=== PATIENT | female | born 1950 | race Hispanic/Latino ===

== ENCOUNTER 2017-05-24 10:49 | Inpatient (IN) | payer MEDICAID ==
[~2017-05-24] VITALS: Ht 152.4 cm; Wt 49.9 kg
[~2017-05-24 10:49] MED LIST: ACETAMINOPHEN500 M5 PO; ACYCLOVIR400 MG GT; APRESOLINE10 MG ORAL; BENADRYL12.5 M1 PO; CARAFATE1 G1 ORAL; COLACE50 MG ORAL; CORTEF10 MG ORAL; CYMBALTA30 MG ORAL; DEPAKOTE250 MG PO; DEPAKOTE500 MG PO; DILAUDID4 MG/ML SQ; DSS250 MG ORAL; DULCOLAX10 MG RC; FERROUS SU300 MG/5 M GT; FLEET ENEMA133 ML RECTAL; FLORINEF0.1 MG ORAL; FOLIC ACID1 MG PO; HYDRALAZINE HCL10 MG ORAL; IMODIUM2 MG GT; KEPPRA LIQ100 MG/1 M GT; KEPPRA500 MG ORAL; KLONOPIN1 MG ORAL; LAMICTAL200 MG ORAL; LEVOTHYROXINE100 MCG ORAL; LIPOFLAVOVIT C1 EACH PO; LORAZEPAM0.5 MG ORAL; LYRICA75 M1 ORAL; METOPROLOL TART25 MG GT; METOPROLOL TART50 M1 ORAL; MIDODRINE HCL10 MG ORAL; MILK OF MA400 MG/51 ORAL; MIRALAX17 G2 ORAL; MIRTAZAPINE15 MG ORAL; MOM30 ML ORAL; MULTIVITAMINS1 EA13 ORAL; MULTIVITAMINS1 EA14 PO; NEXIUM40 MG ORAL; OSCAL D500 MG PO; PEPCID20 M1 *; PEPCID20 MG ORAL; PROTEIN; RANITIDINE HCL150 MG ORAL; REMERON15 MG ORAL; SULFASALAZINE500 MG ORAL; SYNTHROID150 MCG ORAL; TRAMADOL HCL50 MG PO; TYLENOL ARTHRI650 M1 PO; WELLBUTRIN100 MG ORAL; ZOFRAN4 MG ORAL; [UNRECOGNIZED DRUG - REMARK]; dulcolax supp RC
[2017-05-24 11:02] VITALS: BP 162/106
[2017-05-24 11:57] LABS: BASOPHILS % (AUTO) 0.9 % (0.0-2.0); EOSINOPHILS % (AUTO) 0.9 % (0.0-3.0); LYMPHOCYTES % (AUTO) 17.5 % (20.0-45.0); MEAN CORPUSCULAR HEMOGLOBIN 32.7 PG (27.0-31.0); MEAN CORPUSCULAR HGB CONC 33.4 G/DL (32.0-36.0); MEAN CORPUSCULAR VOLUME 98 FL (80-99); MEAN PLATELET VOLUME 5.6 FL (6.5-10.1); NEUTROPHILS % (AUTO) 70.7 % (45.0-75.0); PLATELET COUNT 150 K/UL (150-450); RED BLOOD COUNT 4.02 M/UL (4.20-5.40); RED CELL DISTRIBUTION WIDTH 12.1 % (11.6-14.8); WHITE BLOOD COUNT 7.2 K/UL (4.8-10.8)
[2017-05-24 12:06] LABS: APPEARANCE,URINE CLEAR; KETONES,URINE NEGATIVE (NEGATIVE); LEUKOCYTE ESTERASE ,URINE NEGATIVE (NEGATIVE); NITRITE,URINE NEGATIVE (NEGATIVE); PH,URINE 8 (4.5-8.0); PROTEIN,URINE NEGATIVE (NEGATIVE); UROBILINOGEN,URINE NORMAL MG/DL (0.0-1.0)
[2017-05-24 12:10] LABS: PROTHROMBIN TIME 10.1 SEC (9.30-11.50)
[2017-05-24 12:15] LABS: TROPONIN I < 0.30 ng/mL (<=0.30)
[2017-05-24 12:26] LABS: CKMB 3.2 ng/mL (< 3.8)
--- NOTE | 2017-05-24 12:27 | Emergency Room Report ---
History of Present Illness General Chief Complaint: Multiple Trauma/Fall Source: Medical Record, EMS Present Illness HPI Patient presents with complaints of facial trauma Patient herself has underlying dementia Not able to provide appropriate history The patient's history from the nursing facility is also limited there was a report of a possible fall However I am not able to confirm this and the patient is fairly major trauma to the for head area no obvious trauma to the forearm the hands raising the concern of a possible syncope There was no reports of vomiting Unknown regarding lapse of consciousness Allergies: Coded Allergies: CIPROFLOXACIN (Verified Allergy, Unknown, 10/02/13) HYDROCODONE (Verified Allergy, Unknown, 10/02/13) PENICILLINS (Verified Allergy, Unknown, 10/02/13) PROCHLORPERAZINE (Verified Allergy, Unknown, 10/02/13) Patient History Limited by: medical condition Past Medical History: see triage record Pertinent Family History: unable to obtain Reviewed Nursing Documentation: PMH: Agreed, PSxH: Agreed Nursing Documentation-PMH Hx Cardiac Problems: Yes Hx Hypertension: Yes Hx Pacemaker: No - gerd, seizure, dm, anemia, ftt, hyperlipidemia, mood dx Hx Asthma: No - pna, sepsis, resp insuff., neuropathy, hypothyroidsm, Hx Diabetes: Yes Hx Cancer: No Hx Gastrointestinal Problems: Yes Hx Neurological Problems: No Hx Cerebrovascular Accident: Yes Hx Seizures: Yes Review of Systems All Other Systems: limited - Other than the ones mentioned in the history of present illness all others are reviewed however they do stay limited due to the patient's mental status Physical Exam Vital Signs Date Time Temp Pulse Resp B/P Pulse Ox O2 Delivery O2 Flow Rate FiO2 05/24/17 10:50 97.5 102 18 160/88 98 Room Air Sp02 EP Interpretation: reviewed, normal General Appearance: no apparent distress Head: other - Patient has obvious mid fore head facial trauma, raccoon eye appearance, no obvious septal hematomas however there is crusting of blood showing signs of previous epistaxis no active bleeding at this time Eyes: bilateral eye EOMI, bilateral eye PERRL ENT: hearing grossly normal, normal pharynx, TMs + canals normal, uvula midline Neck: full range of motion, supple, no meningismus, no bony tend Respiratory: lungs clear, normal breath sounds, no rhonchi, no respiratory distress, no retraction, no accessory muscle use Cardiovascular #1: normal peripheral pulses, regular rate, rhythm, no edema, no gallop, no JVD, no murmur Gastrointestinal: normal bowel sounds, non tender, soft, no mass, no organomegaly, non-distended, no guarding, no hernia, no pulsatile mass, no rebound Genitourinary: no CVA tenderness Musculoskeletal: other - No obvious focal deficit in both upper or lower extremities patient has not follow commands however Neurologic: responsive, motor strength/tone normal, sensory intact Psychiatric: mood/affect normal Skin: warm/dry, palpation normal, other - Ecchymosis mid facial area bilateral raccoon eyes Lymphatic: normal inspection, no adenopathy Medical Decision Making Diagnostic Impression: Primary Impression: Syncope Additional Impressions: Pleural effusion Facial trauma Nasal bones, closed fracture ER Course Given the patient's unclear presentation Multiple differentials initiated with possible workup of syncope versus a chemical fall Consideration for facial trauma is made Patient's x-ray shows left-sided questionable effusion This can also be related to trauma No obvious pneumothorax or fractures however CT facial does reveal nasal bone fracture which correlates clinically, no obvious signs of open laceration of her Patient blood work is essentially at baseline levels At this time requiring admission for further care Labs Test 05/24/17 11:14 05/24/17 11:30 Urine Color Pale yellow Urine Appearance Clear Urine pH 8 (4.5-8.0) Urine Specific [place] 1.010 (1.005-1.035) Urine Protein Negative (NEGATIVE) Urine Glucose (UA) Negative (NEGATIVE) Urine Ketones Negative (NEGATIVE) Urine Occult Blood Negative (NEGATIVE) Urine Nitrite Negative (NEGATIVE) Urine Bilirubin Negative (NEGATIVE) Urine Urobilinogen Normal MG/DL (0.0-1.0) Urine Leukocyte Esterase Negative (NEGATIVE) White Blood Count 7.2 K/UL (4.8-10.8) Red Blood Count 4.02 M/UL (4.20-5.40) Hemoglobin 13.2 G/DL (12.0-16.0) Hematocrit 39.3 % (37.0-47.0) Mean Corpuscular Volume 98 FL (80-99) Mean Corpuscular Hemoglobin 32.7 PG (27.0-31.0) Mean Corpuscular Hemoglobin Concent 33.4 G/DL (32.0-36.0) Red Cell Distribution Width 12.1 % (11.6-14.8) Platelet Count 150 K/UL (150-450) Mean Platelet Volume 5.6 FL (6.5-10.1) Neutrophils (%) (Auto) 70.7 % (45.0-75.0) Lymphocytes (%) (Auto) 17.5 % (20.0-45.0) Monocytes (%) (Auto) 10.0 % (1.0-10.0) Eosinophils (%) (Auto) 0.9 % (0.0-3.0) Basophils (%) (Auto) 0.9 % (0.0-2.0) Prothrombin Time 10.1 SEC (9.30-11.50) Prothromb Time International Ratio 1.0 (0.9-1.1) Activated Partial Thromboplast Time 31 SEC (23-33) Sodium Level 133 mEQ/L (135-145) Potassium Level 4.3 mEQ/L (3.4-4.9) Chloride Level 92 mEQ/L (98-107) Carbon Dioxide Level 31 mEQ/L (20-30) Anion Gap 10 (5-15) Blood Urea Nitrogen 14 mg/dL (7-23) Creatinine 0.4 mg/dL (0.5-0.9) Estimat Glomerular Filtration Rate > 60 mL/min (>60) Glucose Level 93 mg/dL (74-106) Calcium Level 9.4 mg/dL (8.6-10.2) Total Bilirubin 0.3 mg/dL (0.0-1.2) Aspartate Amino Transf (AST/SGOT) 30 U/L (5-40) Alanine Aminotransferase (ALT/SGPT) 7 U/L (3-33) Alkaline Phosphatase 93 U/L (35-104) Total Creatine Kinase 74 U/L (26-140) Creatine Kinase MB 3.2 ng/mL (< 3.8) Creatine Kinase MB Relative Index 4.3 Troponin I < 0.30 ng/mL (<=0.30) Pro-B-Type Natriuretic Peptide 1366 pg/mL (0-125) Total Protein 7.7 g/dL (6.6-8.7) Albumin 4.3 g/dL (3.5-5.2) Globulin 3.4 g/dL Albumin/Globulin Ratio 1.2 (1.0-2.7) Lipase 27 U/L (< 60) Rhythm Strip Diag. Results EP Interpretation: yes Rate: 95 Rhythm: NSR, no PVC's, no ectopy, other - rbbb Chest X-Ray Diagnostic Results Chest X-Ray Diagnostic Results : Chest X-Ray Ordered: Yes # of Views/Limited/Complete: 1 View Indication: Chest Pain EP Interpretation: Yes Interpretation: no pneumothorax, other - Left-sided haziness questionable effusion versus other, no obvious bony fracture heart size normal Impression: Other - Left-sided effusion Interpreting ER Provider: mindy zhao, DO CT/MRI/US Diagnostic Results CT/MRI/US Diagnostic Results : Impression CT head:mastoid disease acute vs chronic , no obvious hemorrhage, possible nasal bone fracture CT facial:IMPRESSION: Comminuted fracture of the nasal bone. Overlying soft tissue swelling. Associated subcutaneous gas likely secondary to communication with nasal passages. Open fracture not excludable. Correlate clinically. Paranasal sinus disease--metastases versus inflammatory versus combination Development of left mastoid, middle ear cavities disease, most likely inflammatory, may be acute Last Vital Signs Date Time Temp Pulse Resp B/P Pulse Ox O2 Delivery O2 Flow Rate FiO2 05/24/17 11:02 97.5 90 26 162/106 100 Room Air Status: improved Disposition: ADMITTED INPATIENT Condition: Serious Referrals: Mindy Bryan MD (PCP) MINDY ZHAO D.O. May 24, 2017 12:27
[2017-05-24 12:30] LABS: ALANINE AMINOTRANSFERASE 7 U/L (3-33); ALBUMIN/GLOBULIN RATIO 1.2 (1.0-2.7); ANION GAP 10 (5-15); ASPARTATE AMINO TRANSFERASE 30 U/L (5-40); CALCIUM 9.4 mg/dL (8.6-10.2); CARBON DIOXIDE 31 mEQ/L (20-30); CHLORIDE 92 mEQ/L (98-107); CREATININE 0.4 mg/dL (0.5-0.9); GLOMERULAR FILTRATION RATE > 60 mL/min (>60); HEMOLYSIS 1; LIPASE 27 U/L (< 60); POTASSIUM 4.3 mEQ/L (3.4-4.9); SODIUM 133 mEQ/L (135-145); TOTAL PROTEIN 7.7 g/dL (6.6-8.7)
--- NOTE | 2017-05-24 13:02 | Diagnostic Imaging Report ---
Indications: Fall, left-sided head injury Technique: Continuous helical CT imaging of the brain was performed with automatic exposure control on a Siemens sensation [address] scanner. Axial and coronal images were reconstructed at 5 mm slice thickness and interval. CTDI volume(s): 70 mGy Total DLP: 1291 mGy-cm Findings: Comparison: 06/24/15 Old lacunar infarcts bilateral cerebellar hemispheres and right frontal deep white matter, chronic microvascular ischemic changes bilateral periventricular white matter, focal calcification right frontal cortex versus overlying meninges, diffuse atrophy, prominent bilateral convexity chronic subdural fluid collections right greater than left with mild mass effect unchanged.. No evidence of mass or acute hemorrhage, other new attenuation abnormality, mass effect, midline shift, hydrocephalus or increased intracranial pressure. Bone window images are unremarkable. Pre-nasal soft tissues are swollen with small gas bubble. Increased opacification of bilateral anterior ethmoid sinuses. Air-fluid level left sphenoid sinus. New opacification of left mastoid air cells and left middle ear cavity. Remainder visualized paranasal sinuses, right mastoid air cells clear. IMPRESSION: Nasal soft tissue swelling. Fracture not excludable. Increase in sinus disease, likely inflammatory, though may be traumatic. Development of left mastoid air cell and middle ear cavity opacification most likely inflammatory, possibly acute. No evidence of acute intracranial pathology Stable chronic intracranial changes as described The CT scanner at [facility] is accredited by the [employer] and the scans are performed using protocols designed to limit radiation exposure to as low as reasonably achievable to attain images of sufficient resolution adequate for diagnostic evaluation.
--- NOTE | 2017-05-24 13:05 | Diagnostic Imaging Report ---
Indications: Fall, facial injury, pain Technique: Continuous helical CT imaging of the face was performed with automatic exposure control on a Siemens sensation [address] scanner. Axial and coronal images were reconstructed at 3 mm slice thickness. CTDI volume(s): 28.2 mGy Total DLP: 521 mGy-cm Findings: Comparison: None There is a comminuted, displaced fracture of the nasal bone. Overlying soft tissues are swollen with small gas bubbles. No additional fracture identified. Bilateral anterior ethmoid sinus air cells partially opacified with air-fluid levels. Additional air-fluid level in left sphenoid sinus. Left mastoid air cells nearly completely opacified with air-fluid level. Partial opacification of left middle ear cavity. Remainder of paranasal sinuses, right mastoid air cells clear. Orbital anatomy intact bilaterally. Remaining superficial soft tissues unremarkable. IMPRESSION: Comminuted fracture of the nasal bone. Overlying soft tissue swelling. Associated subcutaneous gas likely secondary to communication with nasal passages. Open fracture not excludable. Correlate clinically. Paranasal sinus disease--metastases versus inflammatory versus combination Development of left mastoid, middle ear cavities disease, most likely inflammatory, may be acute This correlates with [facility] preliminary report.
[2017-05-24 13:35] VITALS: BP 133/84
[2017-05-24] MEDS ORDERED: PYRIDOXINE HCL50 MG ORAL (14:12)
[2017-05-24] MEDS ORDERED: Milk of Magnesia 30ml Ud ORAL PRN (14:15)
[2017-05-24] MEDS ORDERED: Fleet's Enema 133ml RECTAL PRN (14:15)
[2017-05-24 14:35] VITALS: BP 137/67
--- NOTE | 2017-05-24 14:37 | Diagnostic Imaging Report ---
Indications: Chest pain Technique: Portable AP chest Findings: Comparison: Chest radiograph 06/24/15; CT abdomen pelvis 04/02/15 Hazy opacity persists in the/over the left lung base. This appears associated with a persistently elevated left hemidiaphragm, subjacent to which resides gas lucency and peripherally calcified nodular foci.. Linear density persists in the left midlung. Blunting of the left costophrenic angle persists. Elevation of the apparent right hemidiaphragm likewise persists. Visualized portions of right lung and pleura remain clear. Cardiac silhouette upper limits of normal size. Pulmonary vasculature remains within normal limits. Filter present in the region of inferior vena cava. IMPRESSION: Persistent elevation of left hemidiaphragm with subjacent gas-filled stomach and, per prior CT scan, splenic artery calcifications with aneurysm. Latter previously demonstrated occluded. Superimposed hazy opacity in left costophrenic angle blunting correspond to prominent epicardial fat pad in this region on CT scan. New left lung base infiltrate and/or pleural effusion not excludable, however. Stable chronic changes as described
[2017-05-24 15:59] VITALS: BP 132/78
--- NOTE | 2017-05-24 17:28 | Neurology Progress Note ---
Objective Physical Exam Last Vital Signs Date Time Temp Pulse Resp B/P Pulse Ox O2 Delivery O2 Flow Rate FiO2 05/24/17 15:59 97.9 74 20 132/78 99 Room Air Laboratory Tests Test 05/24/17 11:14 05/24/17 11:30 Urine Color Pale yellow Urine Appearance Clear Urine pH 8 (4.5-8.0) Urine Specific [place] 1.010 (1.005-1.035) Urine Protein Negative (NEGATIVE) Urine Glucose (UA) Negative (NEGATIVE) Urine Ketones Negative (NEGATIVE) Urine Occult Blood Negative (NEGATIVE) Urine Nitrite Negative (NEGATIVE) Urine Bilirubin Negative (NEGATIVE) Urine Urobilinogen Normal MG/DL (0.0-1.0) Urine Leukocyte Esterase Negative (NEGATIVE) White Blood Count 7.2 K/UL (4.8-10.8) Red Blood Count 4.02 M/UL (4.20-5.40) L Hemoglobin 13.2 G/DL (12.0-16.0) Hematocrit 39.3 % (37.0-47.0) Mean Corpuscular Volume 98 FL (80-99) Mean Corpuscular Hemoglobin 32.7 PG (27.0-31.0) H Mean Corpuscular Hemoglobin Concent 33.4 G/DL (32.0-36.0) Red Cell Distribution Width 12.1 % (11.6-14.8) Platelet Count 150 K/UL (150-450) Mean Platelet Volume 5.6 FL (6.5-10.1) L Neutrophils (%) (Auto) 70.7 % (45.0-75.0) Lymphocytes (%) (Auto) 17.5 % (20.0-45.0) L Monocytes (%) (Auto) 10.0 % (1.0-10.0) Eosinophils (%) (Auto) 0.9 % (0.0-3.0) Basophils (%) (Auto) 0.9 % (0.0-2.0) Prothrombin Time 10.1 SEC (9.30-11.50) Prothromb Time International Ratio 1.0 (0.9-1.1) Activated Partial Thromboplast Time 31 SEC (23-33) Sodium Level 133 mEQ/L (135-145) L Potassium Level 4.3 mEQ/L (3.4-4.9) Chloride Level 92 mEQ/L (98-107) L Carbon Dioxide Level 31 mEQ/L (20-30) H Anion Gap 10 (5-15) Blood Urea Nitrogen 14 mg/dL (7-23) Creatinine 0.4 mg/dL (0.5-0.9) L Estimat Glomerular Filtration Rate > 60 mL/min (>60) Glucose Level 93 mg/dL (74-106) Calcium Level 9.4 mg/dL (8.6-10.2) Total Bilirubin 0.3 mg/dL (0.0-1.2) Aspartate Amino Transf (AST/SGOT) 30 U/L (5-40) Alanine Aminotransferase (ALT/SGPT) 7 U/L (3-33) Alkaline Phosphatase 93 U/L (35-104) Total Creatine Kinase 74 U/L (26-140) Creatine Kinase MB 3.2 ng/mL (< 3.8) Creatine Kinase MB Relative Index 4.3 Troponin I < 0.30 ng/mL (<=0.30) Pro-B-Type Natriuretic Peptide 1366 pg/mL (0-125) H Total Protein 7.7 g/dL (6.6-8.7) Albumin 4.3 g/dL (3.5-5.2) Globulin 3.4 g/dL Albumin/Globulin Ratio 1.2 (1.0-2.7) Lipase 27 U/L (< 60) Impression/Recommendations Problems: (1) Nasal bones, closed fracture (2) Seizure disorder (3) 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
[2017-05-24 20:00] VITALS: BP 156/89
[2017-05-24] MEDS: Docusate 100mg cap ORAL SCH (21:10)
[2017-05-24] MEDS: Depakote ER 500mg tab ORAL SCH (21:10)
[2017-05-25] VITALS (7 sets, daily range): BP systolic 99–110; BP diastolic 55–62
--- NOTE | 2017-05-25 00:17 | History and Physical Report ---
DATE OF ADMISSION: 05/24/2017 HISTORY OF PRESENT ILLNESS: The patient is admitted for syncope and facial trauma. The patient was found on the floor at the alf. The patient had nosebleed. The patient is also admitted for comminuted nasal fracture and syncope. The patient is a poor historian and also has elevated BNP. Cannot get a reliable history from the patient. The patient does complain of facial pain and back pain as well. Denies any nausea, vomiting, or diarrhea. Denies fever or chills. Denies shortness of breath. Denies cough. Denies cheat pain, however, the patient is a poor historian as mentioned. PAST MEDICAL HISTORY: History of hypothyroidism, history of mastoiditis, history of cholelithiasis, history of herpes zoster, dermatitis, history of diverticulosis, history of hyponatremia, history of mitral regurgitation, history of pancytopenia, history of abdominal pain, UTI, history of lumbar compression fracture, history of nosebleed, history of seizure, history of diabetes, history of hypertension, history of constipation, history of subdural hematoma, history of CHF, history of SIADH, history of encephalopathy, history of respiratory insufficiency, hyperkalemia, history of PEG in the past , and also mood disorder. PAST SURGICAL HISTORY: She has a history of PEG in the past. MEDICATIONS: Tylenol, bisacodyl, calcium, Depakote, Colace, Pepcid, ferrous sulfate, Foltx, , and hydralazine. ALLERGIES: Cipro, hydrocodone, penicillin, and . FAMILY HISTORY: Noncontributory. SOCIAL HISTORY: Denies smoking, alcohol, or illicit drug abuse. She lives in a alf. REVIEW OF SYSTEMS: Unable to obtain, however, does complain of generalized pain, especially on the face and the back. The patient is a poor historian. Back pain is mild and deep. 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 PHYSICAL EXAMINATION: VITAL SIGNS: Basically, temperature is 97.5 degrees, pulse 103, and blood pressure 160/88. HEENT: PERRLA. NECK: Supple. No lymphadenopathy. SKIN: Does have bruises throughout the body from the fall. CHEST: Clear to auscultation. CARDIOVASCULAR: Regular rate and rhythm. GASTROINTESTINAL: Soft, nontender, and nondistended. No organomegaly. EXTREMITIES: Without clubbing, cyanosis, or edema. Reflexes are equal on both sides. Oriented to name. She is able to move extremities. NEUROLOGIC: Pupils are equally reactive. LABORATORY DATA: WBC of 7.4, hemoglobin 13.2, and platelets of 150,000. Sodium 130, potassium 4.3, BUN of 14, creatinine 0.4, and glucose of 183. ASSESSMENT AND PLAN: 1. Elevated BNP of 1366. 2. hyponatremia. I have asked Nephrology to see the patient. 3. Comminuted nasal fracture. I have asked Dr. Kaur to see the patient for the ENT. 4. The patient has also possible syncopal episode for which we are going to monitor the patient for now for any arrhythmia. 5. Dr. Fam is also consulted to rule out any subdural hematoma because the patient had head injury and head trauma at the alf. Mindy Bryan M.D. DR: LI JOB#: [id number] CC:
--- NOTE | 2017-05-25 02:16 | Consultation ---
DATE OF CONSULTATION: 05/24/2017 NEUROLOGICAL CONSULTATION CONSULTING PHYSICIAN: Raymundo Fam M.D. REQUESTING PHYSICIAN: Mindy Bryan M.D. HISTORY OF PRESENT ILLNESS: This is a 67-year-old female, resident of nursing facility was brought to this hospital after having an episode when she fell down and injured her head. The patient informed me that she practically remain in a wheelchair at all times although she is capable of walking. 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 She had no recollection of being unconscious. She was helped back to her wheelchair and then paramedics were called to the scene. She was brought to this hospital. She denies associated symptomatology including convulsions, foaming from mouth, no urine or bowel incontinence. On arrival to the hospital, vital signs were stable. Blood pressure 160/88 and heart rate of 102, she was afebrile. Head, normocephalic. No evidence of periorbital ecchymosis. With this, she had imaging studies including CAT scan of the brain, which revealed nasal soft tissue swelling possible fracture, left mastoid air cells and middle ear cavity opacification most likely inflammatory probably acute. There was no acute intracranial abnormality. There was old lacunar infarct, bilateral cerebral hemispheres with right frontal deep white matter chronic microvascular ischemic changes, bilateral periventricular white matter and focal calcification. Facial bone CAT scan reveals comminuted fracture of nasal bone with overlying soft tissue swelling and subcutaneous gas probably secondary to communication to nasal passages. Paranasal sinus disease, and left mastoid, middle ear disease, most likely inflammatory may be acute. Laboratory work included normal CBC study, coagulation panel, and normal urinalysis and normal chemistry panel except carbon dioxide of 31, and BNP of 1366. Sodium 133. Since admission to present, her condition remained essentially unchanged with no further paroxysmal events. Her chest x-ray was also obtained this revealed persistent elevation of left hemidiaphragm, hazy opacity of left costophrenic angle corresponding to prominent epicardial fat, new left lung base infiltrate and old pleural effusion not excludable. PAST MEDICAL HISTORY: The patient has a history of hypertension, diabetes type 2, memory loss, and gait abnormality. CURRENT MEDICATIONS: Treatment included Wellbutrin 150 mg b.i.d., clonazepam 1 mg t.i.d. p.r.n., Benadryl, Depakote 500 mg q.12 h., Cymbalta 20 mg, Nexium, Pepcid, ferrous sulfate, Florinef 0.1 mg daily, hydralazine, Lamictal 150 mg b.i.d., levothyroxine, Imodium, Remeron, midodrine 10 mg t.i.d., pyridoxine, Lyrica 100 mg b.i.d., ranitidine, tramadol 50 mg and B12. The patient has a history of hypothyroidism, respiratory insufficiency, bronchial asthma, and old tracheostomy, this indication that patient did have carotid artery disease and seizure disorder. Per latest admission, the patient has a previous history of mastoiditis and not complete history of seizure, depression with mood disorder. ALLERGIES: Cipro, hydrocodone, penicillin, prochlorperazine. FAMILY HISTORY: Noncontributory. SOCIAL HISTORY: Resident of nursing facility. REVIEW OF SYMPTOMS: The patient indicates she is feeling fairly well. Denied headache, but has discomfort in her facial injury site. Denies pain and discomfort in both upper and lower extremities. Indicates, she is able to walk but using a walker. She has no chest pain. No palpitations. No respiratory problems. Denies abdominal pain or discomfort. No urine or bowel incontinence. PHYSICAL EXAMINATION: GENERAL: A well-developed, somewhat cachectic, slim, elderly lady, not in acute distress. VITAL SIGNS: Stable. Blood pressure 132/78 and temperature 97.9. HEENT: Head, normocephalic. There is periorbital ecchymosis, swelling, nose bridge tenderness on palpation. No otorrhea. No rhinorrhea noted. NECK: Supple. No meningeal signs. MUSCULOSKELETAL EXAMINATION: Able to move arms and flex against the gravity. Peripheral pulses 1+ symmetric. MENTAL STATUS: She is full alert and oriented x2. Speech is fluent with no evidence of aphasia or apraxia. She is forgetful on recent events. Poor historian, but able to communicate for current condition. CRANIAL NERVE II: Pupils both responding to light and accommodation. Extraocular movement intact. No nystagmus. CRANIAL NERVE V: Normal corneal responses. CRANIAL NERVE VII: Mild facial asymmetry. CRANIAL NERVE VIII: Slight decrease in hearing. CRANIAL NERVE IX THROUGH XII: With normal limits. MOTOR EXAMINATION: Normal muscle tone. Strength 5/5 in all extremities. No involuntary movement. Deep tendon reflexes 1+ symmetric with downgoing toes on both sides. SENSORY EXAMINATION: Normal in all modalities. Gait is somewhat unstable, wobbly, required assistance. IMPRESSION: 1. Status post mechanical fall with blunt head trauma and nasal bone fracture. 2. Extensive ischemic cerebrovascular disease and multiple lacunar strokes presenting with gait abnormality and mild cognitive impairment. 3. History of seizure disorder. 4. Hypertension. 5. History of depression and anxiety. 6. History of orthostatic hypotension. 7. History of hypothyroidism. 8. Polypharmacy. RECOMMENDATION: 1. Review treatment. The patient is on multiple overlapping medications. 2. Aspirin/statins. 3. Check liver function and ammonia level. 4. EEG to rule out ongoing seizure activities. 5. PT and OT mobility protocol. Thank you for allowing me to see this interesting patient in neurological consultation. Raymundo Fam M.D. DR: SERGEY JOB#: [id number] CC:
[2017-05-25 08:54] LABS: BASOPHILS % (AUTO) 0.9 % (0.0-2.0); EOSINOPHILS % (AUTO) 1.8 % (0.0-3.0); LYMPHOCYTES % (AUTO) 32.4 % (20.0-45.0); MEAN CORPUSCULAR HEMOGLOBIN 32.7 PG (27.0-31.0); MEAN CORPUSCULAR HGB CONC 33.6 G/DL (32.0-36.0); MEAN CORPUSCULAR VOLUME 97 FL (80-99); MEAN PLATELET VOLUME 5.8 FL (6.5-10.1); MONOCYTES % (AUTO) 9.6 % (1.0-10.0); NEUTROPHILS % (AUTO) 55.3 % (45.0-75.0); PLATELET COUNT 137 K/UL (150-450); RED CELL DISTRIBUTION WIDTH 11.9 % (11.6-14.8); WHITE BLOOD COUNT 4.8 K/UL (4.8-10.8)
[2017-05-25] MEDS: Depakote ER 500mg tab ORAL SCH ×2 (08:56→20:54)
[2017-05-25] MEDS: Docusate 100mg cap ORAL SCH ×2 (08:56→20:54)
[2017-05-25] MEDS: Metoprolol Succinate XL 25mg tab ORAL SCH (09:00)
[2017-05-25] MEDS: Pyridoxine 50mg tab ORAL SCH (09:01)
[2017-05-25 09:15] LABS: ALANINE AMINOTRANSFERASE 7 U/L (3-33); ALBUMIN/GLOBULIN RATIO 1.7 (1.0-2.7); ANION GAP 12 (5-15); ASPARTATE AMINO TRANSFERASE 22 U/L (5-40); CARBON DIOXIDE 23 mEQ/L (20-30); CHLORIDE 91 mEQ/L (98-107); CREATININE 0.5 mg/dL (0.5-0.9); GLOMERULAR FILTRATION RATE > 60 mL/min (>60); HEMOLYSIS 2; SODIUM 126 mEQ/L (135-145); TOTAL PROTEIN 6.8 g/dL (6.6-8.7)
--- NOTE | 2017-05-25 18:30 | Consultation ---
DATE OF CONSULTATION: 05/25/2017 HEAD AND NECK SURGERY FACIAL PLASTIC INITIAL CONSULTATION REQUESTING PHYSICIAN: Mindy Bryan M.D. CONSULTING PHYSICIAN: Yair Kaur M.D. INDICATION FOR CONSULTATION: The patient passed out, has a nasal fracture on CT scan with soft tissue swelling bilaterally of the sinusitis. Facial trauma and a nosebleed, which has stopped. PAST MEDICAL HISTORY: Significant for respiratory insufficiency, BiPAP dependence, hypokalemia, PEG in the past, malnutrition, hypothyroidism, pyuria, mastoiditis, cholelithiasis, diverticulosis, hypernatremia, mitral regurgitation, neutropenia, pancytopenia, aspiration, pneumonia, respiratory insufficiency, abdominal pain, herpes zoster, complicated urinary tract infection, MRSA colonization, lumbar compression fraction, and aspiration lower respiratory tract, this is all according to the record, she does not speak [place] well. Looking over the records, I would like to add that she has a history also of a subdural hematoma, congestive heart failure, encephalopathy. MEDICATIONS: Tylenol, Toprol-XL, folate, multivitamins, vitamin B6, Synthroid, Colace, Depakote, Tylenol, Dulcolax, milk of magnesia, dextrose, and sodium phosphates. ALLERGIES: She is allergic to Ciprofloxacin, hydrocodone, penicillin, and prochlorperazine according to the chart. PHYSICAL EXAMINATION: GENERAL: The patient is a 67-year-old female. VITAL SIGNS: Height 152.4 centimeters, weight 49.995 kilograms and BMI 21.5 kilograms/meter squared. HEENT: Head is normocephalic. Face is swollen. Both eyes black and blue. Her nose has dried blood in it, although she say she can breathe through her nose. She has some missing teeth in her mouth. Ears, positive light reflex. Normal canals. NECK: No palpable masses or tenderness today. LABORATORY AND DIAGNOSTIC DATA: White count of 4.8 this morning and was 7.2 yesterday. Her platelet count was 150,000 and now 137,000 this morning. Her coagulation, INR is 1.0, PTT 31 and PT 10.1. ASSESSMENT: She has a nasal fracture, but it does not appear to be dramatically displaced, only minimally so and she states she is breathing through her nose and therefore we can hold off on any emergency repair. PLAN: I would recommend ice to her face for 48 hours to help decrease swelling. She is a care first [facility] Medical patient. She can be once stabilize discharged to see a plastic surgeon within their plan who can followup. At this point, I am not sure she will need surgery to repair her nose, it may just be a nondisplaced fracture and therefore once allowed to heal should be okay. On CT scan, it does not look dramatically displaced and fortunately she does not have orbital rim fracture. She has this small displacement on the left side, which at this point would not entail surgical repair. Thank you very much for asking my opinion in the care and treatment of this patient. Yair Kaur M.D. DR: JAMES JOB#: [id number] CC:
--- NOTE | 2017-05-25 21:28 | General Progress Note ---
Assessment/Plan Problem List: (1) Nosebleed ICD Codes: R04.0 - Epistaxis SNOMED: 19255635, 884682437 (2) Syncope ICD Codes: R55 - Syncope and collapse SNOMED: 463575413 (3) Nasal bones, closed fracture ICD Codes: S02.2XXA - Fracture of nasal bones, initial encounter for closed fracture SNOMED: 69153631 (4) Facial trauma ICD Codes: S09.93XA - Unspecified injury of face, initial encounter SNOMED: 012732581 Status: progressing Assessment/Plan afebrile nose bleed stopped syncope check for arrythmia Subjective ROS Limited/Unobtainable: Yes Allergies: Coded Allergies: CIPROFLOXACIN (Verified Allergy, Unknown, 10/02/13) HYDROCODONE (Verified Allergy, Unknown, 10/02/13) PENICILLINS (Verified Allergy, Unknown, 10/02/13) PROCHLORPERAZINE (Verified Allergy, Unknown, 10/02/13) Objective Last 24 Hour Vital Signs Date Time Temp Pulse Resp B/P Pulse Ox O2 Delivery O2 Flow Rate FiO2 05/25/17 19:51 99.2 80 19 102/55 96 Room Air 05/25/17 16:00 76 05/25/17 16:00 97.5 74 19 99/62 98 Room Air 05/25/17 14:03 97.7 05/25/17 12:00 77 05/25/17 12:00 97.7 73 20 108/61 94 Room Air 05/25/17 09:00 91 05/25/17 09:00 80 108/63 05/25/17 08:00 97.2 83 19 105/58 95 Room Air 05/25/17 04:00 80 05/25/17 04:00 97.0 77 18 103/56 97 Room Air 05/25/17 00:00 79 05/25/17 00:00 97.9 72 16 110/60 96 Room Air Intake and Output 05/24/17 05/25/17 19:00 07:00 Intake Total 120 ml Output Total 300 ml Balance -180 ml Intake Oral 120 ml Output Urine Total 300 ml # Voids 3 # Bowel Movements 2 2 Laboratory Tests 05/25/17 08:35: White Blood Count 4.8, Red Blood Count 3.60L, Hemoglobin 11.8L, Hematocrit 35.1L , Mean Corpuscular Volume 97, Mean Corpuscular Hemoglobin 32.7H, Mean Corpuscular Hemoglobin Concent 33.6, Red Cell Distribution Width 11.9, Platelet Count 137L, Mean Platelet Volume 5.8L, Neutrophils (%) (Auto) 55.3, Lymphocytes (%) (Auto) 32.4, Monocytes (%) (Auto) 9.6, Eosinophils (%) (Auto) 1.8, Basophils (%) (Auto) 0.9, Sodium Level 126L, Potassium Level 4.0, Chloride Level 91L, Carbon Dioxide Level 23, Anion Gap 12, Blood Urea Nitrogen 16, Creatinine 0.5, Estimat Glomerular Filtration Rate > 60, Glucose Level 157H, Calcium Level 9.0, Total Bilirubin 0.3, Aspartate Amino Transf (AST/SGOT) 22, Alanine Aminotransferase (ALT/SGPT) 7, Alkaline Phosphatase 66, Total Protein 6.8, Albumin 4.3, Globulin 2.5, Albumin/Globulin Ratio 1.7 Height (Feet): 5 Height (Inches): 0.00 Weight (Pounds): 110 Mindy Bryan MD May 25, 2017 21:28
[2017-05-26 04:03] VITALS: BP 98/49
[2017-05-26 08:11] VITALS: BP 113/60
[2017-05-26] MEDS: Metoprolol Succinate XL 25mg tab ORAL SCH (08:22)
[2017-05-26] MEDS: Docusate 100mg cap ORAL SCH ×2 (08:23→20:23)
[2017-05-26] MEDS: Depakote ER 500mg tab ORAL SCH ×2 (08:23→20:23)
[2017-05-26] MEDS: Pyridoxine 50mg tab ORAL SCH (08:24)
[2017-05-26 11:12] LABS: BASOPHILS % (AUTO) 0.9 % (0.0-2.0); LYMPHOCYTES % (AUTO) 23.4 % (20.0-45.0); MEAN CORPUSCULAR HEMOGLOBIN 33.3 PG (27.0-31.0); MEAN CORPUSCULAR HGB CONC 34.1 G/DL (32.0-36.0); MEAN CORPUSCULAR VOLUME 98 FL (80-99); MEAN PLATELET VOLUME 5.5 FL (6.5-10.1); NEUTROPHILS % (AUTO) 63.6 % (45.0-75.0); PLATELET COUNT 144 K/UL (150-450); RED BLOOD COUNT 3.85 M/UL (4.20-5.40); RED CELL DISTRIBUTION WIDTH 11.8 % (11.6-14.8); WHITE BLOOD COUNT 5.6 K/UL (4.8-10.8)
--- NOTE | 2017-05-26 11:13 | Consultation ---
Consult Note Consult Note asked to eval for low Na Chief Complaint: Multiple Trauma/Fall Patient presents with complaints of facial trauma Patient herself has underlying dementia Not able to provide appropriate history The patient's history from the nursing facility is also limited there was a report of a possible fall However I am not able to confirm this and the patient is fairly major trauma to the for head area no obvious trauma to the forearm the hands raising the concern of a possible syncope There was no reports of vomiting Unknown regarding lapse of consciousness Allergies: CIPROFLOXACIN (Verified Allergy, Unknown, 10/02/13) HYDROCODONE (Verified Allergy, Unknown, 10/02/13) PENICILLINS (Verified Allergy, Unknown, 10/02/13) PROCHLORPERAZINE (Verified Allergy, Unknown, 10/02/13) gerd, seizure, dm, anemia, ftt, hyperlipidemia, mood dx sepsis, resp insuff., neuropathy, hypothyroidsm, Hx Cardiac Problems: Yes Hx Hypertension: Yes Hx Diabetes: Yes Hx Gastrointestinal Problems: Yes Hx Cerebrovascular Accident: Yes Hx Seizures: Yes Assessment/Plan -HypoNatremia , Etiology? ? 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
[2017-05-26 11:24] LABS: OSMOLALITY SERUM 274 mOsm/kg (297-317)
[2017-05-26 11:27] LABS: ALANINE AMINOTRANSFERASE 7 U/L (3-33); ALBUMIN/GLOBULIN RATIO 1.2 (1.0-2.7); ANION GAP 8 (5-15); ASPARTATE AMINO TRANSFERASE 22 U/L (5-40); CALCIUM 9.1 mg/dL (8.6-10.2); CARBON DIOXIDE 28 mEQ/L (20-30); CHLORIDE 93 mEQ/L (98-107); CHOLESTEROL 142 mg/dL (< 200); CHOLESTEROL/HDL RATIO 1.9 (3.3-4.4); CREATININE 0.4 mg/dL (0.5-0.9); CRP QUANT 0.8 mg/dL (< 0.5); GLOMERULAR FILTRATION RATE > 60 mL/min (>60); HEMOLYSIS 3; LDL CHOLESTEROL (CALC.) 54 mg/dL (60-99); MAGNESIUM 1.9 mg/dL (1.7-2.5); POTASSIUM 4.6 mEQ/L (3.4-4.9); SODIUM 129 mEQ/L (135-145); TOTAL PROTEIN 7.3 g/dL (6.6-8.7); URIC ACID 3.7 mg/dL (3.0-7.5)
[2017-05-26 11:29] LABS: HEMOGLOBIN A1C 4.2 % (< 6.0)
[2017-05-26 11:54] VITALS: BP 130/71
--- NOTE | 2017-05-26 15:37 | General Progress Note ---
Assessment/Plan Problem List: (1) Nosebleed ICD Codes: R04.0 - Epistaxis SNOMED: 51658469, 868971915 (2) Syncope ICD Codes: R55 - Syncope and collapse SNOMED: 513009047 (3) Nasal bones, closed fracture ICD Codes: S02.2XXA - Fracture of nasal bones, initial encounter for closed fracture SNOMED: 31294569 (4) Facial trauma ICD Codes: S09.93XA - Unspecified injury of face, initial encounter SNOMED: 903721312 Status: progressing Assessment/Plan vitals stable no nose bleed clinically improving no arrythmia syncope Subjective ROS Limited/Unobtainable: Yes Allergies: Coded Allergies: CIPROFLOXACIN (Verified Allergy, Unknown, 10/02/13) HYDROCODONE (Verified Allergy, Unknown, 10/02/13) PENICILLINS (Verified Allergy, Unknown, 10/02/13) PROCHLORPERAZINE (Verified Allergy, Unknown, 10/02/13) Objective Last 24 Hour Vital Signs Date Time Temp Pulse Resp B/P Pulse Ox O2 Delivery O2 Flow Rate FiO2 05/26/17 12:00 63 05/26/17 11:54 97.2 75 19 130/71 95 Room Air 05/26/17 08:22 69 113/60 05/26/17 08:11 97.0 69 21 113/60 94 Room Air 05/26/17 08:00 65 05/26/17 04:03 98.8 58 19 98/49 98 Room Air 05/26/17 04:00 56 05/26/17 03:32 97.8 05/26/17 00:00 58 05/25/17 23:51 97.8 64 18 106/62 95 Room Air 05/25/17 20:00 67 05/25/17 19:51 99.2 80 19 102/55 96 Room Air 05/25/17 16:00 76 05/25/17 16:00 97.5 74 19 99/62 98 Room Air Intake and Output 05/25/17 05/26/17 18:59 06:59 Intake Total 600 ml Balance 600 ml Intake Oral 600 ml # Voids 5 2 # Bowel Movements 1 1 Laboratory Tests 05/26/17 10:40: Urine Osmolality 555H, Urine Random Sodium 32 05/26/17 10:55: White Blood Count 5.6, Red Blood Count 3.85L, Hemoglobin 12.8, Hematocrit 37.6, Mean Corpuscular Volume 98, Mean Corpuscular Hemoglobin 33.3H, Mean Corpuscular Hemoglobin Concent 34.1, Red Cell Distribution Width 11.8, Platelet Count 144L, Mean Platelet Volume 5.5L, Neutrophils (%) (Auto) 63.6, Lymphocytes (%) (Auto) 23.4, Monocytes (%) (Auto) 10.0, Eosinophils (%) (Auto) 2.0, Basophils (%) (Auto ) 0.9, Sodium Level 129L, Potassium Level 4.6, Chloride Level 93L, Carbon Dioxide Level 28, Anion Gap 8, Blood Urea Nitrogen 12, Creatinine 0.4L, Estimat Glomerular Filtration Rate > 60, Glucose Level 84, Hemoglobin A1c 4.2, Osmolality 274L, Uric Acid 3.7, Calcium Level 9.1, Phosphorus Level 4.0, Magnesium Level 1.9, Total Bilirubin 0.3, Aspartate Amino Transf (AST/SGOT) 22, Alanine Aminotransferase (ALT/SGPT) 7, Alkaline Phosphatase 72, C-Reactive Protein, Quantitative 0.8H, Pro-B-Type Natriuretic Peptide 436H, Total Protein 7.3, Albumin 4.0, Globulin 3.3, Albumin/Globulin Ratio 1.2, Triglycerides Level 75, Cholesterol Level 142, LDL Cholesterol 54L, HDL Cholesterol 73H, Cholesterol /HDL Ratio 1.9L, Thyroid Stimulating Hormone (TSH) 2.950 Height (Feet): 5 Height (Inches): 0.00 Weight (Pounds): 110 EENT: PERRL/EOMI Neck: supple Cardiovascular: normal rate Respiratory/Chest: lungs clear Mindy Bryan MD May 26, 2017 15:37
[2017-05-26 15:44] VITALS: BP 107/47
--- NOTE | 2017-05-26 17:25 | General Progress Note ---
Progress Note Progress Note ENT/Facial Plastics I did not mention in yesterdays note that normally an antibiotic, such as Amoxicillin, would be given to this pt as a protective measure for sinusitis since she has dried blood and swelling in her know. In this case, she is PCN allegic as well as many other antibiotics. Azithromycin is an option. Another option is to wait and see if any signs of facial or sinus infection occur-which in this case is reasonable. At the moment her WBC and temp are WNL and therefore would hold off on antibiotics unless those indicators show a change. ANATOLY VAZQUEZ May 26, 2017 17:25
[2017-05-26 19:57] VITALS: BP 126/70
[2017-05-27] VITALS (7 sets, daily range): BP systolic 95–114; BP diastolic 52–63
--- NOTE | 2017-05-27 08:50 | General Progress Note ---
Assessment/Plan Problem List: (1) Nosebleed ICD Codes: R04.0 - Epistaxis SNOMED: 63101367, 965226828 (2) Syncope ICD Codes: R55 - Syncope and collapse SNOMED: 066281915 (3) Nasal bones, closed fracture ICD Codes: S02.2XXA - Fracture of nasal bones, initial encounter for closed fracture SNOMED: 41683721 (4) Facial trauma ICD Codes: S09.93XA - Unspecified injury of face, initial encounter SNOMED: 496249262 Status: progressing Assessment/Plan dc to snf in am afebrile no acute events no arrythmia syncope Subjective ROS Limited/Unobtainable: Yes Allergies: Coded Allergies: CIPROFLOXACIN (Verified Allergy, Unknown, 10/02/13) HYDROCODONE (Verified Allergy, Unknown, 10/02/13) PENICILLINS (Verified Allergy, Unknown, 10/02/13) PROCHLORPERAZINE (Verified Allergy, Unknown, 10/02/13) Objective Last 24 Hour Vital Signs Date Time Temp Pulse Resp B/P Pulse Ox O2 Delivery O2 Flow Rate FiO2 05/27/17 08:07 97.1 72 18 113/59 96 Room Air 05/27/17 08:00 97.1 72 18 113/59 96 Room Air 05/27/17 04:10 97.0 65 20 107/63 96 Room Air 05/27/17 04:00 60 05/27/17 00:04 97.0 73 20 114/60 97 Room Air 05/27/17 00:00 65 05/26/17 20:00 75 05/26/17 19:57 98.0 68 20 126/70 97 Room Air 05/26/17 16:00 66 05/26/17 15:44 96.6 66 19 107/47 97 Room Air 05/26/17 12:00 63 05/26/17 11:54 97.2 75 19 130/71 95 Room Air Intake and Output 05/26/17 05/27/17 19:00 07:00 # Voids 1 2 Laboratory Tests 05/26/17 10:40: Urine Osmolality 555H, Urine Random Sodium 32 05/26/17 10:55: White Blood Count 5.6, Red Blood Count 3.85L, Hemoglobin 12.8, Hematocrit 37.6, Mean Corpuscular Volume 98, Mean Corpuscular Hemoglobin 33.3H, Mean Corpuscular Hemoglobin Concent 34.1, Red Cell Distribution Width 11.8, Platelet Count 144L, Mean Platelet Volume 5.5L, Neutrophils (%) (Auto) 63.6, Lymphocytes (%) (Auto) 23.4, Monocytes (%) (Auto) 10.0, Eosinophils (%) (Auto) 2.0, Basophils (%) (Auto ) 0.9, Sodium Level 129L, Potassium Level 4.6, Chloride Level 93L, Carbon Dioxide Level 28, Anion Gap 8, Blood Urea Nitrogen 12, Creatinine 0.4L, Estimat Glomerular Filtration Rate > 60, Glucose Level 84, Hemoglobin A1c 4.2, Osmolality 274L, Uric Acid 3.7, Calcium Level 9.1, Phosphorus Level 4.0, Magnesium Level 1.9, Total Bilirubin 0.3, Aspartate Amino Transf (AST/SGOT) 22, Alanine Aminotransferase (ALT/SGPT) 7, Alkaline Phosphatase 72, C-Reactive Protein, Quantitative 0.8H, Pro-B-Type Natriuretic Peptide 436H, Total Protein 7.3, Albumin 4.0, Globulin 3.3, Albumin/Globulin Ratio 1.2, Triglycerides Level 75, Cholesterol Level 142, LDL Cholesterol 54L, HDL Cholesterol 73H, Cholesterol /HDL Ratio 1.9L, Thyroid Stimulating Hormone (TSH) 2.950 Height (Feet): 5 Height (Inches): 0.00 Weight (Pounds): 110 Cardiovascular: normal rate Respiratory/Chest: lungs clear Abdomen: soft Mindy Bryan MD May 27, 2017 08:50
--- NOTE | 2017-05-27 09:11 | General Progress Note ---
Assessment/Plan Assessment/Plan -HypoNatremia , Etiology? ? 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, stable gerd, seizure, dm, anemia, ftt, hyperlipidemia, mood dx sepsis, resp insuff., neuropathy, hypothyroidsm, Plan: IV saline 3% Lasix monitor Na Po fluid restriction Subjective ROS Limited/Unobtainable: No Constitutional: Reports: malaise Allergies: Coded Allergies: CIPROFLOXACIN (Verified Allergy, Unknown, 10/02/13) HYDROCODONE (Verified Allergy, Unknown, 10/02/13) PENICILLINS (Verified Allergy, Unknown, 10/02/13) PROCHLORPERAZINE (Verified Allergy, Unknown, 10/02/13) Objective Last 24 Hour Vital Signs Date Time Temp Pulse Resp B/P Pulse Ox O2 Delivery O2 Flow Rate FiO2 05/27/17 08:07 97.1 72 18 113/59 96 Room Air 05/27/17 08:00 97.1 72 18 113/59 96 Room Air 05/27/17 04:10 97.0 65 20 107/63 96 Room Air 05/27/17 04:00 60 05/27/17 00:04 97.0 73 20 114/60 97 Room Air 05/27/17 00:00 65 05/26/17 20:00 75 05/26/17 19:57 98.0 68 20 126/70 97 Room Air 05/26/17 16:00 66 05/26/17 15:44 96.6 66 19 107/47 97 Room Air 05/26/17 12:00 63 05/26/17 11:54 97.2 75 19 130/71 95 Room Air Intake and Output 05/26/17 05/27/17 19:00 07:00 # Voids 1 2 Laboratory Tests 05/26/17 10:40: Urine Osmolality 555H, Urine Random Sodium 32 05/26/17 10:55: White Blood Count 5.6, Red Blood Count 3.85L, Hemoglobin 12.8, Hematocrit 37.6, Mean Corpuscular Volume 98, Mean Corpuscular Hemoglobin 33.3H, Mean Corpuscular Hemoglobin Concent 34.1, Red Cell Distribution Width 11.8, Platelet Count 144L, Mean Platelet Volume 5.5L, Neutrophils (%) (Auto) 63.6, Lymphocytes (%) (Auto) 23.4, Monocytes (%) (Auto) 10.0, Eosinophils (%) (Auto) 2.0, Basophils (%) (Auto ) 0.9, Sodium Level 129L, Potassium Level 4.6, Chloride Level 93L, Carbon Dioxide Level 28, Anion Gap 8, Blood Urea Nitrogen 12, Creatinine 0.4L, Estimat Glomerular Filtration Rate > 60, Glucose Level 84, Hemoglobin A1c 4.2, Osmolality 274L, Uric Acid 3.7, Calcium Level 9.1, Phosphorus Level 4.0, Magnesium Level 1.9, Total Bilirubin 0.3, Aspartate Amino Transf (AST/SGOT) 22, Alanine Aminotransferase (ALT/SGPT) 7, Alkaline Phosphatase 72, C-Reactive Protein, Quantitative 0.8H, Pro-B-Type Natriuretic Peptide 436H, Total Protein 7.3, Albumin 4.0, Globulin 3.3, Albumin/Globulin Ratio 1.2, Triglycerides Level 75, Cholesterol Level 142, LDL Cholesterol 54L, HDL Cholesterol 73H, Cholesterol /HDL Ratio 1.9L, Thyroid Stimulating Hormone (TSH) 2.950 Height (Feet): 5 Height (Inches): 0.00 Weight (Pounds): 110 General Appearance: no apparent distress Objective no change in PE HUSSEIN ZHAO May 27, 2017 09:11
[2017-05-27] MEDS: Depakote ER 500mg tab ORAL SCH ×2 (10:12→21:32)
[2017-05-27] MEDS: Metoprolol Succinate XL 25mg tab ORAL SCH (10:14)
[2017-05-27] MEDS: Pyridoxine 50mg tab ORAL SCH (10:14)
[2017-05-27] MEDS: Docusate 100mg cap ORAL SCH ×2 (10:15→21:32)
--- NOTE | 2017-05-27 17:21 | Cardiology Report ---
APPROVED REPORT EKG Measurement Heart [id number] NM [id number] Normal sinus rhythm Possible Left atrial enlargement Right bundle branch block Borderline ECG
[2017-05-28 00:17] VITALS: BP 96/58
[2017-05-28 04:13] VITALS: BP 101/51
[2017-05-28 07:05] LABS: BASOPHILS % (AUTO) 1.6 % (0.0-2.0); EOSINOPHILS % (AUTO) 3.2 % (0.0-3.0); LYMPHOCYTES % (AUTO) 32.5 % (20.0-45.0); MEAN CORPUSCULAR HEMOGLOBIN 33.4 PG (27.0-31.0); MEAN CORPUSCULAR HGB CONC 34.1 G/DL (32.0-36.0); MEAN CORPUSCULAR VOLUME 98 FL (80-99); NEUTROPHILS % (AUTO) 53.7 % (45.0-75.0); PLATELET COUNT 132 K/UL (150-450); RED BLOOD COUNT 3.91 M/UL (4.20-5.40); RED CELL DISTRIBUTION WIDTH 11.9 % (11.6-14.8); WHITE BLOOD COUNT 5.1 K/UL (4.8-10.8)
[2017-05-28 07:17] LABS: ALANINE AMINOTRANSFERASE 7 U/L (3-33); ALBUMIN/GLOBULIN RATIO 1.2 (1.0-2.7); ANION GAP 11 (5-15); ASPARTATE AMINO TRANSFERASE 21 U/L (5-40); CALCIUM 9.3 mg/dL (8.6-10.2); CARBON DIOXIDE 29 mEQ/L (20-30); CHLORIDE 97 mEQ/L (98-107); CREATININE 0.5 mg/dL (0.5-0.9); GLOMERULAR FILTRATION RATE > 60 mL/min (>60); HEMOLYSIS 5; MAGNESIUM 1.9 mg/dL (1.7-2.5); PHOSPHORUS 4.3 mg/dL (2.5-4.8); POTASSIUM 4.5 mEQ/L (3.4-4.9); SODIUM 137 mEQ/L (135-145); TOTAL PROTEIN 7.5 g/dL (6.6-8.7)
[2017-05-28 08:00] VITALS: BP 101/57
[2017-05-28] MEDS: Pyridoxine 50mg tab ORAL SCH (08:27)
[2017-05-28] MEDS: Docusate 100mg cap ORAL SCH (08:28)
[2017-05-28] MEDS: Depakote ER 500mg tab ORAL SCH (08:28)
[2017-05-28] MEDS: Metoprolol Succinate XL 25mg tab ORAL SCH (08:29)
[2017-05-28 12:00] VITALS: BP 109/56
--- NOTE | 2017-05-28 14:46 | General Progress Note ---
Assessment/Plan Status: stable - from renal stand point Assessment/Plan -HypoNatremia , Etiology? ? 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 ? DC Subjective ROS Limited/Unobtainable: No Constitutional: Reports: malaise Allergies: Coded Allergies: CIPROFLOXACIN (Verified Allergy, Unknown, 10/02/13) HYDROCODONE (Verified Allergy, Unknown, 10/02/13) PENICILLINS (Verified Allergy, Unknown, 10/02/13) PROCHLORPERAZINE (Verified Allergy, Unknown, 10/02/13) Objective Last 24 Hour Vital Signs Date Time Temp Pulse Resp B/P Pulse Ox O2 Delivery O2 Flow Rate FiO2 05/28/17 12:00 98.1 60 19 109/56 98 05/28/17 08:29 65 101/57 05/28/17 08:00 65 05/28/17 08:00 97.2 74 101/57 05/28/17 04:13 97.2 62 20 101/51 97 Room Air 05/28/17 04:00 59 05/28/17 00:17 97.7 68 20 96/58 96 Room Air 05/28/17 00:00 64 05/27/17 20:08 97.9 71 20 95/54 96 Room Air 05/27/17 20:00 72 05/27/17 16:00 64 05/27/17 15:39 97.6 72 18 98/57 95 Room Air Intake and Output 05/27/17 05/28/17 19:00 07:00 Intake Total 895 ml Output Total 800 ml Balance 895 ml -800 ml Intake Oral 730 ml IV Total 165 ml Output Urine Total 800 ml # Voids 5 4 # Bowel Movements 1 1 Laboratory Tests 05/28/17 05:50: White Blood Count 5.1, Red Blood Count 3.91L, Hemoglobin 13.0, Hematocrit 38.3, Mean Corpuscular Volume 98, Mean Corpuscular Hemoglobin 33.4H, Mean Corpuscular Hemoglobin Concent 34.1, Red Cell Distribution Width 11.9, Platelet Count 132L, Mean Platelet Volume 6.0L, Neutrophils (%) (Auto) 53.7, Lymphocytes (%) (Auto) 32.5, Monocytes (%) (Auto) 9.0, Eosinophils (%) (Auto) 3.2H, Basophils (%) (Auto ) 1.6, Sodium Level 137, Potassium Level 4.5, Chloride Level 97L, Carbon Dioxide Level 29, Anion Gap 11, Blood Urea Nitrogen 19, Creatinine 0.5, Estimat Glomerular Filtration Rate > 60, Glucose Level 79, Calcium Level 9.3, Phosphorus Level 4.3, Magnesium Level 1.9, Total Bilirubin 0.3, Aspartate Amino Transf (AST/SGOT) 21, Alanine Aminotransferase (ALT/SGPT) 7, Alkaline Phosphatase 74, Total Protein 7.5, Albumin 4.1, Globulin 3.4, Albumin/Globulin Ratio 1.2 Height (Feet): 5 Height (Inches): 0.00 Weight (Pounds): 110 General Appearance: no apparent distress Objective no change in PE HUSSEIN ZHAO May 28, 2017 14:46
[2017-05-28 16:00] VITALS: BP 100/52
--- NOTE | 2017-05-28 16:25 | General Progress Note ---
Assessment/Plan Problem List: (1) Nosebleed ICD Codes: R04.0 - Epistaxis SNOMED: 61706657, 958008431 (2) Syncope ICD Codes: R55 - Syncope and collapse SNOMED: 498682858 (3) Nasal bones, closed fracture ICD Codes: S02.2XXA - Fracture of nasal bones, initial encounter for closed fracture SNOMED: 82697628 (4) Facial trauma ICD Codes: S09.93XA - Unspecified injury of face, initial encounter SNOMED: 741742595 Status: progressing Assessment/Plan no nose bleed dc to snf syncope Subjective ROS Limited/Unobtainable: Yes Allergies: Coded Allergies: CIPROFLOXACIN (Verified Allergy, Unknown, 10/02/13) HYDROCODONE (Verified Allergy, Unknown, 10/02/13) PENICILLINS (Verified Allergy, Unknown, 10/02/13) PROCHLORPERAZINE (Verified Allergy, Unknown, 10/02/13) Objective Last 24 Hour Vital Signs Date Time Temp Pulse Resp B/P Pulse Ox O2 Delivery O2 Flow Rate FiO2 05/28/17 16:00 97.9 67 19 100/52 98 Room Air 05/28/17 12:00 60 05/28/17 12:00 98.1 60 19 109/56 98 05/28/17 08:29 65 101/57 05/28/17 08:00 65 05/28/17 08:00 97.2 74 101/57 05/28/17 04:13 97.2 62 20 101/51 97 Room Air 05/28/17 04:00 59 05/28/17 00:17 97.7 68 20 96/58 96 Room Air 05/28/17 00:00 64 05/27/17 20:08 97.9 71 20 95/54 96 Room Air 05/27/17 20:00 72 Intake and Output 05/27/17 05/28/17 19:00 07:00 Intake Total 895 ml Output Total 800 ml Balance 895 ml -800 ml Intake Oral 730 ml IV Total 165 ml Output Urine Total 800 ml # Voids 5 4 # Bowel Movements 1 1 Laboratory Tests 05/28/17 05:50: White Blood Count 5.1, Red Blood Count 3.91L, Hemoglobin 13.0, Hematocrit 38.3, Mean Corpuscular Volume 98, Mean Corpuscular Hemoglobin 33.4H, Mean Corpuscular Hemoglobin Concent 34.1, Red Cell Distribution Width 11.9, Platelet Count 132L, Mean Platelet Volume 6.0L, Neutrophils (%) (Auto) 53.7, Lymphocytes (%) (Auto) 32.5, Monocytes (%) (Auto) 9.0, Eosinophils (%) (Auto) 3.2H, Basophils (%) (Auto ) 1.6, Sodium Level 137, Potassium Level 4.5, Chloride Level 97L, Carbon Dioxide Level 29, Anion Gap 11, Blood Urea Nitrogen 19, Creatinine 0.5, Estimat Glomerular Filtration Rate > 60, Glucose Level 79, Calcium Level 9.3, Phosphorus Level 4.3, Magnesium Level 1.9, Total Bilirubin 0.3, Aspartate Amino Transf (AST/SGOT) 21, Alanine Aminotransferase (ALT/SGPT) 7, Alkaline Phosphatase 74, Total Protein 7.5, Albumin 4.1, Globulin 3.4, Albumin/Globulin Ratio 1.2 Height (Feet): 5 Height (Inches): 0.00 Weight (Pounds): 110 General Appearance: confused Cardiovascular: normal rate Abdomen: soft Mindy Bryan MD May 28, 2017 16:25
[2017-05-28 20:00] VITALS: BP 110/62
--- NOTE | 2017-05-29 14:57 | Discharge Summary ---
Discharge Summary Hospital Course Date of Admission May 24, 2017 at 13:17 Date of Discharge May 28, 2017 at 21:10 Admitting Diagnosis syncope, facial trauma HPI Amanda Rivera is a 67 year old female who was admitted on May 24, 2017 at 13: 17 for Syncope, Facial Trauma Hospital Course dc summary #[id number] Discharge Medications Continued Medications: Acetaminophen (Tylenol Arthritis) 650 Mg Tablet.er 650 MG PO Q6HR for Pain Scale (3-5) Acetaminophen (Acetaminophen) 500 Mg Tablet 650 MG PO Q6HR PRN for Mild Pain/Temp > 100.5, TAB Acyclovir* (Acyclovir*) 400 Mg Tablet 800 MG GT FIVE TIMES A DAY for 4 Days, TAB Bioflav,Lemon/Vit Bcomp&C (Lipoflavovit Caplet) 1 Each Tablet 1 EACH PO TID, TAB Bisacodyl (Dulcolax) 10 Mg Supp.rect 10 MG RC DAILY for Constipation Bupropion HCl (Wellbutrin) 100 Mg Tab 150 MG ORAL Q12HR for 30 Days, TAB 0 Refills Calcium Carbonate (Oyster Shell Calcium-Vit D Tab) 500 Mg Tab 500 MG PO BID, TAB Clonazepam* (Klonopin*) 1 Mg Tablet 1 MG ORAL TID PRN for seizure, #15 TAB 0 Refills Diphenhydramine Hcl (Benadryl) 12.5 Mg Tab.chew 25 MG PO Q4HR for Itching Divalproex Sodium (Depakote) 500 Mg Tabec 500 MG PO QHS Divalproex Sodium* (Depakote*) 250 Mg Tablet.dr 250 MG PO DAILY Divalproex Sodium (Depakote) 500 Mg Tabec 500 MG PO Q12HR, TAB Docusate Sodium (Dss) 250 Mg Capsule 100 MG ORAL DAILY, CAP 0 Refills Docusate Sodium (Colace) 50 Mg Capsule 100 MG ORAL DAILY, CAP Duloxetine Hcl* (Cymbalta*) 30 Mg Capsule.dr 30 MG ORAL BID Esomeprazole Magnesium (Nexium) 40 Mg Capsule.dr 40 MG ORAL DAILY, CAP Famotidine (Pepcid) 20 Mg Tablet 20 MG ORAL BID, #7 TAB 0 Refills Ferrous Sulfate (Ferrous Sulfate) 300 Mg/5 Ml Liqd 7.5 ML GT DAILY, #473 ML 0 Refills Fludrocortisone Acetate (Fludrocortisone Acetate) 0.1 Mg Tab 0.1 MG ORAL DAILY, #30 TAB 0 Refills Folic Acid* (Folic Acid*) 1 Mg Tablet 1 MG PO DAILY, TAB Hydralazine HCl (Hydralazine HCl) 10 Mg Tab 10 MG ORAL DAILY, TAB Hydrocortisone (Cortef) 10 Mg Tab 25 MG ORAL DAILY, #15 TAB 0 Refills Hydromorphone HCl (Hydromorphone HCl) 4 Mg/Ml Inj 3 MG SQ Q4HR for severe pain Lamotrigine (Lamictal) 200 Mg Tablet 150 MG ORAL BID, #30 TAB 0 Refills Levetiracetam (Keppra) 100 Mg/1 Ml Liqd 7.5 ML GT BID, #150 ML 0 Refills Levothyroxine Sodium* (Levothyroxine Sodium*) 100 Mcg Tablet 88 MCG ORAL DAILY, TAB Take in the morning on an empty stomach, at least 30 minutes before food. Levothyroxine Sodium* (Synthroid*) 150 Mcg Tablet 75 MCG ORAL DAILY, TAB Take in the morning on an empty stomach, at least 30 minutes before food. Loperamide HCl (Loperamide) 2 Mg Cap 2 MG GT Q4H for Diarrhea, #20 CAP 0 Refills Lorazepam* (Lorazepam*) 0.5 Mg Tablet 0.5 MG ORAL THREE TIMES A DAY PRN for For Anxiety, TAB Magnesium Hydroxide (Milk of Magnesia) 30 Ml Susp 30 ML ORAL BID Magnesium Hydroxide* (Milk Of Magnesia*) 400 Mg/5 Ml Oral.susp 30 ML ORAL HS PRN for Constipation, ML Metoprolol Tartrate* (Metoprolol Tartrate*) 25 Mg Tablet 12.5 MG GT DAILY Metoprolol Tartrate* (Metoprolol Tartrate*) 50 Mg Tablet 12.5 MG ORAL DAILY, TAB Midodrine* (Proamatine*) 10 Mg Tablet 10 MG ORAL THREE TIMES A DAY, TAB Mirtazapine* (Remeron*) 15 Mg Tablet 15 MG ORAL BEDTIME, TAB Mirtazapine* (Remeron*) 15 Mg Tablet 15 MG ORAL BEDTIME, TAB Multivitamin (Multivitamins) 1 Each Tablet 5 ML PO DAILY Multivitamin with Minerals (Multivitamins with Minerals) 1 Each Tablet 15 ML ORAL DAILY, TAB Na Phos,M-B/Na Phos,Di-Ba* (Fleet Enema*) 133 Ml Enema 133 ML RECTAL QOD for Constipation, ML 0 Refills Na Phos,M-B/Na Phos,Di-Ba* (Fleet Enema*) 133 Ml Enema 133 ML RECTAL EVERY OTHER DAY PRN for Constipation, ML 0 Refills Ondansetron (Zofran) 4 Mg Tab 4 MG ORAL Q6HR for N/V, #10 TAB 0 Refills Polyethylene Glycol 3350* (Miralax*) 17 Gm Powd.pack 17 GM ORAL HS, PACKET Pregabalin* (Lyrica*) 75 Mg Capsule 100 MG ORAL BID, #90 CAP 0 Refills Pyridoxine Hcl* (Vitamin B-6*) 50 Mg Tablet 100 MG ORAL DAILY, TAB 0 Refills Ranitidine Hcl* (Zantac*) 150 Mg Tablet 150 MG ORAL TWICE A DAY, TAB Sucralfate* (Carafate*) 1 Gm Tablet 1 GM ORAL FOUR TIMES A DAY Sulfasalazine* (Azulfidine*) 500 Mg Tablet 1000 MG ORAL BID, TAB Tramadol Hcl* (Ultram*) 50 Mg Tablet 50 MG PO Q12HR PRN for For Pain, #30 TAB 0 Refills [dulcolax supp] () 10 MG RC DAILY PRN for Constipation [Novolin Scale] () [Protein Liquid] () 30 ML BID Discharge Condition Upon Discharge: stable Discharge Disposition Patient was discharged to SNF/Subacute Facility(03) Discharge Diagnoses: Discharge Instructions Discharge Instructions Special Instructions I have been assigned to complete a D/C Summary on this account. I was not involved in the patient management Anitha Sommer NP (Vanchtein) May 29, 2017 14:57
--- NOTE | 2017-05-30 02:00 | Consultation ---
DATE OF CONSULTATION: 05/28/2017 NOTE: POOR AUDIO CONSULTING PHYSICIAN: Crow Coley M.D. REFERRING PHYSICIAN: Mindy Bryan M.D. REASON FOR CONSULTATION: Evaluation for thrombocytopenia. IDENTIFICATION DATA: Dear Dr. Bryan, The patient is a pleasant 67-year-old female with past medical history, which is significant for nasal fracture recently diagnosed nosebleed, thrombocytopenia, respiratory insufficiency, BiPAP dependence, history of PEG tube, malnutrition, hypothyroidism, cholelithiasis, diverticulosis, mitral regurgitation, pneumonia, at this time presents to [facility] with aspiration lower respiratory tract, PAST MEDICAL HISTORY: As noted. PAST SURGICAL HISTORY: None reported. ALLERGIES: Cipro, hydrocodone, penicillin, and prochlorperazine. MEDICATIONS: . REVIEW OF SYSTEMS: Constitutional: No fevers, chills, or night sweats. Skin: No rashes, lumps, or itching. HEENT: No headache, hearing, or vision changes. Breasts: No lumps, pain, or discharge. Pulmonary: No cough, sputum, or shortness of breath. Gastrointestinal: No nausea, vomiting, or diarrhea. Genitourinary: No dysuria, frequency, or urgency. Musculoskeletal: No joint swelling, muscle pain, or trauma. PHYSICAL EXAMINATION: VITAL SIGNS: Reviewed. GENERAL: The patient is in no distress. PULMONARY: Decreased breath sounds. CARDIOVASCULAR: Regular rate. No S3 or S4. ABDOMEN: Soft and nontender. EXTREMITIES: A 1+ edema. LABORATORY DATA: . ASSESSMENT AND PLAN: 1. Thrombocytopenia potentially secondary to involvement of the liver versus . 2. Anemia, very mild potentially secondary to chronic disease. 3. Neutropenia history, currently resolved. 4. Hyponatremia, improved, has been seen by nephrology service, given normal saline. 5. Nasal fracture has been seen by ENT, outpatient followup needed. 6. Seizure disorder, . 7. . Crow Coley M.D. DR: Dean JOB#: [id number] CC:
--- NOTE | 2017-05-30 16:16 | Discharge Summary 2 SIG ---
DATE OF ADMISSION: 05/24/2017 DATE OF DISCHARGE: 05/28/2017 REASON FOR ADMISSION: This is a 67-year-old female resident of snf facility, presented after alleged fall at the facility with complaint of facial trauma. The patient with underlying dementia and unable to provide any information. The patient has a past medical history of CVA, hypothyroidism, anemia, hyperlipidemia, and GERD. Vital signs were stable. Blood pressure slightly elevated 160/88, pulse oximetry stable on room air. Afebrile. EKG shows normal sinus rhythm. No ectopy. No PVC. Evidence of right bundle-branch block. Chest x-ray revealed left-sided haziness, questionable effusion. CT of the head revealed no acute intracranial pathology, but nasal soft tissue swelling with possible fracture. CT of the facial bone revealed comminuted fracture of the nasal bone with overlying soft tissue swelling. The patient admitted for further management. ADMITTING DIAGNOSES: Include: 1. Status post fall, possible syncope. 2. Facial trauma. 3. Closed nasal fracture. 4. Possible pleural effusion. HOSPITAL COURSE: The patient admitted. Initially, the patient had head and neck surgery, facioplastic initial consultation, who recommended ice to face for 48 hours to help alleviate swelling. Once stabilized and discharged, the patient needs to see plastic surgeon with insurance plan for follow up. It is not clear if the patient will need a surgery. She may have nondisplaced fracture and therefore once allowed to heal would be okay. On the CT scan, the fracture did not look displaced and she did not have any evidence of orbital rim fracture. The patient also will benefit from antibiotics for sinusitis, however, the patient is afebrile and no leukocytosis. Another option would be to wait and see if any signs of facial sinus infection are cured and in this case it would be reasonable the patient is allergic to many antibiotics including ciprofloxacin and penicillin, but azithromycin could be an option if symptoms develop. At this time, the patient did not started on any antibiotics. The patient is afebrile, no leukocytosis. No clinical signs of sinusitis. Neurologist seen and evaluated the patient. Per neurologist, the patient is status post mechanical fall with blunt head trauma and nasal bone fracture. CT of the head demonstrated extensive ischemic cerebrovascular disease and multiple lacunar stroke and currently the patient presented with gait abnormality and mild cognitive impairment. The patient had a history of seizure disorder, Keppra to be continued. He recommended aspirin and statin. Lipid panel was checked and was within normal limits. LFT was stable. TSH was stable. Current dose of levothyroxine was continued. Fall precaution maintained. The patient was working with physical and occupational therapy. The patient noted to have hyponatremia. Nephrology consult was requested. Sodium was 126, hyponatremia workup initiated. The patient undergone 3% sodium chloride infusion. According to donkey engine firer/fireman, hyponatremia likely depletional. Sodium up to normal . The patient was stable for transfer back to snf facility. Followup with medical doctor at the facility. DISCHARGE DIAGNOSES: Include: 1. Status post mechanical fall. 2. Blunt head trauma. 3. Closed nasal bone fracture. 4. Extensive ischemic cerebrovascular disease with multiple lacunar stroke. 5. Seizure disorder. 6. Depression and anxiety. 7. Hypothyroidism. 8. Hyponatremia, likely depletional. 9. Possible pleural effusion. Supplemental oxygen and pulmonary toilet provided as needed. No respiratory symptoms. Pulse oximetry stable on room air. We can follow up with chest x-ray at the SNF. Bowel regimen instituted. Of note, upon presentation, troponin was negative and proBNP was 1366. The patient received one dose of Lasix in the ED and proBNP down to 436. EKG revealed normal sinus rhythm with right bundle-branch block and possible left atrial enlargement, no acute ischemic changes, no evidence of arrhythmia. DISCHARGE MEDICATIONS: See medication reconciliation list. DISCHARGE INSTRUCTIONS: The patient discharged to snf facility. FOLLOWUP: Followup with medical doctor at the facility. Mindy Bryan M.D. I have been assigned to dictate discharge summary on this account and I was not involved in the patient's management. Anitha Sommer (vanchtein) N.P. DR: FLORENCIO JOB#: [id number] CC:
== END 2017-05-28 21:10 | DRG 115 ==
LOC: EDBD 10:49 → EMR 11:30 → EDBEDREQ 12:53 → INTOOBSV 13:17 → 2E 13:17 → OBSVTOIN 13:17 → EDBEDREQ 13:28
DX: S02.2XXA Fracture of nasal bones, initial encounter for closed fracture (principal); F03.90 Unspecified dementia, unspecified severity, without behavioral disturbance, psychotic disturbance, mood disturbance, and anxiety; E87.1 Hypo-osmolality and hyponatremia; D69.6 Thrombocytopenia, unspecified; I10 Essential (primary) hypertension; E11.9 Type 2 diabetes mellitus without complications; D64.9 Anemia, unspecified; W05.0XXA Fall from non-moving wheelchair, initial encounter; Y92.128 Other place in nursing home as the place of occurrence of the external cause; S09.90XA Unspecified injury of head, initial encounter; G40.909 Epilepsy, unspecified, not intractable, without status epilepticus; K21.9 Gastro-esophageal reflux disease without esophagitis; E03.9 Hypothyroidism, unspecified; Z88.6 Allergy status to analgesic agent; Z88.1 Allergy status to other antibiotic agents; Z88.0 Allergy status to penicillin; Z86.73 Personal history of transient ischemic attack (TIA), and cerebral infarction without residual deficits; E78.5 Hyperlipidemia, unspecified; I45.10 Unspecified right bundle-branch block; R26.9 Unspecified abnormalities of gait and mobility; G31.84 Mild cognitive impairment of uncertain or unknown etiology; I50.9 Heart failure, unspecified; R04.0 Epistaxis; R55 Syncope and collapse
CPT/HCPCS: 36415; 70450; 70486; 71010; 80053; 80061; 81003; 82550; 82553; 83036; 83690; 83735; 83880; 83930; 83935; 84100; 84300; 84443; 84484; 84550; 85025; 85610; 85730; 86140; 87081; 93005

== ENCOUNTER 2017-07-16 18:01 | Inpatient (IN) | payer MEDICAID ==
[~2017-07-16] VITALS: Ht 160 cm; Wt 59.0 kg
[~2017-07-16 18:01] MED LIST changes: +PYRIDOXINE HCL50 MG ORAL
[2017-07-16 18:08] VITALS: BP 159/93
[2017-07-16] MEDS ORDERED: DOCUSATE SODIU100 MG ORAL (19:11)
[2017-07-16] MEDS ORDERED: LEVOTHYROXINE75 MCG ORAL (19:13)
[2017-07-16] MEDS ORDERED: METOPROLOL TART25 MG ORAL (19:17)
[2017-07-16] MEDS ORDERED: MULTIVITAMINS1 EAC8 ORAL (19:19)
[2017-07-16] MEDS ORDERED: ACETAMINOPHEN325 M1 ORAL ×2 (19:24→19:26)
[2017-07-16 19:31] LABS: BASOPHILS % (AUTO) 1.5 % (0.0-2.0); LYMPHOCYTES % (AUTO) 37.4 % (20.0-45.0); MEAN CORPUSCULAR HEMOGLOBIN 31.2 PG (27.0-31.0); MEAN CORPUSCULAR HGB CONC 32.3 G/DL (32.0-36.0); MEAN CORPUSCULAR VOLUME 97 FL (80-99); MEAN PLATELET VOLUME 6.1 FL (6.5-10.1); MONOCYTES % (AUTO) 9.3 % (1.0-10.0); NEUTROPHILS % (AUTO) 50.8 % (45.0-75.0); PLATELET COUNT 137 K/UL (150-450); RED BLOOD COUNT 4.09 M/UL (4.20-5.40); WHITE BLOOD COUNT 5.4 K/UL (4.8-10.8)
[2017-07-16 19:59] LABS: APPEARANCE,URINE CLEAR; KETONES,URINE NEGATIVE (NEGATIVE); LEUKOCYTE ESTERASE ,URINE 1+ (NEGATIVE); NITRITE,URINE NEGATIVE (NEGATIVE); PH,URINE 8 (4.5-8.0); PROTEIN,URINE NEGATIVE (NEGATIVE); UROBILINOGEN,URINE NORMAL MG/DL (0.0-1.0)
[2017-07-16 20:06] LABS: ALANINE AMINOTRANSFERASE 8 U/L (12-78); ALBUMIN/GLOBULIN RATIO 0.8 (1.0-2.7); ANION GAP 9 (5-15); ASPARTATE AMINO TRANSFERASE 20 U/L (15-37); CALCIUM 9.4 MG/DL (8.5-10.1); CARBON DIOXIDE 26 MMOL/L (21-32); CHLORIDE 90 MMOL/L (98-107); CKMB 1.5 NG/ML (0.0-3.6); CREATININE 0.5 MG/DL (0.55-1.30); GLOMERULAR FILTRATION RATE > 60 mL/min (>60); POTASSIUM 3.9 MMOL/L (3.5-5.1); SODIUM 125 MMOL/L (136-145); TOTAL PROTEIN 8.2 G/DL (6.4-8.2)
[2017-07-16 20:07] LABS: BACTERIA,URINE OCCASIONAL /HPF; RBC,URINE 0-2 /HPF (0 - 2); SQUAMOUS EPITHELIAL CELL,UR OCCASIONAL /LPF (NONE/OCC)
[2017-07-16 21:45] VITALS: BP 124/65
--- NOTE | 2017-07-16 22:17 | Emergency Room Report ---
History of Present Illness General Chief Complaint: Abnormal Labs Source: Patient, Medical Record Present Illness HPI 67-year-old female presents ED for evaluation. Per EMS patient noted to have low sodium and elevated BUN based on recent labwork. Per EMS patient also noted to be confused. Upon arrival patient states she feels okay. Awake alert oriented x3. Denies fevers or chills. Denies chest pain shortness of breath. No other aggravating relieving factors. Denies any other associated symptoms Allergies: Coded Allergies: CIPROFLOXACIN (Verified Allergy, Unknown, 10/02/13) HYDROCODONE (Verified Allergy, Unknown, 10/02/13) PENICILLINS (Verified Allergy, Unknown, 10/02/13) PROCHLORPERAZINE (Verified Allergy, Unknown, 10/02/13) Patient History Past Medical History: DM, HTN, CVA/TIA Past Surgical History: none Pertinent Family History: none Social History: Denies: smoking, alcohol use, drug use Now: No Immunizations: UTD Reviewed Nursing Documentation: PMH: Agreed, PSxH: Agreed Nursing Documentation-PMH Past Medical History: No History, Except For Hx Cardiac Problems: Yes Hx Hypertension: Yes Hx Pacemaker: No Hx Asthma: No - pna, sepsis, resp insuff., neuropathy, hypothyroidsm, Hx Diabetes: Yes Hx Cancer: No Hx Gastrointestinal Problems: Yes Hx Neurological Problems: Yes Hx Cerebrovascular Accident: Yes Hx Seizures: Yes Review of Systems All Other Systems: negative except mentioned in HPI Physical Exam Vital Signs Date Time Temp Pulse Resp B/P (MAP) Pulse Ox O2 Delivery O2 Flow Rate FiO2 07/16/17 17:58 98.6 88 20 147/87 97 Room Air Sp02 EP Interpretation: reviewed, normal General Appearance: no apparent distress, alert, GCS 15, non-toxic Head: normocephalic, atraumatic Eyes: bilateral eye normal inspection, bilateral eye PERRL ENT: hearing grossly normal, normal pharynx, no angioedema, normal voice Neck: full range of motion, supple/symm/no masses Respiratory: chest non-tender, lungs clear, normal breath sounds, speaking full sentences Cardiovascular #1: regular rate, rhythm, no edema Cardiovascular #2: 2+ carotid (R), 2+ carotid (L), 2+ radial (R), 2+ radial (L) , 2+ dorsalis pedis (R), 2+ dorsalis pedis (L) Gastrointestinal: normal bowel sounds, non tender, soft, non-distended, no guarding, no rebound Rectal: deferred Genitourinary: normal inspection, no CVA tenderness Musculoskeletal: back normal, gait/station normal, normal range of motion, non- tender Neurologic: alert, oriented x3, responsive, motor strength/tone normal, sensory intact, speech normal Psychiatric: judgement/insight normal, memory normal, mood/affect normal, no suicidal/homicidal ideation Reflexes: 3+ bicep (R), 3+ bicep (L), 3+ tricep (R), 3+ tricep (L), 3+ knee (R) , 3+ knee (L) Skin: normal color, no rash, warm/dry, well hydrated Lymphatic: no adenopathy Medical Decision Making Diagnostic Impression: Primary Impression: Hyponatremia ER Course Hospital Course 67 yo F presents to ED for abnormal labs. low sodium Differential diagnoses include: Pneumonia, UTI, sepsis, dehydration, [place]/ unstable angina Clinical course Patient placed on stretcher. On scutcher tender with stable vitals are ED course. After initial history and physical, I ordered labs, IV fluids, EKG, chest x-ray, blood cultures, UA. Labs - Na 125, no leukocytosis, troponins negative, lactate ok EKG - NSR, no acute ischemic changes interpreted by me CXR - no acute process , unchanged from prior CXR IVFs given. Case discussed with Dr Bryan and they agreed to admit patient to their service for further care and support I feel this is a highly complex case requiring extensive working including EKG/ Rhythm strip, Xray/CT/US, Blood/urine lab work, repeat exams while in ED, and administration of strong opiates/narcotics for pain control, admission to hospital or close patient follow up. Diagnosis - hyponatremia Patient admitted to floor in serious condition Labs Test 07/16/17 19:15 07/16/17 19:39 White Blood Count 5.4 K/UL (4.8-10.8) Red Blood Count 4.09 M/UL (4.20-5.40) Hemoglobin 12.8 G/DL (12.0-16.0) Hematocrit 39.6 % (37.0-47.0) Mean Corpuscular Volume 97 FL (80-99) Mean Corpuscular Hemoglobin 31.2 PG (27.0-31.0) Mean Corpuscular Hemoglobin Concent 32.3 G/DL (32.0-36.0) Red Cell Distribution Width 11.0 % (11.6-14.8) Platelet Count 137 K/UL (150-450) Mean Platelet Volume 6.1 FL (6.5-10.1) Neutrophils (%) (Auto) 50.8 % (45.0-75.0) Lymphocytes (%) (Auto) 37.4 % (20.0-45.0) Monocytes (%) (Auto) 9.3 % (1.0-10.0) Eosinophils (%) (Auto) 1.0 % (0.0-3.0) Basophils (%) (Auto) 1.5 % (0.0-2.0) Sodium Level 125 MMOL/L (136-145) Potassium Level 3.9 MMOL/L (3.5-5.1) Chloride Level 90 MMOL/L (98-107) Carbon Dioxide Level 26 MMOL/L (21-32) Anion Gap 9 (5-15) Blood Urea Nitrogen 14 mg/dL (7-18) Creatinine 0.5 MG/DL (0.55-1.30) Estimat Glomerular Filtration Rate > 60 mL/min (>60) Glucose Level 94 MG/DL (74-106) Lactic Acid Level 1.40 mmol/L (0.66-2.22) Calcium Level 9.4 MG/DL (8.5-10.1) Total Bilirubin 0.4 MG/DL (0.2-1.0) Aspartate Amino Transf (AST/SGOT) 20 U/L (15-37) Alanine Aminotransferase (ALT/SGPT) 8 U/L (12-78) Alkaline Phosphatase 77 U/L (46-116) Total Creatine Kinase 46 U/L (26-308) Creatine Kinase MB 1.5 NG/ML (0.0-3.6) Creatine Kinase MB Relative Index 3.2 Troponin I 0.000 ng/mL (0.000-0.056) Pro-B-Type Natriuretic Peptide 785 (0-125) Total Protein 8.2 G/DL (6.4-8.2) Albumin 3.7 G/DL (3.4-5.0) Globulin 4.5 g/dL Albumin/Globulin Ratio 0.8 (1.0-2.7) Urine Color Pale yellow Urine Appearance Clear Urine pH 8 (4.5-8.0) Urine Specific [place] 1.015 (1.005-1.035) Urine Protein Negative (NEGATIVE) Urine Glucose (UA) Negative (NEGATIVE) Urine Ketones Negative (NEGATIVE) Urine Occult Blood Negative (NEGATIVE) Urine Nitrite Negative (NEGATIVE) Urine Bilirubin Negative (NEGATIVE) Urine Urobilinogen Normal MG/DL (0.0-1.0) Urine Leukocyte Esterase 1+ (NEGATIVE) Urine RBC 0-2 /HPF (0 - 2) Urine WBC 2-4 /HPF (0 - 2) Urine Squamous Epithelial Cells Occasional /LPF Urine Bacteria Occasional /HPF (NONE) EKG Diagnostic Results Rate: normal Rhythm: NSR ST Segments: no acute changes ASA given to the pt in ED: No Rhythm Strip Diag. Results EP Interpretation: yes Rhythm: NSR, no PVC's, no ectopy Chest X-Ray Diagnostic Results Chest X-Ray Diagnostic Results : Chest X-Ray Ordered: Yes # of Views/Limited/Complete: 1 View Indication: Other EP Interpretation: Yes Interpretation: no consolidation, no effusion, no pneumothorax, no acute cardiopulmonary disease Impression: No acute disease - unchanged from prior CXR Last Vital Signs Date Time Temp Pulse Resp B/P (MAP) Pulse Ox O2 Delivery O2 Flow Rate FiO2 07/16/17 21:45 98.6 66 18 124/65 98 Room Air Status: improved Disposition: ADMITTED INPATIENT Condition: Serious Referrals: Mindy Bryan MD (PCP) CLAY DAVID M.D. Jul 16, 2017 22:17
[2017-07-17] VITALS: BP 145/77
[2017-07-17] MEDS ORDERED: NaCl 3% 500ml 250 ML IVPB ONE
[2017-07-17 04:00] VITALS: BP 140/80
[2017-07-17 07:20] LABS: EOSINOPHILS % (AUTO) 1.5 % (0.0-3.0); LYMPHOCYTES % (AUTO) 35.5 % (20.0-45.0); MEAN CORPUSCULAR HEMOGLOBIN 34.2 PG (27.0-31.0); MEAN CORPUSCULAR VOLUME 95 FL (80-99); MEAN PLATELET VOLUME 5.8 FL (6.5-10.1); MONOCYTES % (AUTO) 10.4 % (1.0-10.0); NEUTROPHILS % (AUTO) 51.6 % (45.0-75.0); PLATELET COUNT 129 K/UL (150-450); RED BLOOD COUNT 3.91 M/UL (4.20-5.40); RED CELL DISTRIBUTION WIDTH 10.9 % (11.6-14.8)
[2017-07-17 07:47] LABS: ALANINE AMINOTRANSFERASE 8 U/L (12-78); ALBUMIN/GLOBULIN RATIO 0.8 (1.0-2.7); ANION GAP 10 (5-15); ASPARTATE AMINO TRANSFERASE 19 U/L (15-37); CALCIUM 8.6 MG/DL (8.5-10.1); CARBON DIOXIDE 25 MMOL/L (21-32); CHLORIDE 101 MMOL/L (98-107); CHOLESTEROL 129 MG/DL (< 200); CHOLESTEROL/HDL RATIO 2.3 (3.3-4.4); CREATININE 0.4 MG/DL (0.55-1.30); GLOMERULAR FILTRATION RATE > 60 mL/min (>60); MAGNESIUM 1.6 MG/DL (1.8-2.4); PHOSPHORUS 3.8 MG/DL (2.5-4.9); POTASSIUM 3.7 MMOL/L (3.5-5.1); SODIUM 136 MMOL/L (136-145); THYROID STIMULATING HORMONE 2.503 uiU/mL (0.360-3.740); TOTAL PROTEIN 7.6 G/DL (6.4-8.2); URIC ACID 3.2 MG/DL (2.6-7.2)
[2017-07-17 07:55] LABS: OSMOLALITY SERUM 280 mOsm/kg (297-317)
[2017-07-17] MEDS: Metoprolol Tartrate 12.5mg TAB ORAL SCH (08:49)
[2017-07-17] MEDS: Pyridoxine 50mg tab ORAL SCH (08:50)
[2017-07-17] MEDS: Docusate 100mg cap ORAL SCH ×3 (08:50→18:07)
[2017-07-17] MEDS: Depakote 500mg tab ORAL SCH ×2 (08:50→20:32)
[2017-07-17] MEDS ORDERED: Docusate 100mg cap ORAL SCH (09:00)
[2017-07-17] MEDS ORDERED: Metoprolol 25mg tab ORAL SCH (09:00)
[2017-07-17 09:15] VITALS: BP 135/69
[2017-07-17 09:42] LABS: CRP QUANT < 0.4 mg/dL (0.00-0.90)
--- NOTE | 2017-07-17 11:02 | Diagnostic Imaging Report ---
Indication: Shortness of breath Technique: One view of the chest Comparison: 05/24/2017 Findings: There is atelectasis at the left lung base. Interstitial prominence and bronchial wall thickening are seen centrally, appears similar to the previous study, suspect chronic in nature. Inferior vena cava filter, calcified splenic artery aneurysm again demonstrated. Previously demonstrated retrocardiac opacity is no longer evident Impression: Left basilar atelectasis Probably chronic central interstitial prominence and bronchial wall thickening No definite acute process Other stable findings as described
[2017-07-17 11:54] VITALS: BP 126/70
[2017-07-17] MEDS: Acetaminophen 500mg (ES) tab ORAL PRN (11:54)
[2017-07-17 14:22] LABS: INR 1.1 (0.9-1.1)
--- NOTE | 2017-07-17 15:09 | Consultation ---
Consult Note Consult Note Asked to eval for hypoNatremia Patient herself has underlying dementia Not able to provide appropriate history 67-year-old female presents ED for evaluation. Per EMS patient noted to have low sodium and elevated BUN based on recent labwork. Per EMS patient also noted to be confused. Upon arrival patient states she feels okay. Awake alert oriented x3. Denies fevers or chills. Denies chest pain shortness of breath. No other aggravating relieving factors. Denies any other associated symptoms Allergies: CIPROFLOXACIN (Verified Allergy, Unknown, 10/02/13) HYDROCODONE (Verified Allergy, Unknown, 10/02/13) PENICILLINS (Verified Allergy, Unknown, 10/02/13) PROCHLORPERAZINE (Verified Allergy, Unknown, 10/02/13) gerd, seizure, dm, anemia, ftt, hyperlipidemia, mood dx sepsis, resp insuff., neuropathy, hypothyroidsm, Hx Cardiac Problems: Yes Hx Hypertension: Yes Hx Diabetes: Yes Hx Gastrointestinal Problems: Yes Hx Cerebrovascular Accident: Yes Hx Seizures: Yes Assessment/Plan Assessment/Plan -HypoNatremia , Etiology? ? SIADH vs Depletional others: h/o Nasal bones, closed fracture , Seizure disorder 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, stable gerd, seizure, dm, anemia, ftt, hyperlipidemia, mood dx sepsis, resp insuff., neuropathy, hypothyroidsm, Plan: check labs and Urine studies monitor lytes- PO fluid restriction HUSSEIN ZHAO Jul 17, 2017 15:09
[2017-07-17 15:32] VITALS: BP 133/73
[2017-07-17] MEDS: Enoxaparin Sodium 300mg/3ml vial SUBQ SCH (16:53)
[2017-07-17] MEDS ORDERED: Warfarin Sodium 5mg ORAL SCH (17:00)
[2017-07-17 20:00] VITALS: BP 116/62
[2017-07-18] VITALS: BP 102/58
[2017-07-18 04:00] VITALS: BP 108/63
--- NOTE | 2017-07-18 06:46 | Consultation ---
DATE OF CONSULTATION: 07/17/2017 HEMATOLOGY/ONCOLOGY CONSULTATION CONSULTING PHYSICIAN: Crow Coley M.D. REQUESTING PHYSICIAN: Mindy Bryan M.D. REASON FOR CONSULTATION: Evaluation and treatment of DVT. DEAR DR. MINDY BRYAN: The patient is a pleasant 67-year-old female with a past medical history which is significant for nasal bone fracture, seizure disorder, basal ganglia strokes, GERD, hyperlipidemia, mood disorder, respiratory insufficiency, neuropathy, hypothyroidism, at this time presents to the hospital with hyponatremia and dehydration, noted to have a nonocclusive DVT. Therefore, Hematology Service was consulted for further evaluation and treatment. The patient has an acute nonocclusive thrombus in the common femoral vein on the right side. Again, Hematology Service was consulted for further evaluation and treatment. PAST MEDICAL HISTORY: As noted above, hypothyroidism, pyuria, mastoiditis, cholelithiasis, herpes zoster, dermatitis, mitral regurgitation, neutropenia, and thrombocytopenia. PAST SURGICAL HISTORY: Reviewed. MEDICATIONS: Wellbutrin, clonazepam, Benadryl, Depakote, Cymbalta, Nexium, ferrous sulfate, Florinef, Lamictal, levothyroxine, Imodium, and Remeron. ALLERGIES: Cipro, [place], penicillin, and prochlorperazine. SOCIAL HISTORY: Lives in a [facility] facility. FAMILY HISTORY: Noncontributory. REVIEW OF SYSTEMS: Difficult to obtain due to mental status. PHYSICAL EXAMINATION: VITAL SIGNS: Reviewed. GENERAL: In no distress. PULMONARY: Decreased breath sounds. CARDIOVASCULAR: Regular rate. No S3 or S4. ABDOMEN: Soft, nontender, and nondistended. EXTREMITIES: 1+ edema. NEUROLOGIC: Nonfocal. LABORATORY DATA: Currently, WBC of 4, hemoglobin 13.4, and platelet count 129,000. INR 1.1. BUN of 6 and creatinine 0.4. Serology reviewed. RPR is nonreactive. ASSESSMENT AND RECOMMENDATIONS: 1. Deep venous thrombosis of the right lower extremity. The patient currently is on Lovenox and Coumadin with INR goal between 2 and 3. 2. Thrombocytopenia, likely secondary to underlying liver disease, continue to closely monitor. 3. Anemia secondary to chronic disease. Anemia workup has been ordered. 4. Hyponatremia. Hematology Service is following. The patient was given intravenous fluids. 5. Seizure disorder . I appreciate the consultation. Crow Coley M.D. DR: DARLING JOB#: [id number] CC:
[2017-07-18 07:02] LABS: INR 1.1 (0.9-1.1)
[2017-07-18 07:10] LABS: EOSINOPHILS % (AUTO) 1.8 % (0.0-3.0); LYMPHOCYTES % (AUTO) 40.5 % (20.0-45.0); MEAN CORPUSCULAR HEMOGLOBIN 33.2 PG (27.0-31.0); MEAN CORPUSCULAR HGB CONC 34.6 G/DL (32.0-36.0); MEAN CORPUSCULAR VOLUME 96 FL (80-99); MEAN PLATELET VOLUME 5.5 FL (6.5-10.1); MONOCYTES % (AUTO) 8.9 % (1.0-10.0); NEUTROPHILS % (AUTO) 47.8 % (45.0-75.0); PLATELET COUNT 128 K/UL (150-450); RED BLOOD COUNT 3.81 M/UL (4.20-5.40); RED CELL DISTRIBUTION WIDTH 11.2 % (11.6-14.8)
--- NOTE | 2017-07-18 07:15 | History and Physical Report ---
DATE OF ADMISSION: 07/16/2017 HISTORY OF PRESENT ILLNESS: The patient is admitted for hyponatremia. The patient is a poor historian, cannot rely upon her history. The patient is more confused than her baseline. PAST MEDICAL HISTORY: History of hypothyroidism, history of mastoiditis, history of gallstones, history of herpes zoster, history of diverticulosis, history of hyponatremia, history of mitral regurgitation, history of UTI, history of DVT, history of non-STEMI, CAD, cardiomegaly, dissecting aneurysm of the descending aorta, seizure disorder, anemia, constipation, history of subdural hematoma, history of CHF, history of SIADH, history of encephalopathy, and history of SVT. PAST SURGICAL HISTORY: Denied. MEDICATIONS: Difficult to track. We have Colace, folic acid, hydralazine, Levoxyl, magnesium, and metoprolol. ALLERGIES: Cipro, hydrocodone, and penicillin. SOCIAL HISTORY: No history of smoking, alcohol, or illicit drugs. She comes from a longterm. FAMILY HISTORY: Unable to obtain. REVIEW OF SYSTEMS: Poor historian, cannot rely upon her history. PHYSICAL EXAMINATION: VITAL SIGNS: Temperature is 96.6 degrees, pulse 70, and blood pressure 145/77. HEENT: PERRLA. NECK: Supple. No lymphadenopathy. CHEST: Clear to auscultation. GASTROINTESTINAL: Soft, nontender, and nondistended. No organomegaly. EXTREMITIES: No edema. Moves all four extremities. ASSESSMENT AND PLAN: The patient was also found to have an acute deep venous thrombosis. I have asked Dr. Coley to see the patient for the anticoagulation and for hyponatremia, Dr. Valdivia has been consulted. Mindy Bryan M.D. DR: LI JOB#: [id number] CC:
[2017-07-18 07:31] LABS: ALANINE AMINOTRANSFERASE 6 U/L (12-78); ALBUMIN/GLOBULIN RATIO 0.8 (1.0-2.7); ANION GAP 6 (5-15); ASPARTATE AMINO TRANSFERASE 19 U/L (15-37); CARBON DIOXIDE 27 MMOL/L (21-32); CHLORIDE 98 MMOL/L (98-107); CREATININE 0.5 MG/DL (0.55-1.30); CRP QUANT 0.6 mg/dL (0.00-0.90); GLOMERULAR FILTRATION RATE > 60 mL/min (>60); MAGNESIUM 1.8 MG/DL (1.8-2.4); PHOSPHORUS 4.4 MG/DL (2.5-4.9); POTASSIUM 3.8 MMOL/L (3.5-5.1); SODIUM 131 MMOL/L (136-145); TOTAL PROTEIN 7.2 G/DL (6.4-8.2); URIC ACID 3.8 MG/DL (2.6-7.2)
[2017-07-18 08:12] VITALS: BP 120/65
[2017-07-18] MEDS: Docusate 100mg cap ORAL SCH ×3 (08:57→18:06)
[2017-07-18] MEDS: Depakote 500mg tab ORAL SCH ×2 (08:58→20:20)
[2017-07-18] MEDS: Acetaminophen 500mg (ES) tab ORAL PRN ×2 (08:58→20:30)
[2017-07-18] MEDS: Pyridoxine 50mg tab ORAL SCH (08:58)
[2017-07-18] MEDS: Metoprolol Tartrate 12.5mg TAB ORAL SCH (08:58)
[2017-07-18 12:00] VITALS: BP 110/59
--- NOTE | 2017-07-18 14:37 | General Progress Note ---
Assessment/Plan Assessment/Plan -HypoNatremia , Etiology? ? 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, stable gerd, seizure, dm, anemia, ftt, hyperlipidemia, mood dx sepsis, resp insuff., neuropathy, hypothyroidsm, Plan: check labs and Urine studies monitor lytes- PO fluid restriction antiCoag per hematology Subjective ROS Limited/Unobtainable: No Constitutional: Reports: malaise Allergies: Coded Allergies: CIPROFLOXACIN (Verified Allergy, Unknown, 10/02/13) HYDROCODONE (Verified Allergy, Unknown, 10/02/13) PENICILLINS (Verified Allergy, Unknown, 10/02/13) PROCHLORPERAZINE (Verified Allergy, Unknown, 10/02/13) Objective Last 24 Hour Vital Signs Date Time Temp Pulse Resp B/P (MAP) Pulse Ox O2 Delivery O2 Flow Rate FiO2 07/18/17 12:00 97.9 69 15 110/59 93 07/18/17 08:58 79 120/65 07/18/17 08:12 98.2 79 19 120/65 95 Room Air 07/18/17 04:00 97.7 69 20 108/63 98 Room Air 07/18/17 00:00 69 20 102/58 97 Room Air 07/17/17 20:00 97.8 75 18 116/62 98 Room Air 07/17/17 15:32 97.6 74 19 133/73 98 Room Air Intake and Output 07/18/17 07/19/17 19:00 07:00 Intake Total 200 ml Output Total 120 ml Balance 80 ml Intake Oral 200 ml Output Urine Total 120 ml # Bowel Movements 1 Laboratory Tests 07/18/17 06:05: White Blood Count 4.0L, Red Blood Count 3.81L, Hemoglobin 12.7, Hematocrit 36.6L , Mean Corpuscular Volume 96, Mean Corpuscular Hemoglobin 33.2H, Mean Corpuscular Hemoglobin Concent 34.6, Red Cell Distribution Width 11.2L, Platelet Count 128L, Mean Platelet Volume 5.5L, Neutrophils (%) (Auto) 47.8, Lymphocytes (%) (Auto) 40.5, Monocytes (%) (Auto) 8.9, Eosinophils (%) (Auto) 1.8, Basophils (%) (Auto) 1.0, Prothrombin Time 12.0H, Prothromb Time International Ratio 1.1, Sodium Level 131L, Potassium Level 3.8, Chloride Level 98, Carbon Dioxide Level 27, Anion Gap 6, Blood Urea Nitrogen 15, Creatinine 0.5L, Estimat Glomerular Filtration Rate > 60, Glucose Level 72L, Uric Acid 3.8 , Calcium Level 9.0, Phosphorus Level 4.4, Magnesium Level 1.8, Total Bilirubin 0.3, Aspartate Amino Transf (AST/SGOT) 19, Alanine Aminotransferase (ALT/SGPT) 6L, Alkaline Phosphatase 58, C-Reactive Protein, Quantitative 0.6, Pro-B-Type Natriuretic Peptide 661H, Total Protein 7.2, Albumin 3.1L, Globulin 4.1, Albumin /Globulin Ratio 0.8L Height (Feet): 5 Height (Inches): 3.00 Weight (Pounds): 130 General Appearance: no apparent distress Objective PE not changed HUSSEIN ZHAO Jul 18, 2017 14:37
[2017-07-18] MEDS ORDERED: NaCl 3% 500ml 250 ML IV ONE (15:45)
[2017-07-18 16:00] VITALS: BP 123/60
[2017-07-18] MEDS ORDERED: Warfarin Sodium 5mg ORAL ONE (17:00)
--- NOTE | 2017-07-18 17:07 | Infectious Diseases Prog Note ---
Assessment/Plan Problems: (1) Bronchitis Assessment & Plan: will start Zithromax empiric therapy for 5 days (2) DVT (deep venous thrombosis) Assessment & Plan: started on anticoagulation by HEM/ONC , monitor INR (3) Hyponatremia Assessment & Plan: nephrology is following , monitor sodium level closely (4) Diabetes Assessment & Plan: recommend tightglycemic control to keep blood glucose less than 130 Subjective Allergies: Coded Allergies: CIPROFLOXACIN (Verified Allergy, Unknown, 10/02/13) HYDROCODONE (Verified Allergy, Unknown, 10/02/13) PENICILLINS (Verified Allergy, Unknown, 10/02/13) PROCHLORPERAZINE (Verified Allergy, Unknown, 10/02/13) Objective Vital Signs Last 24 Hour Vital Signs Date Time Temp Pulse Resp B/P (MAP) Pulse Ox O2 Delivery O2 Flow Rate FiO2 07/18/17 16:00 96.6 79 15 123/60 98 07/18/17 12:00 97.9 69 15 110/59 93 07/18/17 08:58 79 120/65 07/18/17 08:12 98.2 79 19 120/65 95 Room Air 07/18/17 04:00 97.7 69 20 108/63 98 Room Air 07/18/17 00:00 69 20 102/58 97 Room Air 07/17/17 20:00 97.8 75 18 116/62 98 Room Air Height (Feet): 5 Height (Inches): 3.00 Weight (Pounds): 130 Microbiology Date/Time Source Procedure Growth Status 07/16/17 19:20 Blood Blood Culture - Preliminary NO GROWTH AFTER 24 HOURS Resulted 07/16/17 19:15 Blood Blood Culture - Preliminary NO GROWTH AFTER 24 HOURS Resulted Laboratory Tests Test 07/18/17 06:05 White Blood Count 4.0 K/UL (4.8-10.8) L Red Blood Count 3.81 M/UL (4.20-5.40) L Hemoglobin 12.7 G/DL (12.0-16.0) Hematocrit 36.6 % (37.0-47.0) L Mean Corpuscular Volume 96 FL (80-99) Mean Corpuscular Hemoglobin 33.2 PG (27.0-31.0) H Mean Corpuscular Hemoglobin Concent 34.6 G/DL (32.0-36.0) Red Cell Distribution Width 11.2 % (11.6-14.8) L Platelet Count 128 K/UL (150-450) L Mean Platelet Volume 5.5 FL (6.5-10.1) L Neutrophils (%) (Auto) 47.8 % (45.0-75.0) Lymphocytes (%) (Auto) 40.5 % (20.0-45.0) Monocytes (%) (Auto) 8.9 % (1.0-10.0) Eosinophils (%) (Auto) 1.8 % (0.0-3.0) Basophils (%) (Auto) 1.0 % (0.0-2.0) Prothrombin Time 12.0 SEC (9.30-11.50) H Prothromb Time International Ratio 1.1 (0.9-1.1) Sodium Level 131 MMOL/L (136-145) L Potassium Level 3.8 MMOL/L (3.5-5.1) Chloride Level 98 MMOL/L (98-107) Carbon Dioxide Level 27 MMOL/L (21-32) Anion Gap 6 (5-15) Blood Urea Nitrogen 15 mg/dL (7-18) Creatinine 0.5 MG/DL (0.55-1.30) L Estimat Glomerular Filtration Rate > 60 mL/min (>60) Glucose Level 72 MG/DL (74-106) L Uric Acid 3.8 MG/DL (2.6-7.2) Calcium Level 9.0 MG/DL (8.5-10.1) Phosphorus Level 4.4 MG/DL (2.5-4.9) Magnesium Level 1.8 MG/DL (1.8-2.4) Total Bilirubin 0.3 MG/DL (0.2-1.0) Aspartate Amino Transf (AST/SGOT) 19 U/L (15-37) Alanine Aminotransferase (ALT/SGPT) 6 U/L (12-78) L Alkaline Phosphatase 58 U/L (46-116) C-Reactive Protein, Quantitative 0.6 mg/dL (0.00-0.90) Pro-B-Type Natriuretic Peptide 661 (0-125) H Total Protein 7.2 G/DL (6.4-8.2) Albumin 3.1 G/DL (3.4-5.0) L Globulin 4.1 g/dL Albumin/Globulin Ratio 0.8 (1.0-2.7) L Current Medications Medications (Trade) Dose Ordered Sig/Karlee Route PRN Reason Start Time Stop Time Status Last Admin Dose Admin Acetaminophen (Tylenol) 500 mg EVERY 6 HOURS PRN ORAL Mild Pain/Temp > 100.5 07/17/17 00:00 08/16/17 00:00 07/18/17 08:58 Acetaminophen (Tylenol) 650 mg Q4H PRN ORAL Temp >101 07/17/17 00:00 08/16/17 00:00 Bisacodyl (Dulcolax) 10 mg DAILY RECTAL 07/17/17 09:00 08/16/17 08:59 Divalproex Sodium (Depakote) 500 mg Q12HR ORAL 07/17/17 09:00 08/16/17 08:59 07/18/17 08:58 Docusate Sodium (Colace) 100 mg TID ORAL 07/17/17 09:00 08/16/17 08:59 07/18/17 13:09 Enoxaparin Sodium (Lovenox) 90 mg DAILY SUBQ 07/17/17 15:00 08/16/17 14:59 07/17/17 16:53 Folic Acid (Folate) 1 mg DAILY ORAL 07/17/17 09:00 08/16/17 08:59 07/18/17 08:57 Furosemide (Lasix) 20 mg ONCE ONCE IV 07/18/17 20:00 07/18/17 20:01 Lansoprazole (Prevacid) 30 mg DAILY ORAL 07/17/17 16:00 08/16/17 15:59 07/18/17 08:58 Levothyroxine Sodium (Synthroid) 75 mcg BEFORE BREAKFAST ORAL 07/17/17 06:30 08/16/17 06:29 07/18/17 06:11 Metoprolol Tartrate (Lopressor) 12.5 mg DAILY ORAL 07/17/17 09:00 08/16/17 08:59 07/18/17 08:58 Pyridoxine HCl (Vitamin B6) 100 mg DAILY ORAL 07/17/17 09:00 08/16/17 08:59 07/18/17 08:58 Sodium Chloride 250 ml @ 30 mls/hr ONCE ONCE IV 07/18/17 15:45 07/19/17 00:04 Warfarin Sodium (Coumadin per pharmacy) 1 ea DAILY PRN MISC Per rx protocol 07/17/17 13:30 08/16/17 13:29 Warfarin Sodium (Coumadin) 5 mg COUMADIN ONCE ORAL 07/18/17 17:00 07/18/17 17:01 Cristy Alonso M.D. Jul 18, 2017 17:07
--- NOTE | 2017-07-18 17:21 | General Progress Note ---
Assessment/Plan Assessment/Plan ASSESSMENT AND RECOMMENDATIONS: 1. Deep venous thrombosis of the right lower extremity. The patient currently is on Lovenox and Coumadin with INR goal between 2 and 3. --> currently inr subtherapeutic --> dc lovenox when inr reaches 2 2. Thrombocytopenia, likely secondary to underlying liver disease, continue to closely monitor. 3. Anemia secondary to chronic disease. Anemia workup has been ordered. 4. Hyponatremia. 5. Seizure disorder Subjective Constitutional: Reports: no symptoms HEENT: Reports: no symptoms Cardiovascular: Reports: no symptoms Respiratory: Reports: no symptoms Gastrointestinal/Abdominal: Reports: no symptoms Genitourinary: Reports: no symptoms Neurologic/Psychiatric: Reports: no symptoms Endocrine: Reports: no symptoms Hematologic/Lymphatic: Reports: no symptoms Allergies: Coded Allergies: CIPROFLOXACIN (Verified Allergy, Unknown, 10/02/13) HYDROCODONE (Verified Allergy, Unknown, 10/02/13) PENICILLINS (Verified Allergy, Unknown, 10/02/13) PROCHLORPERAZINE (Verified Allergy, Unknown, 10/02/13) Subjective NAD Objective Last 24 Hour Vital Signs Date Time Temp Pulse Resp B/P (MAP) Pulse Ox O2 Delivery O2 Flow Rate FiO2 07/18/17 16:00 96.6 79 15 123/60 98 07/18/17 12:00 97.9 69 15 110/59 93 07/18/17 08:58 79 120/65 07/18/17 08:12 98.2 79 19 120/65 95 Room Air 07/18/17 04:00 97.7 69 20 108/63 98 Room Air 07/18/17 00:00 69 20 102/58 97 Room Air 07/17/17 20:00 97.8 75 18 116/62 98 Room Air Intake and Output 07/18/17 07/19/17 19:00 07:00 Intake Total 200 ml Output Total 120 ml Balance 80 ml Intake Oral 200 ml Output Urine Total 120 ml # Bowel Movements 1 Laboratory Tests 07/18/17 06:05: White Blood Count 4.0L, Red Blood Count 3.81L, Hemoglobin 12.7, Hematocrit 36.6L , Mean Corpuscular Volume 96, Mean Corpuscular Hemoglobin 33.2H, Mean Corpuscular Hemoglobin Concent 34.6, Red Cell Distribution Width 11.2L, Platelet Count 128L, Mean Platelet Volume 5.5L, Neutrophils (%) (Auto) 47.8, Lymphocytes (%) (Auto) 40.5, Monocytes (%) (Auto) 8.9, Eosinophils (%) (Auto) 1.8, Basophils (%) (Auto) 1.0, Prothrombin Time 12.0H, Prothromb Time International Ratio 1.1, Sodium Level 131L, Potassium Level 3.8, Chloride Level 98, Carbon Dioxide Level 27, Anion Gap 6, Blood Urea Nitrogen 15, Creatinine 0.5L, Estimat Glomerular Filtration Rate > 60, Glucose Level 72L, Uric Acid 3.8 , Calcium Level 9.0, Phosphorus Level 4.4, Magnesium Level 1.8, Total Bilirubin 0.3, Aspartate Amino Transf (AST/SGOT) 19, Alanine Aminotransferase (ALT/SGPT) 6L, Alkaline Phosphatase 58, C-Reactive Protein, Quantitative 0.6, Pro-B-Type Natriuretic Peptide 661H, Total Protein 7.2, Albumin 3.1L, Globulin 4.1, Albumin /Globulin Ratio 0.8L Height (Feet): 5 Height (Inches): 3.00 Weight (Pounds): 130 General Appearance: no apparent distress EENT: normal ENT inspection Cardiovascular: no gallop/murmur Respiratory/Chest: no accessory muscle use Abdomen: no mass Pelvis: no cerv. motion tender Extremities: non-tender Neurologic: no motor/sensory deficits Crow Coley Jul 18, 2017 17:21
[2017-07-18 20:14] VITALS: BP 116/48
[2017-07-19 00:04] VITALS: BP 100/54
--- NOTE | 2017-07-19 00:46 | Consultation ---
DATE OF CONSULTATION: 07/18/2017 INFECTIOUS DISEASE CONSULTATION REQUESTING PHYSICIAN: Mindy Bryan M.D. REASON FOR CONSULTATION: Productive cough with whitish phlegm, rule out bronchitis. Recommendation for antibiotics treatment. HISTORY OF PRESENT ILLNESS: The patient is a 67-year-old female with past medical history of diabetes, hypertension, and CVA presented to the emergency room for abnormal labs which was noticed by the facility she lives at. The patient was found to have low sodium level and elevated BUN on recent laboratory work. She was found to be confused so she was brought into the emergency room for evaluation and management. The patient was found to have hyponatremia with elevated urea level. She was afebrile and saturating well on room air. Doppler of the lower extremity showed evidence of a DVT so she was started on anticoagulation. The patient was having productive cough of whitish phlegm so, I was consulted by the primary provider to rule out bronchitis and start antibiotics since she has multiple antibiotics allergy. PAST MEDICAL HISTORY: Significant for diabetes, hypertension, and CVA. MEDICATIONS: She is on Lasix, Coumadin, Prevacid, Lovenox, Dulcolax, Depakote, folate, vitamin B6, Colace, Lopressor, Synthroid, and Tylenol. ALLERGIES: She is allergic to ciprofloxacin and penicillin, unknown what kind of reaction. She is also allergic to hydrocodone and prochlorperazine. SOCIAL HISTORY: The patient denies any drugs, tobacco, or alcohol. FAMILY HISTORY: Not contributory. PHYSICAL EXAMINATION: VITAL SIGNS: Temperature 97.9, pulse 69, respirations 16, blood pressure 110/59, and saturation 93% on room air. GENERAL: Middle-aged female, up in bed, awake, alert, not in distress. HEENT: Normocephalic and atraumatic. Pupils are reactive to light. Moist oral mucosa. NECK: Supple. No lymphadenopathy. CARDIOVASCULAR: Regular rate and rhythm. LUNGS: Clear bilaterally. ABDOMEN: Soft, nontender, and nondistended. Positive bowel sounds. EXTREMITIES: No edema or cyanosis. LABORATORY DATA: Labs showed white count of 4000, hemoglobin of 12.7, and platelet count of 128. BUN of 15, creatinine of 0.5. AST of 19. Urinalysis was negative for nitrite, +1 leukocyte esterase, WBC 2 to 4, and red blood cells 0 to 2. Microbiology blood culture x2, so far negative with no growth. Imaging, chest x-ray showed left basilar atelectases with bronchial thickening. Venous Doppler showed right leg occlusive thrombus in the common femoral vein. ASSESSMENT AND RECOMMENDATION: 1. Bronchitis with productive phlegm whitish in color. We will start Zithromax empiric treatment for five days. 2. Deep venous thrombosis acute, started on anticoagulation by Hematology/Oncology. Monitor INR. 3. Hyponatremia. Nephrology is following. Monitor sodium levels closely. 4. Diabetes. Recommend tight glycemic control to keep blood glucose less than 130 before meals. Thank you for the consult. ID will continue to follow. Cristy Alonso M.D. DR: JOE JOB#: [id number] CC: BETH
[2017-07-19] MEDS: Acetaminophen 500mg (ES) tab ORAL PRN (03:37)
[2017-07-19 04:00] VITALS: BP 121/70
[2017-07-19 07:58] LABS: ALANINE AMINOTRANSFERASE 8 U/L (12-78); ALBUMIN/GLOBULIN RATIO 0.8 (1.0-2.7); ANION GAP 6 (5-15); ASPARTATE AMINO TRANSFERASE 28 U/L (15-37); CALCIUM 8.6 MG/DL (8.5-10.1); CARBON DIOXIDE 26 MMOL/L (21-32); CHLORIDE 100 MMOL/L (98-107); CREATININE 0.5 MG/DL (0.55-1.30); GLOMERULAR FILTRATION RATE > 60 mL/min (>60); MAGNESIUM 1.6 MG/DL (1.8-2.4); PHOSPHORUS 4.8 MG/DL (2.5-4.9); POTASSIUM 3.8 MMOL/L (3.5-5.1); SODIUM 132 MMOL/L (136-145); TOTAL PROTEIN 6.7 G/DL (6.4-8.2); URIC ACID 4.3 MG/DL (2.6-7.2)
[2017-07-19 08:00] VITALS: BP 94/56
[2017-07-19 08:05] LABS: INR 2.4 (0.9-1.1); PROTHROMBIN TIME 25.9 SEC (9.30-11.50)
[2017-07-19] MEDS: Enoxaparin Sodium 300mg/3ml vial SUBQ SCH (09:00)
[2017-07-19] MEDS ORDERED: Azithromycin 250mg tab ORAL SCH (09:00)
[2017-07-19] MEDS: Pyridoxine 50mg tab ORAL SCH (09:32)
[2017-07-19] MEDS: Depakote 500mg tab ORAL SCH (09:32)
[2017-07-19] MEDS: Metoprolol Tartrate 12.5mg TAB ORAL SCH (09:34)
[2017-07-19] MEDS: Docusate 100mg cap ORAL SCH ×2 (09:35→13:00)
--- NOTE | 2017-07-19 09:41 | Diagnostic Imaging Report ---
APPROVED REPORT CPT Code: 39367 Present Symptoms Lower Extremity Pain: Bilateral RIGHT LEG: Venous imaging reveals acute non-occlusive thrombus in the common femoral vein. Imaging also reveals patency of the superficial femoral, popliteal and calf veins. Greater saphenous vein also within normal limits. LEFT LEG: Venous imaging reveals a patent deep venous system. There is no evidence of thrombus within the femoral, popliteal or tibial segments. The greater saphenous vein is also within normal limits. Doppler indicates normal spontaneous flow within these segments. COLLIN Reyna was notified of abnormal results at 10:15
--- NOTE | 2017-07-19 09:58 | Diagnostic Imaging Report ---
Indication: COUGH Technique: One view of the chest Comparison: 07/16/2017 Findings: There is an inferior vena cava filter in place. 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 There is some atelectasis at the left lung base, decreased from previous. There is central bronchial wall thickening again demonstrated. Lungs and pleural spaces are otherwise clear Impression: Decreased left basilar atelectasis, over 2 days Other stable findings as noted This agrees with the preliminary interpretation provided overnight by [facility] teleradiology service.
[2017-07-19 12:00] VITALS: BP 96/59
--- NOTE | 2017-07-19 13:41 | General Progress Note ---
Assessment/Plan Status: stable Assessment/Plan -HypoNatremia , Etiology? ? 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, stable gerd, seizure, dm, anemia, ftt, hyperlipidemia, mood dx sepsis, resp insuff., neuropathy, hypothyroidsm, Plan: Ok to DC from renal stand- PO fluid restriction to be continued antiCoag per hematology Subjective ROS Limited/Unobtainable: No Constitutional: Reports: malaise Allergies: Coded Allergies: CIPROFLOXACIN (Verified Allergy, Unknown, 10/02/13) HYDROCODONE (Verified Allergy, Unknown, 10/02/13) PENICILLINS (Verified Allergy, Unknown, 10/02/13) PROCHLORPERAZINE (Verified Allergy, Unknown, 10/02/13) Objective Last 24 Hour Vital Signs Date Time Temp Pulse Resp B/P (MAP) Pulse Ox O2 Delivery O2 Flow Rate FiO2 07/19/17 12:00 97.3 73 16 96/59 Room Air 07/19/17 09:34 85 121/70 07/19/17 08:00 97.3 71 14 94/56 97 07/19/17 04:00 97.3 85 20 121/70 95 Room Air 07/19/17 00:04 97.6 70 15 100/54 97 Room Air 07/18/17 20:14 96.6 70 15 116/48 96 Room Air 07/18/17 16:00 96.6 79 15 123/60 98 Laboratory Tests 07/19/17 06:15: Prothrombin Time 25.9H, Prothromb Time International Ratio 2.4H, Sodium Level 132L, Potassium Level 3.8, Chloride Level 100, Carbon Dioxide Level 26, Anion Gap 6, Blood Urea Nitrogen 14, Creatinine 0.5L, Estimat Glomerular Filtration Rate > 60, Glucose Level 72L, Uric Acid 4.3, Calcium Level 8.6, Phosphorus Level 4.8, Magnesium Level 1.6L, Total Bilirubin 0.2, Aspartate Amino Transf ( AST/SGOT) 28, Alanine Aminotransferase (ALT/SGPT) 8L, Alkaline Phosphatase 51, Total Protein 6.7, Albumin 2.9L, Globulin 3.8, Albumin/Globulin Ratio 0.8L Height (Feet): 5 Height (Inches): 3.00 Weight (Pounds): 130 General Appearance: no apparent distress Objective PE not changed FOULADIAN,HUSSEIN Jul 19, 2017 13:41
[2017-07-19] MEDS ORDERED: AZITHROMYCIN250 MG ORAL (14:07)
[2017-07-19] MEDS ORDERED: COUMADIN1 MG ORAL (14:15)
--- NOTE | 2017-07-19 15:53 | Infectious Diseases Prog Note ---
Assessment/Plan Problems: (1) Bronchitis Assessment & Plan: continue Zithromax empiric therapy for 5 days (2) DVT (deep venous thrombosis) Assessment & Plan: started on anticoagulation by HEM/ONC , monitor INR (3) Hyponatremia Assessment & Plan: nephrology is following , monitor sodium level closely (4) Diabetes Assessment & Plan: recommend tightglycemic control to keep blood glucose less than 130 Subjective Constitutional: Reports: no symptoms HEENT: Reports: no symptoms Respiratory: Reports: productive cough Breasts: Reports: no symptoms Cardiovascular: Reports: no symptoms Gastrointestinal/Abdominal: Reports: no symptoms Genitourinary: Reports: no symptoms Neurologic: Reports: no symptoms Psychiatric: Reports: no symptoms Skin: Reports: no symptoms Endocrine: Reports: no symptoms Hematologic: Reports: no symptoms Musculoskeletal: Reports: no symptoms Allergies: Coded Allergies: CIPROFLOXACIN (Verified Allergy, Unknown, 10/02/13) HYDROCODONE (Verified Allergy, Unknown, 10/02/13) PENICILLINS (Verified Allergy, Unknown, 10/02/13) PROCHLORPERAZINE (Verified Allergy, Unknown, 10/02/13) Objective Vital Signs Last 24 Hour Vital Signs Date Time Temp Pulse Resp B/P (MAP) Pulse Ox O2 Delivery O2 Flow Rate FiO2 07/19/17 12:00 97.3 73 16 96/59 Room Air 07/19/17 09:34 85 121/70 07/19/17 08:00 97.3 71 14 94/56 97 07/19/17 04:00 97.3 85 20 121/70 95 Room Air 07/19/17 00:04 97.6 70 15 100/54 97 Room Air 07/18/17 20:14 96.6 70 15 116/48 96 Room Air 07/18/17 16:00 96.6 79 15 123/60 98 Height (Feet): 5 Height (Inches): 3.00 Weight (Pounds): 130 General Appearance: WD/WN, no acute distress HEENT: normocephalic, atraumatic, anicteric, mucous membranes moist Respiratory/Chest: chest wall non-tender, lungs clear, normal breath sounds, no respiratory distress, no accessory muscle use Cardiovascular: normal peripheral pulses, normal rate, regular rhythm, no gallop/murmur, no JVD Abdomen: normal bowel sounds, soft, non tender, no organomegaly, non distended , no mass, no scars Extremities: no cyanosis, no clubbing Skin: no rash, no lesions, no ulcers Neurologic/Psychiatric: alert, oriented x 3 Lymphatic: no neck adenopathy, no groin adenopathy Microbiology Date/Time Source Procedure Growth Status 07/16/17 19:20 Blood Blood Culture - Preliminary NO GROWTH AFTER 48 HOURS Resulted 07/16/17 19:15 Blood Blood Culture - Preliminary NO GROWTH AFTER 48 HOURS Resulted Laboratory Tests Test 07/19/17 06:15 Prothrombin Time 25.9 SEC (9.30-11.50) H Prothromb Time International Ratio 2.4 (0.9-1.1) H Sodium Level 132 MMOL/L (136-145) L Potassium Level 3.8 MMOL/L (3.5-5.1) Chloride Level 100 MMOL/L (98-107) Carbon Dioxide Level 26 MMOL/L (21-32) Anion Gap 6 (5-15) Blood Urea Nitrogen 14 mg/dL (7-18) Creatinine 0.5 MG/DL (0.55-1.30) L Estimat Glomerular Filtration Rate > 60 mL/min (>60) Glucose Level 72 MG/DL (74-106) L Uric Acid 4.3 MG/DL (2.6-7.2) Calcium Level 8.6 MG/DL (8.5-10.1) Phosphorus Level 4.8 MG/DL (2.5-4.9) Magnesium Level 1.6 MG/DL (1.8-2.4) L Total Bilirubin 0.2 MG/DL (0.2-1.0) Aspartate Amino Transf (AST/SGOT) 28 U/L (15-37) Alanine Aminotransferase (ALT/SGPT) 8 U/L (12-78) L Alkaline Phosphatase 51 U/L (46-116) Total Protein 6.7 G/DL (6.4-8.2) Albumin 2.9 G/DL (3.4-5.0) L Globulin 3.8 g/dL Albumin/Globulin Ratio 0.8 (1.0-2.7) L Current Medications Medications (Trade) Dose Ordered Sig/Karlee Route PRN Reason Start Time Stop Time Status Last Admin Dose Admin Acetaminophen (Tylenol) 500 mg EVERY 6 HOURS PRN ORAL Mild Pain/Temp > 100.5 07/17/17 00:00 08/16/17 00:00 07/19/17 03:37 Acetaminophen (Tylenol) 650 mg Q4H PRN ORAL Temp >101 07/17/17 00:00 08/16/17 00:00 Azithromycin (Zithromax) 250 mg DAILY ORAL 07/19/17 09:00 07/26/17 08:59 07/19/17 09:36 Bisacodyl (Dulcolax) 10 mg DAILY RECTAL 07/17/17 09:00 08/16/17 08:59 Divalproex Sodium (Depakote) 500 mg Q12HR ORAL 07/17/17 09:00 08/16/17 08:59 07/19/17 09:32 Docusate Sodium (Colace) 100 mg TID ORAL 07/17/17 09:00 08/16/17 08:59 07/19/17 09:35 Enoxaparin Sodium (Lovenox) 90 mg DAILY SUBQ 07/17/17 15:00 08/16/17 14:59 07/17/17 16:53 Folic Acid (Folate) 1 mg DAILY ORAL 07/17/17 09:00 08/16/17 08:59 07/19/17 09:32 Lansoprazole (Prevacid) 30 mg DAILY ORAL 07/17/17 16:00 08/16/17 15:59 07/19/17 09:34 Levothyroxine Sodium (Synthroid) 75 mcg BEFORE BREAKFAST ORAL 07/17/17 06:30 08/16/17 06:29 07/19/17 05:20 Metoprolol Tartrate (Lopressor) 12.5 mg DAILY ORAL 07/17/17 09:00 08/16/17 08:59 07/19/17 09:34 Pyridoxine HCl (Vitamin B6) 100 mg DAILY ORAL 07/17/17 09:00 08/16/17 08:59 07/19/17 09:32 Warfarin Sodium (Coumadin per pharmacy) 1 ea DAILY PRN MISC Per rx protocol 07/17/17 13:30 08/16/17 13:29 Warfarin Sodium (Coumadin) 1 mg ONCE ONCE ORAL 07/19/17 17:00 07/19/17 17:01 Cristy Alonso M.D. Jul 19, 2017 15:53
[2017-07-19] MEDS ORDERED: Warfarin Sodium 1mg ORAL ONE (17:00)
--- NOTE | 2017-07-19 19:54 | General Progress Note ---
Assessment/Plan Assessment/Plan ASSESSMENT AND RECOMMENDATIONS: 1. Deep venous thrombosis of the right lower extremity. The patient currently is on Coumadin with INR goal between 2 and 3. --> currently inr therapeutic --> lovenox has been dc'd, continue coumadin 2. Thrombocytopenia, likely secondary to underlying liver disease, continue to closely monitor. 3. Anemia secondary to chronic disease. Anemia workup has been ordered. 4. Hyponatremia. 5. Seizure disorder Subjective ROS Limited/Unobtainable: Yes Allergies: Coded Allergies: CIPROFLOXACIN (Verified Allergy, Unknown, 10/02/13) HYDROCODONE (Verified Allergy, Unknown, 10/02/13) PENICILLINS (Verified Allergy, Unknown, 10/02/13) PROCHLORPERAZINE (Verified Allergy, Unknown, 10/02/13) Subjective NAD Objective Last 24 Hour Vital Signs Date Time Temp Pulse Resp B/P (MAP) Pulse Ox O2 Delivery O2 Flow Rate FiO2 07/19/17 12:00 97.3 73 16 96/59 Room Air 07/19/17 09:34 85 121/70 07/19/17 08:00 97.3 71 14 94/56 97 07/19/17 04:00 97.3 85 20 121/70 95 Room Air 07/19/17 00:04 97.6 70 15 100/54 97 Room Air 07/18/17 20:14 96.6 70 15 116/48 96 Room Air Laboratory Tests 07/19/17 06:15: Prothrombin Time 25.9H, Prothromb Time International Ratio 2.4H, Sodium Level 132L, Potassium Level 3.8, Chloride Level 100, Carbon Dioxide Level 26, Anion Gap 6, Blood Urea Nitrogen 14, Creatinine 0.5L, Estimat Glomerular Filtration Rate > 60, Glucose Level 72L, Uric Acid 4.3, Calcium Level 8.6, Phosphorus Level 4.8, Magnesium Level 1.6L, Total Bilirubin 0.2, Aspartate Amino Transf ( AST/SGOT) 28, Alanine Aminotransferase (ALT/SGPT) 8L, Alkaline Phosphatase 51, Total Protein 6.7, Albumin 2.9L, Globulin 3.8, Albumin/Globulin Ratio 0.8L Height (Feet): 5 Height (Inches): 3.00 Weight (Pounds): 130 General Appearance: no apparent distress EENT: pharynx normal Neck: normal inspection Cardiovascular: normal rate Respiratory/Chest: lungs clear Abdomen: non tender Extremities: non-tender Edema: mild edema Crow Coley Jul 19, 2017 19:54
--- NOTE | 2017-07-20 15:35 | Discharge Summary ---
Discharge Summary Hospital Course Date of Admission Jul 16, 2017 at 20:23 Date of Discharge Jul 19, 2017 at 16:32 Admitting Diagnosis HYPERNATREMIA HPI Amanda Rivera is a 67 year old female who was admitted on Jul 16, 2017 at 20: 23 for Abnormal Labs Hospital Course [id number] Discharge Discharge Disposition Patient was discharged to SNF/Subacute Facility(03) Discharge Diagnoses: Geno Conte NP Jul 20, 2017 15:35
--- NOTE | 2017-07-21 03:30 | Discharge Summary 2 SIG ---
DATE OF ADMISSION: 07/16/2017 DATE OF DISCHARGE: 07/19/2017 CONSULTANTS: 1. Cristy Alonso M.D. 2. Jesus Valdivia M.D. 3. Crow Coley M.D. BRIEF HOSPITAL COURSE: The patient is a 67-year-old female with history of hypothyroidism, mastoiditis, gallstones, history of herpes zoster, diverticulosis, hyponatremia, mitral regurgitation, CAD, cardiomegaly, dissecting aneurysm of the descending aorta, seizure disorder, anemia, constipation, CHF, subdural hematoma, history of SIADH, and encephalopathy, who presented to ED for evaluation of abnormal laboratories. Per EMS, the patient was noted to have low sodium with elevated BUN at senior living and the patient was confused. On evaluation at ED, labs showed hyponatremia. Sodium level was 125. EKG was in normal sinus rhythm. Chest x-ray showed left basal atelectasis. No acute findings. She was started on IV hydration and was admitted to the medical floor. She was followed by Dr. Valdivia. The patient was placed on p.o. fluid restriction. Venous duplex of lower extremity showed an acute nonocclusive thrombus in the common femoral vein. Dr. oCley was consulted. The patient was given Lovenox and Coumadin with INR goal between 2 and 3. She had thrombocytopenia likely secondary to underlying liver disease. Lovenox was discontinued as the INR was therapeutic. She was then continued on Coumadin. The patient was complaining of productive cough with whitish phlegm. Blood culture did not isolate any growth. She was started empirically on Zithromax. Repeat chest x-ray showed decreased left basilar atelectasis. Sodium level improved. The patient was continued on fluid restriction. She was eventually discharged back to SNF. FINAL DIAGNOSES: 1. Hyponatremia. 2. Acute deep vein thrombosis on the right lower extremity. 3. Thrombocytopenia. 4. Anemia, secondary to chronic disease. 5. Seizure disorder. 6. Acute bronchitis. 7. Diabetes mellitus. 8. Syndrome of inappropriate antidiuretic hormone secretion. DISPOSITION: The patient was discharged to [facility]. DISCHARGE MEDICATIONS: Refer to medication list. Ali Hadadz, M.D. I have been assigned to dictate discharge summary on this account and I was not involved in the patient's management. Geno Conte N.P. DR: DEVON JOB#: [id number] CC: BETH
--- NOTE | 2017-07-27 15:45 | Cardiology Report ---
APPROVED REPORT EKG Measurement Heart [id number] Normal sinus rhythm Incomplete right bundle branch block Nonspecific ST abnormality Abnormal ECG
== END 2017-07-19 16:32 | DRG 424 ==
LOC: EDBD 18:01 → EMR 19:07 → EDBEDREQ 19:19 → 4E 20:23 → EDBEDREQ 22:16 → 4E 07-17 14:03
DX: E22.2 Syndrome of inappropriate secretion of antidiuretic hormone (principal); I50.9 Heart failure, unspecified; D69.59 Other secondary thrombocytopenia; I82.411 Acute embolism and thrombosis of right femoral vein; I10 Essential (primary) hypertension; E11.9 Type 2 diabetes mellitus without complications; D63.8 Anemia in other chronic diseases classified elsewhere; E03.9 Hypothyroidism, unspecified; Z88.6 Allergy status to analgesic agent; Z88.1 Allergy status to other antibiotic agents; Z88.0 Allergy status to penicillin; K57.90 Diverticulosis of intestine, part unspecified, without perforation or abscess without bleeding; I34.0 Nonrheumatic mitral (valve) insufficiency; I69.398 Other sequelae of cerebral infarction; G40.909 Epilepsy, unspecified, not intractable, without status epilepticus; J20.9 Acute bronchitis, unspecified
CPT/HCPCS: 36415; 71010; 80053; 80061; 81003; 82550; 82553; 82977; 83605; 83735; 83880; 83930; 83935; 84100; 84300; 84443; 84484; 84550; 85025; 85610; 86140; 86703; 86705; 86709; 86803; 87040; 87340; 93005; 93970; 99285

== ENCOUNTER 2018-05-22 20:01 | Inpatient (IN) | payer MEDICAID ==
[~2018-05-22] VITALS: Ht 162.6 cm; Wt 43.7 kg
[~2018-05-22 20:01] MED LIST changes: +ACETAMINOPHEN325 M1 ORAL; +AZITHROMYCIN250 MG ORAL; +COUMADIN1 MG ORAL; +DOCUSATE SODIU100 MG ORAL; +LEVOTHYROXINE75 MCG ORAL; +METOPROLOL TART25 MG ORAL; +MULTIVITAMINS1 EAC8 ORAL
[2018-05-22 20:56] VITALS: BP 112/54
[2018-05-22 22:00] VITALS: BP 126/77
[2018-05-22 22:08] LABS: BASOPHILS % (AUTO) 1.5 % (0.0-2.0); EOSINOPHILS % (AUTO) 0.3 % (0.0-3.0); HEMATOCRIT 34.2 % (37.0-47.0); HEMOGLOBIN 12.2 G/DL (12.0-16.0); LYMPHOCYTES % (AUTO) 19.5 % (20.0-45.0); MEAN CORPUSCULAR VOLUME 91 FL (80-99); NEUTROPHILS % (AUTO) 67.7 % (45.0-75.0); PLATELET COUNT 163 K/UL (150-450); RED BLOOD COUNT 3.74 M/UL (4.20-5.40); RED CELL DISTRIBUTION WIDTH 10.9 % (11.6-14.8); WHITE BLOOD COUNT 6.6 K/UL (4.8-10.8)
[2018-05-22] MEDS ORDERED: Vancomycin 1 GM in D5W 275 ML IVPB SCH (22:15)
[2018-05-22 22:18] LABS: ANION GAP 7 mmol/L (5-15); BLOOD UREA NITROGEN 16 mg/dL (7-18); CARBON DIOXIDE 28 MMOL/L (21-32); CHLORIDE 100 MMOL/L (98-107); CREATININE 0.5 MG/DL (0.55-1.30); POTASSIUM 3.5 MMOL/L (3.5-5.1); SODIUM 135 MMOL/L (136-145)
[2018-05-22 22:32] LABS: ALANINE AMINOTRANSFERASE 16 U/L (12-78); ALBUMIN 3.5 G/DL (3.4-5.0); ALBUMIN/GLOBULIN RATIO 0.8 (1.0-2.7); ALKALINE PHOSPHATASE 74 U/L (46-116); ASPARTATE AMINO TRANSFERASE 23 U/L (15-37); BILIRUBIN,TOTAL 0.4 MG/DL (0.2-1.0); CKMB 0.6 NG/ML (0.0-3.6); CREATINE KINASE 44 U/L (26-308)
--- NOTE | 2018-05-22 23:33 | Emergency Room Report ---
History of Present Illness General Chief Complaint: Lower Extremity Injury Source: Medical Record Present Illness HPI Patient is a 68-year-old female presented after the recent fall. The patient been noted to have a fracture to her left lower extremity. Patient was noted to have the injury to her forehead. The patient prior history of dementia and had been noted to have markedly confusion at baseline. The patient was sent in by primary care physician for further evaluation. History is markedly limited by patient's mental status. Allergies: Coded Allergies: CIPROFLOXACIN (Verified Allergy, Unknown, 10/02/13) HYDROCODONE (Verified Allergy, Unknown, 10/02/13) PENICILLINS (Verified Allergy, Unknown, 10/02/13) PROCHLORPERAZINE (Verified Allergy, Unknown, 10/02/13) Patient History Past Medical History: see triage record Reviewed Nursing Documentation: PMH: Agreed; PSxH: Agreed Nursing Documentation-PMH Hx Cardiac Problems: Yes Hx Hypertension: Yes Hx Pacemaker: No Hx Asthma: No - pna, sepsis, resp insuff., neuropathy, hypothyroidsm, Hx Diabetes: Yes Hx Cancer: No Hx Gastrointestinal Problems: Yes Hx Neurological Problems: Yes Hx Cerebrovascular Accident: Yes Hx Seizures: Yes Review of Systems All Other Systems: limited - by mental status Physical Exam Vital Signs Date Time Temp Pulse Resp B/P (MAP) Pulse Ox O2 Delivery O2 Flow Rate FiO2 05/22/18 20:02 100.0 92 18 122/80 97 Room Air 100.0 Sp02 EP Interpretation: reviewed, normal General Appearance: normal inspection, alert, thin, Chronically Ill Head: other - forehead laceration 1cm superficial ENT: normal ENT inspection, hearing grossly normal, normal voice Neck: normal inspection, full range of motion, supple, no bony tend Respiratory: normal inspection, lungs clear, normal breath sounds, no respiratory distress, no retraction, no wheezing Cardiovascular #1: regular rate, rhythm, no edema Gastrointestinal: normal inspection, normal bowel sounds, non tender, soft, no guarding, no hernia Genitourinary: no CVA tenderness Musculoskeletal: normal inspection, back normal, normal range of motion Neurologic: normal inspection, alert, responsive, speech normal Psychiatric: normal inspection, judgement/insight normal, mood/affect normal Skin: normal color, no rash, laceration - forehead laceration Medical Decision Making Diagnostic Impression: Primary Impression: Sepsis Additional Impressions: Forehead laceration Fibula fracture Pneumonia Dehydration ER Course The patient presented for recent fall. The patient was noted to be febrile. Differential diagnosis included wasn't limited to pneumonia, urinary tract infection, drug fever, allergic reaction, sepsis, cholecystitis, among others.Because of complexity of patient's case laboratory testing and imaging studies were ordered. The laboratory study showed normal white blood count. EKG interpreted by me showed sinus rhythm with a rate of [address] or T wave changes. Patient was noted to have right bundle-branch block as well as slightly prolonged QT interval with QTc 475. The forehead laceration appears to be superficial and is amenable to Steri-Strips. The CT head read by radiology showed bilateral subdural hygroma without evident intracranial hemorrhage and right maxillary sinus fluid consistent with sinusitis. Dr. Mindy Urrutia was contacted for inpatient management Labs Test 05/22/18 21:20 05/22/18 21:40 Lactic Acid Level 1.20 mmol/L (0.4-2.0) White Blood Count 6.6 K/UL (4.8-10.8) Red Blood Count 3.74 M/UL (4.20-5.40) Hemoglobin 12.2 G/DL (12.0-16.0) Hematocrit 34.2 % (37.0-47.0) Mean Corpuscular Volume 91 FL (80-99) Mean Corpuscular Hemoglobin 32.6 PG (27.0-31.0) Mean Corpuscular Hemoglobin Concent 35.6 G/DL (32.0-36.0) Red Cell Distribution Width 10.9 % (11.6-14.8) Platelet Count 163 K/UL (150-450) Mean Platelet Volume 5.8 FL (6.5-10.1) Neutrophils (%) (Auto) 67.7 % (45.0-75.0) Lymphocytes (%) (Auto) 19.5 % (20.0-45.0) Monocytes (%) (Auto) 11.0 % (1.0-10.0) Eosinophils (%) (Auto) 0.3 % (0.0-3.0) Basophils (%) (Auto) 1.5 % (0.0-2.0) Prothrombin Time 10.6 SEC (9.30-11.50) Prothromb Time International Ratio 1.0 (0.9-1.1) Activated Partial Thromboplast Time 32 SEC (23-33) Sodium Level 135 MMOL/L (136-145) Potassium Level 3.5 MMOL/L (3.5-5.1) Chloride Level 100 MMOL/L (98-107) Carbon Dioxide Level 28 MMOL/L (21-32) Anion Gap 7 mmol/L (5-15) Blood Urea Nitrogen 16 mg/dL (7-18) Creatinine 0.5 MG/DL (0.55-1.30) Estimat Glomerular Filtration Rate > 60 mL/min (>60) Glucose Level 90 MG/DL (74-106) Calcium Level 9.0 MG/DL (8.5-10.1) Total Bilirubin 0.4 MG/DL (0.2-1.0) Aspartate Amino Transf (AST/SGOT) 23 U/L (15-37) Alanine Aminotransferase (ALT/SGPT) 16 U/L (12-78) Alkaline Phosphatase 74 U/L (46-116) Total Creatine Kinase 44 U/L (26-308) Creatine Kinase MB 0.6 NG/ML (0.0-3.6) Creatine Kinase MB Relative Index 1.3 Troponin I 0.010 ng/mL (0.000-0.056) Total Protein 7.7 G/DL (6.4-8.2) Albumin 3.5 G/DL (3.4-5.0) Globulin 4.2 g/dL Albumin/Globulin Ratio 0.8 (1.0-2.7) EKG Diagnostic Results Rate: normal Rhythm: NSR ST Segments: no acute changes Last Vital Signs Date Time Temp Pulse Resp B/P (MAP) Pulse Ox O2 Delivery O2 Flow Rate FiO2 05/22/18 20:56 101.2 97 20 112/54 100 Room Air 101.2 Status: unchanged Disposition: ADMITTED INPATIENT Condition: Serious Referrals: Mindy Bryan MD (PCP) Brendan Loving MD May 22, 2018 23:33
[2018-05-23] VITALS (7 sets, daily range): BP systolic 110–145; BP diastolic 62–79
[2018-05-23 01:08] LABS: BILIRUBIN, URINE NEGATIVE (NEGATIVE); GLUCOSE, URINE (UA) NEGATIVE (NEGATIVE); KETONES,URINE NEGATIVE (NEGATIVE); LEUKOCYTE ESTERASE ,URINE 1+ (NEGATIVE); NITRITE,URINE NEGATIVE (NEGATIVE); PH,URINE 8 (4.5-8.0); PROTEIN,URINE 2+ (NEGATIVE); UROBILINOGEN,URINE NORMAL MG/DL (0.0-1.0)
[2018-05-23 01:15] LABS: APPEARANCE,URINE CLOUDY; COLOR,URINE YELLOW
[2018-05-23] MEDS ORDERED: Milk of Magnesia 30ml Ud ORAL PRN (03:15)
[2018-05-23 08:01] LABS: BASOPHILS % (AUTO) 0.9 % (0.0-2.0); EOSINOPHILS % (AUTO) 0.5 % (0.0-3.0); HEMATOCRIT 32.9 % (37.0-47.0); HEMOGLOBIN 11.3 G/DL (12.0-16.0); LYMPHOCYTES % (AUTO) 27.7 % (20.0-45.0); MEAN CORPUSCULAR VOLUME 91 FL (80-99); MONOCYTES % (AUTO) 14.3 % (1.0-10.0); NEUTROPHILS % (AUTO) 56.6 % (45.0-75.0); PLATELET COUNT 150 K/UL (150-450); RED CELL DISTRIBUTION WIDTH 10.7 % (11.6-14.8)
[2018-05-23 08:22] LABS: ALANINE AMINOTRANSFERASE 10 U/L (12-78); ALBUMIN 3.1 G/DL (3.4-5.0); ALBUMIN/GLOBULIN RATIO 0.8 (1.0-2.7); ALKALINE PHOSPHATASE 66 U/L (46-116); ANION GAP 5 mmol/L (5-15); ASPARTATE AMINO TRANSFERASE 20 U/L (15-37); BILIRUBIN,TOTAL 0.5 MG/DL (0.2-1.0); BLOOD UREA NITROGEN 15 mg/dL (7-18); CALCIUM 8.5 MG/DL (8.5-10.1); CARBON DIOXIDE 28 MMOL/L (21-32); CHLORIDE 100 MMOL/L (98-107); CREATININE 0.5 MG/DL (0.55-1.30); POTASSIUM 3.3 MMOL/L (3.5-5.1); SODIUM 133 MMOL/L (136-145)
[2018-05-23] MEDS: Depakote 500mg tab ORAL SCH ×2 (08:53→20:26)
[2018-05-23] MEDS: Multivitamin w/Minerals tab ORAL SCH (08:53)
[2018-05-23] MEDS ORDERED: Metoprolol Tartrate 12.5mg TAB ORAL SCH (09:00)
[2018-05-23] MEDS ORDERED: HydrALAZINE 10mg Tab ORAL SCH (09:00)
[2018-05-23] MEDS ORDERED: Docusate 100mg cap ORAL SCH (09:00)
--- NOTE | 2018-05-23 09:03 | Diagnostic Imaging Report ---
Indications: Head pain, status post fall Technique: Spiral acquisitions obtained through the brain. Angled axial and coronal 5 x 5 mm slices were reconstructed. Total dose length product 1291.33 mGycm. CTDI vol(s) 70.38 mGy. Dose reduction achieved using automated exposure control Comparison: 06/24/2015 Findings: Again demonstrated is evidence of advanced cerebral volume loss, with enlargement of the ventricles and, especially, the extra-axial CSF spaces. Are also possibly bilateral frontal subdural hygromas, unchanged This is unchanged. There is periventricular deep white matter low-attenuation consistent with chronic ischemic change. Previously reported right inferior frontal lacunar infarct is less evident than previously. Old lacunar infarct in the right basal ganglia region again demonstrated. No acute intracranial hemorrhage or edema, mass effect, nor midline shift. Normal muñoz-white differentiation. A small cortical calcification is seen in the right frontal lobe. Visualized orbits are unremarkable. There is an air-fluid level in the right maxillary sinus The calvarium is intact. There is probably an empty sella. Impression: No acute intracranial bleed or mass effect Advanced volume loss and possible bilateral frontal subdural hygromas or effusions, unchanged Other chronic and age-related changes, as described Minimal right maxillary sinus disease This agrees with the preliminary interpretation provided overnight by [facility] teleradiology service. The CT scanner at [facility] is accredited by the [employer] and the scans are performed using protocols designed to limit radiation exposure to as low as reasonably achievable to attain images of sufficient resolution adequate for diagnostic evaluation.
--- NOTE | 2018-05-23 09:30 | Diagnostic Imaging Report ---
Indication: Leg pain, history of fracture Technique: 2 views of the left tibia and fibula Comparison: Findings: Overlying cast obscures bony detail. Fracture lines are not definitely visualized but could be obscured. Impression: Tibia and fibula in plaster. Correlate with previous exams
--- NOTE | 2018-05-23 09:32 | Diagnostic Imaging Report ---
Indication: Shortness of breath Technique: One view of the chest Comparison: 07/18/2017 Findings: There is a retrocardiac opacity, may just reflect scalloping of the hemidiaphragm but infiltrate or effusion also possible the lungs are otherwise clear. Heart is borderline enlarged. There is an inferior vena cava filter again demonstrated Impression: Retrocardiac opacity, could represent pleural fluid and/or parenchymal disease. Correlate with clinical findings Borderline cardiomegaly Other findings as noted
[2018-05-23] MEDS: Aztreonam Inj 1 GM in D5W 55 ML IVPB SCH ×3 (09:47→20:27)
--- NOTE | 2018-05-23 15:58 | Consultation ---
Consult Note Consult Note asked to eval for electrolyte imbalances Patient is a 68-year-old female presented after the recent fall. The patient been noted to have a fracture to her left lower extremity. Patient was noted to have the injury to her forehead. The patient prior history of dementia and had been noted to have markedly confusion at baseline. The patient was sent in by primary care physician for further evaluation. History is markedly limited by patient's mental status. Allergies: CIPROFLOXACIN (Verified Allergy, Unknown, 10/02/13) HYDROCODONE (Verified Allergy, Unknown, 10/02/13) PENICILLINS (Verified Allergy, Unknown, 10/02/13) PROCHLORPERAZINE (Verified Allergy, Unknown, 10/02/13) Hx Asthma: No - pna, sepsis, resp insuff., neuropathy, hypothyroidsm, Hx Neurological Problems: Yes Hx Cardiac Problems: Yes Hx Hypertension: Yes Hx Diabetes: Yes Hx Gastrointestinal Problems: Yes Hx Cerebrovascular Accident: Yes Hx Seizures: Yes Assessment/Plan Sepsis Forehead laceration Fibula fracture Pneumonia Dehydration HypoNatremia , Etiology? ? 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
--- NOTE | 2018-05-23 17:00 | Consultation ---
DATE OF CONSULTATION: 05/23/2018 INFECTIOUS DISEASE CONSULTATION CONSULTING PHYSICIAN: Gamal Serrano M.D. PRIMARY ATTENDING PHYSICIAN: Mindy Bryan M.D. REASON FOR CONSULTATION: Fever, urinary tract infection, and probable pneumonia. HISTORY OF PRESENT ILLNESS: This is a 68-year-old female, admitted from a nursing facility after a fall. She has laceration in forehead and fracture of the left ankle. In the ER, had fever up to 101.2. PAST MEDICAL HISTORY: Significant for dementia, hypertension, diabetes mellitus, chronic obstructive pulmonary disease, anemia, DVT, and diverticulosis. MEDICATIONS: Aztreonam, Depakote, Colace, folic acid, hydralazine, metoprolol, levothyroxine, Tylenol, milk of magnesia. Also, get the dose of vancomycin in the ER and dose of metronidazole in the ER. ALLERGIES: Allergic to Ciprofloxacin, hydrocodone, penicillin, and prochlorperazine. SOCIAL HISTORY: . retirement resident. REVIEW OF SYSTEMS: Unobtainable. PHYSICAL EXAMINATION: VITAL SIGNS: Temperature 97.9, pulse 78, and blood pressure is 115/64. GENERAL APPEARANCE: No acute distress. Opens eyes. HEAD AND NECK: Dressing of forehead in the right side. HEART: Normal rate. LUNGS: Clear. ABDOMEN: Soft and nontender. EXTREMITY: No edema. Has casts in the left lower extremity below the knee covering left ankle. LABORATORY DATA: WBC 5, hemoglobin , hematocrit 22.9, and platelets 150,000. Sodium 132, potassium 3.3, chloride 100, bicarbonate 28, BUN 15, creatinine 0.5, and glucose 86. Chest x-ray showed retrocardiac opacity. CT scan of the head showed atrophy. UA showed wbc of 5 to 10, rbc of 10 to 15, occult blood 3+, and protein 2+. IMPRESSION: Fever, may be secondary to infection or recent trauma. The patient has pyuria. We will try to rule out urinary tract infection. Retrocardiac opacity, try to rule out pneumonia. Has history of fall, had left ankle fracture and forehead laceration. Seems to have dementia with significant atrophy in the head CT. RECOMMENDATION: We will continue with aztreonam. We will follow up the blood culture and urine culture. We will follow up chest x-ray. At the end of my exam, I thank Dr. Bryan for involving me in the care of this patient. Gamal Serrano M.D. DR: DEREK JOB#: [id number] CC:
[2018-05-23] MEDS: Docusate 100mg cap ORAL SCH (17:52)
[2018-05-23] MEDS: Metoprolol Tartrate 12.5mg TAB ORAL SCH (20:26)
--- NOTE | 2018-05-23 20:28 | Consultation ---
History of Present Illness General Date patient seen: May 23, 2018 Chief Complaint: Lower Extremity Injury Present Illness HPI 68-year-old female, admitted from a nursing facility after a fall, due to laceration in forehead and fracture of the left ankle. Allergies: Coded Allergies: CIPROFLOXACIN (Verified Allergy, Unknown, 10/02/13) HYDROCODONE (Verified Allergy, Unknown, 10/02/13) PENICILLINS (Verified Allergy, Unknown, 10/02/13) PROCHLORPERAZINE (Verified Allergy, Unknown, 10/02/13) Medication History Scheduled Bisacodyl (Dulcolax), 10 MG RC DAILY, (Reported) Divalproex Sodium (Depakote), 500 MG PO Q12HR, (Reported) Docusate Sodium* (Docusate Sodium*), 100 MG ORAL DAILY, (Reported) Folic Acid* (Folic Acid*), 1 MG PO DAILY, (Reported) Hydralazine HCl (Hydralazine HCl), 10 MG ORAL DAILY, (Reported) Levothyroxine Sodium* (Levothyroxine Sodium*), 75 MCG ORAL BEFORE BREAKFAST, ( Reported) Metoprolol Tartrate* (Metoprolol Tartrate*), 12.5 MG ORAL DAILY, (Reported) Multivitamin With Minerals (Multivitamins With Minerals*), 1 TAB ORAL DAILY, ( Reported) Scheduled PRN Acetaminophen* (Acetaminophen 325MG Tablet*), 2 TAB ORAL Q4H PRN for Mild Pain ( Pain Scale 1-3), (Reported) Acetaminophen* (Acetaminophen 325MG Tablet*), 2 TAB ORAL Q4H PRN for Temp >101, (Reported) Discontinued Medications Azithromycin* (Zithromax*), 250 MG ORAL DAILY, (Reported) Discontinued Reason: Pt stopped taking med Fludrocortisone Acetate (Fludrocortisone Acetate), 0.1 MG ORAL DAILY, (Reported) Discontinued Reason: Pt stopped taking med Magnesium Hydroxide* (Milk Of Magnesia*), 30 ML ORAL HS PRN for Constipation, ( Reported) Discontinued Reason: Pt stopped taking med Na Phos,M-B/Na Phos,Di-Ba* (Fleet Enema*), 133 ML RECTAL EVERY OTHER DAY PRN for Constipation, (Reported) Discontinued Reason: Pt stopped taking med Pyridoxine Hcl* (Vitamin B-6*), 100 MG ORAL DAILY, (Reported) Discontinued Reason: Pt had allergic rxn Warfarin Sod* (Coumadin*), 1 MG ORAL DAILY, (Reported) Discontinued Reason: Pt stopped taking med [Novolin Scale], (Reported) Discontinued Reason: Pt stopped taking med [Protein Liquid], 30 ML BID, (Reported) Discontinued Reason: Pt stopped taking med [dulcolax supp], 10 MG RC DAILY PRN for Constipation, (Reported) Discontinued Reason: Pt stopped taking med Patient History History Provided By: Patient, Medical Record, PMD Healthcare decision maker Resuscitation status Full Code Advanced Directive on File Review of Systems Psychiatric: Reports: prior hx, anxiety, depressed feelings Physical Exam General Appearance: no apparent distress, alert Last 24 Hour Vital Signs Date Time Temp Pulse Resp B/P (MAP) Pulse Ox O2 Delivery O2 Flow Rate FiO2 05/23/18 20:26 81 110/62 05/23/18 16:00 81 05/23/18 16:00 97.5 96 18 131/68 (89) 97 97.5 05/23/18 12:00 73 05/23/18 12:00 97.5 76 18 145/66 (92) 96 97.5 05/23/18 09:59 97.9 05/23/18 09:14 97.9 05/23/18 09:00 Room Air 05/23/18 08:53 78 115/64 05/23/18 08:53 115/64 05/23/18 08:00 87 05/23/18 08:00 97.9 78 18 115/64 (81) 96 97.9 05/23/18 04:00 98.0 92 20 115/66 (82) 96 98.0 05/23/18 04:00 84 05/23/18 01:15 Room Air 05/23/18 01:13 98.6 86 129/73 (91) 98.6 05/23/18 01:05 98.9 82 17 114/55 100 Room Air 82 05/23/18 00:06 97.9 97 20 133/79 100 Room Air 97.9 05/22/18 22:00 98.9 97 20 126/77 100 Room Air 98.9 05/22/18 20:56 101.2 97 20 112/54 100 Room Air 101.2 Intake and Output 05/22/18 05/23/18 19:00 07:00 Intake Total 300 ml Balance 300 ml IV Total 300 ml # Bowel Movements 1 Laboratory Tests Test 05/22/18 21:20 05/22/18 21:40 05/22/18 23:55 05/23/18 06:30 Lactic Acid Level 1.20 mmol/L (0.4-2.0) White Blood Count 6.6 K/UL (4.8-10.8) 5.0 K/UL (4.8-10.8) Red Blood Count 3.74 M/UL (4.20-5.40) L 3.60 M/UL (4.20-5.40) L Hemoglobin 12.2 G/DL (12.0-16.0) 11.3 G/DL (12.0-16.0) L Hematocrit 34.2 % (37.0-47.0) L 32.9 % (37.0-47.0) L Mean Corpuscular Volume 91 FL (80-99) 91 FL (80-99) Mean Corpuscular Hemoglobin 32.6 PG (27.0-31.0) H 31.3 PG (27.0-31.0) H Mean Corpuscular Hemoglobin Concent 35.6 G/DL (32.0-36.0) 34.4 G/DL (32.0-36.0) Red Cell Distribution Width 10.9 % (11.6-14.8) L 10.7 % (11.6-14.8) L Platelet Count 163 K/UL (150-450) 150 K/UL (150-450) Mean Platelet Volume 5.8 FL (6.5-10.1) L 5.5 FL (6.5-10.1) L Neutrophils (%) (Auto) 67.7 % (45.0-75.0) 56.6 % (45.0-75.0) Lymphocytes (%) (Auto) 19.5 % (20.0-45.0) L 27.7 % (20.0-45.0) Monocytes (%) (Auto) 11.0 % (1.0-10.0) H 14.3 % (1.0-10.0) H Eosinophils (%) (Auto) 0.3 % (0.0-3.0) 0.5 % (0.0-3.0) Basophils (%) (Auto) 1.5 % (0.0-2.0) 0.9 % (0.0-2.0) Prothrombin Time 10.6 SEC (9.30-11.50) Prothromb Time International Ratio 1.0 (0.9-1.1) Activated Partial Thromboplast Time 32 SEC (23-33) Sodium Level 135 MMOL/L (136-145) L 133 MMOL/L (136-145) L Potassium Level 3.5 MMOL/L (3.5-5.1) 3.3 MMOL/L (3.5-5.1) L Chloride Level 100 MMOL/L (98-107) 100 MMOL/L (98-107) Carbon Dioxide Level 28 MMOL/L (21-32) 28 MMOL/L (21-32) Anion Gap 7 mmol/L (5-15) 5 mmol/L (5-15) Blood Urea Nitrogen 16 mg/dL (7-18) 15 mg/dL (7-18) Creatinine 0.5 MG/DL (0.55-1.30) L 0.5 MG/DL (0.55-1.30) L Estimat Glomerular Filtration Rate > 60 mL/min (>60) > 60 mL/min (>60) Glucose Level 90 MG/DL (74-106) 86 MG/DL (74-106) Calcium Level 9.0 MG/DL (8.5-10.1) 8.5 MG/DL (8.5-10.1) Total Bilirubin 0.4 MG/DL (0.2-1.0) 0.5 MG/DL (0.2-1.0) Aspartate Amino Transf (AST/SGOT) 23 U/L (15-37) 20 U/L (15-37) Alanine Aminotransferase (ALT/SGPT) 16 U/L (12-78) 10 U/L (12-78) L Alkaline Phosphatase 74 U/L (46-116) 66 U/L (46-116) Total Creatine Kinase 44 U/L (26-308) Creatine Kinase MB 0.6 NG/ML (0.0-3.6) Creatine Kinase MB Relative Index 1.3 Troponin I 0.010 ng/mL (0.000-0.056) Total Protein 7.7 G/DL (6.4-8.2) 7.1 G/DL (6.4-8.2) Albumin 3.5 G/DL (3.4-5.0) 3.1 G/DL (3.4-5.0) L Globulin 4.2 g/dL 4.0 g/dL Albumin/Globulin Ratio 0.8 (1.0-2.7) L 0.8 (1.0-2.7) L Urine Color Yellow Urine Appearance Cloudy Urine pH 8 (4.5-8.0) Urine Specific [place] 1.015 (1.005-1.035) Urine Protein 2+ (NEGATIVE) H Urine Glucose (UA) Negative (NEGATIVE) Urine Ketones Negative (NEGATIVE) Urine Occult Blood 3+ (NEGATIVE) H Urine Nitrite Negative (NEGATIVE) Urine Bilirubin Negative (NEGATIVE) Urine Urobilinogen Normal MG/DL (0.0-1.0) Urine Leukocyte Esterase 1+ (NEGATIVE) H Urine RBC 10-15 /HPF (0 - 2) H Urine WBC 5-10 /HPF (0 - 2) H Urine Squamous Epithelial Cells Many /LPF (NONE/OCC) H Urine Amorphous Sediment Many /LPF (NONE) H Urine Bacteria Moderate /HPF (NONE) H Urine Coarse Granular Casts 0-2 /LPF (NONE) H Height (Feet): 5 Height (Inches): 4.00 Weight (Pounds): 96 Medications Current Medications Medications (Trade) Dose Ordered Sig/Karlee Route PRN Reason Start Time Stop Time Status Last Admin Dose Admin Acetaminophen (Tylenol) 325 mg Q4H PRN ORAL Mild Pain (Pain Scale 1-3) 05/23/18 03:15 06/22/18 03:14 05/23/18 09:14 Aztreonam 1 gm/ Dextrose 55 ml @ 110 mls/hr Q8HR IVPB 05/23/18 09:30 05/30/18 09:29 05/23/18 20:27 Divalproex Sodium (Depakote) 500 mg Q12HR ORAL 05/23/18 09:00 06/22/18 08:59 05/23/18 20:26 Docusate Sodium (Colace) 100 mg TID ORAL 05/23/18 18:00 06/22/18 08:59 05/23/18 17:52 Famotidine (Pepcid) 20 mg BID ORAL 05/23/18 18:00 06/22/18 17:59 05/23/18 17:52 Levothyroxine Sodium (Synthroid) 75 mcg BEFORE BREAKFAST ORAL 05/23/18 06:30 06/22/18 06:29 05/23/18 06:30 Metoprolol Tartrate (Lopressor) 12.5 mg Q12HR ORAL 05/23/18 21:00 06/22/18 08:59 05/23/18 20:26 Multivitamins Therapeutic (Therapeutic Multivitamin) 1 ea DAILY ORAL 05/23/18 09:00 06/22/18 08:59 05/23/18 08:53 Assessment/Plan Assessment/Plan Mood d/o cont depakote provided ro/Isa Sexton MD May 23, 2018 20:28
--- NOTE | 2018-05-23 21:15 | Consultation ---
DATE OF CONSULTATION: 05/23/2018 ORTHOPEDIC CONSULTATION CONSULTING PHYSICIAN: Davie Dunlap M.D. CHIEF COMPLAINT: Right leg pain. HISTORY OF PRESENT ILLNESS: The patient is a 68-year-old female who was admitted for multiple medical issues including right leg tibial fracture. Orthopedic consultation was obtained for further care and recommendation. PAST MEDICAL HISTORY: Reviewed per intake chart. SURGICAL HISTORY: Reviewed per intake chart. MEDICATIONS: Reviewed per intake chart. PHYSICAL EXAMINATION: Shows a Khan brace on the right leg. There is tenderness to palpation over the distal third of the fibula, some +1 pitting edema. No ecchymosis. Skin is intact. DIAGNOSTIC DATA: Imaging studies of the right leg showed a possible fracture along the distal third of the fibula. ASSESSMENT: Right fibula fracture. DISCUSSION: At this point, what I would recommend that we will go ahead and transition her out of the posterior splint into a CAM walker boot. She will be weightbearing as tolerated. In terms of other medical issues, this could be addressed accordingly. We can begin physical therapy with weightbearing as tolerated once she is medically optimized. Davie Dunlap M.D. DR: Jose JOB#: [id number] CC:
[2018-05-24] VITALS: BP 118/64
[2018-05-24 04:00] VITALS: BP 100/68
[2018-05-24 05:25] LABS: BASOPHILS % (AUTO) 1.1 % (0.0-2.0); EOSINOPHILS % (AUTO) 1.8 % (0.0-3.0); HEMOGLOBIN 10.8 G/DL (12.0-16.0); LYMPHOCYTES % (AUTO) 28.1 % (20.0-45.0); MEAN CORPUSCULAR VOLUME 92 FL (80-99); MONOCYTES % (AUTO) 9.1 % (1.0-10.0); PLATELET COUNT 151 K/UL (150-450); RED BLOOD COUNT 3.39 M/UL (4.20-5.40); RED CELL DISTRIBUTION WIDTH 10.9 % (11.6-14.8); WHITE BLOOD COUNT 4.6 K/UL (4.8-10.8)
[2018-05-24] MEDS: Aztreonam Inj 1 GM in D5W 55 ML IVPB SCH ×3 (05:44→22:22)
[2018-05-24 06:09] LABS: ALANINE AMINOTRANSFERASE < 6 U/L (12-78); ALBUMIN 2.9 G/DL (3.4-5.0); ALBUMIN/GLOBULIN RATIO 0.7 (1.0-2.7); ALKALINE PHOSPHATASE 59 U/L (46-116); ANION GAP 7 mmol/L (5-15); ASPARTATE AMINO TRANSFERASE 17 U/L (15-37); BILIRUBIN,TOTAL 0.4 MG/DL (0.2-1.0); BLOOD UREA NITROGEN 8 mg/dL (7-18); CALCIUM 8.5 MG/DL (8.5-10.1); CARBON DIOXIDE 27 MMOL/L (21-32); CHLORIDE 101 MMOL/L (98-107); CHOLESTEROL 144 MG/DL (< 200); CREATINE KINASE 42 U/L (26-308); CREATININE 0.5 MG/DL (0.55-1.30); FERRITIN 119 NG/ML (8-388); GAMMA GLUTAMYL TRANSPEPTIDASE 7 U/L (5-85); HDL CHOLESTEROL 73 MG/DL (40-60); PHOSPHORUS 3.7 MG/DL (2.5-4.9); POTASSIUM 3.8 MMOL/L (3.5-5.1); SODIUM 134 MMOL/L (136-145); TRIGLYCERIDES 41 MG/DL (30-150)
[2018-05-24 06:33] LABS: % IRON SATURATION 9 % (15-50); IRON 37 ug/dL (50-175); TOTAL IRON BINDING CAPACITY 390 ug/dL (250-450)
--- NOTE | 2018-05-24 07:00 | History and Physical Report ---
DATE OF ADMISSION: 05/22/2018 HISTORY OF PRESENT ILLNESS: The patient is a poor historian. The patient is status post fall at the snf and sustained a left-sided nondisplaced distal fibula fracture. The patient also had a fever of 101 degrees, history of dementia, cannot get reliable history from the patient, and is admitted for those reasons. The patient complained of left lower extremity pain. Denies nausea, vomiting, or diarrhea. No fever or chills. No abdominal pain. No shortness of breath. Denies cough. Denies chills. 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 PAST SURGICAL HISTORY: She does have a repair of the fractures. ALLERGIES: To Cipro, hydrocodone, penicillin and prochlorperazine. MEDICATIONS: Tylenol, bisacodyl, Depakote, Colace, folic acid, hydralazine, Levoxyl, metoprolol, multivitamin. FAMILY HISTORY: Noncontributory. SOCIAL HISTORY: Denies smoking, alcohol, or illicit drugs. Comes from a snf. REVIEW OF SYSTEMS: HEENT: Denies headaches. PULMONARY: Denies shortness of breath. Denies cough. CARDIOVASCULAR: Denies chest pain or orthopnea. GASTROINTESTINAL: Denies nausea, vomiting, or diarrhea. EXTREMITIES: Extremity pain. CENTRAL NERVOUS SYSTEM: Poor historian. PHYSICAL EXAMINATION: VITAL SIGNS: Temperature 97.5 degrees, pulse 76, and blood pressure 145/66. HEENT: PERRLA. NECK: Supple. No lymphadenopathy. CHEST: Clear to auscultation. GASTROINTESTINAL: Soft, nontender, nondistended. No organomegaly. EXTREMITIES: Decreased range of motion in the left lower extremity due to pain. Oriented to name only. Cranial nerves are intact. LABORATORY AND DIAGNOSTIC DATA: WBC of 6.6, hemoglobin 12.2, and platelet 163. Sodium 135, potassium 3.5, chloride 100, BUN of 16, and creatinine 0.5. ASSESSMENT AND PLAN: The patient had fever. Also, left-sided nondisplaced distal fibula fracture, possible urinary tract infection and the patient also has low potassium. 1. Fever. 2. Fracture. 3. Low potassium. 4. Possible UTI. For those, I have asked basically Dr. Dulnap, Dr. Valdivia, Dr. Serrano to see the patient for the management and treatment of above-mentioned diagnoses and treatment. Mindy Bryan M.D. DR: NITIN JOB#: [id number] CC:
[2018-05-24 08:00] VITALS: BP 104/59
[2018-05-24] MEDS: Metoprolol Tartrate 12.5mg TAB ORAL SCH ×2 (09:00→20:55)
[2018-05-24] MEDS: Depakote 500mg tab ORAL SCH ×2 (09:12→20:55)
[2018-05-24] MEDS: Docusate 100mg cap ORAL SCH ×3 (09:12→16:56)
[2018-05-24] MEDS: Multivitamin w/Minerals tab ORAL SCH (09:13)
[2018-05-24 12:00] VITALS: BP 105/56
--- NOTE | 2018-05-24 12:08 | General Progress Note ---
Assessment/Plan Problem List: (1) Dehydration ICD Codes: E86.0 - Dehydration SNOMED: 39837158 (2) Seizure ICD Codes: R56.9 - Seizure SNOMED: 44531684 (3) Diabetes ICD Codes: E11.9 - Diabetes SNOMED: 90306982 (4) Fever ICD Codes: R50.9 - Fever SNOMED: 455227467 Status: progressing Assessment/Plan fever r/o sepsis fracture extremity consulted dr keating and he recommends no surgery and ordered brace Subjective Allergies: Coded Allergies: CIPROFLOXACIN (Verified Allergy, Unknown, 10/02/13) HYDROCODONE (Verified Allergy, Unknown, 10/02/13) PENICILLINS (Verified Allergy, Unknown, 10/02/13) PROCHLORPERAZINE (Verified Allergy, Unknown, 10/02/13) Subjective pain where the fracture is Objective Last 24 Hour Vital Signs Date Time Temp Pulse Resp B/P (MAP) Pulse Ox O2 Delivery O2 Flow Rate FiO2 05/24/18 09:00 Room Air 05/24/18 08:00 76 05/24/18 08:00 98.1 75 18 104/59 (74) 93 98.1 05/24/18 04:00 97.9 73 20 100/68 (79) 96 97.9 05/24/18 04:00 64 05/24/18 00:00 63 05/24/18 00:00 97.0 78 20 118/64 (82) 97 97.0 05/23/18 21:00 Room Air 05/23/18 20:26 81 110/62 05/23/18 20:00 82 05/23/18 20:00 98.7 78 20 110/62 (78) 97 98.7 05/23/18 16:00 81 05/23/18 16:00 97.5 96 18 131/68 (89) 97 97.5 Intake and Output 05/23/18 05/24/18 19:00 07:00 Intake Total 470 ml Output Total 350 ml Balance 120 ml Intake Oral 360 ml IV Total 110 ml Output Urine Total 350 ml # Voids 3 Laboratory Tests 05/24/18 04:50: White Blood Count 4.6L, Red Blood Count 3.39L, Hemoglobin 10.8L, Hematocrit 31.0L, Mean Corpuscular Volume 92, Mean Corpuscular Hemoglobin 32.0H, Mean Corpuscular Hemoglobin Concent 34.9, Red Cell Distribution Width 10.9L, Platelet Count 151, Mean Platelet Volume 6.7, Neutrophils (%) (Auto) 60.0, Lymphocytes (%) (Auto) 28.1, Monocytes (%) (Auto) 9.1, Eosinophils (%) (Auto) 1.8, Basophils (%) (Auto) 1.1, Sodium Level 134L, Potassium Level 3.8, Chloride Level 101, Carbon Dioxide Level 27, Anion Gap 7, Blood Urea Nitrogen 8, Creatinine 0.5L, Estimat Glomerular Filtration Rate > 60, Glucose Level 84, Hemoglobin A1c 4.9, Osmolality 279L, Uric Acid 2.9, Calcium Level 8.5, Phosphorus Level 3.7, Magnesium Level 1.8, Iron Level 37L, Total Iron Binding Capacity 390, Percent Iron Saturation 9L, Unsaturated Iron Binding 353H, Ferritin 119, Total Bilirubin 0.4, Gamma Glutamyl Transpeptidase 7, Aspartate Amino Transf (AST/SGOT) 17, Alanine Aminotransferase (ALT/SGPT) < 6L, Alkaline Phosphatase 59, Total Creatine Kinase 42, C-Reactive Protein, Quantitative 6.0H , Pro-B-Type Natriuretic Peptide 438H, Total Protein 7.0, Albumin 2.9L, Globulin 4.1, Albumin/Globulin Ratio 0.7L, Triglycerides Level 41, Cholesterol Level 144, LDL Cholesterol 62, HDL Cholesterol 73H, Cholesterol/HDL Ratio 2.0L, Vitamin B12 Level 823, Folate 45.8, Thyroid Stimulating Hormone (TSH) 24.625H, Valproic Acid (Depakene) Level 66 Height (Feet): 5 Height (Inches): 4.00 Weight (Pounds): 96 Cardiovascular: normal rate Respiratory/Chest: lungs clear Abdomen: soft Mindy Bryan MD May 24, 2018 12:08
--- NOTE | 2018-05-24 12:25 | Infectious Diseases Prog Note ---
Assessment/Plan Assessment/Plan A; Fever resolved Pyuria/UTI s/p fall Left ankle fracture Forehead laceration Dementia P; Continue Azactam Subjective ROS Limited/Unobtainable: Yes Musculoskeletal: Reports: pain, other - left leg Allergies: Coded Allergies: CIPROFLOXACIN (Verified Allergy, Unknown, 10/02/13) HYDROCODONE (Verified Allergy, Unknown, 10/02/13) PENICILLINS (Verified Allergy, Unknown, 10/02/13) PROCHLORPERAZINE (Verified Allergy, Unknown, 10/02/13) Objective Vital Signs Last 24 Hour Vital Signs Date Time Temp Pulse Resp B/P (MAP) Pulse Ox O2 Delivery O2 Flow Rate FiO2 05/24/18 09:00 Room Air 05/24/18 08:00 76 05/24/18 08:00 98.1 75 18 104/59 (74) 93 98.1 05/24/18 04:00 97.9 73 20 100/68 (79) 96 97.9 05/24/18 04:00 64 05/24/18 00:00 63 05/24/18 00:00 97.0 78 20 118/64 (82) 97 97.0 05/23/18 21:00 Room Air 05/23/18 20:26 81 110/62 05/23/18 20:00 82 05/23/18 20:00 98.7 78 20 110/62 (78) 97 98.7 05/23/18 16:00 81 05/23/18 16:00 97.5 96 18 131/68 (89) 97 97.5 Height (Feet): 5 Height (Inches): 4.00 Weight (Pounds): 96 General Appearance: no acute distress HEENT: other - right forehead laceration Respiratory/Chest: lungs clear Cardiovascular: normal rate Abdomen: soft, non tender Extremities: no edema, other - left leg cast Neurologic/Psychiatric: alert, responsive Microbiology Date/Time Source Procedure Growth Status 05/22/18 21:40 Blood Blood Culture - Preliminary NO GROWTH AFTER 24 HOURS Resulted 05/22/18 21:30 Blood Blood Culture - Preliminary NO GROWTH AFTER 24 HOURS Resulted 05/22/18 23:55 Urine,Clean Catch Urine Culture - Preliminary Mixed Gram Positive Organism Resulted Laboratory Tests Test 05/24/18 04:50 White Blood Count 4.6 K/UL (4.8-10.8) L Red Blood Count 3.39 M/UL (4.20-5.40) L Hemoglobin 10.8 G/DL (12.0-16.0) L Hematocrit 31.0 % (37.0-47.0) L Mean Corpuscular Volume 92 FL (80-99) Mean Corpuscular Hemoglobin 32.0 PG (27.0-31.0) H Mean Corpuscular Hemoglobin Concent 34.9 G/DL (32.0-36.0) Red Cell Distribution Width 10.9 % (11.6-14.8) L Platelet Count 151 K/UL (150-450) Mean Platelet Volume 6.7 FL (6.5-10.1) Neutrophils (%) (Auto) 60.0 % (45.0-75.0) Lymphocytes (%) (Auto) 28.1 % (20.0-45.0) Monocytes (%) (Auto) 9.1 % (1.0-10.0) Eosinophils (%) (Auto) 1.8 % (0.0-3.0) Basophils (%) (Auto) 1.1 % (0.0-2.0) Sodium Level 134 MMOL/L (136-145) L Potassium Level 3.8 MMOL/L (3.5-5.1) Chloride Level 101 MMOL/L (98-107) Carbon Dioxide Level 27 MMOL/L (21-32) Anion Gap 7 mmol/L (5-15) Blood Urea Nitrogen 8 mg/dL (7-18) Creatinine 0.5 MG/DL (0.55-1.30) L Estimat Glomerular Filtration Rate > 60 mL/min (>60) Glucose Level 84 MG/DL (74-106) Hemoglobin A1c 4.9 % (4.3-6.0) Osmolality 279 mOsm/kg (297-317) L Uric Acid 2.9 MG/DL (2.6-7.2) Calcium Level 8.5 MG/DL (8.5-10.1) Phosphorus Level 3.7 MG/DL (2.5-4.9) Magnesium Level 1.8 MG/DL (1.8-2.4) Iron Level 37 ug/dL (50-175) L Total Iron Binding Capacity 390 ug/dL (250-450) Percent Iron Saturation 9 % (15-50) L Unsaturated Iron Binding 353 ug/dL (112-346) H Ferritin 119 NG/ML (8-388) Total Bilirubin 0.4 MG/DL (0.2-1.0) Gamma Glutamyl Transpeptidase 7 U/L (5-85) Aspartate Amino Transf (AST/SGOT) 17 U/L (15-37) Alanine Aminotransferase (ALT/SGPT) < 6 U/L (12-78) L Alkaline Phosphatase 59 U/L (46-116) Total Creatine Kinase 42 U/L (26-308) C-Reactive Protein, Quantitative 6.0 mg/dL (0.00-0.90) H Pro-B-Type Natriuretic Peptide 438 pg/mL (0-125) H Total Protein 7.0 G/DL (6.4-8.2) Albumin 2.9 G/DL (3.4-5.0) L Globulin 4.1 g/dL Albumin/Globulin Ratio 0.7 (1.0-2.7) L Triglycerides Level 41 MG/DL (30-150) Cholesterol Level 144 MG/DL (< 200) LDL Cholesterol 62 mg/dL (<100) HDL Cholesterol 73 MG/DL (40-60) H Cholesterol/HDL Ratio 2.0 (3.3-4.4) L Vitamin B12 Level 823 PG/ML (193-986) Folate 45.8 NG/ML (8.6-58.9) Thyroid Stimulating Hormone (TSH) 24.625 uiU/mL (0.358-3.740) Valproic Acid (Depakene) Level 66 MCG/ML (50-100) Current Medications Medications (Trade) Dose Ordered Sig/Karlee Route PRN Reason Start Time Stop Time Status Last Admin Dose Admin Acetaminophen (Tylenol) 325 mg Q4H PRN ORAL Mild Pain (Pain Scale 1-3) 05/23/18 03:15 06/22/18 03:14 05/23/18 22:26 Aztreonam 1 gm/ Dextrose 55 ml @ 110 mls/hr Q8HR IVPB 05/23/18 09:30 05/30/18 09:29 05/24/18 05:44 Divalproex Sodium (Depakote) 500 mg Q12HR ORAL 05/23/18 09:00 06/22/18 08:59 05/24/18 09:12 Docusate Sodium (Colace) 100 mg TID ORAL 05/23/18 18:00 06/22/18 08:59 05/24/18 09:12 Famotidine (Pepcid) 20 mg BID ORAL 05/23/18 18:00 06/22/18 17:59 05/24/18 09:13 Levothyroxine Sodium (Synthroid) 75 mcg BEFORE BREAKFAST ORAL 05/23/18 06:30 06/22/18 06:29 05/24/18 05:43 Metoprolol Tartrate (Lopressor) 12.5 mg Q12HR ORAL 05/23/18 21:00 06/22/18 08:59 05/23/18 20:26 Multivitamins Therapeutic (Therapeutic Multivitamin) 1 ea DAILY ORAL 05/23/18 09:00 06/22/18 08:59 05/24/18 09:13 Gamal Serrano MD May 24, 2018 12:25
--- NOTE | 2018-05-24 12:41 | Cardiology Report ---
APPROVED REPORT EKG Measurement Heart [id number] MA 126P-1 [id number] Sinus rhythm with premature ventricular complexes or fusion complexes Right bundle branch block Abnormal ECG
--- NOTE | 2018-05-24 13:13 | Nephrology Progress Note ---
Assessment/Plan Problem List: (1) Hyponatremia (2) Hypothyroidism (3) UTI (lower urinary tract infection) (4) Seizure disorder Assessment Sepsis Forehead laceration Fibula fracture Pneumonia Dehydration HypoNatremia , Etiology? ? 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, stable gerd, seizure, dm, anemia, ftt, hyperlipidemia, mood dx sepsis, resp insuff., neuropathy, hypothyroidsm, Plan Plan: Fluid restriction Adjust BP meds IV Iron IV synthroid per orders Subjective ROS Limited/Unobtainable: No Constitutional: Reports: malaise Objective Objective Last 24 Hour Vital Signs Date Time Temp Pulse Resp B/P (MAP) Pulse Ox O2 Delivery O2 Flow Rate FiO2 05/24/18 09:00 Room Air 05/24/18 08:00 76 05/24/18 08:00 98.1 75 18 104/59 (74) 93 98.1 05/24/18 04:00 97.9 73 20 100/68 (79) 96 97.9 05/24/18 04:00 64 05/24/18 00:00 63 05/24/18 00:00 97.0 78 20 118/64 (82) 97 97.0 05/23/18 21:00 Room Air 05/23/18 20:26 81 110/62 05/23/18 20:00 82 05/23/18 20:00 98.7 78 20 110/62 (78) 97 98.7 05/23/18 16:00 81 05/23/18 16:00 97.5 96 18 131/68 (89) 97 97.5 Intake and Output 05/23/18 05/24/18 19:00 07:00 Intake Total 470 ml Output Total 350 ml Balance 120 ml Intake Oral 360 ml IV Total 110 ml Output Urine Total 350 ml # Voids 3 Laboratory Tests 05/24/18 04:50: White Blood Count 4.6L, Red Blood Count 3.39L, Hemoglobin 10.8L, Hematocrit 31.0L, Mean Corpuscular Volume 92, Mean Corpuscular Hemoglobin 32.0H, Mean Corpuscular Hemoglobin Concent 34.9, Red Cell Distribution Width 10.9L, Platelet Count 151, Mean Platelet Volume 6.7, Neutrophils (%) (Auto) 60.0, Lymphocytes (%) (Auto) 28.1, Monocytes (%) (Auto) 9.1, Eosinophils (%) (Auto) 1.8, Basophils (%) (Auto) 1.1, Sodium Level 134L, Potassium Level 3.8, Chloride Level 101, Carbon Dioxide Level 27, Anion Gap 7, Blood Urea Nitrogen 8, Creatinine 0.5L, Estimat Glomerular Filtration Rate > 60, Glucose Level 84, Hemoglobin A1c 4.9, Osmolality 279L, Uric Acid 2.9, Calcium Level 8.5, Phosphorus Level 3.7, Magnesium Level 1.8, Iron Level 37L, Total Iron Binding Capacity 390, Percent Iron Saturation 9L, Unsaturated Iron Binding 353H, Ferritin 119, Total Bilirubin 0.4, Gamma Glutamyl Transpeptidase 7, Aspartate Amino Transf (AST/SGOT) 17, Alanine Aminotransferase (ALT/SGPT) < 6L, Alkaline Phosphatase 59, Total Creatine Kinase 42, C-Reactive Protein, Quantitative 6.0H , Pro-B-Type Natriuretic Peptide 438H, Total Protein 7.0, Albumin 2.9L, Globulin 4.1, Albumin/Globulin Ratio 0.7L, Triglycerides Level 41, Cholesterol Level 144, LDL Cholesterol 62, HDL Cholesterol 73H, Cholesterol/HDL Ratio 2.0L, Vitamin B12 Level 823, Folate 45.8, Thyroid Stimulating Hormone (TSH) 24.625H, Valproic Acid (Depakene) Level 66 Height (Feet): 5 Height (Inches): 4.00 Weight (Pounds): 96 General Appearance: no apparent distress Cardiovascular: normal rate Respiratory/Chest: lungs clear Abdomen: soft Objective no change Jesus Valdivia MD May 24, 2018 13:13
[2018-05-24] MEDS ORDERED: Tubing IV Secondary IV ONE (15:24)
[2018-05-24] MEDS ORDERED: NS 275ml ONE (15:24)
[2018-05-24 16:00] VITALS: BP 128/66
[2018-05-24 20:00] VITALS: BP 101/58
[2018-05-24] MEDS ORDERED: Iron Sucrose 200 MG in NS 110 ML IV ONE (21:00)
--- NOTE | 2018-05-24 22:24 | General Progress Note ---
Assessment/Plan Status: stable Assessment/Plan Mood d/o cont depakote provided ro/st Subjective Date patient seen: May 24, 2018 Neurologic/Psychiatric: Reports: anxiety, depressed, emotional problems Allergies: Coded Allergies: CIPROFLOXACIN (Verified Allergy, Unknown, 10/02/13) HYDROCODONE (Verified Allergy, Unknown, 10/02/13) PENICILLINS (Verified Allergy, Unknown, 10/02/13) PROCHLORPERAZINE (Verified Allergy, Unknown, 10/02/13) Objective Last 24 Hour Vital Signs Date Time Temp Pulse Resp B/P (MAP) Pulse Ox O2 Delivery O2 Flow Rate FiO2 05/24/18 20:55 75 106/58 05/24/18 16:00 71 05/24/18 16:00 99.4 75 18 128/66 (86) 98 99.4 05/24/18 12:00 98.2 71 18 105/56 (72) 96 98.2 05/24/18 12:00 68 05/24/18 09:00 Room Air 05/24/18 08:00 76 05/24/18 08:00 98.1 75 18 104/59 (74) 93 98.1 05/24/18 04:00 97.9 73 20 100/68 (79) 96 97.9 05/24/18 04:00 64 05/24/18 00:00 63 05/24/18 00:00 97.0 78 20 118/64 (82) 97 97.0 Intake and Output 05/23/18 05/24/18 19:00 07:00 Intake Total 470 ml Output Total 350 ml Balance 120 ml Intake Oral 360 ml IV Total 110 ml Output Urine Total 350 ml # Voids 3 Laboratory Tests 05/24/18 04:50: White Blood Count 4.6L, Red Blood Count 3.39L, Hemoglobin 10.8L, Hematocrit 31.0L, Mean Corpuscular Volume 92, Mean Corpuscular Hemoglobin 32.0H, Mean Corpuscular Hemoglobin Concent 34.9, Red Cell Distribution Width 10.9L, Platelet Count 151, Mean Platelet Volume 6.7, Neutrophils (%) (Auto) 60.0, Lymphocytes (%) (Auto) 28.1, Monocytes (%) (Auto) 9.1, Eosinophils (%) (Auto) 1.8, Basophils (%) (Auto) 1.1, Sodium Level 134L, Potassium Level 3.8, Chloride Level 101, Carbon Dioxide Level 27, Anion Gap 7, Blood Urea Nitrogen 8, Creatinine 0.5L, Estimat Glomerular Filtration Rate > 60, Glucose Level 84, Hemoglobin A1c 4.9, Osmolality 279L, Uric Acid 2.9, Calcium Level 8.5, Phosphorus Level 3.7, Magnesium Level 1.8, Iron Level 37L, Total Iron Binding Capacity 390, Percent Iron Saturation 9L, Unsaturated Iron Binding 353H, Ferritin 119, Total Bilirubin 0.4, Gamma Glutamyl Transpeptidase 7, Aspartate Amino Transf (AST/SGOT) 17, Alanine Aminotransferase (ALT/SGPT) < 6L, Alkaline Phosphatase 59, Total Creatine Kinase 42, C-Reactive Protein, Quantitative 6.0H , Pro-B-Type Natriuretic Peptide 438H, Total Protein 7.0, Albumin 2.9L, Globulin 4.1, Albumin/Globulin Ratio 0.7L, Triglycerides Level 41, Cholesterol Level 144, LDL Cholesterol 62, HDL Cholesterol 73H, Cholesterol/HDL Ratio 2.0L, Vitamin B12 Level 823, Folate 45.8, Thyroid Stimulating Hormone (TSH) 24.625H, Valproic Acid (Depakene) Level 66 Height (Feet): 5 Height (Inches): 4.00 Weight (Pounds): 96 General Appearance: no apparent distress, alert Neurologic: depressed affect Isa Siegel MD May 24, 2018 22:24
--- NOTE | 2018-05-24 23:00 | Progress Note ---
DATE: 05/24/2018 SUBJECTIVE: The patient is calm, cooperative, has waxing and waning consciousness. She is [place]ian speaking. She was able to say her name place and situation she is in. She has some anxiety. No agitation and no behavioral issues. Compliant with her medications and care. MENTAL STATUS EXAMINATION: The patient is alert, oriented times self, place, and situation. Mood is neutral. Affect is constricted, congruent with mood. Thought process is concrete. Thought content, no suicidal or homicidal ideation. Cognition is impaired, specifically memory. ASSESSMENT: Encephalopathy due to general medical condition, failure to thrive and history of cognitive impairment. PLAN: 1. We will continue the Depakote, which is used for her seizure and is also is going to stimulates her appetite. 2. We will continue follow and readjust the medications. Isa Siegel M.D. DR: RUBEN JOB#: [id number] CC:
[2018-05-25] VITALS: BP 102/52
[2018-05-25 04:00] VITALS: BP 110/62
[2018-05-25] MEDS: Aztreonam Inj 1 GM in D5W 55 ML IVPB SCH (05:42)
[2018-05-25 08:00] VITALS: BP 100/69
[2018-05-25] MEDS: Depakote 500mg tab ORAL SCH ×2 (08:56→20:17)
[2018-05-25] MEDS: Multivitamin w/Minerals tab ORAL SCH (08:56)
[2018-05-25] MEDS: Metoprolol Tartrate 12.5mg TAB ORAL SCH ×2 (08:56→20:17)
[2018-05-25] MEDS: Docusate 100mg cap ORAL SCH ×3 (08:56→17:39)
--- NOTE | 2018-05-25 11:03 | Nephrology Progress Note ---
Assessment/Plan Problem List: (1) Hyponatremia (2) Hypothyroidism (3) UTI (lower urinary tract infection) (4) Seizure disorder Assessment Sepsis Forehead laceration Fibula fracture Pneumonia Dehydration HypoNatremia , Etiology? ? 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, stable gerd, seizure, dm, anemia, ftt, hyperlipidemia, mood dx sepsis, resp insuff., neuropathy, hypothyroidsm, Plan Plan: Fluid restriction Adjust BP meds IV Iron IV synthroid to med surg per orders Subjective ROS Limited/Unobtainable: No Constitutional: Reports: malaise Objective Objective Last 24 Hour Vital Signs Date Time Temp Pulse Resp B/P (MAP) Pulse Ox O2 Delivery O2 Flow Rate FiO2 05/25/18 09:00 Room Air 05/25/18 08:56 66 100/69 05/25/18 08:00 64 05/25/18 08:00 97.9 66 18 100/69 (79) 96 97.9 05/25/18 04:00 61 05/25/18 04:00 97.3 65 20 110/62 (78) 96 97.3 05/25/18 00:08 60 05/25/18 00:00 97.7 63 17 102/52 (69) 96 97.7 05/24/18 21:00 Room Air 05/24/18 20:55 75 106/58 05/24/18 20:00 98.3 73 18 101/58 (72) 100 98.3 05/24/18 19:52 71 05/24/18 16:00 71 05/24/18 16:00 99.4 75 18 128/66 (86) 98 99.4 05/24/18 12:00 98.2 71 18 105/56 (72) 96 98.2 05/24/18 12:00 68 Intake and Output 05/24/18 05/25/18 19:00 07:00 Intake Total 600 ml Output Total 350 ml 100 ml Balance 250 ml -100 ml Intake Oral 600 ml Output Urine Total 350 ml 100 ml # Voids 50 # Bowel Movements 1 Height (Feet): 5 Height (Inches): 4.00 Weight (Pounds): 96 General Appearance: no apparent distress Objective no change Jesus Valdivia MD May 25, 2018 11:03
--- NOTE | 2018-05-25 11:21 | Infectious Diseases Prog Note ---
Assessment/Plan Assessment/Plan antibiotics : aztreonam A 1. gram positive UTI 2. left leg fracture 3. s/p fall 4. dementia P 1. d/c aztreonam 2. start iv vancomycin 3. will follow up cultures Subjective Constitutional: Denies: fever, chills Respiratory: Denies: shortness of breath, dry cough Gastrointestinal/Abdominal: Denies: nausea, vomiting, diarrhea Musculoskeletal: Reports: pain Allergies: Coded Allergies: CIPROFLOXACIN (Verified Allergy, Unknown, 10/02/13) HYDROCODONE (Verified Allergy, Unknown, 10/02/13) PENICILLINS (Verified Allergy, Unknown, 10/02/13) PROCHLORPERAZINE (Verified Allergy, Unknown, 10/02/13) Objective Vital Signs Last 24 Hour Vital Signs Date Time Temp Pulse Resp B/P (MAP) Pulse Ox O2 Delivery O2 Flow Rate FiO2 05/25/18 09:00 Room Air 05/25/18 08:56 66 100/69 05/25/18 08:00 64 05/25/18 08:00 97.9 66 18 100/69 (79) 96 97.9 05/25/18 04:00 61 05/25/18 04:00 97.3 65 20 110/62 (78) 96 97.3 05/25/18 00:08 60 05/25/18 00:00 97.7 63 17 102/52 (69) 96 97.7 05/24/18 21:00 Room Air 05/24/18 20:55 75 106/58 05/24/18 20:00 98.3 73 18 101/58 (72) 100 98.3 05/24/18 19:52 71 05/24/18 16:00 71 05/24/18 16:00 99.4 75 18 128/66 (86) 98 99.4 05/24/18 12:00 98.2 71 18 105/56 (72) 96 98.2 05/24/18 12:00 68 Height (Feet): 5 Height (Inches): 4.00 Weight (Pounds): 96 Respiratory/Chest: lungs clear Cardiovascular: normal rate, regular rhythm, no gallop/murmur Abdomen: soft, non tender Extremities: no edema, other - left leg in bandages Microbiology Date/Time Source Procedure Growth Status 05/22/18 21:40 Blood Blood Culture - Preliminary NO GROWTH AFTER 48 HOURS Resulted 05/22/18 21:30 Blood Blood Culture - Preliminary NO GROWTH AFTER 48 HOURS Resulted 05/22/18 23:55 Urine,Clean Catch Urine Culture - Final Mixed Gram Positive Organism Complete Current Medications Medications (Trade) Dose Ordered Sig/Karlee Route PRN Reason Start Time Stop Time Status Last Admin Dose Admin Acetaminophen (Tylenol) 325 mg Q4H PRN ORAL Mild Pain (Pain Scale 1-3) 05/23/18 03:15 06/22/18 03:14 05/23/18 22:26 Aztreonam 1 gm/ Dextrose 55 ml @ 110 mls/hr Q8HR IVPB 05/23/18 09:30 05/30/18 09:29 05/25/18 05:42 Divalproex Sodium (Depakote) 500 mg Q12HR ORAL 05/23/18 09:00 06/22/18 08:59 05/25/18 08:56 Docusate Sodium (Colace) 100 mg TID ORAL 05/23/18 18:00 06/22/18 08:59 05/25/18 08:56 Famotidine (Pepcid) 20 mg DAILY ORAL 05/26/18 09:00 06/25/18 08:59 Iron Sucrose 100 mg/Sodium Chloride 60 ml @ 240 mls/hr BEDTIME IV 05/25/18 21:00 05/29/18 21:14 Levothyroxine Sodium (Synthroid) 50 mcg DAILY@0900 IV 05/25/18 09:00 06/24/18 08:59 05/25/18 08:56 Metoprolol Tartrate (Lopressor) 12.5 mg Q12HR ORAL 05/23/18 21:00 06/22/18 08:59 05/24/18 20:55 Multivitamins Therapeutic (Therapeutic Multivitamin) 1 ea DAILY ORAL 05/23/18 09:00 06/22/18 08:59 05/25/18 08:56 MILES HOLLOWAY May 25, 2018 11:21
[2018-05-25 11:32] VITALS: BP_SYST 118; BP_SYST 99; BP_DIAS 52; BP_DIAS 60
[2018-05-25] MEDS ORDERED: Vancomycin 750mg/NS 250ml IVPB SCH (13:00)
[2018-05-25] MEDS ORDERED: Vancomycin 750mg/NS 250ml 250 ML IVPB SCH (14:00)
[2018-05-25 16:00] VITALS: BP 118/60
--- NOTE | 2018-05-25 17:37 | General Progress Note ---
Assessment/Plan Problem List: (1) Dehydration ICD Codes: E86.0 - Dehydration SNOMED: 93105721 (2) Seizure ICD Codes: R56.9 - Seizure SNOMED: 00828859 (3) Diabetes ICD Codes: E11.9 - Diabetes SNOMED: 82377478 (4) Fever ICD Codes: R50.9 - Fever SNOMED: 712376765 Status: progressing Assessment/Plan fever r/o sepsis fracture extremity consulted dr keating and he recommends no surgery and ordered brace fracture is pathological has ostepoporosis no sz today Subjective Allergies: Coded Allergies: CIPROFLOXACIN (Verified Allergy, Unknown, 10/02/13) HYDROCODONE (Verified Allergy, Unknown, 10/02/13) PENICILLINS (Verified Allergy, Unknown, 10/02/13) PROCHLORPERAZINE (Verified Allergy, Unknown, 10/02/13) Subjective pain where the fracture is Objective Last 24 Hour Vital Signs Date Time Temp Pulse Resp B/P (MAP) Pulse Ox O2 Delivery O2 Flow Rate FiO2 05/25/18 16:00 97.9 64 18 118/60 (79) 100 97.9 05/25/18 14:40 Room Air 05/25/18 12:00 60 05/25/18 11:32 97.9 63 18 118/60 (79) 100 97.9 05/25/18 09:00 Room Air 05/25/18 08:56 66 100/69 05/25/18 08:00 64 05/25/18 08:00 97.9 66 18 100/69 (79) 96 97.9 05/25/18 04:00 61 05/25/18 04:00 97.3 65 20 110/62 (78) 96 97.3 05/25/18 00:08 60 05/25/18 00:00 97.7 63 17 102/52 (69) 96 97.7 05/24/18 21:00 Room Air 05/24/18 20:55 75 106/58 05/24/18 20:00 98.3 73 18 101/58 (72) 100 98.3 05/24/18 19:52 71 Intake and Output 05/24/18 05/25/18 19:00 07:00 Intake Total 600 ml Output Total 350 ml 100 ml Balance 250 ml -100 ml Intake Oral 600 ml Output Urine Total 350 ml 100 ml # Voids 50 # Bowel Movements 1 Height (Feet): 5 Height (Inches): 4.00 Weight (Pounds): 96 Neck: supple Cardiovascular: normal rate Respiratory/Chest: lungs clear Abdomen: soft Mindy Bryan MD May 25, 2018 17:37
[2018-05-25 20:00] VITALS: BP 115/61
[2018-05-25] MEDS: Iron Sucrose 100 MG in NS 55 ML IV SCH (20:16)
[2018-05-25] MEDS ORDERED: Iron Sucrose 100 MG in NS 55 ML IV SCH (21:00)
[2018-05-26] VITALS: BP 109/69
[2018-05-26 04:00] VITALS: BP 121/80
[2018-05-26 08:00] VITALS: BP 102/61
[2018-05-26] MEDS: Metoprolol Tartrate 12.5mg TAB ORAL SCH ×2 (09:00→21:55)
[2018-05-26] MEDS ORDERED: Tubing IV Secondary IV ONE (09:11)
[2018-05-26] MEDS ORDERED: NS 275ml ONE (09:11)
[2018-05-26] MEDS: Multivitamin w/Minerals tab ORAL SCH (09:14)
[2018-05-26] MEDS: Depakote 500mg tab ORAL SCH ×2 (09:14→21:54)
[2018-05-26] MEDS: Docusate 100mg cap ORAL SCH ×3 (09:14→16:55)
--- NOTE | 2018-05-26 10:30 | Nephrology Progress Note ---
Assessment/Plan Problem List: (1) Hyponatremia (2) Hypothyroidism (3) UTI (lower urinary tract infection) (4) Seizure disorder Assessment Sepsis Forehead laceration Fibula fracture Pneumonia Dehydration HypoNatremia , Etiology? ? 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 Dc planning Subjective ROS Limited/Unobtainable: No Objective Objective Last 24 Hour Vital Signs Date Time Temp Pulse Resp B/P (MAP) Pulse Ox O2 Delivery O2 Flow Rate FiO2 05/26/18 09:00 Room Air 05/26/18 04:00 96.8 74 17 121/80 (94) 96 96.8 05/26/18 00:00 98.2 69 20 109/69 (82) 96 98.2 05/25/18 21:00 Room Air 05/25/18 20:17 65 115/61 05/25/18 20:00 98.1 65 18 115/61 (79) 96 98.1 05/25/18 16:00 97.9 64 18 118/60 (79) 100 97.9 05/25/18 14:40 Room Air 05/25/18 12:00 60 05/25/18 11:32 97.9 63 18 118/60 (79) 100 97.9 Intake and Output 05/25/18 05/26/18 19:00 07:00 Intake Total 550 ml 160 ml Output Total 575 ml Balance -25 ml 160 ml Intake Oral 550 ml 100 ml IV Total 60 ml Output Urine Total 575 ml # Voids 3 Height (Feet): 5 Height (Inches): 4.00 Weight (Pounds): 96 General Appearance: no apparent distress Objective no change Jesus Valdivia MD May 26, 2018 10:30
--- NOTE | 2018-05-26 10:55 | Infectious Diseases Prog Note ---
Assessment/Plan Assessment/Plan A; Fever resolved Pyuria/UTI s/p fall Left ankle fracture Forehead laceration Dementia P; Continue Vancomycin Subjective ROS Limited/Unobtainable: Yes Constitutional: Reports: other - doing better Musculoskeletal: Reports: no symptoms Allergies: Coded Allergies: CIPROFLOXACIN (Verified Allergy, Unknown, 10/02/13) HYDROCODONE (Verified Allergy, Unknown, 10/02/13) PENICILLINS (Verified Allergy, Unknown, 10/02/13) PROCHLORPERAZINE (Verified Allergy, Unknown, 10/02/13) Objective Vital Signs Last 24 Hour Vital Signs Date Time Temp Pulse Resp B/P (MAP) Pulse Ox O2 Delivery O2 Flow Rate FiO2 05/26/18 09:00 Room Air 05/26/18 04:00 96.8 74 17 121/80 (94) 96 96.8 05/26/18 00:00 98.2 69 20 109/69 (82) 96 98.2 05/25/18 21:00 Room Air 05/25/18 20:17 65 115/61 05/25/18 20:00 98.1 65 18 115/61 (79) 96 98.1 05/25/18 16:00 97.9 64 18 118/60 (79) 100 97.9 05/25/18 14:40 Room Air 05/25/18 12:00 60 05/25/18 11:32 97.9 63 18 118/60 (79) 100 97.9 Height (Feet): 5 Height (Inches): 4.00 Weight (Pounds): 96 General Appearance: no acute distress HEENT: mucous membranes moist Respiratory/Chest: lungs clear Cardiovascular: normal rate Abdomen: soft, non tender Extremities: no edema, other - left leg cast Skin: other - forehead laceration healing Current Medications Medications (Trade) Dose Ordered Sig/Karlee Route PRN Reason Start Time Stop Time Status Last Admin Dose Admin Acetaminophen (Tylenol) 325 mg Q4H PRN ORAL Mild Pain (Pain Scale 1-3) 05/25/18 14:00 06/22/18 13:59 Divalproex Sodium (Depakote) 500 mg Q12HR ORAL 05/25/18 21:00 06/22/18 08:59 05/26/18 09:14 Docusate Sodium (Colace) 100 mg TID ORAL 05/25/18 18:00 06/22/18 08:59 05/26/18 09:14 Famotidine (Pepcid) 20 mg DAILY ORAL 05/26/18 09:00 06/25/18 08:59 05/26/18 09:14 Iron Sucrose 100 mg/Sodium Chloride 60 ml @ 240 mls/hr BEDTIME IV 05/25/18 21:00 05/29/18 21:14 05/25/18 20:16 Levothyroxine Sodium (Synthroid) 50 mcg DAILY@0900 IV 05/26/18 09:00 06/24/18 08:59 05/26/18 09:14 Metoprolol Tartrate (Lopressor) 12.5 mg Q12HR ORAL 05/25/18 21:00 06/22/18 08:59 05/25/18 20:17 Multivitamins Therapeutic (Therapeutic Multivitamin) 1 ea DAILY ORAL 05/26/18 09:00 06/22/18 08:59 05/26/18 09:14 Vancomycin HCl (Vanco rx to dose) 1 ea DAILY PRN MISC Per rx protocol 05/26/18 09:00 06/24/18 11:29 Vancomycin HCl 500 mg/Dextrose 110 ml @ 110 mls/hr Q24H IVPB 05/26/18 14:00 05/31/18 13:59 Gamal Serrano MD May 26, 2018 10:55
[2018-05-26 12:00] VITALS: BP 112/67
[2018-05-26] MEDS ORDERED: Vancomycin 500mg/D5W 110ml IVPB SCH ×2 (13:00)
[2018-05-26] MEDS ORDERED: Vancomycin 500 MG in D5W 110 ML IVPB SCH (14:00)
--- NOTE | 2018-05-26 14:56 | General Progress Note ---
Assessment/Plan Problem List: (1) Dehydration ICD Codes: E86.0 - Dehydration SNOMED: 82311478 (2) Seizure ICD Codes: R56.9 - Seizure SNOMED: 36762638 (3) Diabetes ICD Codes: E11.9 - Diabetes SNOMED: 76352582 (4) Fever ICD Codes: R50.9 - Fever SNOMED: 235100013 Status: stable, progressing Assessment/Plan afebrile today fracture extremity consulted dr keating and he recommends no surgery and ordered brace fracture is pathological due to osteoporosis HAS HISTORY OF FRACTURE IN THE PASE has ostepoporosis Subjective ROS Limited/Unobtainable: Yes Allergies: Coded Allergies: CIPROFLOXACIN (Verified Allergy, Unknown, 10/02/13) HYDROCODONE (Verified Allergy, Unknown, 10/02/13) PENICILLINS (Verified Allergy, Unknown, 10/02/13) PROCHLORPERAZINE (Verified Allergy, Unknown, 10/02/13) Subjective pain where the fracture is Objective Last 24 Hour Vital Signs Date Time Temp Pulse Resp B/P (MAP) Pulse Ox O2 Delivery O2 Flow Rate FiO2 05/26/18 12:00 97.5 71 19 112/67 (82) 97 97.5 05/26/18 09:00 Room Air 05/26/18 08:00 97.3 65 20 102/61 (75) 97 97.3 05/26/18 04:00 96.8 74 17 121/80 (94) 96 96.8 05/26/18 00:00 98.2 69 20 109/69 (82) 96 98.2 05/25/18 21:00 Room Air 05/25/18 20:17 65 115/61 05/25/18 20:00 98.1 65 18 115/61 (79) 96 98.1 05/25/18 16:00 97.9 64 18 118/60 (79) 100 97.9 Intake and Output 05/25/18 05/26/18 19:00 07:00 Intake Total 550 ml 160 ml Output Total 575 ml Balance -25 ml 160 ml Intake Oral 550 ml 100 ml IV Total 60 ml Output Urine Total 575 ml # Voids 3 Height (Feet): 5 Height (Inches): 4.00 Weight (Pounds): 96 Cardiovascular: normal rate Respiratory/Chest: lungs clear Abdomen: soft Mindy Bryan MD May 26, 2018 14:56
[2018-05-26 16:00] VITALS: BP 109/60
[2018-05-26 20:00] VITALS: BP 108/63
[2018-05-26] MEDS: Iron Sucrose 100 MG in NS 55 ML IV SCH (21:49)
[2018-05-27] VITALS: BP 109/66
[2018-05-27 04:00] VITALS: BP 109/60
[2018-05-27 07:29] LABS: ALANINE AMINOTRANSFERASE 7 U/L (12-78); ALBUMIN 2.9 G/DL (3.4-5.0); ALBUMIN/GLOBULIN RATIO 0.7 (1.0-2.7); ALKALINE PHOSPHATASE 60 U/L (46-116); ANION GAP 8 mmol/L (5-15); ASPARTATE AMINO TRANSFERASE 16 U/L (15-37); BILIRUBIN,TOTAL 0.4 MG/DL (0.2-1.0); BLOOD UREA NITROGEN 17 mg/dL (7-18); CALCIUM 9.2 MG/DL (8.5-10.1); CARBON DIOXIDE 27 MMOL/L (21-32); CHLORIDE 102 MMOL/L (98-107); CREATININE 0.5 MG/DL (0.55-1.30); PHOSPHORUS 4.3 MG/DL (2.5-4.9); SODIUM 137 MMOL/L (136-145)
[2018-05-27 07:38] LABS: HEMATOCRIT 31.3 % (37.0-47.0); HEMOGLOBIN 11.1 G/DL (12.0-16.0); MEAN CORPUSCULAR VOLUME 92 FL (80-99); PLATELET COUNT 168 K/UL (150-450); RED CELL DISTRIBUTION WIDTH 10.9 % (11.6-14.8); WHITE BLOOD COUNT 3.4 K/UL (4.8-10.8)
[2018-05-27 08:00] VITALS: BP 103/61
[2018-05-27] MEDS: Metoprolol Tartrate 12.5mg TAB ORAL SCH (09:00)
[2018-05-27] MEDS: Depakote 500mg tab ORAL SCH (09:27)
[2018-05-27] MEDS: Docusate 100mg cap ORAL SCH ×2 (09:27→13:00)
[2018-05-27] MEDS: Multivitamin w/Minerals tab ORAL SCH (09:27)
--- NOTE | 2018-05-27 10:27 | Infectious Diseases Prog Note ---
Assessment/Plan Assessment/Plan A; Fever resolved Pyuria/UTI s/p fall Left ankle fracture Forehead laceration Dementia Hypothyroidism P; discontinue Vancomycin Subjective ROS Limited/Unobtainable: Yes Allergies: Coded Allergies: CIPROFLOXACIN (Verified Allergy, Unknown, 10/02/13) HYDROCODONE (Verified Allergy, Unknown, 10/02/13) PENICILLINS (Verified Allergy, Unknown, 10/02/13) PROCHLORPERAZINE (Verified Allergy, Unknown, 10/02/13) Objective Vital Signs Last 24 Hour Vital Signs Date Time Temp Pulse Resp B/P (MAP) Pulse Ox O2 Delivery O2 Flow Rate FiO2 05/27/18 09:00 64 103/61 05/27/18 08:00 97.2 64 18 103/61 (75) 98 97.2 05/27/18 04:00 97.3 60 18 109/60 (76) 96 97.3 05/27/18 00:00 97.3 59 18 109/66 (80) 96 97.3 05/26/18 21:55 64 108/64 05/26/18 21:00 Room Air 05/26/18 20:00 98.3 64 18 108/63 (78) 99 98.3 05/26/18 16:00 97.4 69 18 109/60 (76) 95 97.4 05/26/18 12:00 97.5 71 19 112/67 (82) 97 97.5 Height (Feet): 5 Height (Inches): 4.00 Weight (Pounds): 96 General Appearance: no acute distress HEENT: mucous membranes moist Respiratory/Chest: lungs clear Cardiovascular: normal rate Abdomen: soft, non tender Extremities: no edema, other - left leg cast Skin: other - healing wound on forehead Neurologic/Psychiatric: alert, responsive Laboratory Tests Test 05/27/18 05:35 White Blood Count 3.4 K/UL (4.8-10.8) L Red Blood Count 3.40 M/UL (4.20-5.40) L Hemoglobin 11.1 G/DL (12.0-16.0) L Hematocrit 31.3 % (37.0-47.0) L Mean Corpuscular Volume 92 FL (80-99) Mean Corpuscular Hemoglobin 32.8 PG (27.0-31.0) H Mean Corpuscular Hemoglobin Concent 35.6 G/DL (32.0-36.0) Red Cell Distribution Width 10.9 % (11.6-14.8) L Platelet Count 168 K/UL (150-450) Mean Platelet Volume 5.2 FL (6.5-10.1) L Neutrophils (%) (Auto) % (45.0-75.0) Lymphocytes (%) (Auto) % (20.0-45.0) Monocytes (%) (Auto) % (1.0-10.0) Eosinophils (%) (Auto) % (0.0-3.0) Basophils (%) (Auto) % (0.0-2.0) Differential Total Cells Counted 100 Neutrophils % (Manual) 59 % (45-75) Lymphocytes % (Manual) 34 % (20-45) Monocytes % (Manual) 3 % (1-10) Eosinophils % (Manual) 4 % (0-3) H Basophils % (Manual) 0 % (0-2) Band Neutrophils 0 % (0-8) Platelet Estimate Adequate Platelet Morphology Normal Red Blood Cell Morphology Normal Sodium Level 137 MMOL/L (136-145) Potassium Level 4.0 MMOL/L (3.5-5.1) Chloride Level 102 MMOL/L (98-107) Carbon Dioxide Level 27 MMOL/L (21-32) Anion Gap 8 mmol/L (5-15) Blood Urea Nitrogen 17 mg/dL (7-18) Creatinine 0.5 MG/DL (0.55-1.30) L Estimat Glomerular Filtration Rate > 60 mL/min (>60) Glucose Level 74 MG/DL (74-106) Uric Acid 2.9 MG/DL (2.6-7.2) Calcium Level 9.2 MG/DL (8.5-10.1) Phosphorus Level 4.3 MG/DL (2.5-4.9) Magnesium Level 1.7 MG/DL (1.8-2.4) L Total Bilirubin 0.4 MG/DL (0.2-1.0) Aspartate Amino Transf (AST/SGOT) 16 U/L (15-37) Alanine Aminotransferase (ALT/SGPT) 7 U/L (12-78) L Alkaline Phosphatase 60 U/L (46-116) Total Protein 6.8 G/DL (6.4-8.2) Albumin 2.9 G/DL (3.4-5.0) L Globulin 3.9 g/dL Albumin/Globulin Ratio 0.7 (1.0-2.7) L Current Medications Medications (Trade) Dose Ordered Sig/Karlee Route PRN Reason Start Time Stop Time Status Last Admin Dose Admin Acetaminophen (Tylenol) 325 mg Q4H PRN ORAL Mild Pain (Pain Scale 1-3) 05/25/18 14:00 06/22/18 13:59 Divalproex Sodium (Depakote) 500 mg Q12HR ORAL 05/25/18 21:00 06/22/18 08:59 05/27/18 09:27 Docusate Sodium (Colace) 100 mg TID ORAL 05/25/18 18:00 06/22/18 08:59 05/27/18 09:27 Famotidine (Pepcid) 20 mg DAILY ORAL 05/26/18 09:00 06/25/18 08:59 05/27/18 09:27 Levothyroxine Sodium (Synthroid) 50 mcg DAILY@0900 IV 05/26/18 09:00 06/24/18 08:59 05/27/18 09:27 Metoprolol Tartrate (Lopressor) 12.5 mg Q12HR ORAL 05/25/18 21:00 06/22/18 08:59 05/26/18 21:55 Multivitamins Therapeutic (Therapeutic Multivitamin) 1 ea DAILY ORAL 05/26/18 09:00 06/22/18 08:59 05/27/18 09:27 Gamal Serrano MD May 27, 2018 10:27
--- NOTE | 2018-05-27 11:58 | Nephrology Progress Note ---
Assessment/Plan Problem List: (1) Hyponatremia (2) Hypothyroidism (3) UTI (lower urinary tract infection) (4) Seizure disorder Assessment Sepsis Forehead laceration Fibula fracture Pneumonia Dehydration HypoNatremia , Etiology? ? 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 Dc planning Subjective ROS Limited/Unobtainable: No Constitutional: Reports: malaise Objective Objective Last 24 Hour Vital Signs Date Time Temp Pulse Resp B/P (MAP) Pulse Ox O2 Delivery O2 Flow Rate FiO2 05/27/18 09:00 Room Air 05/27/18 09:00 64 103/61 05/27/18 08:00 97.2 64 18 103/61 (75) 98 97.2 05/27/18 04:00 97.3 60 18 109/60 (76) 96 97.3 05/27/18 00:00 97.3 59 18 109/66 (80) 96 97.3 05/26/18 21:55 64 108/64 05/26/18 21:00 Room Air 05/26/18 20:00 98.3 64 18 108/63 (78) 99 98.3 05/26/18 16:00 97.4 69 18 109/60 (76) 95 97.4 05/26/18 12:00 97.5 71 19 112/67 (82) 97 97.5 Intake and Output 05/26/18 05/27/18 18:59 06:59 Intake Total 590 ml 60 ml Output Total 300 ml Balance 290 ml 60 ml Intake Oral 480 ml IV Total 110 ml 60 ml Output Urine Total 300 ml # Voids 1 2 Laboratory Tests 05/27/18 05:35: White Blood Count 3.4L, Red Blood Count 3.40L, Hemoglobin 11.1L, Hematocrit 31.3L, Mean Corpuscular Volume 92, Mean Corpuscular Hemoglobin 32.8H, Mean Corpuscular Hemoglobin Concent 35.6, Red Cell Distribution Width 10.9L, Platelet Count 168, Mean Platelet Volume 5.2L, Neutrophils (%) (Auto) , Lymphocytes (%) (Auto) , Monocytes (%) (Auto) , Eosinophils (%) (Auto) , Basophils (%) (Auto) , Differential Total Cells Counted 100, Neutrophils % ( Manual) 59, Lymphocytes % (Manual) 34, Monocytes % (Manual) 3, Eosinophils % ( Manual) 4H, Basophils % (Manual) 0, Band Neutrophils 0, Platelet Estimate Adequate, Platelet Morphology Normal, Red Blood Cell Morphology Normal, Sodium Level 137, Potassium Level 4.0, Chloride Level 102, Carbon Dioxide Level 27, Anion Gap 8, Blood Urea Nitrogen 17, Creatinine 0.5L, Estimat Glomerular Filtration Rate > 60, Glucose Level 74, Uric Acid 2.9, Calcium Level 9.2, Phosphorus Level 4.3, Magnesium Level 1.7L, Total Bilirubin 0.4, Aspartate Amino Transf (AST/SGOT) 16, Alanine Aminotransferase (ALT/SGPT) 7L, Alkaline Phosphatase 60, Total Protein 6.8, Albumin 2.9L, Globulin 3.9, Albumin/Globulin Ratio 0.7L Height (Feet): 5 Height (Inches): 4.00 Weight (Pounds): 96 General Appearance: no apparent distress Objective no change Jesus Valdivia MD May 27, 2018 11:58
[2018-05-27 12:00] VITALS: BP 106/59
--- NOTE | 2018-05-27 12:42 | General Progress Note ---
Assessment/Plan Status: stable Assessment/Plan Encephalopathy due to general medical condition, failure to thrive and history of cognitive impairment. PLAN: 1. We will continue the Depakote, which is used for her seizure and is also is going to stimulates her appetite. 2. We will continue follow and readjust the medications. Subjective Neurologic/Psychiatric: Reports: anxiety, depressed, emotional problems Allergies: Coded Allergies: CIPROFLOXACIN (Verified Allergy, Unknown, 10/02/13) HYDROCODONE (Verified Allergy, Unknown, 10/02/13) PENICILLINS (Verified Allergy, Unknown, 10/02/13) PROCHLORPERAZINE (Verified Allergy, Unknown, 10/02/13) Objective Last 24 Hour Vital Signs Date Time Temp Pulse Resp B/P (MAP) Pulse Ox O2 Delivery O2 Flow Rate FiO2 05/27/18 12:00 97.3 55 18 106/59 (75) 99 97.3 05/27/18 09:00 Room Air 05/27/18 09:00 64 103/61 05/27/18 08:00 97.2 64 18 103/61 (75) 98 97.2 05/27/18 04:00 97.3 60 18 109/60 (76) 96 97.3 05/27/18 00:00 97.3 59 18 109/66 (80) 96 97.3 05/26/18 21:55 64 108/64 05/26/18 21:00 Room Air 05/26/18 20:00 98.3 64 18 108/63 (78) 99 98.3 05/26/18 16:00 97.4 69 18 109/60 (76) 95 97.4 Intake and Output 05/26/18 05/27/18 19:00 07:00 Intake Total 590 ml 60 ml Output Total 300 ml Balance 290 ml 60 ml Intake Oral 480 ml IV Total 110 ml 60 ml Output Urine Total 300 ml # Voids 1 2 Laboratory Tests 05/27/18 05:35: White Blood Count 3.4L, Red Blood Count 3.40L, Hemoglobin 11.1L, Hematocrit 31.3L, Mean Corpuscular Volume 92, Mean Corpuscular Hemoglobin 32.8H, Mean Corpuscular Hemoglobin Concent 35.6, Red Cell Distribution Width 10.9L, Platelet Count 168, Mean Platelet Volume 5.2L, Neutrophils (%) (Auto) , Lymphocytes (%) (Auto) , Monocytes (%) (Auto) , Eosinophils (%) (Auto) , Basophils (%) (Auto) , Differential Total Cells Counted 100, Neutrophils % ( Manual) 59, Lymphocytes % (Manual) 34, Monocytes % (Manual) 3, Eosinophils % ( Manual) 4H, Basophils % (Manual) 0, Band Neutrophils 0, Platelet Estimate Adequate, Platelet Morphology Normal, Red Blood Cell Morphology Normal, Sodium Level 137, Potassium Level 4.0, Chloride Level 102, Carbon Dioxide Level 27, Anion Gap 8, Blood Urea Nitrogen 17, Creatinine 0.5L, Estimat Glomerular Filtration Rate > 60, Glucose Level 74, Uric Acid 2.9, Calcium Level 9.2, Phosphorus Level 4.3, Magnesium Level 1.7L, Total Bilirubin 0.4, Aspartate Amino Transf (AST/SGOT) 16, Alanine Aminotransferase (ALT/SGPT) 7L, Alkaline Phosphatase 60, Total Protein 6.8, Albumin 2.9L, Globulin 3.9, Albumin/Globulin Ratio 0.7L Height (Feet): 5 Height (Inches): 4.00 Weight (Pounds): 96 General Appearance: no apparent distress, alert Isa Siegel MD May 27, 2018 12:42
[2018-05-27] MEDS ORDERED: NS 275ml ONE (13:44)
[2018-05-27] MEDS ORDERED: Tubing IV Secondary IV ONE (13:44)
--- NOTE | 2018-05-30 08:32 | Discharge Summary ---
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 Patient sustained mechanical fall at the facility and as a result had left sided nondisplaced distal fibular fracture. Patient also had a fever at the facility, appeared to be more altered than usual , and was unable to provide any reliable history. Patient was complaining of left lower extremity pain. Patient was sent to emergency room for evaluation. Upon evaluation patient was febrile ,otherwise vital signs were stable. Laboratory workup revealed no leukocytosis, stable hemoglobin and hematocrit, lactic acid 1.2. Troponin negative. Electrolytes and LFT stable. Valproic acid level was therapeutic. Urinalysis with pyuria, possible UTI CT of the head revealed no acute intracranial pathology. It demonstrated however advanced volume loss and possible bilateral frontal subdural hygroma or effusion , unchanged from the previous study. Chest x-ray revealed retrocardiac opacity, representing pleural fluid and /or parenchymal disease. Borderline cardiomegaly. X-ray of the left tibia-fibula revealed fracture along the distal third of the fibula. Tibia/fibula in plaster. Patient admitted with diagnosis of fever, pyuria, possible UTI, dehydration, s/ p fall, forehead laceration, left fibular fracture, hypothyroidism ,dementia. CONSULTANTS ID specialist Dr. Stacie Serrano agricultural extension specialist Dr. Valdivia orthopedic surgery Dr. Dunlap psychiatrist [facility]RSE: Patient admitted. Patient started on gentle hydration. ID specialist closely followed. Patient started on empiric antibiotic. Urine culture revealed mixed gram-positive organism , blood culture were negative. Supplemental oxygen provided as needed to keep pulse oximetry above 92%, pulmonary toilet provided as needed. Fevers resolved , no leukocytosis . Patient status post antibiotics. Antibiotic discontinued prior to discharge. ID specialist recommended monitor clinically. Orthopedic surgeon seen and evaluated patient. Surgeon recommended to transition from posterior splint to CAM walking boot with weightbearing as tolerated. Patient started physical therapy with weightbearing as tolerated. Fall precautions maintained. Pain management provided as needed. Quality Process Auditor closely followed . Blood pressure medication regimen was optimized as per agricultural extension specialist. Renal parameters and electrolytes were closely monitored . Electrolytes corrected as needed. Hyponatremia was treated with fluid restriction. Urine studies done. Probable SIADH. Sodium normalized. Nephrotoxins were avoided. Patient noted to follow mild anemia. Anemia workup revealed iron deficiency anemia. Patient was on IV iron. Hemoglobin and hematocrit remained stable, at baseline. Seizure precautions were maintained, no evidence of seizure activity while in the hospital . Depakote was continued. TSH elevated. Dose of levothyroxine was optimized . Repest TSH in 4 weeks at the facility. Blood sugar was closely monitored and remained stable. Hemoglobin Aq1c at goal. GI prophylaxis provided. Bowel regimen instituted. Psychiatrist seen and evaluated patient. Psychiatrist diagnosed patient with encephalopathy due to general medical condition, failure to thrive and history of cognitive impairment. Patient also had underlying dementia. Psychiatrist recommended continue Depakote. , Reality orientation provided. Patient clinically improved and was stable for discharge to [facility] facility for continuation of care. FINAL DIAGNOSES: Left fibular fracture Encephalopathy- secondary to general medical condition ,failure to thrive , and history of cognitive impairment Forehead laceration Fevers- resolved Probable pneumonia Pyuria/ UTI Hypothyroidism Diabetes mellitus Hypertension Iron deficiency anemia Dehydration Hyponatremia, possible SIADH Seizure disorder DISCHARGE MEDICATIONS: See Medication Reconciliation list. DISCHARGE INSTRUCTIONS: Patient was discharged to the [facility] facility. Follow up with medical doctor at the facility. I have been assigned to dictate discharge summary for this account. I was not involved in the patient's management. Anitha Sommer NP May 30, 2018 08:32
== END 2018-05-27 13:45 | DRG 342 ==
LOC: EDBD 20:01 → EMR 20:47 → EDBEDREQ 21:31 → 2E 23:07 → EDBEDREQ 23:12 → 4W 05-25 13:40
DX: S82.832A Other fracture of upper and lower end of left fibula, initial encounter for closed fracture (principal); G93.40 Encephalopathy, unspecified; J18.9 Pneumonia, unspecified organism; E22.2 Syndrome of inappropriate secretion of antidiuretic hormone; F03.90 Unspecified dementia, unspecified severity, without behavioral disturbance, psychotic disturbance, mood disturbance, and anxiety; J44.9 Chronic obstructive pulmonary disease, unspecified; E11.9 Type 2 diabetes mellitus without complications; E03.9 Hypothyroidism, unspecified; D50.9 Iron deficiency anemia, unspecified; E86.0 Dehydration; S01.81XA Laceration without foreign body of other part of head, initial encounter; I10 Essential (primary) hypertension; Z88.0 Allergy status to penicillin; W19.XXXA Unspecified fall, initial encounter; Y92.129 Unspecified place in nursing home as the place of occurrence of the external cause; Z88.6 Allergy status to analgesic agent; Z88.1 Allergy status to other antibiotic agents; Z88.8 Allergy status to other drugs, medicaments and biological substances; K21.9 Gastro-esophageal reflux disease without esophagitis; I34.0 Nonrheumatic mitral (valve) insufficiency; Z86.718 Personal history of other venous thrombosis and embolism; Z86.73 Personal history of transient ischemic attack (TIA), and cerebral infarction without residual deficits; K57.90 Diverticulosis of intestine, part unspecified, without perforation or abscess without bleeding; R50.9 Fever, unspecified; N39.0 Urinary tract infection, site not specified; R62.7 Adult failure to thrive; G40.909 Epilepsy, unspecified, not intractable, without status epilepticus
CPT/HCPCS: 36415; 70450; 71045; 80053; 80061; 80164; 81003; 82550; 82553; 82607; 82728; 82746; 82962; 82977; 83036; 83540; 83550; 83605; 83735; 83880; 83930; 84100; 84443; 84484; 84550; 85007; 85025; 85610; 85730; 86140; 87040; 87086; 93005

== ENCOUNTER 2018-08-11 12:19 | Inpatient (IN) | payer MEDICAID ==
[~2018-08-11] VITALS: Ht 154.9 cm; Wt 47.9 kg
[2018-08-11 12:40] VITALS: BP 140/87
[2018-08-11] MEDS ORDERED: Ketorolac 60mg Inj IM ONE (13:00)
[2018-08-11 13:32] LABS: BASOPHILS % (AUTO) 1.2 % (0.0-2.0); HEMOGLOBIN 13.2 G/DL (12.0-16.0); LYMPHOCYTES % (AUTO) 28.4 % (20.0-45.0); MEAN CORPUSCULAR VOLUME 88 FL (80-99); MONOCYTES % (AUTO) 16.3 % (1.0-10.0); PLATELET COUNT 137 K/UL (150-450); RED CELL DISTRIBUTION WIDTH 11.1 % (11.6-14.8); WHITE BLOOD COUNT 4.1 K/UL (4.8-10.8)
[2018-08-11 13:44] LABS: ANION GAP 6 mmol/L (5-15); BLOOD UREA NITROGEN 16 mg/dL (7-18); CARBON DIOXIDE 27 MMOL/L (21-32); CHLORIDE 97 MMOL/L (98-107); CREATININE 0.5 MG/DL (0.55-1.30); POTASSIUM 3.8 MMOL/L (3.5-5.1); SODIUM 130 MMOL/L (136-145)
[2018-08-11 13:48] LABS: ALANINE AMINOTRANSFERASE < 6 U/L (12-78); ALBUMIN 3.3 G/DL (3.4-5.0); ALBUMIN/GLOBULIN RATIO 0.7 (1.0-2.7); ALKALINE PHOSPHATASE 62 U/L (46-116); ASPARTATE AMINO TRANSFERASE 22 U/L (15-37); BILIRUBIN,TOTAL 0.5 MG/DL (0.2-1.0)
[2018-08-11] MEDS ORDERED: COLACE100 MG ORAL (15:00)
--- NOTE | 2018-08-11 15:06 | Emergency Room Report ---
History of Present Illness General Chief Complaint: Pain Source: EMS Present Illness HPI 68-year-old female with history of hyponatremia and neuropathy here complaining of left hip pain since this [facility]. 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 denies head trauma. Patient is unable to ambulate and elicit a lot of pain upon palpation of the left hip. Denies any other injury, chest pain, shortness of breath, dizziness, palpitation , abdominal pain, nausea vomiting and all other associated symptoms. She further denies tingling numbness Allergies: Coded Allergies: CIPROFLOXACIN (Verified Allergy, Unknown, 10/02/13) HYDROCODONE (Verified Allergy, Unknown, 10/02/13) PENICILLINS (Verified Allergy, Unknown, 10/02/13) PROCHLORPERAZINE (Verified Allergy, Unknown, 10/02/13) Patient History Past Medical History: see triage record Past Surgical History: unable to obtain Immunizations: UTD Reviewed Nursing Documentation: PMH: Agreed; PSxH: Agreed Nursing Documentation-PMH Past Medical History: No History, Except For Hx Cardiac Problems: Yes Hx Hypertension: Yes Hx Pacemaker: No Hx Asthma: No - pna, sepsis, resp insuff., neuropathy, hypothyroidsm, Hx Diabetes: Yes Hx Cancer: No Hx Gastrointestinal Problems: Yes Hx Neurological Problems: Yes Hx Cerebrovascular Accident: Yes Hx Seizures: Yes Review of Systems All Other Systems: negative except mentioned in HPI Physical Exam Vital Signs Date Time Temp Pulse Resp B/P (MAP) Pulse Ox O2 Delivery O2 Flow Rate FiO2 08/11/18 12:20 97.3 83 19 140/87 95 Room Air Sp02 EP Interpretation: reviewed, normal General Appearance: normal inspection, alert, GCS 15, non-toxic Head: normocephalic, atraumatic Eyes: bilateral eye normal inspection, bilateral eye PERRL ENT: normal ENT inspection, normal pharynx Neck: normal inspection, full range of motion, supple Respiratory: normal inspection, chest non-tender, normal breath sounds, no rhonchi, no retraction, no wheezing Cardiovascular #1: normal inspection, regular rate, rhythm, no gallop, no murmur Cardiovascular #2: 2+ dorsalis pedis (R), 2+ dorsalis pedis (L) Gastrointestinal: normal inspection, soft Rectal: deferred Genitourinary: deferred Musculoskeletal: digits/nails normal, no calf tenderness, decreased range of motion - left hip, tender - Lumbar tenderness Neurologic: normal inspection, oriented x3, responsive Psychiatric: normal inspection, judgement/insight normal, memory normal Skin: normal inspection, normal color, no rash, warm/dry, palpation normal Lymphatic: normal inspection, no adenopathy Medical Decision Making PA Attestation all diagnosis and treatment plans are reviewed and discussed with supervising physician Dr. Ayala Diagnostic Impression: Primary Impression: Lumbar compression fracture ER Course 68-year-old female with history of hyponatremia and neuropathy here complaining of left hip pain since this morning when she was sitting at the [facility]. 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 denies head trauma. Patient is unable to ambulate and elicit a lot of pain upon palpation of the left hip. Denies any other injury, chest pain, shortness of breath, dizziness, palpitation , abdominal pain, nausea vomiting and all other associated symptoms. She further denies tingling numbness Ddx considered but are not limited to left hip fx, left hip dislocation, left hip contusion, neuropathy, lumbar compresion fx Vital signs: are WNL, pt. is afebrile H&PE are most consistent with lumbar compression fx, neutropenia ORDERS: left hip x-ray, left hip CT with no contrast, Toradol 60, normal saline , morphine 2g, zofran 4mg, admitted ED INTERVENTIONS: Toradol 60, normal saline, morphine 2g, zofran 4mg, admitted sodium: 130, plt, 137 d-dimer 1.97 secondary to IV filter Other X-Ray Diagnostic Results Other X-Ray Diagnostic Results : X-Ray ordered: left hip # of Views/Limited Vs Complete: 2 View Indication: Swelling EP Interpretation: Yes PA Xray: Interpretation reviewed, by supervising MD, and agrees with findings. Impression: Other Electronically Signed by: Ramiro LIMA Scribe Text FILM LEFT HIP: Cortical irregularity in the left superior and inferior pubic rami may be related to remote trauma. No definite displaced fracture identified. Mild degenerative changes in the left hip joint. CT/MRI/US Diagnostic Results CT/MRI/US Diagnostic Results : Imaging Test Ordered: pelvic CT Impression FILM PELVIS: Cortical irregularity along the superior and inferior left pubic rami are nonspecific and may be related to remote trauma. Mild degenerative joint space narrowing in bilateral hips. Age-indeterminate compression deformity of L4. Atherosclerotic calcifications in the abdominal aorta and its proximal branches. Partial visualization of an IVC filter. Last Vital Signs Date Time Temp Pulse Resp B/P (MAP) Pulse Ox O2 Delivery O2 Flow Rate FiO2 08/11/18 12:40 97.3 19 140/87 95 Room Air 08/11/18 12:20 83 Disposition: ADMITTED INPATIENT Condition: Stable Ramiro Sanabria Aug 11, 2018 15:06
[2018-08-11] MEDS ORDERED: Morphine Sulfate 2mg/ml Inj IVP ONE (15:30)
[2018-08-11 15:42] VITALS: BP 144/86
[2018-08-11 17:42] VITALS: BP 147/82
[2018-08-11 18:13] VITALS: BP 145/87
[2018-08-11] MEDS ORDERED: Fleet's Enema 133ml RECTAL PRN (18:45)
[2018-08-11] MEDS ORDERED: Milk of Magnesia 30ml Ud ORAL PRN (18:46)
[2018-08-11] MEDS ORDERED: Acetaminophen 500mg (ES) tab ORAL PRN (18:47)
[2018-08-11 20:00] VITALS: BP 135/73
[2018-08-11] MEDS ORDERED: Tylenol #3 tab (300mg/30mg) ORAL PRN (20:07)
--- NOTE | 2018-08-11 20:07 | Consultation ---
History of Present Illness General Date patient seen: Aug 11, 2018 Chief Complaint: Present Illness Allergies: Coded Allergies: CIPROFLOXACIN (Verified Allergy, Unknown, 10/02/13) HYDROCODONE (Verified Allergy, Unknown, 10/02/13) PENICILLINS (Verified Allergy, Unknown, 10/02/13) PROCHLORPERAZINE (Verified Allergy, Unknown, 10/02/13) Medication History Scheduled Bisacodyl (Dulcolax), 10 MG RC DAILY, (Reported) Divalproex Sodium (Depakote), 500 MG PO Q12HR, (Reported) Docusate Sodium* (Docusate Sodium*), 100 MG ORAL DAILY, (Reported) Docusate Sodium* (Colace*), 100 MG ORAL DAILY, (Reported) Folic Acid* (Folic Acid*), 1 MG PO DAILY, (Reported) Hydralazine HCl (Hydralazine HCl), 10 MG ORAL DAILY, (Reported) Levothyroxine Sodium* (Levothyroxine Sodium*), 75 MCG ORAL BEFORE BREAKFAST, ( Reported) Metoprolol Tartrate* (Metoprolol Tartrate*), 12.5 MG ORAL DAILY, (Reported) Multivitamin With Minerals (Multivitamins With Minerals*), 1 TAB ORAL DAILY, ( Reported) Scheduled PRN Acetaminophen* (Acetaminophen 325MG Tablet*), 2 TAB ORAL Q4H PRN for Mild Pain ( Pain Scale 1-3), (Reported) Acetaminophen* (Acetaminophen 325MG Tablet*), 2 TAB ORAL Q4H PRN for Temp >101, (Reported) Patient History Healthcare decision maker Resuscitation status Advanced Directive on File Physical Exam Last 24 Hour Vital Signs Date Time Temp Pulse Resp B/P (MAP) Pulse Ox O2 Delivery O2 Flow Rate FiO2 08/11/18 18:13 97.2 74 16 145/87 (106) 97 08/11/18 17:57 98.0 79 16 147/82 99 Room Air 08/11/18 17:42 98.0 79 16 147/82 99 Room Air 08/11/18 16:15 97.7 08/11/18 15:42 97.7 89 18 144/86 98 Room Air 08/11/18 13:49 97.3 08/11/18 12:40 97.3 19 140/87 95 Room Air 08/11/18 12:20 97.3 83 19 140/87 95 Room Air Laboratory Tests Test 08/11/18 13:15 White Blood Count 4.1 K/UL (4.8-10.8) L Red Blood Count 4.30 M/UL (4.20-5.40) Hemoglobin 13.2 G/DL (12.0-16.0) Hematocrit 38.0 % (37.0-47.0) Mean Corpuscular Volume 88 FL (80-99) Mean Corpuscular Hemoglobin 30.6 PG (27.0-31.0) Mean Corpuscular Hemoglobin Concent 34.7 G/DL (32.0-36.0) Red Cell Distribution Width 11.1 % (11.6-14.8) L Platelet Count 137 K/UL (150-450) L Mean Platelet Volume 6.4 FL (6.5-10.1) L Neutrophils (%) (Auto) 53.0 % (45.0-75.0) Lymphocytes (%) (Auto) 28.4 % (20.0-45.0) Monocytes (%) (Auto) 16.3 % (1.0-10.0) H Eosinophils (%) (Auto) 1.0 % (0.0-3.0) Basophils (%) (Auto) 1.2 % (0.0-2.0) D-Dimer 1.97 mg/L FEU (0.00-0.49) H Sodium Level 130 MMOL/L (136-145) L Potassium Level 3.8 MMOL/L (3.5-5.1) Chloride Level 97 MMOL/L (98-107) L Carbon Dioxide Level 27 MMOL/L (21-32) Anion Gap 6 mmol/L (5-15) Blood Urea Nitrogen 16 mg/dL (7-18) Creatinine 0.5 MG/DL (0.55-1.30) L Estimat Glomerular Filtration Rate > 60 mL/min (>60) Glucose Level 83 MG/DL (74-106) Uric Acid 3.3 MG/DL (2.6-7.2) Calcium Level 9.0 MG/DL (8.5-10.1) Total Bilirubin 0.5 MG/DL (0.2-1.0) Aspartate Amino Transf (AST/SGOT) 22 U/L (15-37) Alanine Aminotransferase (ALT/SGPT) < 6 U/L (12-78) L Alkaline Phosphatase 62 U/L (46-116) Total Protein 8.3 G/DL (6.4-8.2) H Albumin 3.3 G/DL (3.4-5.0) L Globulin 5.0 g/dL Albumin/Globulin Ratio 0.7 (1.0-2.7) L Height (Feet): 5 Height (Inches): 1.00 Weight (Pounds): 110 Medications Current Medications Medications (Trade) Dose Ordered Sig/Karlee Route PRN Reason Start Time Stop Time Status Last Admin Dose Admin Acetaminophen (Tylenol) 650 mg Q4H PRN ORAL Mild Pain/Temp > 100.5 08/11/18 18:47 09/10/18 18:46 Acetaminophen (Tylenol) 1,000 mg Q4H PRN ORAL Moderate Pain (Pain Scale 4-6) 08/11/18 18:47 09/10/18 18:46 Bisacodyl (Dulcolax) 10 mg DAILYPRN PRN RECTAL Constipation 08/11/18 18:48 09/10/18 18:44 Calcium Carbonate (OsCal D) 1 tab DAILY ORAL 08/12/18 09:00 09/11/18 08:59 Divalproex Sodium (Depakote) 500 mg TID ORAL 08/12/18 09:00 09/11/18 08:59 Docusate Sodium (Colace) 100 mg DAILY ORAL 08/12/18 09:00 09/11/18 08:59 Hydralazine HCl (Apresoline) 10 mg TID ORAL 08/12/18 09:00 09/11/18 08:59 Levothyroxine Sodium (Synthroid) 75 mcg DAILY@0630 ORAL 08/12/18 06:30 09/11/18 06:29 Magnesium Hydroxide (Mom) 30 ml HSPRN PRN ORAL Constipation 08/11/18 18:46 09/10/18 18:45 Metoprolol Tartrate (Lopressor) 12.5 mg Q12HR ORAL 08/11/18 21:00 09/11/18 08:59 Multivitamins (Multivitamins W/ Minerals 15ml Liquid) 15 ml DAILY ORAL 08/12/18 09:00 09/11/18 08:59 Sodium Chloride 1,000 ml @ 50 mls/hr Q20H IV 08/11/18 19:28 09/10/18 19:27 Sodium Phosphate (Fleet's Sodium Phosl Enema) 133 ml EVERY OTHER DAY PRN RECTAL Constipation 08/11/18 18:45 09/10/18 18:44 Assessment/Plan Assessment/Plan (1) Left hip pain (2) Left hip OA Seem dictated. Teo Salcedo Aug 11, 2018 20:07
[2018-08-11] MEDS: Metoprolol Tartrate 12.5mg TAB ORAL SCH (20:37)
[2018-08-11 21:20] LABS: APPEARANCE,URINE CLOUDY; BILIRUBIN, URINE NEGATIVE (NEGATIVE); GLUCOSE, URINE (UA) NEGATIVE (NEGATIVE); KETONES,URINE 1+ (NEGATIVE); LEUKOCYTE ESTERASE ,URINE 3+ (NEGATIVE); NITRITE,URINE NEGATIVE (NEGATIVE); PH,URINE 6.5 (4.5-8.0); PROTEIN,URINE 2+ (NEGATIVE); UROBILINOGEN,URINE 1 MG/DL (0.0-1.0)
[2018-08-11 21:21] LABS: COLOR,URINE YELLOW
[2018-08-12] VITALS: BP 97/59
[2018-08-12 04:00] VITALS: BP 126/70
[2018-08-12 06:09] LABS: HEMATOCRIT 36.5 % (37.0-47.0); HEMOGLOBIN 13.1 G/DL (12.0-16.0); MEAN CORPUSCULAR VOLUME 90 FL (80-99); PLATELET COUNT 95 K/UL (150-450); RED BLOOD COUNT 4.03 M/UL (4.20-5.40); RED CELL DISTRIBUTION WIDTH 11.4 % (11.6-14.8); WHITE BLOOD COUNT 4.1 K/UL (4.8-10.8)
--- NOTE | 2018-08-12 06:30 | History and Physical Report ---
DATE OF ADMISSION: 08/11/2018 HISTORY OF PRESENT ILLNESS: The patient is admitted for intractable hip pain and also hyponatremia. The patient is complaining [facility], here for pain control and hyponatremia. The patient is a poor historian and not a reliable historian. Denies nausea, vomiting, or diarrhea. Denies fever or chills. Denies shortness of breath. Denies cough. PAST MEDICAL HISTORY: History of organic brain disease, history of diverticulosis, history of cholelithiasis, history of herpes zoster dermatitis, history of DVT, history of OH, CAD, NIDDM, history of dissecting aneurysm of descending thoracic aorta, history of cardiomegaly, history of CHF, history of SVT, history of dysphagia, hypertension, hypothyroidism, and constipation. PAST SURGICAL HISTORY: History of PEG. ALLERGIES: To Cipro, hydrocodone, penicillin, and prochlorperazine. MEDICATIONS: Docusate, Depakote, bisacodyl, Tylenol, hydralazine, Levoxyl, and metoprolol. SOCIAL HISTORY: Denies any significant illicit drugs. REVIEW OF SYSTEMS: HEENT: Denies headaches. RESPIRATORY: Denies shortness of breath. Denies cough. CARDIOVASCULAR: Denies chest pain. No orthopnea. GASTROINTESTINAL: Denies nausea, vomiting, or diarrhea. EXTREMITIES: Does have hip pain. CENTRAL NERVOUS SYSTEM: Denies change in vision or speech pattern. PHYSICAL EXAMINATION: VITAL SIGNS: Temperature 97.7 degrees, pulse is 89, and blood pressure 145/86. HEENT: PERRLA. NECK: Supple. No lymphadenopathy. CHEST: Clear to auscultation. CARDIOVASCULAR: Irregularly irregular. GASTROINTESTINAL: Soft. Positive bowel sounds. Nontender. EXTREMITIES: No edema. Reflexes on both sides. Decreased range of motion in left hip is due to pain. NEUROLOGICAL: Oriented x1. LABORATORY DATA: Laboratory [place], WBC of 4.1, hemoglobin of 13, and platelet 137,000. Sodium 130, potassium 3.3, BUN of 16, creatinine 0.5, and glucose of 83. ASSESSMENT: 1. Hyponatremia. 2. Left hip pain. PLAN: I have asked Dr. Kennedy to see the patient for pain control as well as Dr. Valdivia for hyponatremia treatment. Mindy Bryan M.D. DR: JAMES JOB#: [id number] CC:
[2018-08-12 06:47] LABS: ALANINE AMINOTRANSFERASE 6 U/L (12-78); ALBUMIN 3.1 G/DL (3.4-5.0); ALBUMIN/GLOBULIN RATIO 0.7 (1.0-2.7); ALKALINE PHOSPHATASE 65 U/L (46-116); ANION GAP 4 mmol/L (5-15); ASPARTATE AMINO TRANSFERASE 19 U/L (15-37); BILIRUBIN,TOTAL 0.4 MG/DL (0.2-1.0); BLOOD UREA NITROGEN 22 mg/dL (7-18); CALCIUM 8.6 MG/DL (8.5-10.1); CARBON DIOXIDE 28 MMOL/L (21-32); CHLORIDE 98 MMOL/L (98-107); CHOLESTEROL 138 MG/DL (< 200); CREATININE 0.9 MG/DL (0.55-1.30); HDL CHOLESTEROL 51 MG/DL (40-60); PHOSPHORUS 4.9 MG/DL (2.5-4.9); SODIUM 130 MMOL/L (136-145); TRIGLYCERIDES 60 MG/DL (30-150)
[2018-08-12 08:00] VITALS: BP 107/59
[2018-08-12] MEDS: Calcium Carbonate 500mg w/Vit D 200iu tab ORAL SCH (08:26)
[2018-08-12] MEDS: Multivitamins W/Minerals 15 ML UDC ORAL SCH (08:26)
[2018-08-12] MEDS: Docusate 100mg cap ORAL SCH (08:26)
[2018-08-12] MEDS: Metoprolol Tartrate 12.5mg TAB ORAL SCH ×2 (08:29→21:00)
--- NOTE | 2018-08-12 08:48 | General Progress Note ---
Assessment/Plan Assessment/Plan (1) Left hip pain (2) Left hip OA Pt will be continued on Tylenol #3. D/w Dr. Kennedy and he concurred. Subjective Date patient seen: Aug 12, 2018 Time patient seen: 07:00 - am Constitutional: Reports: weakness HEENT: Reports: no symptoms Cardiovascular: Reports: no symptoms Respiratory: Reports: no symptoms Gastrointestinal/Abdominal: Reports: no symptoms Genitourinary: Reports: no symptoms Neurologic/Psychiatric: Reports: weakness Endocrine: Reports: no symptoms Hematologic/Lymphatic: Reports: no symptoms Allergies: Coded Allergies: CIPROFLOXACIN (Verified Allergy, Unknown, 10/02/13) HYDROCODONE (Verified Allergy, Unknown, 10/02/13) PENICILLINS (Verified Allergy, Unknown, 10/02/13) PROCHLORPERAZINE (Verified Allergy, Unknown, 10/02/13) Subjective Patient is in bed showing no signs of pain or distress at this time. Pain was reduced with the Tylenol has not request the Tylenol #3. Objective Last 24 Hour Vital Signs Date Time Temp Pulse Resp B/P (MAP) Pulse Ox O2 Delivery O2 Flow Rate FiO2 08/12/18 08:29 72 107/59 08/12/18 08:00 97.1 72 18 107/59 (75) 98 08/12/18 04:00 97.2 64 18 126/70 (88) 98 08/12/18 00:00 97.0 60 18 97/59 (72) 100 08/11/18 22:21 Room Air 08/11/18 21:00 Room Air 08/11/18 20:37 73 135/73 08/11/18 20:00 97.0 73 18 135/73 (93) 96 08/11/18 18:13 97.2 74 16 145/87 (106) 97 08/11/18 17:57 98.0 79 16 147/82 99 Room Air 08/11/18 17:42 98.0 79 16 147/82 99 Room Air 08/11/18 16:15 97.7 08/11/18 15:42 97.7 89 18 144/86 98 Room Air 08/11/18 13:49 97.3 08/11/18 12:40 97.3 19 140/87 95 Room Air 08/11/18 12:20 97.3 83 19 140/87 95 Room Air Intake and Output 08/11/18 08/12/18 19:00 07:00 Intake Total 150 ml 500 ml Balance 150 ml 500 ml Intake Oral 0 ml IV Total 150 ml 500 ml # Voids 3 Laboratory Tests 08/11/18 13:15: White Blood Count 4.1L, Red Blood Count 4.30, Hemoglobin 13.2, Hematocrit 38.0, Mean Corpuscular Volume 88, Mean Corpuscular Hemoglobin 30.6, Mean Corpuscular Hemoglobin Concent 34.7, Red Cell Distribution Width 11.1L, Platelet Count 137L , Mean Platelet Volume 6.4L, Neutrophils (%) (Auto) 53.0, Lymphocytes (%) (Auto ) 28.4, Monocytes (%) (Auto) 16.3H, Eosinophils (%) (Auto) 1.0, Basophils (%) ( Auto) 1.2, D-Dimer 1.97H, Sodium Level 130L, Potassium Level 3.8, Chloride Level 97L, Carbon Dioxide Level 27, Anion Gap 6, Blood Urea Nitrogen 16, Creatinine 0.5L, Estimat Glomerular Filtration Rate > 60, Glucose Level 83, Uric Acid 3.3, Calcium Level 9.0, Total Bilirubin 0.5, Aspartate Amino Transf ( AST/SGOT) 22, Alanine Aminotransferase (ALT/SGPT) < 6L, Alkaline Phosphatase 62 , C-Reactive Protein, Quantitative 1.1H, Total Protein 8.3H, Albumin 3.3L, Globulin 5.0, Albumin/Globulin Ratio 0.7L 08/11/18 20:50: Urine Color Yellow, Urine Appearance Cloudy, Urine pH 6.5, Urine Specific [place] 1.015, Urine Protein 2+H, Urine Glucose (UA) Negative, Urine Ketones 1+H , Urine Blood 2+H, Urine Nitrite Negative, Urine Bilirubin Negative, Urine Urobilinogen 1H, Urine Leukocyte Esterase 3+H, Urine RBC 5-10H, Urine WBC TntcH , Urine Squamous Epithelial Cells Few, Urine Bacteria ModerateH, Urine Osmolality 628H, Urine Random Sodium 73 08/12/18 05:05: White Blood Count 4.1L, Red Blood Count 4.03L, Hemoglobin 13.1, Hematocrit 36.5L , Mean Corpuscular Volume 90, Mean Corpuscular Hemoglobin 32.6H, Mean Corpuscular Hemoglobin Concent 36.0, Red Cell Distribution Width 11.4L, Platelet Count 95L, Mean Platelet Volume 5.9L, Neutrophils (%) (Auto) , Lymphocytes (%) (Auto) , Monocytes (%) (Auto) , Eosinophils (%) (Auto) , Basophils (%) (Auto) , Sodium Level 130L, Potassium Level 4.0, Chloride Level 98 , Carbon Dioxide Level 28, Anion Gap 4L, Blood Urea Nitrogen 22H, Creatinine 0.9 #, Estimat Glomerular Filtration Rate > 60, Glucose Level 72L, Uric Acid 3.7, Calcium Level 8.6, Total Bilirubin 0.4, Aspartate Amino Transf (AST/SGOT) 19, Alanine Aminotransferase (ALT/SGPT) 6L, Alkaline Phosphatase 65, Total Protein 7.7, Albumin 3.1L, Globulin 4.6, Albumin/Globulin Ratio 0.7L, Differential Total Cells Counted 100, Neutrophils % (Manual) 54, Lymphocytes % (Manual) 29, Monocytes % (Manual) 16H, Eosinophils % (Manual) 1, Basophils % (Manual) 0, Band Neutrophils 0, Platelet Estimate DecreasedL, Platelet Morphology Normal, Anisocytosis 1+, Osmolality 275L, Phosphorus Level 4.9, Magnesium Level 1.8, Pro -B-Type Natriuretic Peptide 1043H, Triglycerides Level 60, Cholesterol Level 138 , LDL Cholesterol 66, HDL Cholesterol 51, Cholesterol/HDL Ratio 2.7L, Thyroid Stimulating Hormone (TSH) 7.917H Height (Feet): 5 Height (Inches): 1.00 Weight (Pounds): 100 General Appearance: no apparent distress, alert EENT: PERRL/EOMI, normal ENT inspection Neck: normal alignment, supple Cardiovascular: normal rate, regular rhythm Respiratory/Chest: lungs clear, normal breath sounds Abdomen: non tender, soft Extremities: non-tender Edema: no edema noted Arm (L), no edema noted Arm (R), no edema noted Leg (L), no edema noted Leg (R), no edema noted Pedal (L), no edema noted Pedal (R), no edema noted Generalized Neurologic: alert, responsive Skin: warm/dry Teo Salcedo Aug 12, 2018 08:48
[2018-08-12] MEDS ORDERED: NaCl 3% 500ml 500 ML IV SCH (09:00)
[2018-08-12] MEDS ORDERED: HydrALAZINE 10mg Tab ORAL SCH ×2 (09:00)
[2018-08-12] MEDS ORDERED: Depakote 500mg tab ORAL SCH (09:00)
[2018-08-12] MEDS ORDERED: Metoprolol 25mg tab ORAL SCH (09:00)
--- NOTE | 2018-08-12 09:09 | Consultation ---
Consult Note Consult Note asked to eval for low Na 68-year-old female with history of hyponatremia and neuropathy here complaining of left hip pain since this [facility] 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 denies head trauma. Patient is unable to ambulate and elicit a lot of pain upon palpation of the left hip. Denies any other injury, chest pain, shortness of breath, dizziness, palpitation , abdominal pain, nausea vomiting and all other associated symptoms. 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
[2018-08-12 09:58] LABS: FERRITIN 348 NG/ML (8-388)
[2018-08-12] MEDS ORDERED: Varibar Honey 250ml MC PRN (10:00)
[2018-08-12] MEDS ORDERED: Varibar Pudding 230ml MC PRN (10:00)
[2018-08-12] MEDS ORDERED: Varibar Nectar 240ml MC PRN (10:00)
[2018-08-12 10:04] LABS: % IRON SATURATION 39 % (15-50); IRON 101 ug/dL (50-175); TOTAL IRON BINDING CAPACITY 260 ug/dL (250-450)
--- NOTE | 2018-08-12 11:18 | Consultation ---
Consult Note Assessment/Plan Hematology Oncology Consult REQ : Irvin RFC: DVT s/p IVC filter DOS: 08/12/18 ID 68-year-old female with history of hyponatremia and neuropathy here complaining of left hip pain since this [facility] 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 denies head trauma. Patient is unable to ambulate and elicit a lot of pain upon palpation of the left hip. Denies any other injury, chest pain, shortness of breath, dizziness, palpitation, abdominal pain , nausea vomiting and all other associated symptoms. She further denies tingling numbness. Now has low Na and IVC filter for hx of DVT. Allergies: CIPROFLOXACIN (Verified Allergy, Unknown, 10/02/13) HYDROCODONE (Verified Allergy, Unknown, 10/02/13) PENICILLINS (Verified Allergy, Unknown, 10/02/13) PROCHLORPERAZINE (Verified Allergy, Unknown, 10/02/13) Patient History Past Medical History: see triage record Past Surgical History: unable to obtain Immunizations: UTD Reviewed Nursing Documentation: PMH: Agreed; PSxH: Agreed Past Medical History: No History, Except For Hx Cardiac Problems: Yes Hx Hypertension: Yes Hx Pacemaker: No Hx Asthma: No - pna, sepsis, resp insuff., neuropathy, hypothyroidsm, Hx Diabetes: Yes Hx Cancer: No Hx Gastrointestinal Problems: Yes Hx Neurological Problems: Yes Hx Cerebrovascular Accident: Yes Hx Seizures: Yes All Other Systems: negative except mentioned in HPI Very comfortable, no other events Vital Signs Date Time Temp Pulse Resp B/P (MAP) Pulse Ox O2 Delivery O2 Flow Rate FiO2 08/11/18 12:20 97.3 83 19 140/87 95 Room Air Gen: normal inspection, alert, GCS 15, non-toxic HEENT: normocephalic, atraumatic, bilateral eye PERRL Pulm: normal inspection, chest non-tender, normal breath sounds, no rhonchi, no retraction, no wheezing CV: normal inspection, regular rate, rhythm, no gallop, no murmur Gastrointestinal: normal inspection, soft Genitourinary: deferred Lymphatic: normal inspection, no adenopathy Ext: no cce Assessment and Recs: 68-year-old female with history of hyponatremia and neuropathy here complaining of left hip pain since this morning when she was sitting at the [facility]. 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 denies head trauma. Patient is unable to ambulate and elicit a lot of pain upon palpation of the left hip. Denies any other injury, chest pain, shortness of breath, dizziness, palpitation , abdominal pain, nausea vomiting and all other associated symptoms. She further denies tingling numbness Ddx considered but are not limited to left hip fx, left hip dislocation, left hip contusion, neuropathy, lumbar compresion fx Vital signs: are WNL, pt. is afebrile H&PE are most consistent with lumbar compression fx, neutropenia ORDERS: left hip x-ray, left hip CT with no contrast, Toradol 60, normal saline , morphine 2g, zofran 4mg, admitted ED INTERVENTIONS: Toradol 60, normal saline, morphine 2g, zofran 4mg, admitted sodium: 130, plt, 137 d-dimer 1.97 secondary to IV filter FILM LEFT HIP: Cortical irregularity in the left superior and inferior pubic rami may be related to remote trauma. Lumbar compression fracture Mild degenerative joint space narrowing in bilateral hips. Age-indeterminate compression deformity of L4. Atherosclerotic calcifications in the abdominal aorta and its proximal branches. Partial visualization of an IVC filter. ASSESSMENT AND RECOMMENDATIONS: 1. Deep venous thrombosis of the right lower extremity. Partial visualization of an IVC filter. --> imaging has been reviewed --> hold off on anticoagulation given IVC filter is in place 2. Thrombocytopenia, likely secondary to underlying liver disease, continue to closely monitor. This is the lowest counts she has had for past several years --> prior labs reviewed, hepatitis panel has been ordered --> us of the abdomen was reviewed --> meds reviewed as well --> transfuse if she is bleeding with platelets 3. Anemia secondary to chronic disease. Anemia workup has been ordered and reviewed from prior admission 4. Hyponatremia. Nephrology is following --> Fluid restrictio, Saline and Lasix --> appreciate nephro recs 5. Seizure disorder 6. Left hip pain due to Lumbar compression fracture -- pain meds prn --> pain management consulted, appreciated recs I appreciate the consultation. Crow Coley MD Aug 12, 2018 11:18
--- NOTE | 2018-08-12 11:33 | Diagnostic Imaging Report ---
Indications: Left hip pain Findings: Two views of the left hip were obtained. No acute fracture is demonstrated. Alignment of the hip is within normal limits. Soft tissues are unremarkable. There is an old fracture of the left pubis. Bones are osteopenic. Impression: Negative for acute injury.
--- NOTE | 2018-08-12 11:34 | Diagnostic Imaging Report ---
Indication: pain Pelvic trauma and pain Findings: Single AP view of the pelvis was performed. No obvious acute fracture identified. The bones are osteopenic. There is an old fracture of the left pubis demonstrated. Sacrum is obscured. Extensive aortoiliac calcifications are present. IMPRESSION: No obvious acute injury
--- NOTE | 2018-08-12 11:50 | Diagnostic Imaging Report ---
Indication: Hip pain Technique: continuous helical imaging in the transaxial plane was performed from the iliac crests to the pubic symphysis with attention to the left hip. Coronal 2-D reformatted images were also generated. Study obtained in a Siemens Sensation [address] total DLP: 341 mGycm CTD/vol: 0.25, 8.51 mGy Comparison: None Findings: There is no evidence of an acute fracture or significant malalignment identified on this examination. Evidence of an old fracture involving the left superior and inferior pubic rami. The fractures appear healed. The bones are osteopenic. There is no malalignment of the hip. Vascular calcifications are present. There is a suggestion of a left decubitus ulcer. Correlate clinically. Diverticula noted within the colon. Compression fracture deformities of the L4 and L5 vertebra are noted incidentally. These are probably old. IMPRESSION: No acute fracture appreciated. Old left pubis fracture. Generalized osteopenia. Old vertebral fractures of L4 and L5. Other incidental findings as above The CT scanner at [facility] is accredited by the [employer] and the scans are performed using dose optimization techniques as appropriate to a performed exam including Automatic Exposure control.
[2018-08-12 12:00] VITALS: BP 99/61
--- NOTE | 2018-08-12 12:08 | Consultation ---
History of Present Illness General Chief Complaint: Pain Present Illness HPI 68-year-old female with history of hyponatremia and neuropathy here complaining of left hip pain the pt is from [facility] and I treat her there for mood d/o and cognitive impairment. the pt is somewhat confused and didnt know the date the pt has episodes of anxiety Allergies: Coded Allergies: CIPROFLOXACIN (Verified Allergy, Unknown, 10/02/13) HYDROCODONE (Verified Allergy, Unknown, 10/02/13) PENICILLINS (Verified Allergy, Unknown, 10/02/13) PROCHLORPERAZINE (Verified Allergy, Unknown, 10/02/13) Medication History Scheduled Bisacodyl (Dulcolax), 10 MG RC DAILY, (Reported) Divalproex Sodium (Depakote), 500 MG PO Q12HR, (Reported) Docusate Sodium* (Docusate Sodium*), 100 MG ORAL DAILY, (Reported) Docusate Sodium* (Colace*), 100 MG ORAL DAILY, (Reported) Folic Acid* (Folic Acid*), 1 MG PO DAILY, (Reported) Hydralazine HCl (Hydralazine HCl), 10 MG ORAL DAILY, (Reported) Levothyroxine Sodium* (Levothyroxine Sodium*), 75 MCG ORAL BEFORE BREAKFAST, ( Reported) Metoprolol Tartrate* (Metoprolol Tartrate*), 12.5 MG ORAL DAILY, (Reported) Multivitamin With Minerals (Multivitamins With Minerals*), 1 TAB ORAL DAILY, ( Reported) Scheduled PRN Acetaminophen* (Acetaminophen 325MG Tablet*), 2 TAB ORAL Q4H PRN for Mild Pain ( Pain Scale 1-3), (Reported) Acetaminophen* (Acetaminophen 325MG Tablet*), 2 TAB ORAL Q4H PRN for Temp >101, (Reported) Patient History Limited by: medical condition History Provided By: Patient, Medical Record Healthcare decision maker Resuscitation status Full Code Advanced Directive on File Past Medical/Surgical History Past Medical/Surgical History: (1) Pyuria (2) Mastoiditis (3) Cholelithiasis (4) Herpes zoster (5) Dermatitis (6) Diverticulosis (7) Mitral regurgitation (8) Neutropenia (9) Pancytopenia (10) Aspiration pneumonia (11) Respiratory insufficiency (12) Abdominal pain (13) Abdominal pain (14) Herpes zoster complicated (15) MRSA colonization (16) Aspiration into lower respiratory tract (17) sepsis, leukopenia, pneumonia (18) Hypokalemia (19) 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, stable (20) Nosebleed (21) acute DVT (22) Abnormal laboratory results for respiratory system (23) Abnormal laboratory test (24) Hyponatremia (25) DVT (deep venous thrombosis) (26) Bronchitis (27) Cough (28) cough (29) Hypothyroidism (30) UTI (lower urinary tract infection) (31) Lumbar compression fracture (32) Hyponatremia (33) Pneumonia (34) Pleural effusion (35) Hypotension (36) Diarrhea (37) Non-ST elevated myocardial infarction (non-STEMI) (38) Cardiomegaly (39) Dissecting aneurysm of descending thoracic aorta (40) Seizure disorder (41) Seizure (42) Diabetes (43) Hypertension (44) Hyponatremia (45) Thrombocytopenia (46) Aortic dissection, thoracic (47) Anemia (48) Hypothyroid (49) Constipation (50) prior subdural hematoma (51) Septicemia, streptococcal (52) Fever (53) UTI (lower urinary tract infection) (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 (55) [id number] ([phone] (57) CHF (congestive heart failure) (58) Hypercapnia (59) Hypothyroid (60) SIADH (syndrome of inappropriate ADH production) (61) Encephalopathy (62) SVT (supraventricular tachycardia) (63) Sepsis (64) Acute encephalopathy (65) Respiratory insufficiency (66) BiPAP (biphasic positive airway pressure) dependence (67) Hypokalemia (68) Encounter for PEG (percutaneous endoscopic gastrostomy) (69) Encounter for PEG (percutaneous endoscopic gastrostomy) (70) Malnutrition (71) Positive blood culture Review of Systems Psychiatric: Reports: prior hx, anxiety, depressed feelings, emotional problems Physical Exam General Appearance: no apparent distress, alert Neurologic: oriented x 3, responsive, normal mood/affect Last 24 Hour Vital Signs Date Time Temp Pulse Resp B/P (MAP) Pulse Ox O2 Delivery O2 Flow Rate FiO2 08/12/18 09:00 Room Air Room Air 08/12/18 08:29 72 107/59 08/12/18 08:00 97.1 72 18 107/59 (75) 98 08/12/18 04:00 97.2 64 18 126/70 (88) 98 08/12/18 00:00 97.0 60 18 97/59 (72) 100 08/11/18 22:21 Room Air 08/11/18 21:00 Room Air 08/11/18 20:37 73 135/73 08/11/18 20:00 97.0 73 18 135/73 (93) 96 08/11/18 18:13 97.2 74 16 145/87 (106) 97 08/11/18 17:57 98.0 79 16 147/82 99 Room Air 08/11/18 17:42 98.0 79 16 147/82 99 Room Air 08/11/18 16:15 97.7 08/11/18 15:42 97.7 89 18 144/86 98 Room Air 08/11/18 13:49 97.3 08/11/18 12:40 97.3 19 140/87 95 Room Air 08/11/18 12:20 97.3 83 19 140/87 95 Room Air Intake and Output 08/11/18 08/12/18 19:00 07:00 Intake Total 150 ml 500 ml Balance 150 ml 500 ml Intake Oral 0 ml IV Total 150 ml 500 ml # Voids 3 Laboratory Tests Test 08/11/18 13:15 08/11/18 20:50 08/12/18 05:05 White Blood Count 4.1 K/UL (4.8-10.8) L 4.1 K/UL (4.8-10.8) L Red Blood Count 4.30 M/UL (4.20-5.40) 4.03 M/UL (4.20-5.40) L Hemoglobin 13.2 G/DL (12.0-16.0) 13.1 G/DL (12.0-16.0) Hematocrit 38.0 % (37.0-47.0) 36.5 % (37.0-47.0) L Mean Corpuscular Volume 88 FL (80-99) 90 FL (80-99) Mean Corpuscular Hemoglobin 30.6 PG (27.0-31.0) 32.6 PG (27.0-31.0) H Mean Corpuscular Hemoglobin Concent 34.7 G/DL (32.0-36.0) 36.0 G/DL (32.0-36.0) Red Cell Distribution Width 11.1 % (11.6-14.8) L 11.4 % (11.6-14.8) L Platelet Count 137 K/UL (150-450) L 95 K/UL (150-450) L Mean Platelet Volume 6.4 FL (6.5-10.1) L 5.9 FL (6.5-10.1) L Neutrophils (%) (Auto) 53.0 % (45.0-75.0) % (45.0-75.0) Lymphocytes (%) (Auto) 28.4 % (20.0-45.0) % (20.0-45.0) Monocytes (%) (Auto) 16.3 % (1.0-10.0) H % (1.0-10.0) Eosinophils (%) (Auto) 1.0 % (0.0-3.0) % (0.0-3.0) Basophils (%) (Auto) 1.2 % (0.0-2.0) % (0.0-2.0) D-Dimer 1.97 mg/L FEU (0.00-0.49) H Sodium Level 130 MMOL/L (136-145) L 130 MMOL/L (136-145) L Potassium Level 3.8 MMOL/L (3.5-5.1) 4.0 MMOL/L (3.5-5.1) Chloride Level 97 MMOL/L (98-107) L 98 MMOL/L (98-107) Carbon Dioxide Level 27 MMOL/L (21-32) 28 MMOL/L (21-32) Anion Gap 6 mmol/L (5-15) 4 mmol/L (5-15) L Blood Urea Nitrogen 16 mg/dL (7-18) 22 mg/dL (7-18) H Creatinine 0.5 MG/DL (0.55-1.30) L 0.9 MG/DL (0.55-1.30) # Estimat Glomerular Filtration Rate > 60 mL/min (>60) > 60 mL/min (>60) Glucose Level 83 MG/DL (74-106) 72 MG/DL (74-106) L Uric Acid 3.3 MG/DL (2.6-7.2) 3.7 MG/DL (2.6-7.2) Calcium Level 9.0 MG/DL (8.5-10.1) 8.6 MG/DL (8.5-10.1) Total Bilirubin 0.5 MG/DL (0.2-1.0) 0.4 MG/DL (0.2-1.0) Aspartate Amino Transf (AST/SGOT) 22 U/L (15-37) 19 U/L (15-37) Alanine Aminotransferase (ALT/SGPT) < 6 U/L (12-78) L 6 U/L (12-78) L Alkaline Phosphatase 62 U/L (46-116) 65 U/L (46-116) C-Reactive Protein, Quantitative 1.1 mg/dL (0.00-0.90) H Total Protein 8.3 G/DL (6.4-8.2) H 7.7 G/DL (6.4-8.2) Albumin 3.3 G/DL (3.4-5.0) L 3.1 G/DL (3.4-5.0) L Globulin 5.0 g/dL 4.6 g/dL Albumin/Globulin Ratio 0.7 (1.0-2.7) L 0.7 (1.0-2.7) L Urine Color Yellow Urine Appearance Cloudy Urine pH 6.5 (4.5-8.0) Urine Specific [place] 1.015 (1.005-1.035) Urine Protein 2+ (NEGATIVE) H Urine Glucose (UA) Negative (NEGATIVE) Urine Ketones 1+ (NEGATIVE) H Urine Blood 2+ (NEGATIVE) H Urine Nitrite Negative (NEGATIVE) Urine Bilirubin Negative (NEGATIVE) Urine Urobilinogen 1 MG/DL (0.0-1.0) H Urine Leukocyte Esterase 3+ (NEGATIVE) H Urine RBC 5-10 /HPF (0 - 2) H Urine WBC Tntc /HPF (0 - 2) H Urine Squamous Epithelial Cells Few /LPF (NONE/OCC) Urine Bacteria Moderate /HPF (NONE) H Urine Osmolality 628 mOsm/kg (429-449) H Urine Random Sodium 73 mmol/L (20-110) Differential Total Cells Counted 100 Neutrophils % (Manual) 54 % (45-75) Lymphocytes % (Manual) 29 % (20-45) Monocytes % (Manual) 16 % (1-10) H Eosinophils % (Manual) 1 % (0-3) Basophils % (Manual) 0 % (0-2) Band Neutrophils 0 % (0-8) Platelet Estimate Decreased L Platelet Morphology Normal Anisocytosis 1+ Osmolality 275 mOsm/kg (297-317) L Phosphorus Level 4.9 MG/DL (2.5-4.9) Magnesium Level 1.8 MG/DL (1.8-2.4) Iron Level 101 ug/dL (50-175) Total Iron Binding Capacity 260 ug/dL (250-450) Percent Iron Saturation 39 % (15-50) Unsaturated Iron Binding 159 ug/dL (112-346) Ferritin 348 NG/ML (8-388) Pro-B-Type Natriuretic Peptide 1043 pg/mL (0-125) H Triglycerides Level 60 MG/DL (30-150) Cholesterol Level 138 MG/DL (< 200) LDL Cholesterol 66 mg/dL (<100) HDL Cholesterol 51 MG/DL (40-60) Cholesterol/HDL Ratio 2.7 (3.3-4.4) L Vitamin B12 Level 1073 PG/ML (193-986) H Folate 19.6 NG/ML (8.6-58.9) Thyroid Stimulating Hormone (TSH) 7.917 uiU/mL (0.358-3.740) Hepatitis A IgM Antibody Pending Hepatitis B Surface Antigen Pending Hepatitis B Core IgM Antibody Pending Hepatitis C Antibody Pending Microbiology Date/Time Source Procedure Growth Status 08/11/18 20:50 Urine,Clean Catch Urine Culture - Preliminary NO GROWTH Resulted 08/11/18 15:29 Rectum - Preliminary Resulted Height (Feet): 5 Height (Inches): 1.00 Weight (Pounds): 100 Medications Current Medications Medications (Trade) Dose Ordered Sig/Karlee Route PRN Reason Start Time Stop Time Status Last Admin Dose Admin Acetaminophen (Tylenol) 650 mg Q4H PRN ORAL Mild Pain/Temp > 100.5 08/11/18 18:47 09/10/18 18:46 Acetaminophen (Tylenol) 1,000 mg Q4H PRN ORAL Moderate Pain (Pain Scale 4-6) 08/11/18 18:47 09/10/18 18:46 08/11/18 20:13 Acetaminophen/ Codeine Phosphate (Tylenol #3) 1 tab Q4H PRN ORAL severe pain 08/11/18 20:07 08/18/18 20:06 Barium Sulfate (Varibar Honey) 250 ml NOW PRN Radiology Procedure 08/12/18 10:00 08/15/18 09:53 Barium Sulfate (Varibar [place]) 230 ml NOW PRN Radiology Procedure 08/12/18 10:00 08/15/18 09:53 Barium Sulfate (Varibar Pudding) 230 ml NOW PRN Radiology Procedure 08/12/18 10:00 08/15/18 09:53 Bisacodyl (Dulcolax) 10 mg DAILYPRN PRN RECTAL Constipation 08/11/18 18:48 09/10/18 18:44 Calcium Carbonate (OsCal D) 1 tab DAILY ORAL 08/12/18 09:00 09/11/18 08:59 08/12/18 08:26 Divalproex Sodium (Depakote) 500 mg Q8HR ORAL 08/12/18 14:00 09/11/18 08:59 Docusate Sodium (Colace) 100 mg DAILY ORAL 08/12/18 09:00 09/11/18 08:59 08/12/18 08:26 Furosemide (Lasix) 10 mg EVERY 6 HOURS IV 08/12/18 12:00 09/11/18 11:59 Gabapentin (Neurontin) 100 mg THREE TIMES A DAY ORAL 08/11/18 20:07 09/10/18 20:06 08/12/18 08:26 Levothyroxine Sodium (Synthroid) 75 mcg DAILY@0630 ORAL 08/12/18 06:30 09/11/18 06:29 08/12/18 06:02 Magnesium Hydroxide (Mom) 30 ml HSPRN PRN ORAL Constipation 08/11/18 18:46 09/10/18 18:45 Metoprolol Tartrate (Lopressor) 12.5 mg Q12HR ORAL 08/11/18 21:00 09/11/18 08:59 08/11/18 20:37 Multivitamins (Multivitamins W/ Minerals 15ml Liquid) 15 ml DAILY ORAL 08/12/18 09:00 09/11/18 08:59 08/12/18 08:26 Pantoprazole (Protonix) 40 mg DAILY ORAL 08/12/18 09:30 09/11/18 09:29 08/12/18 09:57 Sodium Chloride 500 ml @ 30 mls/hr ONCE IV 08/12/18 09:00 08/13/18 03:00 08/12/18 09:51 Sodium Phosphate (Fleet's Sodium Phosl Enema) 133 ml EVERY OTHER DAY PRN RECTAL Constipation 08/11/18 18:45 09/10/18 18:44 Assessment/Plan Status: stable Assessment/Plan depression seizure anxiety depakote provided ro/Isa Sexton MD Aug 12, 2018 12:08
[2018-08-12] MEDS: Depakote 500mg tab ORAL SCH ×2 (13:55→22:02)
[2018-08-12 16:00] VITALS: BP 90/55
[2018-08-12 20:00] VITALS: BP 104/61
--- NOTE | 2018-08-12 22:15 | General Progress Note ---
Assessment/Plan Status: progressing Assessment/Plan hip pain afebrile azotemia old compression fracture pain control Subjective ROS Limited/Unobtainable: Yes Allergies: Coded Allergies: CIPROFLOXACIN (Verified Allergy, Unknown, 10/02/13) HYDROCODONE (Verified Allergy, Unknown, 10/02/13) PENICILLINS (Verified Allergy, Unknown, 10/02/13) PROCHLORPERAZINE (Verified Allergy, Unknown, 10/02/13) Objective Last 24 Hour Vital Signs Date Time Temp Pulse Resp B/P (MAP) Pulse Ox O2 Delivery O2 Flow Rate FiO2 08/12/18 21:00 86 104/61 08/12/18 16:00 97.2 73 19 90/55 (67) 94 08/12/18 12:00 96.8 68 18 99/61 (74) 94 08/12/18 09:00 Room Air Room Air 08/12/18 08:29 72 107/59 08/12/18 08:00 97.1 72 18 107/59 (75) 98 08/12/18 04:00 97.2 64 18 126/70 (88) 98 08/12/18 00:00 97.0 60 18 97/59 (72) 100 08/11/18 22:21 Room Air Intake and Output 08/11/18 08/12/18 19:00 07:00 Intake Total 150 ml 500 ml Balance 150 ml 500 ml Intake Oral 0 ml IV Total 150 ml 500 ml # Voids 3 Laboratory Tests 08/12/18 05:05: White Blood Count 4.1L, Red Blood Count 4.03L, Hemoglobin 13.1, Hematocrit 36.5L , Mean Corpuscular Volume 90, Mean Corpuscular Hemoglobin 32.6H, Mean Corpuscular Hemoglobin Concent 36.0, Red Cell Distribution Width 11.4L, Platelet Count 95L, Mean Platelet Volume 5.9L, Neutrophils (%) (Auto) , Lymphocytes (%) (Auto) , Monocytes (%) (Auto) , Eosinophils (%) (Auto) , Basophils (%) (Auto) , Differential Total Cells Counted 100, Neutrophils % ( Manual) 54, Lymphocytes % (Manual) 29, Monocytes % (Manual) 16H, Eosinophils % ( Manual) 1, Basophils % (Manual) 0, Band Neutrophils 0, Platelet Estimate DecreasedL, Platelet Morphology Normal, Anisocytosis 1+, Sodium Level 130L, Potassium Level 4.0, Chloride Level 98, Carbon Dioxide Level 28, Anion Gap 4L, Blood Urea Nitrogen 22H, Creatinine 0.9#, Estimat Glomerular Filtration Rate > 60, Glucose Level 72L, Osmolality 275L, Uric Acid 3.7, Calcium Level 8.6, Phosphorus Level 4.9, Magnesium Level 1.8, Iron Level 101, Total Iron Binding Capacity 260, Percent Iron Saturation 39, Unsaturated Iron Binding 159, Ferritin 348, Total Bilirubin 0.4, Aspartate Amino Transf (AST/SGOT) 19, Alanine Aminotransferase (ALT/SGPT) 6L, Alkaline Phosphatase 65, Pro-B-Type Natriuretic Peptide 1043H, Total Protein 7.7, Albumin 3.1L, Globulin 4.6, Albumin/Globulin Ratio 0.7L, Triglycerides Level 60, Cholesterol Level 138, LDL Cholesterol 66, HDL Cholesterol 51, Cholesterol/HDL Ratio 2.7L, Vitamin B12 Level 1073H, Folate 19.6, Thyroid Stimulating Hormone (TSH) 7.917H, Hepatitis A IgM Antibody [Pending], Hepatitis B Surface Antigen [Pending], Hepatitis B Core IgM Antibody [Pending], Hepatitis C Antibody [Pending] Height (Feet): 5 Height (Inches): 1.00 Weight (Pounds): 100 Neck: supple Respiratory/Chest: lungs clear Abdomen: soft Mindy Bryan MD Aug 12, 2018 22:15
[2018-08-12] MEDS ORDERED: LORazepam 0.5mg tab ORAL PRN (22:30)
[2018-08-13] VITALS: BP 100/54
[2018-08-13 04:00] VITALS: BP 115/63
[2018-08-13] MEDS: Depakote 500mg tab ORAL SCH ×3 (06:18→14:23)
[2018-08-13 07:13] LABS: ALANINE AMINOTRANSFERASE 11 U/L (12-78); ALBUMIN 2.6 G/DL (3.4-5.0); ALBUMIN/GLOBULIN RATIO 0.7 (1.0-2.7); ALKALINE PHOSPHATASE 49 U/L (46-116); ANION GAP 5 mmol/L (5-15); ASPARTATE AMINO TRANSFERASE 15 U/L (15-37); BILIRUBIN,TOTAL 0.2 MG/DL (0.2-1.0); BLOOD UREA NITROGEN 15 mg/dL (7-18); CARBON DIOXIDE 29 MMOL/L (21-32); CHLORIDE 107 MMOL/L (98-107); CREATININE 0.5 MG/DL (0.55-1.30); PHOSPHORUS 3.4 MG/DL (2.5-4.9); POTASSIUM 4.6 MMOL/L (3.5-5.1); SODIUM 141 MMOL/L (136-145)
[2018-08-13 07:21] LABS: BASOPHILS % (AUTO) 0.8 % (0.0-2.0); EOSINOPHILS % (AUTO) 1.4 % (0.0-3.0); HEMATOCRIT 33.1 % (37.0-47.0); HEMOGLOBIN 11.3 G/DL (12.0-16.0); LYMPHOCYTES % (AUTO) 26.6 % (20.0-45.0); MEAN CORPUSCULAR VOLUME 92 FL (80-99); MONOCYTES % (AUTO) 11.9 % (1.0-10.0); NEUTROPHILS % (AUTO) 59.3 % (45.0-75.0); PLATELET COUNT 104 K/UL (150-450); RED BLOOD COUNT 3.62 M/UL (4.20-5.40); RED CELL DISTRIBUTION WIDTH 11.7 % (11.6-14.8); WHITE BLOOD COUNT 3.6 K/UL (4.8-10.8)
[2018-08-13 08:00] VITALS: BP 103/59
--- NOTE | 2018-08-13 08:50 | General Progress Note ---
Assessment/Plan Assessment/Plan (1) Left hip pain (2) Left hip OA Pt will be continued on Tylenol #3. D/w Dr. Kennedy and he concurred. Subjective Date patient seen: Aug 13, 2018 Time patient seen: 07:00 - am Constitutional: Reports: weakness HEENT: Reports: no symptoms Cardiovascular: Reports: no symptoms Respiratory: Reports: no symptoms Gastrointestinal/Abdominal: Reports: no symptoms Genitourinary: Reports: no symptoms Neurologic/Psychiatric: Reports: weakness Endocrine: Reports: no symptoms Hematologic/Lymphatic: Reports: no symptoms Allergies: Coded Allergies: CIPROFLOXACIN (Verified Allergy, Unknown, 10/02/13) HYDROCODONE (Verified Allergy, Unknown, 10/02/13) PENICILLINS (Verified Allergy, Unknown, 10/02/13) PROCHLORPERAZINE (Verified Allergy, Unknown, 10/02/13) Subjective Patient shows no signs of pain or distress. The pain has been reducing and tolerated on the Tylenol. She has no new complaints. Objective Last 24 Hour Vital Signs Date Time Temp Pulse Resp B/P (MAP) Pulse Ox O2 Delivery O2 Flow Rate FiO2 08/13/18 04:00 97.8 82 18 115/63 (80) 93 08/13/18 00:00 97.6 71 18 100/54 (69) 94 08/12/18 21:00 Room Air Room Air 08/12/18 21:00 86 104/61 08/12/18 20:00 97.2 86 18 104/61 (75) 93 08/12/18 16:00 97.2 73 19 90/55 (67) 94 08/12/18 12:00 96.8 68 18 99/61 (74) 94 08/12/18 09:00 Room Air Room Air Intake and Output 08/12/18 08/13/18 19:00 07:00 Intake Total 1050 ml 270 ml Balance 1050 ml 270 ml Intake Oral 840 ml 30 ml IV Total 210 ml 240 ml # Voids 5 2 Laboratory Tests 08/13/18 05:44: White Blood Count 3.6L, Red Blood Count 3.62L, Hemoglobin 11.3L, Hematocrit 33.1L, Mean Corpuscular Volume 92, Mean Corpuscular Hemoglobin 31.3H, Mean Corpuscular Hemoglobin Concent 34.2, Red Cell Distribution Width 11.7, Platelet Count 104L, Mean Platelet Volume 5.2L, Neutrophils (%) (Auto) 59.3, Lymphocytes (%) (Auto) 26.6, Monocytes (%) (Auto) 11.9H, Eosinophils (%) (Auto) 1.4, Basophils (%) (Auto) 0.8, Sodium Level 141, Potassium Level 4.6, Chloride Level 107, Carbon Dioxide Level 29, Anion Gap 5, Blood Urea Nitrogen 15, Creatinine 0.5L, Estimat Glomerular Filtration Rate > 60, Glucose Level 75, Calcium Level 8.0L, Phosphorus Level 3.4, Magnesium Level 1.6L, Total Bilirubin 0.2, Aspartate Amino Transf (AST/SGOT) 15, Alanine Aminotransferase (ALT/SGPT) 11L, Alkaline Phosphatase 49, Total Protein 6.4, Albumin 2.6L, Globulin 3.8, Albumin/ Globulin Ratio 0.7L, Valproic Acid (Depakene) Level 69 Height (Feet): 5 Height (Inches): 1.00 Weight (Pounds): 100 General Appearance: no apparent distress, alert EENT: PERRL/EOMI, normal ENT inspection Neck: normal alignment, supple Cardiovascular: normal rate, regular rhythm Respiratory/Chest: lungs clear, normal breath sounds Abdomen: non tender, soft Extremities: non-tender Edema: trace edema Neurologic: alert, responsive Skin: normal pigmentation Toe Salcedo Aug 13, 2018 08:50
[2018-08-13] MEDS: Docusate 100mg cap ORAL SCH (08:55)
[2018-08-13] MEDS: Metoprolol Tartrate 12.5mg TAB ORAL SCH ×2 (08:56→21:00)
[2018-08-13] MEDS: Multivitamins W/Minerals 15 ML UDC ORAL SCH (08:56)
[2018-08-13] MEDS: Calcium Carbonate 500mg w/Vit D 200iu tab ORAL SCH (08:56)
[2018-08-13 12:10] VITALS: BP 110/64
--- NOTE | 2018-08-13 13:02 | Diagnostic Imaging Report ---
Indication: Dyspnea Comparison: 05/22/2018 A single view chest radiograph was obtained. Findings: Mild basal atelectasis demonstrated. Borderline cardiomegaly is present. Lung volumes remain low. IVC filter noted. Bones are osteopenic. Contrast material noted within the colon. IMPRESSION: No acute findings. Basilar atelectasis. No change
--- NOTE | 2018-08-13 14:50 | Consultation ---
Consult Note Assessment/Plan DICT # [id number] Shady Herron MD Aug 13, 2018 14:50
--- NOTE | 2018-08-13 14:56 | General Progress Note ---
Assessment/Plan Status: stable Assessment/Plan 1. Deep venous thrombosis of the right lower extremity. Partial visualization of an IVC filter. --> imaging has been reviewed --> hold off on anticoagulation given IVC filter is in place 2. Thrombocytopenia, likely secondary to underlying liver disease, continue to closely monitor. This is the lowest counts she has had for past several years --> prior labs reviewed --> hepatitis panel is negative --> us of the abdomen was reviewed --> meds reviewed as well --> transfuse if she is bleeding with platelets 3. Anemia secondary to chronic disease. Anemia workup has been ordered and reviewed from prior admission --> Hgb goal >7. Transfuse prn. 4. Hyponatremia. Nephrology is following --> Fluid restrictio, Saline and Lasix --> appreciate nephro recs 5. Seizure disorder 6. Left hip pain due to Lumbar compression fracture -- pain meds prn --> pain management consulted, appreciated recs I appreciate the consultation. Subjective Date patient seen: Aug 13, 2018 ROS Limited/Unobtainable: Yes Hematologic/Lymphatic: Reports: anemia Allergies: Coded Allergies: CIPROFLOXACIN (Verified Allergy, Unknown, 10/02/13) HYDROCODONE (Verified Allergy, Unknown, 10/02/13) PENICILLINS (Verified Allergy, Unknown, 10/02/13) PROCHLORPERAZINE (Verified Allergy, Unknown, 10/02/13) Subjective Pt awake and alert. No acute events. Objective Last 24 Hour Vital Signs Date Time Temp Pulse Resp B/P (MAP) Pulse Ox O2 Delivery O2 Flow Rate FiO2 08/13/18 12:10 96.0 70 16 110/64 (79) 99 08/13/18 09:00 Room Air Room Air 08/13/18 08:56 79 103/59 08/13/18 08:00 97.0 79 18 103/59 (74) 92 08/13/18 04:00 97.8 82 18 115/63 (80) 93 08/13/18 00:00 97.6 71 18 100/54 (69) 94 08/12/18 21:00 Room Air Room Air 08/12/18 21:00 86 104/61 08/12/18 20:00 97.2 86 18 104/61 (75) 93 08/12/18 16:00 97.2 73 19 90/55 (67) 94 Intake and Output 08/12/18 08/13/18 18:59 06:59 Intake Total 1020 ml 300 ml Balance 1020 ml 300 ml Intake Oral 840 ml 30 ml IV Total 180 ml 270 ml # Voids 5 2 Laboratory Tests 08/13/18 05:44: White Blood Count 3.6L, Red Blood Count 3.62L, Hemoglobin 11.3L, Hematocrit 33.1L, Mean Corpuscular Volume 92, Mean Corpuscular Hemoglobin 31.3H, Mean Corpuscular Hemoglobin Concent 34.2, Red Cell Distribution Width 11.7, Platelet Count 104L, Mean Platelet Volume 5.2L, Neutrophils (%) (Auto) 59.3, Lymphocytes (%) (Auto) 26.6, Monocytes (%) (Auto) 11.9H, Eosinophils (%) (Auto) 1.4, Basophils (%) (Auto) 0.8, Sodium Level 141, Potassium Level 4.6, Chloride Level 107, Carbon Dioxide Level 29, Anion Gap 5, Blood Urea Nitrogen 15, Creatinine 0.5L, Estimat Glomerular Filtration Rate > 60, Glucose Level 75, Calcium Level 8.0L, Phosphorus Level 3.4, Magnesium Level 1.6L, Total Bilirubin 0.2, Aspartate Amino Transf (AST/SGOT) 15, Alanine Aminotransferase (ALT/SGPT) 11L, Alkaline Phosphatase 49, Pro-B-Type Natriuretic Peptide [Pending], Total Protein 6.4, Albumin 2.6L, Globulin 3.8, Albumin/Globulin Ratio 0.7L, Valproic Acid (Depakene) Level 69 Height (Feet): 5 Height (Inches): 1.00 Weight (Pounds): 100 General Appearance: no apparent distress EENT: PERRL/EOMI Neck: normal alignment Cardiovascular: irregularly irregular Respiratory/Chest: no respiratory distress Abdomen: soft Crow Coley MD Aug 13, 2018 14:56
[2018-08-13] MEDS ORDERED: Albuterol/Ipratropium 3ml neb HHN PRN (15:00)
[2018-08-13] MEDS ORDERED: Isovue-370 150ml vial INJ PRN (15:00)
--- NOTE | 2018-08-13 15:12 | Nephrology Progress Note ---
Assessment/Plan Problem List: (1) Hyponatremia (2) Seizure (3) Hypothyroid (4) SIADH (syndrome of inappropriate ADH production) Assessment Low Na ? SIADH HypoThyroidism Lumbar compression fracture Anemia Sz disorder Plan Fluid restriction per consultants Subjective ROS Limited/Unobtainable: No Constitutional: Reports: malaise, weakness Objective Objective Last 24 Hour Vital Signs Date Time Temp Pulse Resp B/P (MAP) Pulse Ox O2 Delivery O2 Flow Rate FiO2 08/13/18 12:10 96.0 70 16 110/64 (79) 99 08/13/18 09:00 Room Air Room Air 08/13/18 08:56 79 103/59 08/13/18 08:00 97.0 79 18 103/59 (74) 92 08/13/18 04:00 97.8 82 18 115/63 (80) 93 08/13/18 00:00 97.6 71 18 100/54 (69) 94 08/12/18 21:00 Room Air Room Air 08/12/18 21:00 86 104/61 08/12/18 20:00 97.2 86 18 104/61 (75) 93 08/12/18 16:00 97.2 73 19 90/55 (67) 94 Intake and Output 08/12/18 08/13/18 18:59 06:59 Intake Total 1020 ml 300 ml Balance 1020 ml 300 ml Intake Oral 840 ml 30 ml IV Total 180 ml 270 ml # Voids 5 2 Laboratory Tests 08/13/18 05:44: White Blood Count 3.6L, Red Blood Count 3.62L, Hemoglobin 11.3L, Hematocrit 33.1L, Mean Corpuscular Volume 92, Mean Corpuscular Hemoglobin 31.3H, Mean Corpuscular Hemoglobin Concent 34.2, Red Cell Distribution Width 11.7, Platelet Count 104L, Mean Platelet Volume 5.2L, Neutrophils (%) (Auto) 59.3, Lymphocytes (%) (Auto) 26.6, Monocytes (%) (Auto) 11.9H, Eosinophils (%) (Auto) 1.4, Basophils (%) (Auto) 0.8, Sodium Level 141, Potassium Level 4.6, Chloride Level 107, Carbon Dioxide Level 29, Anion Gap 5, Blood Urea Nitrogen 15, Creatinine 0.5L, Estimat Glomerular Filtration Rate > 60, Glucose Level 75, Calcium Level 8.0L, Phosphorus Level 3.4, Magnesium Level 1.6L, Total Bilirubin 0.2, Aspartate Amino Transf (AST/SGOT) 15, Alanine Aminotransferase (ALT/SGPT) 11L, Alkaline Phosphatase 49, Pro-B-Type Natriuretic Peptide 1186H, Total Protein 6.4 , Albumin 2.6L, Globulin 3.8, Albumin/Globulin Ratio 0.7L, Valproic Acid ( Depakene) Level 69 Height (Feet): 5 Height (Inches): 1.00 Weight (Pounds): 100 Jesus Valdivia MD Aug 13, 2018 15:12
[2018-08-13 16:00] VITALS: BP 109/67
[2018-08-13] MEDS: Depakote 125mg Sprinkles ORAL SCH ×2 (16:07→23:24)
--- NOTE | 2018-08-13 16:29 | Cardiology Report ---
APPROVED REPORT EXAM: Two-dimensional and M-mode echocardiogram with Doppler and color Doppler. INDICATION Congestive Heart Failure M-Mode DIMENSIONS IVSd1.2 (0.7-1.1cm)Left Atrium (MM)3.7 (1.6-4.0cm) LVDd4.4 (3.5-5.6cm)Aortic Root3.1 (2.0-3.7cm) PWd0.8 (0.7-1.1cm)Aortic Cusp Exc.1.5 (1.5-2.0cm) IVSs1.9 cm LVDs2.4 (2.5-4.0cm) PWs0.9 cm Normal left ventricular chamber size, systolic function and wall motion . Left ventricular ejection fraction estimated to be 70-75%. Mild left ventricular hypertrophy by 2-D. No evidence of pericardial effusion. All other cardiac chamber sizes are within normal limits. Focal aortic valve sclerosis with adequate cusp excursion. Mildly Thickened mitral valve leaflets with normal excursion. Mildly Mitral annulus and aortic root calcification. Pulmonic valve not well visualized. Normal tricuspid valve structure. IVC at normal size with physiologic collapse . A color flow and spectral Doppler study was performed and revealed: Mild aortic insufficiency . Mild to moderate mitral regurgitation. Mitral diastolic velocities suggest reduced left ventricular relaxation c/w mild LV diastolic dysfunction (Grade I ). Mild tricuspid regurgitation. Tricuspid systolic velocities suggests peak right ventricular systolic pressure of 38mmHg, consistent with mild pulmonary hypertension .
[2018-08-13 20:00] VITALS: BP 95/50
--- NOTE | 2018-08-13 20:00 | Consultation ---
DATE OF CONSULTATION: 08/13/2018 INFECTIOUS DISEASE CONSULTATION CONSULTING PHYSICIAN: Gamal Serrano M.D. REFERRING PHYSICIAN: Mindy Bryan M.D. REASON FOR CONSULTATION: Hypoxemia. HISTORY OF PRESENT ILLNESS: This is a 68-year-old female admitted on August 11 because of left hip pain. The patient has history of multiple falls in the past. According to primary doctor, she has borderline hypoxemia. PAST MEDICAL HISTORY: Significant for diabetes mellitus, hypertension, diverticulosis, syndrome of inappropriate ADH, hypothyroidism, DVT, history of dissecting aneurysm of descending aorta, right tibia and fibula fracture, and dementia. ALLERGIES: Allergic to ciprofloxacin, penicillin, hydrocodone, prochlorperazine. MEDICATIONS: Lorazepam, Depakote, barium sulphate for swallowing study, Protonix, multivitamin, levothyroxine, metoprolol, Tylenol No. 3, gabapentin, bisacodyl, magnesium hydroxide, sodium phosphate. SOCIAL HISTORY: penitentiary resident. . She is [place]-speaking. No other history obtainable by the patient. REVIEW OF SYSTEMS: She had no pain at the time of presentation. PHYSICAL EXAMINATION: VITAL SIGNS: Temperature 97, pulse 79, blood pressure 103/59. GENERAL APPEARANCE: No acute distress. HEAD AND NECK: [place] conjunctivae. HEART: Regular. LUNGS: Clear. ABDOMEN: Soft, nontender. EXTREMITIES: She has no edema. LABORATORY AND DIAGNOSTIC DATA: WBC 3.6, hemoglobin 11.3, hematocrit 33.1. Sodium 141, potassium 4.6, chloride 107, bicarbonate 29, BUN 15, creatinine 0.5, glucose 75. Hepatitis serology was negative. The patient had a CT scan of the hip that showed old left pubis fracture. Venous duplex of lower extremity did not show DVT. IMPRESSION: Hypoxemia, the reason is not clear. She has diabetes, hypertension, syndrome of inappropriate ADH. History of multiple fractures including tibia, fibula, pelvic, and lumbar compression fractures. Diverticulosis, hypothyroidism, history of DVT, and has IVC filter. RECOMMENDATION: We will follow up chest x-ray and swallowing study. For now, observe off antibiotic. At the end of my exam, I thank Dr. Bryan, for involving me in the care of this patient. Gamal Serrano M.D. DR: Maryse JOB#: [id number] CC:
--- NOTE | 2018-08-13 20:00 | Consultation ---
DATE OF CONSULTATION: 08/13/2018 PULMONARY CONSULTATION CONSULTING PHYSICIAN: Shady Herron M.D. REFERRING PHYSICIAN: Mindy Bryan M.D. REASON FOR CONSULTATION: Hypoxemia. HISTORY OF PRESENT ILLNESS: The patient is a 68-year-old female, long term resident with a history of cognitive impairment; SIADH; hypertension; diabetes; GERD; prior compression fractures; DVT, status post IVC filter; aortic dissection; and seizure disorders, who presented to the emergency department on 08/11/2018 with intractable left hip pain from a rehabilitation facility as well as generalized malaise and failure to thrive. The patient had a CT of the hip done, which showed no acute fracture. The patient was admitted for pain control. Duplex of the lower extremities showed a patent venous system bilaterally. The patient has a prior IVC filter and has been seen by Onc during this hospitalization and the plan was made not to anticoagulate given non-thrombocytopenia and bleeding risk as well as visualization of filter. With respect to the patient's hyponatremia, sodium is actually normal now. The patient has known SIADH. The patient has not been on any chemical DVT prophylaxis. No history is obtainable from the patient. She has been afebrile. Vitals are stable. She is actually on room air right now and saturating 92% and on the morning, she was in the low 90s. She has been afebrile with stable vitals otherwise. PAST MEDICAL HISTORY: 1. DVT, status post IVC. 2. SIADH. 3. Hypertension. 4. Diabetes. 5. GERD. 6. Compression fractures. 7. Seizure disorder. 8. Aortic dissection. 9. Cognitive impairment. 10. shelter resident. 11. Dysphagia. ALLERGIES: Cipro, hydrocodone, penicillin, and prochlorperazine. MEDICATIONS: Prior to admission, medications reviewed. Current medications reviewed. SOCIAL HISTORY: Unknown. FAMILY HISTORY: Unobtainable and noncontributory. PHYSICAL EXAMINATION: VITAL SIGNS: Temperature 96 degrees, pulse 70, blood pressure 110/64, respiratory rate 16, and saturating 99% on room air. HEENT: She is an elderly, minimally verbal female, and in no distress. HEENT: Normocephalic and atraumatic. Oropharynx is clear. Moist mucous membranes. NECK: Supple without lymphadenopathy or JVD. CHEST: Clear with some faint bibasilar rhonchi. HEART: Regular rate and rhythm. ABDOMEN: Soft, nontender, and nondistended. EXTREMITIES: No cyanosis, clubbing, or edema. ANCILLARY DATA: White count is 3.6, hemoglobin 11.3, and platelet count 104,000. D-dimer 1.97. Sodium 141, potassium 4.6, chloride 107, bicarbonate 29, BUN 15, creatinine 0.5, calcium 8, phosphorus 3.4, and magnesium 1.6. Total bilirubin 0.2. AST 15, ALT 11, and alkaline phosphatase 49. CRP 1.1. Total protein 6.4. Albumin 2.6. Globulin 3.8. Urinalysis, 1+ ketones, 2+ blood, 3+ leukocyte esterase, and moderate red cells. Urinalysis with polymicrobial. IMAGING DATA: Chest x-ray shows some bibasilar atelectasis. No other findings. CT of the hip, no acute fracture. Duplex negative for acute findings. ASSESSMENT: The patient is a 68-year-old female, long term resident with underlying cognitive impairment; SIADH; DVT, status post IVC; hypertension; diabetes; GERD; seizure disorder; compression fracture; history of aortic dissection in the past; presenting with hip pain; admitted for pain control; and now with mild hypoxemia with differential for hypoxemia is multifactorial. Given her known history of DVT, there is a possibility of PE. She has an IVC filter. It is unclear how long it has been in for and these filters can be thrombogenic as well. She is hemodynamically stable and she has not been anticoagulated given her thrombocytopenia. I will go ahead and obtain a stat CT angio of the chest. We will start her on heparin subcu for DVT prophylaxis in the time being. PROBLEM LIST: 1. Mild hypoxemia. 2. History of DVT, status post IVC filter. 3. Intractable left hip pain. 4. shelter resident. 5. Underlying cognitive impairment. 6. SIADH, now with normal sodium. 7. Hypertension. 8. Diabetes. 9. GERD. 10. History of compression fractures. 11. History of seizure disorder. 12. History of aortic dissection in the past. TREATMENT PLAN: 1. Optimize pulmonary hygiene/mobilize as tolerated. 2. P.r.n. O2 to keep sats greater than 90%. 3. P.r.n. bronchodilators. 4. Incentive spirometry if the patient is able. 5. We will start heparin subcu. 6. Stat CT angio of the chest. 7. Aspiration precautions, diet per speech/language pathology. 8. The patient with polymicrobial UTI. Consider treatment, defer to primary. Dr. Bryan, thank you for allowing me to assist in the care of your patient. If I may be of any assistance, please do not hesitate to ask. Shady Herron M.D. DR: KRISTOPHER JOB#: [id number] CC:
[2018-08-13] MEDS: Heparin 5000 units/ml inj SUBQ SCH (21:00)
--- NOTE | 2018-08-13 21:17 | General Progress Note ---
Assessment/Plan Problem List: (1) Seizure ICD Codes: R56.9 - Seizure SNOMED: 41144912 (2) Diabetes ICD Codes: E11.9 - Diabetes SNOMED: 58075292 (3) Hypertension ICD Codes: I10 - Hypertension SNOMED: 87387470 (4) Hypothyroid ICD Codes: E03.9 - Hypothyroid SNOMED: 62020416 Status: progressing Assessment/Plan borderline oxygen sat.consulted dr gutierres has aureliano ue so ordered duplex hip pain afebrile azotemia old compression fracture pain control Subjective ROS Limited/Unobtainable: Yes Allergies: Coded Allergies: CIPROFLOXACIN (Verified Allergy, Unknown, 10/02/13) HYDROCODONE (Verified Allergy, Unknown, 10/02/13) PENICILLINS (Verified Allergy, Unknown, 10/02/13) PROCHLORPERAZINE (Verified Allergy, Unknown, 10/02/13) Objective Last 24 Hour Vital Signs Date Time Temp Pulse Resp B/P (MAP) Pulse Ox O2 Delivery O2 Flow Rate FiO2 08/13/18 16:00 98.4 80 16 109/67 (81) 99 08/13/18 12:10 96.0 70 16 110/64 (79) 99 08/13/18 09:00 Room Air Room Air 08/13/18 08:56 79 103/59 08/13/18 08:00 97.0 79 18 103/59 (74) 92 08/13/18 04:00 97.8 82 18 115/63 (80) 93 08/13/18 00:00 97.6 71 18 100/54 (69) 94 Intake and Output 08/12/18 08/13/18 18:59 06:59 Intake Total 1020 ml 300 ml Balance 1020 ml 300 ml Intake Oral 840 ml 30 ml IV Total 180 ml 270 ml # Voids 5 2 Laboratory Tests 08/13/18 05:44: White Blood Count 3.6L, Red Blood Count 3.62L, Hemoglobin 11.3L, Hematocrit 33.1L, Mean Corpuscular Volume 92, Mean Corpuscular Hemoglobin 31.3H, Mean Corpuscular Hemoglobin Concent 34.2, Red Cell Distribution Width 11.7, Platelet Count 104L, Mean Platelet Volume 5.2L, Neutrophils (%) (Auto) 59.3, Lymphocytes (%) (Auto) 26.6, Monocytes (%) (Auto) 11.9H, Eosinophils (%) (Auto) 1.4, Basophils (%) (Auto) 0.8, Sodium Level 141, Potassium Level 4.6, Chloride Level 107, Carbon Dioxide Level 29, Anion Gap 5, Blood Urea Nitrogen 15, Creatinine 0.5L, Estimat Glomerular Filtration Rate > 60, Glucose Level 75, Calcium Level 8.0L, Phosphorus Level 3.4, Magnesium Level 1.6L, Total Bilirubin 0.2, Aspartate Amino Transf (AST/SGOT) 15, Alanine Aminotransferase (ALT/SGPT) 11L, Alkaline Phosphatase 49, Pro-B-Type Natriuretic Peptide 1186H, Total Protein 6.4 , Albumin 2.6L, Globulin 3.8, Albumin/Globulin Ratio 0.7L, Valproic Acid ( Depakene) Level 69 08/13/18 15:05: Arterial Blood pH 7.401, Arterial Blood Partial Pressure CO2 50.7H, Arterial Blood Partial Pressure O2 100.2H, Arterial Blood HCO3 30.8H, Arterial Blood Oxygen Saturation 97.2, Arterial Blood Base Excess 5.0H, Raghav Test Positive Height (Feet): 5 Height (Inches): 1.00 Weight (Pounds): 100 General Appearance: confused Cardiovascular: normal rate Respiratory/Chest: lungs clear Mindy Bryan MD Aug 13, 2018 21:17
[2018-08-14] VITALS: BP 105/72
[2018-08-14 04:00] VITALS: BP 108/61
[2018-08-14] MEDS: Depakote 125mg Sprinkles ORAL SCH ×3 (06:10→22:48)
[2018-08-14 08:00] VITALS: BP 105/55
[2018-08-14] MEDS: Metoprolol Tartrate 12.5mg TAB ORAL SCH ×2 (08:06→22:48)
[2018-08-14] MEDS: Calcium Carbonate 500mg w/Vit D 200iu tab ORAL SCH (08:07)
[2018-08-14] MEDS: Docusate 100mg cap ORAL SCH (08:07)
[2018-08-14] MEDS: Heparin 5000 units/ml inj SUBQ SCH ×2 (08:07→21:00)
[2018-08-14] MEDS: Multivitamins W/Minerals 15 ML UDC ORAL SCH (08:07)
--- NOTE | 2018-08-14 08:17 | General Progress Note ---
Assessment/Plan Assessment/Plan 1. Deep venous thrombosis of the right lower extremity. Partial visualization of an IVC filter. --> imaging has been reviewed --> hold off on anticoagulation given IVC filter is in place --> reimage as needed if any case of dvt progression/swelling 2. Thrombocytopenia, likely secondary to underlying liver disease, continue to closely monitor. This is the lowest counts she has had for past several years --> prior labs reviewed --> hepatitis panel is negative --> us of the abdomen was reviewed --> meds reviewed as well --> transfuse if she is bleeding with platelets 3. Anemia secondary to chronic disease. Anemia workup has been ordered and reviewed from prior admission --> Hgb goal >7. Transfuse prn. 4. Hyponatremia. Nephrology is following --> Fluid restriction, Saline and Lasix --> appreciate nephro recs 5. Seizure disorder 6. Left hip pain due to Lumbar compression fracture -- pain meds prn --> pain management consulted, appreciated recs --> continue to follow I appreciate the consultation. Subjective Respiratory: Denies: no symptoms, cough, orthopnea, shortness of breath, SOB with excertion, SOB at rest, sputum, stridor, wheezing, other Gastrointestinal/Abdominal: Denies: no symptoms, abdomen distended, abdominal pain, black stools, tarry stools, blood in stool, constipated, diarrhea, difficulty swallowing, nausea, poor appetite, poor fluid intake, rectal bleeding , vomiting, other Genitourinary: Denies: no symptoms, burning, discharge, frequency, flank pain, hematuria, incontinence, pain, urgency, other Neurologic/Psychiatric: Denies: no symptoms, anxiety, depressed, emotional problems, headache, numbness, paresthesia, pre-existing deficit, seizure, tingling, tremors, weakness, other Endocrine: Denies: no symptoms, excessive sweating, flushing, intolerance to cold, intolerance to heat, increased hunger, increased thirst, increased urine, unexplained weight gain, unexplained weight loss, other Hematologic/Lymphatic: Denies: no symptoms, anemia, easy bleeding, easy bruising, other Allergies: Coded Allergies: CIPROFLOXACIN (Verified Allergy, Unknown, 10/02/13) HYDROCODONE (Verified Allergy, Unknown, 10/02/13) PENICILLINS (Verified Allergy, Unknown, 10/02/13) PROCHLORPERAZINE (Verified Allergy, Unknown, 10/02/13) Subjective Pt awake and alert. No acute events. Objective Last 24 Hour Vital Signs Date Time Temp Pulse Resp B/P (MAP) Pulse Ox O2 Delivery O2 Flow Rate FiO2 08/14/18 08:06 83 105/55 08/14/18 08:00 96.5 83 19 105/55 (72) 96 08/14/18 04:00 98.2 77 19 108/61 (77) 96 08/14/18 00:00 98.0 88 20 105/72 (83) 95 08/13/18 21:00 83 95/50 08/13/18 21:00 Room Air Room Air 08/13/18 20:00 97.5 85 20 95/50 (65) 100 08/13/18 16:00 98.4 80 16 109/67 (81) 99 08/13/18 12:10 96.0 70 16 110/64 (79) 99 08/13/18 09:00 Room Air Room Air 08/13/18 08:56 79 103/59 Intake and Output 08/13/18 08/14/18 19:00 07:00 Intake Total 580 ml Output Total 300 ml Balance 280 ml Intake Oral 480 ml IV Total 100 ml Output Urine Total 300 ml # Voids 2 Laboratory Tests 08/13/18 15:05: Arterial Blood pH 7.401, Arterial Blood Partial Pressure CO2 50.7H, Arterial Blood Partial Pressure O2 100.2H, Arterial Blood HCO3 30.8H, Arterial Blood Oxygen Saturation 97.2, Arterial Blood Base Excess 5.0H, Raghav Test Positive Height (Feet): 5 Height (Inches): 1.00 Weight (Pounds): 105 Objective VITAL SIGNS: have been reviewed and are stable HEENT: She is an elderly, minimally verbal female, and in no distress. Normocephalic and atraumatic. Oropharynx is clear. ++ Moist mucous membranes. NECK: Supple without lymphadenopathy or JVD. CHEST: Clear with some faint bibasilar rhonchi. HEART: Regular rate and rhythm. ABDOMEN: Soft, nontender, and nondistended. EXTREMITIES: No cyanosis, clubbing, or edema. Crow Coley MD Aug 14, 2018 08:17
--- NOTE | 2018-08-14 08:45 | General Progress Note ---
Assessment/Plan Assessment/Plan (1) Left hip pain (2) Left hip OA Pt will be continued on Tylenol #3. D/w Dr. Kennedy and he concurred. Subjective Date patient seen: Aug 14, 2018 Time patient seen: 07:00 - am Constitutional: Reports: weakness HEENT: Reports: no symptoms Cardiovascular: Reports: no symptoms Respiratory: Reports: no symptoms Gastrointestinal/Abdominal: Reports: no symptoms Genitourinary: Reports: no symptoms Neurologic/Psychiatric: Reports: weakness Endocrine: Reports: no symptoms Hematologic/Lymphatic: Reports: no symptoms Allergies: Coded Allergies: CIPROFLOXACIN (Verified Allergy, Unknown, 10/02/13) HYDROCODONE (Verified Allergy, Unknown, 10/02/13) PENICILLINS (Verified Allergy, Unknown, 10/02/13) PROCHLORPERAZINE (Verified Allergy, Unknown, 10/02/13) Subjective She is doing well and tolerated on the Tylenol and has not requested the Tylenol #3. No signs of pain or distress at this time. Objective Last 24 Hour Vital Signs Date Time Temp Pulse Resp B/P (MAP) Pulse Ox O2 Delivery O2 Flow Rate FiO2 08/14/18 08:06 83 105/55 08/14/18 08:00 96.5 83 19 105/55 (72) 96 08/14/18 04:00 98.2 77 19 108/61 (77) 96 08/14/18 00:00 98.0 88 20 105/72 (83) 95 08/13/18 21:00 83 95/50 08/13/18 21:00 Room Air Room Air 08/13/18 20:00 97.5 85 20 95/50 (65) 100 08/13/18 16:00 98.4 80 16 109/67 (81) 99 08/13/18 12:10 96.0 70 16 110/64 (79) 99 08/13/18 09:00 Room Air Room Air 08/13/18 08:56 79 103/59 Intake and Output 08/13/18 08/14/18 19:00 07:00 Intake Total 580 ml Output Total 300 ml Balance 280 ml Intake Oral 480 ml IV Total 100 ml Output Urine Total 300 ml # Voids 2 Laboratory Tests 08/13/18 15:05: Arterial Blood pH 7.401, Arterial Blood Partial Pressure CO2 50.7H, Arterial Blood Partial Pressure O2 100.2H, Arterial Blood HCO3 30.8H, Arterial Blood Oxygen Saturation 97.2, Arterial Blood Base Excess 5.0H, Raghav Test Positive Height (Feet): 5 Height (Inches): 1.00 Weight (Pounds): 105 General Appearance: no apparent distress, alert EENT: PERRL/EOMI, normal ENT inspection Neck: non-tender, normal alignment, supple Cardiovascular: normal rate, regular rhythm Respiratory/Chest: lungs clear, normal breath sounds Abdomen: non tender, soft Extremities: non-tender Edema: trace edema Neurologic: alert, responsive Skin: normal pigmentation Teo Salcedo Aug 14, 2018 08:45
[2018-08-14] MEDS ORDERED: Docusate 100mg/10ml Liq ORAL SCH (09:00)
--- NOTE | 2018-08-14 10:33 | Diagnostic Imaging Report ---
Indication: History of aortic dissection. Chest pain. Clinical concern currently is for pulmonary embolus Technique: Continuous helical transaxial imaging of the chest was obtained from the thoracic inlet to the upper abdomen during rapid intravenous contrast administration. Arterial phase of enhancement obtained. Coronal 2-D reformats were also obtained and maximum intensity projection images in multiple planes. Study obtained in a Siemens sensation [address] Automatic Exposure Control was utilized. Total Dose length Product (DLP): 585.[address] Dose Index Volume (CTDIvol): 17.03 mGy Comparison: None Findings: Pulmonary artery is well opacified. There is no evidence of pulmonary embolus. There is moderate calcification of the aorta. Within the midportion of the descending thoracic aorta and there is a dissection present. There is a faint opacification of both true lumen and false lumen. The dissection extends into the upper abdominal aorta which is not opacified well with contrast material. However the appearance is grossly unchanged from 09/08/2013. The portion of aorta that is dissected as well as the other portions of the thoracic and visualized abdominal aorta appear mildly ectatic. The patency or nonpatency status of the proximal abdominal aortic branches including the SMA and celiac artery are unknown as the structures are not adequately opacified on this examination. The aortic arch vessels including the right innominate artery, left common carotid and left subclavian arteries appear widely patent with some mural calcification noted. There is posterior basal atelectasis demonstrated. There is no consolidation involving the lungs. No adenopathy, pleural or pericardial effusions are identified. IVC filter is noted. There is a old fracture of the sternum. Bones are osteopenic. There is loss of height of multiple thoracic and lumbar vertebra consistent with compression fracture deformities. IMPRESSION: No evidence of pulmonary embolus. [place] type B aortic dissection appearing stable compared to 09/08/2013. The thoracic aorta and upper abdominal aorta are not well opacified on this examination. Osteoporosis. Old sternal fracture. Multiple old vertebral fractures. Posterior basal atelectasis IVC filter [facility] has communicated the preliminary results to the Emergency Department. Their findings are largely concordant with this report. The CT scanner at [facility] is accredited by the [employer] and the scans are performed using dose optimization techniques as appropriate to a performed exam including Automatic Exposure control.
--- NOTE | 2018-08-14 11:33 | Pulmonology Progress Note ---
Assessment/Plan Assessment/Plan ASSESSMENT: The patient is a 68-year-old female, jail resident with underlying cognitive impairment; SIADH; DVT, status post IVC; hypertension; diabetes; GERD; seizure disorder; compression fracture; history of aortic dissection in the past; presenting with hip pain; admitted for pain control; and now with mild hypoxemia with differential for hypoxemia is multifactorial. Her CT-A was negative for PE and her ABG is consistent with a CHRONIC RESPIRATORY ACIDOSIS with CHRONIC CO2 retention. being. PROBLEM LIST: 1. Acute hypoxemia in the setting of chronic hypercapnia, likely multifactorial : hypoventilation, splinting from pain, atelectasis, underlying lung disease, NM 2. History of DVT, status post IVC filter. Now without evidence of PE. 3. Intractable left hip pain. 4. assisted resident. 5. Underlying cognitive impairment. 6. SIADH, now with normal sodium. 7. Hypertension. 8. Diabetes. 9. GERD. 10. History of compression fractures. 11. History of seizure disorder. 12. History of aortic dissection in the past. 13. Pancytopenia TREATMENT PLAN: 1. Optimize pulmonary hygiene/mobilize as tolerated. 2. P.r.n. O2 to keep sats greater than 90%. 3. P.r.n. bronchodilators. 4. Incentive spirometry if the patient is able. 5. We will start heparin subcu. 6. BiPAP 10/5 qHS and PRN - this should be continued at the facility 7. Aspiration precautions, diet per speech/language pathology. 8. FC, continue to discuss GOC Subjective Allergies: Coded Allergies: CIPROFLOXACIN (Verified Allergy, Unknown, 10/02/13) HYDROCODONE (Verified Allergy, Unknown, 10/02/13) PENICILLINS (Verified Allergy, Unknown, 10/02/13) PROCHLORPERAZINE (Verified Allergy, Unknown, 10/02/13) Subjective AFVSS, stable O2 needs No cough, no SOB, pain better CT-A neg for PE 74/50/100/30/97 Objective Last 24 Hour Vital Signs Date Time Temp Pulse Resp B/P (MAP) Pulse Ox O2 Delivery O2 Flow Rate FiO2 08/14/18 09:09 Nasal Cannula 2.0 Nasal Cannula 2.0 08/14/18 08:06 83 105/55 08/14/18 08:00 96.5 83 19 105/55 (72) 96 08/14/18 04:00 98.2 77 19 108/61 (77) 96 08/14/18 00:00 98.0 88 20 105/72 (83) 95 08/13/18 21:00 83 95/50 08/13/18 21:00 Room Air Room Air 08/13/18 20:00 97.5 85 20 95/50 (65) 100 08/13/18 16:00 98.4 80 16 109/67 (81) 99 08/13/18 12:10 96.0 70 16 110/64 (79) 99 Intake and Output 08/13/18 08/14/18 19:00 07:00 Intake Total 580 ml Output Total 300 ml Balance 280 ml Intake Oral 480 ml IV Total 100 ml Output Urine Total 300 ml # Voids 2 General Appearance: cachetic HEENT: normocephalic, atraumatic, anicteric, mucous membranes moist Respiratory/Chest: chest wall non-tender, lungs clear, normal breath sounds, no respiratory distress Cardiovascular: normal peripheral pulses, normal rate, regular rhythm Abdomen: normal bowel sounds, soft, non tender, no organomegaly, non distended Extremities: no cyanosis, no clubbing, no edema, other - contracted Microbiology Date/Time Source Procedure Growth Status 08/11/18 18:50 Nasal Nares MRSA Culture - Final NO METHICILLIN RESISTANT STAPH AUREUS... Complete 08/11/18 20:50 Urine,Clean Catch Urine Culture - Final Mixed Urogenital Contaminants Complete 08/11/18 18:50 Rectal Mucosa VRE Culture - Final NO VANCOMYCIN RESISTANT ENTEROCOCCUS ... Complete 08/11/18 15:29 Rectum - Final NO CARBAPENEM-RESISTANT ENTEROBACTERI... Complete Laboratory Tests 08/13/18 15:05: Arterial Blood pH 7.401, Arterial Blood Partial Pressure CO2 50.7H, Arterial Blood Partial Pressure O2 100.2H, Arterial Blood HCO3 30.8H, Arterial Blood Oxygen Saturation 97.2, Arterial Blood Base Excess 5.0H, Raghav Test Positive Current Medications Medications (Trade) Dose Ordered Sig/Karlee Route PRN Reason Start Time Stop Time Status Last Admin Dose Admin Acetaminophen (Tylenol) 650 mg Q4H PRN ORAL Mild Pain/Temp > 100.5 08/11/18 18:47 09/10/18 18:46 Acetaminophen (Tylenol) 1,000 mg Q4H PRN ORAL Moderate Pain (Pain Scale 4-6) 08/11/18 18:47 09/10/18 18:46 08/11/18 20:13 Acetaminophen/ Codeine Phosphate (Tylenol #3) 1 tab Q4H PRN ORAL severe pain 08/11/18 20:07 08/18/18 20:06 Albuterol/ Ipratropium (Albuterol/ Ipratropium) 3 ml Q4H PRN HHN Shortness of Breath 08/13/18 15:00 08/18/18 14:59 Barium Sulfate (Varibar Honey) 250 ml NOW PRN Radiology Procedure 08/12/18 10:00 08/15/18 09:53 Barium Sulfate (Varibar Landess) 230 ml NOW PRN Radiology Procedure 08/12/18 10:00 08/15/18 09:53 Barium Sulfate (Varibar Pudding) 230 ml NOW PRN Radiology Procedure 08/12/18 10:00 08/15/18 09:53 Bisacodyl (Dulcolax) 10 mg DAILYPRN PRN RECTAL Constipation 08/11/18 18:48 09/10/18 18:44 Calcium Carbonate (OsCal D) 1 tab DAILY ORAL 08/12/18 09:00 09/11/18 08:59 08/14/18 08:07 Divalproex Sodium (Depakote Sprinkles) 500 mg Q8HR ORAL 08/13/18 16:00 09/11/18 08:59 08/14/18 06:10 Docusate Sodium (Colace) 100 mg DAILY ORAL 08/14/18 09:00 09/13/18 08:59 Gabapentin (Neurontin) 100 mg THREE TIMES A DAY ORAL 08/11/18 20:07 09/10/18 20:06 08/14/18 08:07 Heparin Sodium (Porcine) (Heparin 5000 units/ml) 5,000 units EVERY 12 HOURS SUBQ 08/13/18 21:00 09/12/18 20:59 Iopamidol (Isovue-370 150ml) 150 ml NOW PRN [facility] Radiology Procedure 08/13/18 15:00 08/15/18 14:46 Levothyroxine Sodium (Synthroid) 75 mcg DAILY@0630 ORAL 08/12/18 06:30 09/11/18 06:29 08/14/18 06:10 Lorazepam (Ativan) 1 mg Q6H PRN ORAL For Anxiety 08/12/18 22:30 08/19/18 22:29 08/14/18 07:52 Magnesium Hydroxide (Mom) 30 ml HSPRN PRN ORAL Constipation 08/11/18 18:46 09/10/18 18:45 Metoprolol Tartrate (Lopressor) 12.5 mg Q12HR ORAL 08/11/18 21:00 09/11/18 08:59 08/11/18 20:37 Multivitamins (Multivitamins W/ Minerals 15ml Liquid) 15 ml DAILY ORAL 08/12/18 09:00 09/11/18 08:59 08/14/18 08:07 Pantoprazole (Protonix) 40 mg DAILY ORAL 08/12/18 09:30 09/11/18 09:29 08/14/18 08:07 Sodium Phosphate (Fleet's Sodium Phosl Enema) 133 ml EVERY OTHER DAY PRN RECTAL Constipation 08/11/18 18:45 09/10/18 18:44 Temazepam (Restoril) 15 mg HSPRN PRN ORAL Insomnia 08/12/18 22:30 08/19/18 22:29 Shady Herron MD Aug 14, 2018 11:33
[2018-08-14 12:30] VITALS: BP 98/50
--- NOTE | 2018-08-14 12:33 | Diagnostic Imaging Report ---
APPROVED REPORT CPT Code: 30168 Present Symptoms Comments: BILATERAL LEGS PAIN. BILATERAL: Imaging reveals a patent deep venous system bilaterally. There is no evidence of thrombus within the femoral, popliteal or tibial segments. The greater saphenous veins are also within normal limits. Doppler indicates normal spontaneous flow within these segments.
--- NOTE | 2018-08-14 12:56 | Nephrology Progress Note ---
Assessment/Plan Problem List: (1) Hyponatremia (2) Seizure (3) Hypothyroid (4) SIADH (syndrome of inappropriate ADH production) Assessment Low Na ? SIADH improved HypoThyroidism Lumbar compression fracture Anemia Sz disorder Plan No labs today Fluid restriction per consultants Subjective ROS Limited/Unobtainable: No Constitutional: Reports: malaise Objective Objective Last 24 Hour Vital Signs Date Time Temp Pulse Resp B/P (MAP) Pulse Ox O2 Delivery O2 Flow Rate FiO2 08/14/18 12:15 28 08/14/18 12:15 99 14 Nasal Cannula 2.0 28 08/14/18 12:15 99 14 90 Nasal Cannula 2.0 28 08/14/18 09:09 Nasal Cannula 2.0 Nasal Cannula 2.0 08/14/18 08:06 83 105/55 08/14/18 08:00 96.5 83 19 105/55 (72) 96 08/14/18 04:00 98.2 77 19 108/61 (77) 96 08/14/18 00:00 98.0 88 20 105/72 (83) 95 08/13/18 21:00 83 95/50 08/13/18 21:00 Room Air Room Air 08/13/18 20:00 97.5 85 20 95/50 (65) 100 08/13/18 16:00 98.4 80 16 109/67 (81) 99 Intake and Output 08/13/18 08/14/18 19:00 07:00 Intake Total 580 ml Output Total 300 ml Balance 280 ml Intake Oral 480 ml IV Total 100 ml Output Urine Total 300 ml # Voids 2 Laboratory Tests 08/13/18 15:05: Arterial Blood pH 7.401, Arterial Blood Partial Pressure CO2 50.7H, Arterial Blood Partial Pressure O2 100.2H, Arterial Blood HCO3 30.8H, Arterial Blood Oxygen Saturation 97.2, Arterial Blood Base Excess 5.0H, Raghav Test Positive Height (Feet): 5 Height (Inches): 1.00 Weight (Pounds): 105 General Appearance: no apparent distress Objective no change Jesus Valdivia MD Aug 14, 2018 12:56
[2018-08-14] MEDS: Docusate 100mg/10ml Liq ORAL SCH ×2 (13:41→17:15)
[2018-08-14] MEDS ORDERED: Acetaminophen 500mg (ES) tab ORAL PRN (14:47)
[2018-08-14 16:00] VITALS: BP 126/63
--- NOTE | 2018-08-14 16:12 | Diagnostic Imaging Report ---
Indication:Abdominal pain Technique: Grayscale and duplex Doppler imaging of the abdomen performed. Comparison: None Findings: The study is incomplete as the patient refused to continue. There may be a gallstone present. Portal vein is patent by Doppler. Liver appears slightly heterogeneous. There is no obvious ascites, hydronephrosis. Spleen is not seen. IMPRESSION: Incomplete exam due to patient refusal. Possible gallstone. This is questionable.
--- NOTE | 2018-08-14 16:57 | General Progress Note ---
Assessment/Plan Problem List: (1) Seizure ICD Codes: R56.9 - Seizure SNOMED: 95932468 (2) Diabetes ICD Codes: E11.9 - Diabetes SNOMED: 69338237 (3) Hypertension ICD Codes: I10 - Hypertension SNOMED: 01781876 (4) Hypothyroid ICD Codes: E03.9 - Hypothyroid SNOMED: 19902966 Status: progressing Assessment/Plan hypoxia improving has aureliano ue so ordered duplex hip pain improving dc in am azotemia old compression fracture pain control Subjective ROS Limited/Unobtainable: Yes Allergies: Coded Allergies: CIPROFLOXACIN (Verified Allergy, Unknown, 10/02/13) HYDROCODONE (Verified Allergy, Unknown, 10/02/13) PENICILLINS (Verified Allergy, Unknown, 10/02/13) PROCHLORPERAZINE (Verified Allergy, Unknown, 10/02/13) Objective Last 24 Hour Vital Signs Date Time Temp Pulse Resp B/P (MAP) Pulse Ox O2 Delivery O2 Flow Rate FiO2 08/14/18 16:00 98.1 115 22 126/63 (84) 98 08/14/18 12:30 96.6 83 22 98/50 (66) 98 08/14/18 12:15 28 08/14/18 12:15 99 14 Nasal Cannula 2.0 28 08/14/18 12:15 99 14 90 Nasal Cannula 2.0 28 08/14/18 09:09 Nasal Cannula 2.0 Nasal Cannula 2.0 08/14/18 08:06 83 105/55 08/14/18 08:00 96.5 83 19 105/55 (72) 96 08/14/18 04:00 98.2 77 19 108/61 (77) 96 08/14/18 00:00 98.0 88 20 105/72 (83) 95 08/13/18 21:00 83 95/50 08/13/18 21:00 Room Air Room Air 08/13/18 20:00 97.5 85 20 95/50 (65) 100 Intake and Output 08/13/18 08/14/18 18:59 06:59 Intake Total 580 ml Output Total 300 ml Balance 280 ml Intake Oral 480 ml IV Total 100 ml Output Urine Total 300 ml # Voids 2 Height (Feet): 5 Height (Inches): 1.00 Weight (Pounds): 105 Cardiovascular: normal peripheral pulses Respiratory/Chest: lungs clear Abdomen: soft Mindy Bryan MD Aug 14, 2018 16:57
[2018-08-14 20:00] VITALS: BP 120/68
[2018-08-15] VITALS: BP 112/67
[2018-08-15 04:00] VITALS: BP 100/59
[2018-08-15] MEDS: Depakote 125mg Sprinkles ORAL SCH ×2 (06:00→14:32)
[2018-08-15 06:19] LABS: BASOPHILS % (AUTO) 0.4 % (0.0-2.0); EOSINOPHILS % (AUTO) 0.3 % (0.0-3.0); HEMATOCRIT 32.1 % (37.0-47.0); LYMPHOCYTES % (AUTO) 15.7 % (20.0-45.0); MEAN CORPUSCULAR VOLUME 91 FL (80-99); NEUTROPHILS % (AUTO) 73.7 % (45.0-75.0); PLATELET COUNT 112 K/UL (150-450); RED BLOOD COUNT 3.52 M/UL (4.20-5.40); RED CELL DISTRIBUTION WIDTH 11.7 % (11.6-14.8); WHITE BLOOD COUNT 8.9 K/UL (4.8-10.8)
[2018-08-15 07:07] LABS: ALANINE AMINOTRANSFERASE 7 U/L (12-78); ALBUMIN 2.6 G/DL (3.4-5.0); ALBUMIN/GLOBULIN RATIO 0.6 (1.0-2.7); ALKALINE PHOSPHATASE 53 U/L (46-116); ANION GAP 5 mmol/L (5-15); ASPARTATE AMINO TRANSFERASE 17 U/L (15-37); BILIRUBIN,TOTAL 0.4 MG/DL (0.2-1.0); BLOOD UREA NITROGEN 15 mg/dL (7-18); CALCIUM 8.6 MG/DL (8.5-10.1); CARBON DIOXIDE 31 MMOL/L (21-32); CHLORIDE 102 MMOL/L (98-107); CREATININE 0.5 MG/DL (0.55-1.30); PHOSPHORUS 3.4 MG/DL (2.5-4.9); POTASSIUM 4.2 MMOL/L (3.5-5.1); SODIUM 138 MMOL/L (136-145)
[2018-08-15 08:00] VITALS: BP 121/74
[2018-08-15] MEDS: Calcium Carbonate 500mg w/Vit D 200iu tab ORAL SCH (08:55)
[2018-08-15] MEDS: Metoprolol Tartrate 12.5mg TAB ORAL SCH (08:57)
[2018-08-15] MEDS: Multivitamins W/Minerals 15 ML UDC ORAL SCH (08:58)
[2018-08-15] MEDS: Docusate 100mg/10ml Liq ORAL SCH ×3 (08:58→18:00)
[2018-08-15] MEDS: Heparin 5000 units/ml inj SUBQ SCH (09:04)
--- NOTE | 2018-08-15 09:10 | General Progress Note ---
Assessment/Plan Assessment/Plan (1) Left hip pain (2) Left hip OA Pt will be continued on Tylenol #3. D/w Dr. Kennedy and he concurred. Subjective Date patient seen: Aug 15, 2018 Time patient seen: 07:00 - am Constitutional: Reports: weakness HEENT: Reports: no symptoms Cardiovascular: Reports: no symptoms Respiratory: Reports: no symptoms Gastrointestinal/Abdominal: Reports: no symptoms Genitourinary: Reports: no symptoms Neurologic/Psychiatric: Reports: weakness Endocrine: Reports: no symptoms Hematologic/Lymphatic: Reports: no symptoms Allergies: Coded Allergies: CIPROFLOXACIN (Verified Allergy, Unknown, 10/02/13) HYDROCODONE (Verified Allergy, Unknown, 10/02/13) PENICILLINS (Verified Allergy, Unknown, 10/02/13) PROCHLORPERAZINE (Verified Allergy, Unknown, 10/02/13) Subjective Patient is in bed and has no c/o pain at this time. She has no new complaints at this time. Objective Last 24 Hour Vital Signs Date Time Temp Pulse Resp B/P (MAP) Pulse Ox O2 Delivery O2 Flow Rate FiO2 08/15/18 08:57 80 124/72 08/15/18 08:00 97.5 85 18 121/74 (90) 98 08/15/18 04:00 97.7 85 18 100/59 (73) 99 08/15/18 00:00 97.0 86 18 112/67 (82) 100 08/14/18 22:48 109 117/66 08/14/18 21:38 Nasal Cannula 2.0 Nasal Cannula 2.0 08/14/18 20:07 115 14 Nasal Cannula 2.0 28 08/14/18 20:00 98.8 111 18 120/68 (85) 100 08/14/18 16:00 98.1 115 22 126/63 (84) 98 08/14/18 12:30 96.6 83 22 98/50 (66) 98 08/14/18 12:15 28 08/14/18 12:15 99 14 Nasal Cannula 2.0 28 08/14/18 12:15 99 14 90 Nasal Cannula 2.0 28 08/14/18 09:09 Nasal Cannula 2.0 Nasal Cannula 2.0 Intake and Output 08/14/18 08/15/18 19:00 07:00 Intake Total 300 ml 40 ml Balance 300 ml 40 ml Intake Oral 300 ml 40 ml # Voids 2 Laboratory Tests 08/15/18 05:55: White Blood Count 8.9, Red Blood Count 3.52L, Hemoglobin 11.0L, Hematocrit 32.1L , Mean Corpuscular Volume 91, Mean Corpuscular Hemoglobin 31.3H, Mean Corpuscular Hemoglobin Concent 34.4, Red Cell Distribution Width 11.7, Platelet Count 112L, Mean Platelet Volume 7.3, Neutrophils (%) (Auto) 73.7, Lymphocytes ( %) (Auto) 15.7L, Monocytes (%) (Auto) 10.0, Eosinophils (%) (Auto) 0.3, Basophils (%) (Auto) 0.4, Sodium Level 138, Potassium Level 4.2, Chloride Level 102, Carbon Dioxide Level 31, Anion Gap 5, Blood Urea Nitrogen 15, Creatinine 0.5L, Estimat Glomerular Filtration Rate > 60, Glucose Level 83, Uric Acid 2.7, Calcium Level 8.6, Phosphorus Level 3.4, Magnesium Level 2.0, Total Bilirubin 0.4, Aspartate Amino Transf (AST/SGOT) 17, Alanine Aminotransferase (ALT/SGPT) 7L, Alkaline Phosphatase 53, C-Reactive Protein, Quantitative 6.3H, Pro-B-Type Natriuretic Peptide 1876H, Total Protein 7.0, Albumin 2.6L, Globulin 4.4, Albumin/Globulin Ratio 0.6L Height (Feet): 5 Height (Inches): 1.00 Weight (Pounds): 105 General Appearance: no apparent distress, alert EENT: PERRL/EOMI, normal ENT inspection Neck: non-tender, normal alignment Cardiovascular: normal rate, regular rhythm Respiratory/Chest: lungs clear, normal breath sounds Abdomen: soft, no organomegaly Extremities: non-tender Edema: trace edema Neurologic: alert, responsive Skin: warm/dry Teo Salcedo Aug 15, 2018 09:10
--- NOTE | 2018-08-15 10:36 | Nephrology Progress Note ---
Assessment/Plan Problem List: (1) Hyponatremia (2) Seizure (3) Hypothyroid (4) SIADH (syndrome of inappropriate ADH production) Assessment Low Na ? SIADH improved HypoThyroidism Lumbar compression fracture Anemia Sz disorder Plan No labs today Fluid restriction per consultants Subjective ROS Limited/Unobtainable: No Constitutional: Reports: malaise Objective Objective Last 24 Hour Vital Signs Date Time Temp Pulse Resp B/P (MAP) Pulse Ox O2 Delivery O2 Flow Rate FiO2 08/15/18 08:57 80 124/72 08/15/18 08:00 97.5 85 18 121/74 (90) 98 08/15/18 04:00 97.7 85 18 100/59 (73) 99 08/15/18 00:00 97.0 86 18 112/67 (82) 100 08/14/18 22:48 109 117/66 08/14/18 21:38 Nasal Cannula 2.0 Nasal Cannula 2.0 08/14/18 20:07 115 14 Nasal Cannula 2.0 28 08/14/18 20:00 98.8 111 18 120/68 (85) 100 08/14/18 16:00 98.1 115 22 126/63 (84) 98 08/14/18 12:30 96.6 83 22 98/50 (66) 98 08/14/18 12:15 28 08/14/18 12:15 99 14 Nasal Cannula 2.0 28 08/14/18 12:15 99 14 90 Nasal Cannula 2.0 28 Intake and Output 08/14/18 08/15/18 19:00 07:00 Intake Total 300 ml 40 ml Balance 300 ml 40 ml Intake Oral 300 ml 40 ml # Voids 2 Laboratory Tests 08/15/18 05:55: White Blood Count 8.9, Red Blood Count 3.52L, Hemoglobin 11.0L, Hematocrit 32.1L , Mean Corpuscular Volume 91, Mean Corpuscular Hemoglobin 31.3H, Mean Corpuscular Hemoglobin Concent 34.4, Red Cell Distribution Width 11.7, Platelet Count 112L, Mean Platelet Volume 7.3, Neutrophils (%) (Auto) 73.7, Lymphocytes ( %) (Auto) 15.7L, Monocytes (%) (Auto) 10.0, Eosinophils (%) (Auto) 0.3, Basophils (%) (Auto) 0.4, Sodium Level 138, Potassium Level 4.2, Chloride Level 102, Carbon Dioxide Level 31, Anion Gap 5, Blood Urea Nitrogen 15, Creatinine 0.5L, Estimat Glomerular Filtration Rate > 60, Glucose Level 83, Uric Acid 2.7, Calcium Level 8.6, Phosphorus Level 3.4, Magnesium Level 2.0, Total Bilirubin 0.4, Aspartate Amino Transf (AST/SGOT) 17, Alanine Aminotransferase (ALT/SGPT) 7L, Alkaline Phosphatase 53, C-Reactive Protein, Quantitative 6.3H, Pro-B-Type Natriuretic Peptide 1876H, Total Protein 7.0, Albumin 2.6L, Globulin 4.4, Albumin/Globulin Ratio 0.6L Height (Feet): 5 Height (Inches): 1.00 Weight (Pounds): 105 General Appearance: no apparent distress Objective no change Jesus Valdivia MD Aug 15, 2018 10:36
[2018-08-15 12:00] VITALS: BP 92/53
--- NOTE | 2018-08-15 12:31 | Diagnostic Imaging Report ---
Indication: Dysphasia Procedure and findings: Real-time fluoroscopic imaging performed in a lateral projection in conjunction with the speech pathologist evaluation. Variable consistencies of barium given per mouth. Findings: Significant abnormalities of both oral and pharyngeal phases of swallowing are demonstrated. Total fluoroscopic time 289 seconds. No definite aspiration identified on the examination. Abnormal video swallow. Please refer to speech pathology evaluation for more information.
--- NOTE | 2018-08-15 14:21 | General Progress Note ---
Assessment/Plan Status: stable Assessment/Plan 1. Deep venous thrombosis of the right lower extremity. Partial visualization of an IVC filter. --> imaging has been reviewed --> hold off on anticoagulation given IVC filter is in place --> reimage as needed if any case of dvt progression/swelling 2. Thrombocytopenia, likely secondary to underlying liver disease, continue to closely monitor. This is the lowest counts she has had for past several years --> prior labs reviewed --> hepatitis panel is negative --> us of the abdomen was reviewed --> meds reviewed as well --> transfuse if she is bleeding with platelets 3. Anemia secondary to chronic disease. Anemia workup has been ordered and reviewed from prior admission --> Hgb goal >7. Transfuse prn. 4. Hyponatremia. Nephrology is following --> Fluid restriction, Saline and Lasix --> appreciate nephro recs 5. Seizure disorder 6. Left hip pain due to Lumbar compression fracture -- pain meds prn --> pain management consulted, appreciated recs --> continue to follow I appreciate the consultation. Subjective Date patient seen: Aug 15, 2018 Hematologic/Lymphatic: Reports: anemia Allergies: Coded Allergies: CIPROFLOXACIN (Verified Allergy, Unknown, 10/02/13) HYDROCODONE (Verified Allergy, Unknown, 10/02/13) PENICILLINS (Verified Allergy, Unknown, 10/02/13) PROCHLORPERAZINE (Verified Allergy, Unknown, 10/02/13) All Systems: reviewed and negative except above Subjective Pt awake and alert. Pr refusing to wear bipap. Objective Last 24 Hour Vital Signs Date Time Temp Pulse Resp B/P (MAP) Pulse Ox O2 Delivery O2 Flow Rate FiO2 08/15/18 11:15 70 16 Nasal Cannula 2.0 28 08/15/18 11:15 Nasal Cannula 2.0 28 08/15/18 11:15 97 Nasal Cannula 2.0 28 08/15/18 09:00 Nasal Cannula 2.0 Nasal Cannula 2.0 08/15/18 08:57 80 124/72 08/15/18 08:00 97.5 85 18 121/74 (90) 98 08/15/18 04:00 97.7 85 18 100/59 (73) 99 08/15/18 00:00 97.0 86 18 112/67 (82) 100 11/7/18 22:48 109 117/66 08/14/18 21:38 Nasal Cannula 2.0 Nasal Cannula 2.0 08/14/18 20:07 115 14 Nasal Cannula 2.0 28 08/14/18 20:00 98.8 111 18 120/68 (85) 100 08/14/18 16:00 98.1 115 22 126/63 (84) 98 Intake and Output 08/14/18 08/15/18 19:00 07:00 Intake Total 300 ml 40 ml Balance 300 ml 40 ml Intake Oral 300 ml 40 ml # Voids 2 Laboratory Tests 08/15/18 05:55: White Blood Count 8.9, Red Blood Count 3.52L, Hemoglobin 11.0L, Hematocrit 32.1L , Mean Corpuscular Volume 91, Mean Corpuscular Hemoglobin 31.3H, Mean Corpuscular Hemoglobin Concent 34.4, Red Cell Distribution Width 11.7, Platelet Count 112L, Mean Platelet Volume 7.3, Neutrophils (%) (Auto) 73.7, Lymphocytes ( %) (Auto) 15.7L, Monocytes (%) (Auto) 10.0, Eosinophils (%) (Auto) 0.3, Basophils (%) (Auto) 0.4, Sodium Level 138, Potassium Level 4.2, Chloride Level 102, Carbon Dioxide Level 31, Anion Gap 5, Blood Urea Nitrogen 15, Creatinine 0.5L, Estimat Glomerular Filtration Rate > 60, Glucose Level 83, Uric Acid 2.7, Calcium Level 8.6, Phosphorus Level 3.4, Magnesium Level 2.0, Total Bilirubin 0.4, Aspartate Amino Transf (AST/SGOT) 17, Alanine Aminotransferase (ALT/SGPT) 7L, Alkaline Phosphatase 53, C-Reactive Protein, Quantitative 6.3H, Pro-B-Type Natriuretic Peptide 1876H, Total Protein 7.0, Albumin 2.6L, Globulin 4.4, Albumin/Globulin Ratio 0.6L Height (Feet): 5 Height (Inches): 1.00 Weight (Pounds): 105 Objective VITAL SIGNS: have been reviewed and are stable HEENT: She is an elderly, minimally verbal female, and in no distress. Normocephalic and atraumatic. Oropharynx is clear. ++ Moist mucous membranes. NECK: Supple without lymphadenopathy or JVD. CHEST: Clear with some faint bibasilar rhonchi. HEART: Regular rate and rhythm. ABDOMEN: Soft, nontender, and nondistended. EXTREMITIES: No cyanosis, clubbing, or edema. Crow Coley MD Aug 15, 2018 14:21
[2018-08-15 16:00] VITALS: BP 91/50
--- NOTE | 2018-08-15 16:56 | Pulmonology Progress Note ---
Assessment/Plan Assessment/Plan ASSESSMENT: The patient is a 68-year-old female, [facility] resident with underlying cognitive impairment; SIADH; DVT, status post IVC; hypertension; diabetes; GERD; seizure disorder; compression fracture; history of aortic dissection in the past; presenting with hip pain; admitted for pain control; and now with mild hypoxemia with differential for hypoxemia is multifactorial. Her CT-A was negative for PE and her ABG is consistent with a CHRONIC RESPIRATORY ACIDOSIS with CHRONIC CO2 retention. being. PROBLEM LIST: 1. Acute hypoxemia in the setting of chronic hypercapnia, likely multifactorial : hypoventilation, splinting from pain, atelectasis, underlying lung disease, NM 2. History of DVT, status post IVC filter. Now without evidence of PE. 3. Intractable left hip pain. 4. shelter resident. 5. Underlying cognitive impairment. 6. SIADH, now with normal sodium. 7. Hypertension. 8. Diabetes. 9. GERD. 10. History of compression fractures. 11. History of seizure disorder. 12. History of aortic dissection in the past. 13. Pancytopenia TREATMENT PLAN: 1. Optimize pulmonary hygiene/mobilize as tolerated. 2. P.r.n. O2 to keep sats greater than 90%. 3. P.r.n. bronchodilators. 4. Incentive spirometry if the patient is able. 5. DVT Px: heparin subcu. 6. BiPAP 10/5 qHS and PRN - this should be continued at the facility 7. Aspiration precautions, diet per speech/language pathology. 8. FC, continue to discuss GOC Subjective Allergies: Coded Allergies: CIPROFLOXACIN (Verified Allergy, Unknown, 10/02/13) HYDROCODONE (Verified Allergy, Unknown, 10/02/13) PENICILLINS (Verified Allergy, Unknown, 10/02/13) PROCHLORPERAZINE (Verified Allergy, Unknown, 10/02/13) Subjective AFVSS, stable O2 needs No cough, no SOB, pain better CT-A neg for PE Objective Last 24 Hour Vital Signs Date Time Temp Pulse Resp B/P (MAP) Pulse Ox O2 Delivery O2 Flow Rate FiO2 08/15/18 16:00 97.6 79 18 91/50 (64) 97 08/15/18 12:00 97.4 75 18 92/53 (66) 99 08/15/18 11:15 70 16 Nasal Cannula 2.0 28 08/15/18 11:15 Nasal Cannula 2.0 28 08/15/18 11:15 97 Nasal Cannula 2.0 28 08/15/18 09:00 Nasal Cannula 2.0 Nasal Cannula 2.0 08/15/18 08:57 80 124/72 08/15/18 08:00 97.5 85 18 121/74 (90) 98 08/15/18 04:00 97.7 85 18 100/59 (73) 99 08/15/18 00:00 97.0 86 18 112/67 (82) 100 08/14/18 22:48 109 117/66 08/14/18 21:38 Nasal Cannula 2.0 Nasal Cannula 2.0 08/14/18 20:07 115 14 Nasal Cannula 2.0 28 08/14/18 20:00 98.8 111 18 120/68 (85) 100 Intake and Output 08/14/18 08/15/18 19:00 07:00 Intake Total 300 ml 40 ml Balance 300 ml 40 ml Intake Oral 300 ml 40 ml # Voids 2 General Appearance: cachetic HEENT: normocephalic, atraumatic, anicteric, mucous membranes moist Respiratory/Chest: chest wall non-tender, lungs clear, normal breath sounds, no respiratory distress, no accessory muscle use Cardiovascular: normal peripheral pulses, normal rate, regular rhythm Abdomen: normal bowel sounds, soft, non tender, no organomegaly, non distended , no mass Extremities: no cyanosis, no clubbing, no edema Laboratory Tests 08/15/18 05:55: White Blood Count 8.9, Red Blood Count 3.52L, Hemoglobin 11.0L, Hematocrit 32.1L , Mean Corpuscular Volume 91, Mean Corpuscular Hemoglobin 31.3H, Mean Corpuscular Hemoglobin Concent 34.4, Red Cell Distribution Width 11.7, Platelet Count 112L, Mean Platelet Volume 7.3, Neutrophils (%) (Auto) 73.7, Lymphocytes ( %) (Auto) 15.7L, Monocytes (%) (Auto) 10.0, Eosinophils (%) (Auto) 0.3, Basophils (%) (Auto) 0.4, Sodium Level 138, Potassium Level 4.2, Chloride Level 102, Carbon Dioxide Level 31, Anion Gap 5, Blood Urea Nitrogen 15, Creatinine 0.5L, Estimat Glomerular Filtration Rate > 60, Glucose Level 83, Uric Acid 2.7, Calcium Level 8.6, Phosphorus Level 3.4, Magnesium Level 2.0, Total Bilirubin 0.4, Aspartate Amino Transf (AST/SGOT) 17, Alanine Aminotransferase (ALT/SGPT) 7L, Alkaline Phosphatase 53, C-Reactive Protein, Quantitative 6.3H, Pro-B-Type Natriuretic Peptide 1876H, Total Protein 7.0, Albumin 2.6L, Globulin 4.4, Albumin/Globulin Ratio 0.6L Current Medications Medications (Trade) Dose Ordered Sig/Karlee Route PRN Reason Start Time Stop Time Status Last Admin Dose Admin Acetaminophen (Tylenol) 650 mg Q4H PRN ORAL Mild Pain/Temp > 100.5 08/11/18 18:47 09/10/18 18:46 Acetaminophen (Tylenol) 650 mg Q4H PRN ORAL Moderate Pain (Pain Scale 4-6) 08/14/18 14:47 09/10/18 18:46 Acetaminophen/ Codeine Phosphate (Tylenol #3) 1 tab Q4H PRN ORAL severe pain 08/11/18 20:07 08/18/18 20:06 08/15/18 09:23 Albuterol/ Ipratropium (Albuterol/ Ipratropium) 3 ml Q4H PRN HHN Shortness of Breath 08/13/18 15:00 08/18/18 14:59 08/14/18 12:19 Bisacodyl (Dulcolax) 10 mg DAILYPRN PRN RECTAL Constipation 08/11/18 18:48 09/10/18 18:44 Calcium Carbonate (OsCal D) 1 tab DAILY ORAL 08/12/18 09:00 09/11/18 08:59 08/15/18 08:55 Divalproex Sodium (Depakote Sprinkles) 500 mg Q8HR ORAL 08/13/18 16:00 09/11/18 08:59 08/15/18 14:32 Docusate Sodium (Colace) 100 mg TID ORAL 08/14/18 13:00 09/13/18 08:59 08/15/18 12:45 Gabapentin (Neurontin) 100 mg THREE TIMES A DAY ORAL 08/11/18 20:07 09/10/18 20:06 08/15/18 12:45 Heparin Sodium (Porcine) (Heparin 5000 units/ml) 5,000 units EVERY 12 HOURS SUBQ 08/13/18 21:00 09/12/18 20:59 08/15/18 09:04 Levothyroxine Sodium (Synthroid) 75 mcg DAILY@0630 ORAL 08/12/18 06:30 09/11/18 06:29 08/14/18 06:10 Lorazepam (Ativan) 1 mg Q6H PRN ORAL For Anxiety 08/12/18 22:30 08/19/18 22:29 08/14/18 07:52 Magnesium Hydroxide (Mom) 30 ml HSPRN PRN ORAL Constipation 08/11/18 18:46 09/10/18 18:45 Metoprolol Tartrate (Lopressor) 12.5 mg Q12HR ORAL 08/11/18 21:00 09/11/18 08:59 08/15/18 08:57 Multivitamins (Multivitamins W/ Minerals 15ml Liquid) 15 ml DAILY ORAL 08/12/18 09:00 09/11/18 08:59 08/15/18 08:58 Pantoprazole (Protonix) 40 mg DAILY ORAL 08/12/18 09:30 09/11/18 09:29 08/15/18 08:56 Sodium Phosphate (Fleet's Sodium Phosl Enema) 133 ml EVERY OTHER DAY PRN RECTAL Constipation 08/11/18 18:45 09/10/18 18:44 Temazepam (Restoril) 15 mg HSPRN PRN ORAL Insomnia 08/12/18 22:30 08/19/18 22:29 Shady Herron MD Aug 15, 2018 16:56
--- NOTE | 2018-08-16 12:00 | Discharge Summary ---
Discharge Summary Discharge Summary _ DATE OF ADMISSION: 08/11/2018 DATE OF DISCHARGE: 08/15/2018 [facility] B[facility]EF [facility]PITAL COURSE: Patient is a 68-year-old female, with history of hyponatremia and neuropathy, presented to ED via EMS complaining of left hip pain. She mentioned that she had been falling frequently. Left hip pain was radiating to the left leg, 10 out of 10 in intensity. She denied saddle paresthesia, denied urinary/bowel incontinence. She denied head trauma. Patient was unable to ambulate due to severe pain on palpation of the left hip. She denied chest pain, shortness of breath, dizziness, palpitation, nausea, vomiting, abdominal pain. 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 On evaluation at ED, vital signs were stable. Blood work showed hyponatremia. D-dimer was elevated to 1.9. Urinalysis showed 3+ leukocyte esterase, 5-10 RBC , too many to count WBC. Left hip x-ray was negative for acute injury there was an old fracture on the left pubis. CT of the hip showed no evidence of acute fracture or significant malalignment. There was evidence of old fracture on the left superior and inferior pubic rami. Fractures appear healed. There were compression fracture deformities of the L4 and L5 vertebral noted incidentally. No acute fractures were seen. She was admitted for evaluation of hyponatremia and hip pain. She was followed by Dr. Jesus Valdivia. She was placed on fluid restrictions. Urine sodium was 73. Urine osmolality was 600. Patient had a elevated d-dimer. She had history of DVT. Venous duplex of the lower extremity showed no evidence of thrombus. CTA of the chest did not show any evidence of pulmonary embolus. There was presence of the ascending thoracic aorta dissection however appearance was grossly unchanged from prior imaging. There was partial visualization of IVC. No need for anticoagulation given IVC filter is in place. Patient had thrombocytopenia, likely secondary to underlying liver disease. Hepatitis was negative. She was given heparin subcutaneous for DVT prophylaxis. She was given Tylenol 3 for pain. He was given PT mobility. She underwent swallow evaluation. She had video swallow done. There was no aspiration noted with all consistencies but has high risk for aspiration. For quality of life, she was recommended liquefied pured diet like nectar thick soup consistency with thin/nectar thick liquids. Strict aspiration precaution with one to one direct supervision. ABG was consistent with chronic respiratory acidosis and chronic CO2 retention. She was recommended Bipap 10/5 at bed[facility] She was cleared for discharge. FINAL DIAGNOSES: Acute hypoxemia in the setting of chronic hypercapnia, likely multifactorial Prior DVT, status post IVC filter with no evidence of PE Intractable left hip pain Lumbar compression fractures SIADH Hyponatremia Hypertension Diabetes mellitus GERD Seizure disorder History of aortic dissection Pancytopenia Anemia of chronic disease Hypothyroidism DISPOSITION: Patient was discharged to [facility] DISCHARGE MEDICATIONS: Refer to Discharge Medication List. I have been assigned to dictate discharge summary on this account, and I was not involved in the patient's management. Geno Conte NP Aug 16, 2018 12:00
== END 2018-08-15 18:00 | DRG 426 ==
LOC: EDUNIT# 12:19 → EDBD 12:19 → EMR 12:52 → EDBEDREQ 15:23 → CANBEDREQ 15:25 → EDBEDREQ 15:34 → CMPBEDREQ 16:40 → EDBEDREQ 16:42 → 4E 17:17 → EDBEDREQ 17:28 → 4E 18:31
DX: E22.2 Syndrome of inappropriate secretion of antidiuretic hormone (principal); D61.818 Other pancytopenia; D69.59 Other secondary thrombocytopenia; G62.9 Polyneuropathy, unspecified; I82.501 Chronic embolism and thrombosis of unspecified deep veins of right lower extremity; B02.9 Zoster without complications; E11.9 Type 2 diabetes mellitus without complications; D63.8 Anemia in other chronic diseases classified elsewhere; E03.9 Hypothyroidism, unspecified; G40.909 Epilepsy, unspecified, not intractable, without status epilepticus; R09.02 Hypoxemia; R06.89 Other abnormalities of breathing; T14.8XXA Other injury of unspecified body region, initial encounter; I10 Essential (primary) hypertension; K21.9 Gastro-esophageal reflux disease without esophagitis; Z88.6 Allergy status to analgesic agent; Z88.1 Allergy status to other antibiotic agents; Z88.0 Allergy status to penicillin; Z88.8 Allergy status to other drugs, medicaments and biological substances; M16.12 Unilateral primary osteoarthritis, left hip; Z91.81 History of falling; R29.6 Repeated falls; S32.009D Unspecified fracture of unspecified lumbar vertebra, subsequent encounter for fracture with routine healing; X58.XXXD Exposure to other specified factors, subsequent encounter; F39 Unspecified mood [affective] disorder; F32.9 Major depressive disorder, single episode, unspecified; F41.9 Anxiety disorder, unspecified; F03.90 Unspecified dementia, unspecified severity, without behavioral disturbance, psychotic disturbance, mood disturbance, and anxiety; Z95.828 Presence of other vascular implants and grafts; F09 Unspecified mental disorder due to known physiological condition; K57.90 Diverticulosis of intestine, part unspecified, without perforation or abscess without bleeding; I25.2 Old myocardial infarction; I25.10 Atherosclerotic heart disease of native coronary artery without angina pectoris
CPT/HCPCS: 36415; 36600; 71045; 71275; 72170; 73502; 74230; 76705; 80053; 80061; 80164; 81001; 82607; 82728; 82746; 82803; 83540; 83550; 83735; 83880; 83930; 83935; 84100; 84300; 84443; 84550; 85007; 85025; 85379; 86140; 86705; 86709; 86803; 87081; 87086; 87340; 93306; 93970; 93971; 94640; 94664; 94760; 96361; 96372; 96374; 99285; J2405; J7620

== ENCOUNTER 2019-07-27 09:27 | Inpatient (IN) | payer MEDICAID ==
[~2019-07-27] VITALS: Ht 162.6 cm; Wt 54.0 kg
[2019-07-27] VITALS (7 sets, daily range): BP systolic 130–152; BP diastolic 70–104
[~2019-07-27 09:27] MED LIST changes: +COLACE100 MG ORAL
[2019-07-27] MEDS ORDERED: SYNTHROID125 MCG ORAL (09:50)
[2019-07-27] MEDS ORDERED: OYSTER SHELL C500 MG PO (09:50)
[2019-07-27] MEDS ORDERED: CRANBERRY450 M5 PO (09:50)
[2019-07-27] MEDS ORDERED: KEPPRA750 MG ORAL (09:50)
--- NOTE | 2019-07-27 09:50 | NUR ---
ED Nurse Note: Patient arrived in ED by EMS from [facility]. Pt had a siezure at 0730 AM, lasted 60 seconds and was witnessed by nursing staff. Pt has bruise to left eye, left pinky finger, and oral trauma present from prior to arrival. Per [facility] staff, bruises are from piror incident unrelated to current seizure. Pt Awake and alert. VSS, patient in no distress. Labs drawn and urine sent to lab. Pt on monitor, Seizure precautions in place.
[2019-07-27] MEDS ORDERED: levETIRAcetam 1,000mg/NS100ml 100 ML IVPB ONE (10:00)
[2019-07-27 10:22] LABS: APPEARANCE,URINE CLEAR; BASOPHILS % (AUTO) 1.2 % (0.0-2.0); BILIRUBIN, URINE NEGATIVE (NEGATIVE); COLOR,URINE PALE YELLOW; GLUCOSE, URINE (UA) NEGATIVE (NEGATIVE); HEMATOCRIT 41.7 % (37.0-47.0); HEMOGLOBIN 14.2 G/DL (12.0-16.0); KETONES,URINE NEGATIVE (NEGATIVE); LEUKOCYTE ESTERASE ,URINE 1+ (NEGATIVE); LYMPHOCYTES % (AUTO) 15.9 % (20.0-45.0); MEAN CORPUSCULAR VOLUME 90 FL (80-99); MONOCYTES % (AUTO) 5.2 % (1.0-10.0); NEUTROPHILS % (AUTO) 76.7 % (45.0-75.0); NITRITE,URINE NEGATIVE (NEGATIVE); PH,URINE 8 (4.5-8.0); PLATELET COUNT 180 K/UL (150-450); PROTEIN,URINE NEGATIVE (NEGATIVE); RED BLOOD COUNT 4.64 M/UL (4.20-5.40); RED CELL DISTRIBUTION WIDTH 10.7 % (11.6-14.8); UROBILINOGEN,URINE NORMAL MG/DL (0.0-1.0); WHITE BLOOD COUNT 7.7 K/UL (4.8-10.8)
[2019-07-27 10:26] LABS: ANION GAP 5 mmol/L (5-15); BLOOD UREA NITROGEN 11 mg/dL (7-18); CALCIUM 8.9 MG/DL (8.5-10.1); CARBON DIOXIDE 32 MMOL/L (21-32); CHLORIDE 97 MMOL/L (98-107); CREATININE 0.6 MG/DL (0.55-1.30); INR 0.9 (0.9-1.1); POTASSIUM 3.8 MMOL/L (3.5-5.1); SODIUM 134 MMOL/L (136-145)
--- NOTE | 2019-07-27 10:26 | NUR ---
ED Nurse Note: Patient back from CT scan. No seizure activity noted.
[2019-07-27 10:30] LABS: ALANINE AMINOTRANSFERASE 23 U/L (12-78); ALBUMIN 4.1 G/DL (3.4-5.0); ALBUMIN/GLOBULIN RATIO 0.9 (1.0-2.7); ALKALINE PHOSPHATASE 143 U/L (46-116); ASPARTATE AMINO TRANSFERASE 38 U/L (15-37); BILIRUBIN,TOTAL 0.3 MG/DL (0.2-1.0)
--- NOTE | 2019-07-27 11:06 | NUR ---
ED Nurse Note: Patient stable, no seizure activity noted.
--- NOTE | 2019-07-27 11:08 | Diagnostic Imaging Report ---
EXAM: CT Head Without Intravenous Contrast CLINICAL HISTORY: AMS TECHNIQUE: Axial computed tomography images of the head brain without intravenous contrast. CTDI is 60 mGy and DLP is 1244 mGy-cm. One or more of the following dose reduction techniques were used: automated exposure control, adjustment of the mA and or kV according to patient size, use of iterative reconstruction technique. COMPARISON: CT head 8 15 18 FINDINGS: Small hyperdensity bilateral inferior frontal lobes that may be streak artifact, cannot exclude subtle bleed. There are involutional changes with prominence of the sulci, basal cisterns and ventricles. The bilateral extra-axial CSF density collections are stable, may be subdural hygromas or old subdural hematomas. Scattered white matter hypoattenuations are present, likely from small vessel disease. The vazquez- white differentiation is preserved. No evidence of mass effect, midline shift, or edema. The osseous structures are unremarkable. The visualized portions of the paranasal sinuses are clear. Left mastoid air cell fluid. IMPRESSION: 1. Small hyperdensity bilateral inferior frontal lobes that may be streak artifact, cannot exclude subtle bleed. Consider short-term interval follow-up. No mass effect. 2. Involutional changes with small vessel disease. 3. Stable appearance of bilateral extra-axial CSF density collections. 4. Mild left mastoid air cell fluid may be mastoiditis. <MYCVCSECTION> [employer] 07 27 19 11:41 Verify Receipt Verified receipt with [facility], given to Inder MARROQUIN on 07 27 11:40 (-07:00)
--- NOTE | 2019-07-27 11:09 | Diagnostic Imaging Report ---
EXAM: XR Chest, 1 View CLINICAL HISTORY: PAIN TECHNIQUE: Frontal view of the chest. COMPARISON: Chest x-ray 11 18 FINDINGS: Lungs: Hypoventilatory lungs. Bibasilar lung atelectasis. Pleural space: Questionable tiny left pleural effusion. No pneumothorax. Heart: Unremarkable. No cardiomegaly. Mediastinum: Unremarkable. Bones joints: Unremarkable. IMPRESSION: 1. Hypoventilatory lungs. Bibasilar lung atelectasis. 2. Questionable tiny left pleural effusion.
--- NOTE | 2019-07-27 13:12 | NUR ---
ED Nurse Note: pt remains without seizure activity in ed. pt remains awake and alert.
--- NOTE | 2019-07-27 13:38 | NUR ---
Report given to sales floor associate Jason on .
--- NOTE | 2019-07-27 13:40 | NUR ---
NURSE NOTES: I received the patient from the ER. Patient alert and oriented x4. Telemetry box applied to the patient. Bed siderails padded. Bed in the lowest position and call light within reach. Patient oriented to the room.
--- NOTE | 2019-07-27 18:54 | NUR ---
NURSE NOTES: Skin assessment performed and skin is intact. Healed wounds on the sacral area noted.
--- NOTE | 2019-07-27 19:07 | NUR ---
HAND-OFF: Report given to Stacie Bess.
--- NOTE | 2019-07-27 19:08 | NUR ---
NURSE NOTES: Received report from Usha POLANCO. Pt is sleeping in the bed. No acute distress noted. Bed rails are up x3. Bed alarm is on. Bed is locked at the lowest position. Bed trinh given and pt urinated about 60 ml of urine.
--- NOTE | 2019-07-27 21:21 | Emergency Room Report ---
History of Present Illness General Chief Complaint: Seizure Source: Medical Record, EMS Present Illness HPI Patient presented after witnessed seizure at facility. Some recent facial trauma. Prior history of seizures on Keppra. Did not get Keppra this morning.Patient had a witnessed seizure which was lasting several minutes. Full body tonic-clonic. History is limited by patient status Allergies: Coded Allergies: CIPROFLOXACIN (Verified Allergy, Unknown, 10/02/13) HYDROCODONE (Verified Allergy, Unknown, 10/02/13) PENICILLINS (Verified Allergy, Unknown, 10/02/13) PROCHLORPERAZINE (Verified Allergy, Unknown, 10/02/13) Patient History Past Medical History: see triage record Now: No Reviewed Nursing Documentation: PMH: Agreed; PSxH: Agreed Nursing Documentation-PMH Past Medical History: No History, Except For Hx Cardiac Problems: Yes Hx Hypertension: Yes Hx Pacemaker: No Hx Asthma: No - pna, sepsis, resp insuff., neuropathy, hypothyroidsm, Hx COPD: Yes Hx Diabetes: Yes Hx Cancer: No Hx Gastrointestinal Problems: No Hx Neurological Problems: Yes Hx Cerebrovascular Accident: Yes - DVT Hx Dementia: Yes Hx Seizures: Yes Hx Weakness: Yes Review of Systems All Other Systems: negative except mentioned in HPI Physical Exam Vital Signs Date Time Temp Pulse Resp B/P (MAP) Pulse Ox O2 Delivery O2 Flow Rate FiO2 07/27/19 09:28 98.4 92 18 152/95 (114) 93 Room Air Sp02 EP Interpretation: reviewed, normal General Appearance: normal inspection, well appearing, no apparent distress, alert, GCS 15 Head: atraumatic ENT: normal ENT inspection, hearing grossly normal, normal voice Neck: normal inspection, full range of motion, supple, no bony tend, other - closed tracheostomy Respiratory: normal inspection, lungs clear, normal breath sounds, no respiratory distress, no retraction, no wheezing Cardiovascular #1: regular rate, rhythm, no edema Gastrointestinal: normal inspection, normal bowel sounds, non tender, soft, no guarding, no hernia Genitourinary: no CVA tenderness Musculoskeletal: normal inspection, back normal, normal range of motion Neurologic: normal inspection, alert, responsive, speech normal Psychiatric: normal inspection, judgement/insight normal, mood/affect normal Medical Decision Making Diagnostic Impression: Primary Impression: Seizure Additional Impressions: Seizure disorder Contusion of face ER Course Patient presented for seizure. Differential diagnosis include was not limited to electrolyte abnormality, medication noncompliance, alcohol withdrawal, intracranial hemorrhage among others. Because of complexity of patient's case laboratory tests and imaging studies were ordered. Patient had prior history of seizure disorder. There was some recent noted head trauma. Labs showed no evidence of significant acute infection. CT head showed some increased density which is likely artifact but may represent small hemorhage. See radiology report for full details. Patient was given IV flulds and IV Keppra. She did not have recurrence of seizures in ED. She was examined and continued to be alert. Dr. Urrutia was contacted for inpatient management due to primary care physician and was notified of head CT findings prior to agreeing to admission. Labs Test 07/27/19 09:55 White Blood Count 7.7 K/UL (4.8-10.8) Red Blood Count 4.64 M/UL (4.20-5.40) Hemoglobin 14.2 G/DL (12.0-16.0) Hematocrit 41.7 % (37.0-47.0) Mean Corpuscular Volume 90 FL (80-99) Mean Corpuscular Hemoglobin 30.7 PG (27.0-31.0) Mean Corpuscular Hemoglobin Concent 34.2 G/DL (32.0-36.0) Red Cell Distribution Width 10.7 % (11.6-14.8) Platelet Count 180 K/UL (150-450) Mean Platelet Volume 5.4 FL (6.5-10.1) Neutrophils (%) (Auto) 76.7 % (45.0-75.0) Lymphocytes (%) (Auto) 15.9 % (20.0-45.0) Monocytes (%) (Auto) 5.2 % (1.0-10.0) Eosinophils (%) (Auto) 1.0 % (0.0-3.0) Basophils (%) (Auto) 1.2 % (0.0-2.0) Prothrombin Time 10.0 SEC (9.30-11.50) Prothromb Time International Ratio 0.9 (0.9-1.1) Activated Partial Thromboplast Time 30 SEC (23-33) Urine Color Pale yellow Urine Appearance Clear Urine pH 8 (4.5-8.0) Urine Specific [place] 1.010 (1.005-1.035) Urine Protein Negative (NEGATIVE) Urine Glucose (UA) Negative (NEGATIVE) Urine Ketones Negative (NEGATIVE) Urine Blood 1+ (NEGATIVE) Urine Nitrite Negative (NEGATIVE) Urine Bilirubin Negative (NEGATIVE) Urine Urobilinogen Normal MG/DL (0.0-1.0) Urine Leukocyte Esterase 1+ (NEGATIVE) Urine RBC 0-2 /HPF (0 - 2) Urine WBC 2-4 /HPF (0 - 2) Urine Squamous Epithelial Cells Few /LPF (NONE/OCC) Urine Bacteria Few /HPF (NONE) Sodium Level 134 MMOL/L (136-145) Potassium Level 3.8 MMOL/L (3.5-5.1) Chloride Level 97 MMOL/L (98-107) Carbon Dioxide Level 32 MMOL/L (21-32) Anion Gap 5 mmol/L (5-15) Blood Urea Nitrogen 11 mg/dL (7-18) Creatinine 0.6 MG/DL (0.55-1.30) Estimat Glomerular Filtration Rate > 60 mL/min (>60) Glucose Level 98 MG/DL (74-106) Calcium Level 8.9 MG/DL (8.5-10.1) Total Bilirubin 0.3 MG/DL (0.2-1.0) Aspartate Amino Transf (AST/SGOT) 38 U/L (15-37) Alanine Aminotransferase (ALT/SGPT) 23 U/L (12-78) Alkaline Phosphatase 143 U/L (46-116) Total Protein 8.7 G/DL (6.4-8.2) Albumin 4.1 G/DL (3.4-5.0) Globulin 4.6 g/dL Albumin/Globulin Ratio 0.9 (1.0-2.7) Last Vital Signs Date Time Temp Pulse Resp B/P (MAP) Pulse Ox O2 Delivery O2 Flow Rate FiO2 07/27/19 16:00 98.6 101 20 146/104 (118) 07/27/19 14:20 Room Air 07/27/19 13:46 97 Status: improved Disposition: HOME, SELF-CARE Condition: Stable Referrals: Mindy Bryan MD (PCP) Brendan Loving MD Jul 27, 2019 21:21
[2019-07-28] VITALS: BP 148/82
[2019-07-28 04:00] VITALS: BP 147/80
[2019-07-28] MEDS ORDERED: Levothyroxine 125mcg tab ORAL SCH (06:30)
--- NOTE | 2019-07-28 07:25 | NUR ---
NURSE NOTES: I received the patient resting in bed. Bed in the lowest position and call light within reach. Patient does not display any signs of distress or SOB. I will continue to monitor the patient and implement care.
--- NOTE | 2019-07-28 07:30 | NUR ---
HAND-OFF: Report given to Usha POLANCO.
--- NOTE | 2019-07-28 07:40 | Consultation ---
History of Present Illness General Chief Complaint: Seizure Present Illness Allergies: Coded Allergies: CIPROFLOXACIN (Verified Allergy, Unknown, 10/02/13) HYDROCODONE (Verified Allergy, Unknown, 10/02/13) PENICILLINS (Verified Allergy, Unknown, 10/02/13) PROCHLORPERAZINE (Verified Allergy, Unknown, 10/02/13) Medication History Scheduled Bisacodyl (Dulcolax), 10 MG RC DAILY, (Reported) Cranberry Fruit (Cranberry), 450 MG PO TWICE A DAY, (Reported) Divalproex Sodium (Depakote), 500 MG PO Q12HR, (Reported) Docusate Sodium* (Docusate Sodium*), 100 MG ORAL DAILY, (Reported) Docusate Sodium* (Colace*), 100 MG ORAL DAILY, (Reported) Folic Acid* (Folic Acid*), 1 MG PO DAILY, (Reported) Hydralazine HCl (Hydralazine HCl), 10 MG ORAL DAILY, (Reported) Levetiracetam (Keppra), 750 MG ORAL TWICE A DAY, (Reported) Levothyroxine Sodium* (Levothyroxine Sodium*), 75 MCG ORAL BEFORE BREAKFAST, ( Reported) Levothyroxine Sodium* (Synthroid*), 125 MCG ORAL DAILY, (Reported) Metoprolol Tartrate* (Metoprolol Tartrate*), 12.5 MG ORAL DAILY, (Reported) Multivitamin With Minerals (Multivitamins With Minerals*), 1 TAB ORAL DAILY, ( Reported) Scheduled PRN Acetaminophen* (Acetaminophen 325MG Tablet*), 2 TAB ORAL Q4H PRN for Mild Pain ( Pain Scale 1-3), (Reported) Acetaminophen* (Acetaminophen 325MG Tablet*), 2 TAB ORAL Q4H PRN for Temp >101, (Reported) Miscellaneous Medications Calcium Carbonate (Oyster Shell Calcium), 500 MG PO, (Reported) Patient History Healthcare decision maker Resuscitation status Full Code Advanced Directive on File No Physical Exam Last 24 Hour Vital Signs Date Time Temp Pulse Resp B/P (MAP) Pulse Ox O2 Delivery O2 Flow Rate FiO2 07/28/19 04:00 67 07/28/19 04:00 98.2 75 20 147/80 (102) 98 07/28/19 00:00 97.9 67 20 148/82 (104) 97 07/28/19 00:00 72 07/27/19 21:00 Room Air 07/27/19 20:00 73 07/27/19 16:00 98.6 101 20 146/104 (118) 07/27/19 15:43 79 07/27/19 14:21 98.1 81 18 151/81 (104) 07/27/19 14:20 Room Air 07/27/19 13:46 74 13 152/98 97 Room Air 07/27/19 13:00 79 18 130/82 98 Room Air 07/27/19 12:00 73 18 150/78 98 Room Air 07/27/19 11:07 72 15 144/70 97 Room Air 07/27/19 10:43 81 16 136/84 96 Room Air 07/27/19 10:43 81 14 Room Air 07/27/19 09:28 98.4 92 18 152/95 (114) 93 Room Air Intake and Output 07/27/19 07/28/19 19:00 07:00 Intake Total 240 ml 120 ml Output Total 500 ml Balance -260 ml 120 ml Intake Oral 140 ml 120 ml IV Total 100 ml Output Urine Total 500 ml # Voids 2 Laboratory Tests Test 07/27/19 09:55 White Blood Count 7.7 K/UL (4.8-10.8) Red Blood Count 4.64 M/UL (4.20-5.40) Hemoglobin 14.2 G/DL (12.0-16.0) Hematocrit 41.7 % (37.0-47.0) Mean Corpuscular Volume 90 FL (80-99) Mean Corpuscular Hemoglobin 30.7 PG (27.0-31.0) Mean Corpuscular Hemoglobin Concent 34.2 G/DL (32.0-36.0) Red Cell Distribution Width 10.7 % (11.6-14.8) L Platelet Count 180 K/UL (150-450) Mean Platelet Volume 5.4 FL (6.5-10.1) L Neutrophils (%) (Auto) 76.7 % (45.0-75.0) H Lymphocytes (%) (Auto) 15.9 % (20.0-45.0) L Monocytes (%) (Auto) 5.2 % (1.0-10.0) Eosinophils (%) (Auto) 1.0 % (0.0-3.0) Basophils (%) (Auto) 1.2 % (0.0-2.0) Prothrombin Time 10.0 SEC (9.30-11.50) Prothromb Time International Ratio 0.9 (0.9-1.1) Activated Partial Thromboplast Time 30 SEC (23-33) Urine Color Pale yellow Urine Appearance Clear Urine pH 8 (4.5-8.0) Urine Specific [place] 1.010 (1.005-1.035) Urine Protein Negative (NEGATIVE) Urine Glucose (UA) Negative (NEGATIVE) Urine Ketones Negative (NEGATIVE) Urine Blood 1+ (NEGATIVE) H Urine Nitrite Negative (NEGATIVE) Urine Bilirubin Negative (NEGATIVE) Urine Urobilinogen Normal MG/DL (0.0-1.0) Urine Leukocyte Esterase 1+ (NEGATIVE) H Urine RBC 0-2 /HPF (0 - 2) Urine WBC 2-4 /HPF (0 - 2) Urine Squamous Epithelial Cells Few /LPF (NONE/OCC) Urine Bacteria Few /HPF (NONE) Sodium Level 134 MMOL/L (136-145) L Potassium Level 3.8 MMOL/L (3.5-5.1) Chloride Level 97 MMOL/L (98-107) L Carbon Dioxide Level 32 MMOL/L (21-32) Anion Gap 5 mmol/L (5-15) Blood Urea Nitrogen 11 mg/dL (7-18) Creatinine 0.6 MG/DL (0.55-1.30) Estimat Glomerular Filtration Rate > 60 mL/min (>60) Glucose Level 98 MG/DL (74-106) Calcium Level 8.9 MG/DL (8.5-10.1) Total Bilirubin 0.3 MG/DL (0.2-1.0) Aspartate Amino Transf (AST/SGOT) 38 U/L (15-37) H Alanine Aminotransferase (ALT/SGPT) 23 U/L (12-78) Alkaline Phosphatase 143 U/L (46-116) H Total Protein 8.7 G/DL (6.4-8.2) H Albumin 4.1 G/DL (3.4-5.0) Globulin 4.6 g/dL Albumin/Globulin Ratio 0.9 (1.0-2.7) L Microbiology Date/Time Source Procedure Growth Status 07/27/19 11:40 Rectal Mucosa Received Height (Feet): 5 Height (Inches): 4.00 Weight (Pounds): 150 Medications Current Medications Medications (Trade) Dose Ordered Sig/Karlee Route PRN Reason Start Time Stop Time Status Last Admin Dose Admin Calcium Carbonate (Tums) 500 mg DAILY ORAL 07/28/19 09:00 08/27/19 08:59 Enoxaparin Sodium (Lovenox) 40 mg DAILY SUBQ 07/28/19 09:00 08/27/19 08:59 Folic Acid (Folate) 1 mg DAILY ORAL 07/28/19 09:00 08/27/19 08:59 Hydralazine HCl (Apresoline) 10 mg DAILY ORAL 07/28/19 09:00 08/27/19 08:59 Levetiracetam (Keppra) 750 mg Q12HR ORAL 07/27/19 21:00 08/26/19 20:59 07/27/19 20:31 Levothyroxine Sodium (Synthroid) 125 mcg Q24H ORAL 07/28/19 06:30 08/27/19 06:29 07/28/19 06:38 Metoprolol Tartrate (Lopressor) 12.5 mg DAILY ORAL 07/28/19 09:00 08/27/19 08:59 Multivitamins Therapeutic (Therapeutic Multivitamin) 1 ea DAILY ORAL 07/28/19 09:00 08/27/19 08:59 Assessment/Plan Assessment/Plan: Hematology Oncology Consult REQ MD: Mindy Urrutia RFC: DVT s/p IVC filter DOS:07/28/19 ID 69-year-old female, well known to me, with history of hyponatremia and neuropathy here complaining of recent seizure at facility, did not get her keppra po. Patient is a mongolian speaker, denies saddle paresthesia, urinary/ bowel incontinence. denies head trauma. Patient is unable to ambulate and elicit a lot of pain upon palpation of the left hip. Denies any other injury, chest pain, shortness of breath, dizziness, palpitation, abdominal pain, nausea vomiting and all other associated symptoms. She further denies tingling numbness. Now has low Na and IVC filter for hx of DVT. Dr. Batista and renal consulted. Allergies: CIPROFLOXACIN (Verified Allergy, Unknown, 10/02/13) HYDROCODONE (Verified Allergy, Unknown, 10/02/13) PENICILLINS (Verified Allergy, Unknown, 10/02/13) PROCHLORPERAZINE (Verified Allergy, Unknown, 10/02/13) Patient History Past Medical History: see triage record Past Surgical History: unable to obtain Immunizations: UTD Reviewed Nursing Documentation: PMH: Agreed; PSxH: Agreed Past Medical History: No History, Except For Hx Cardiac Problems: Yes Hx Hypertension: Yes Hx Pacemaker: No Hx Asthma: No - pna, sepsis, resp insuff., neuropathy, hypothyroidsm, Hx Diabetes: Yes Hx Cancer: No Hx Gastrointestinal Problems: Yes Hx Neurological Problems: Yes Hx Cerebrovascular Accident: Yes Hx Seizures: Yes All Other Systems: negative except mentioned in HPI Very comfortable, no other events Vital Signs reviewed Gen: normal inspection, alert, GCS 15 HEENT: normocephalic, atraumatic, bilateral eye PERRL Pulm: normal inspection, chest non-tender, no cwr CV: normal inspection, regular rate, rhythm, no gallop, no murmur Gastrointestinal: normal inspection, soft Lymphatic: normal inspection, no adenopathy Ext: no cce Labs: noted Imaging: noted ASSESSMENT AND RECOMMENDATIONS: 1. Deep venous thrombosis of the right lower extremity. Partial visualization of an IVC filter. --> imaging has been reviewed --> hold off on anticoagulation given IVC filter is in place --> duplex lower ext ordered 2. history Thrombocytopenia, likely secondary to underlying liver disease, continue to closely monitor. This is the lowest counts she has had for past several years --> prior labs reviewed, hepatitis panel reviewed --> us of the abdomen was reviewed --> meds reviewed as well --> transfuse if she is bleeding with platelets --> plt trend 112-->180 3. Anemia secondary to chronic disease. --> w/u reviewed from prior adm 4. Hyponatremia. Nephrology is following --> Fluid restriction --> appreciate nephro recs 5. Seizure disorder --> Dr. Batista consulted 6. Left hip pain due to Lumbar compression fracture -- pain meds prn --> pain management DW RN and appreciate the consultation. Crow Coley MD Jul 28, 2019 07:40
[2019-07-28 07:55] LABS: BASOPHILS % (AUTO) 0.9 % (0.0-2.0); EOSINOPHILS % (AUTO) 2.1 % (0.0-3.0); HEMATOCRIT 36.9 % (37.0-47.0); HEMOGLOBIN 13.2 G/DL (12.0-16.0); LYMPHOCYTES % (AUTO) 28.8 % (20.0-45.0); MEAN CORPUSCULAR VOLUME 89 FL (80-99); MONOCYTES % (AUTO) 8.4 % (1.0-10.0); NEUTROPHILS % (AUTO) 59.9 % (45.0-75.0); PLATELET COUNT 159 K/UL (150-450); RED BLOOD COUNT 4.14 M/UL (4.20-5.40); RED CELL DISTRIBUTION WIDTH 10.6 % (11.6-14.8); WHITE BLOOD COUNT 5.1 K/UL (4.8-10.8)
[2019-07-28 07:58] VITALS: BP 132/74
[2019-07-28 08:04] LABS: ANION GAP 6 mmol/L (5-15); BLOOD UREA NITROGEN 9 mg/dL (7-18); CALCIUM 8.7 MG/DL (8.5-10.1); CARBON DIOXIDE 27 MMOL/L (21-32); CHLORIDE 98 MMOL/L (98-107); CREATININE 0.5 MG/DL (0.55-1.30); POTASSIUM 3.4 MMOL/L (3.5-5.1); SODIUM 131 MMOL/L (136-145)
[2019-07-28] MEDS ORDERED: HydrALAZINE 10mg Tab ORAL SCH (09:00)
[2019-07-28] MEDS ORDERED: Metoprolol 25mg tab ORAL SCH (09:00)
[2019-07-28] MEDS: Multivitamin w/Minerals tab ORAL SCH (09:09)
[2019-07-28] MEDS: Tums 500mg ORAL SCH (09:09)
[2019-07-28] MEDS: Enoxaparin 40mg Inj SUBQ SCH (09:11)
--- NOTE | 2019-07-28 10:42 | NUR ---
*-* INSURANCE *-* ALL AVAILABLE CLINICALS HAVE BEEN FAXED TO: LISANDRO MELVIN [facility]#[phone] FAX#[phone] REVIEWS/CLINICALS
[2019-07-28 12:00] VITALS: BP 140/80
[2019-07-28 12:01] LABS: ALANINE AMINOTRANSFERASE 22 U/L (12-78); ALBUMIN 3.8 G/DL (3.4-5.0); ALKALINE PHOSPHATASE 129 U/L (46-116); ASPARTATE AMINO TRANSFERASE 34 U/L (15-37); BILIRUBIN,DIRECT 0.1 MG/DL (0.0-0.3); BILIRUBIN,TOTAL 0.5 MG/DL (0.2-1.0); CHOLESTEROL 267 MG/DL (< 200); HDL CHOLESTEROL 63 MG/DL (40-60); PHOSPHORUS 3.2 MG/DL (2.5-4.9); TRIGLYCERIDES 99 MG/DL (30-150)
--- NOTE | 2019-07-28 15:11 | NUR ---
P.T Note: P.T evaluation completed and tx initiated. Please refer to P.T evaluation for current functional status. See P.T evaluation for current functional status recommendation and POC.
--- NOTE | 2019-07-28 15:54 | General Progress Note ---
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, stable Status: progressing Assessment/Plan: no siezure today consulted dr dietz r/o intracranial hemmorrhage Subjective ROS Limited/Unobtainable: Yes Allergies: Coded Allergies: CIPROFLOXACIN (Verified Allergy, Unknown, 10/02/13) HYDROCODONE (Verified Allergy, Unknown, 10/02/13) PENICILLINS (Verified Allergy, Unknown, 10/02/13) PROCHLORPERAZINE (Verified Allergy, Unknown, 10/02/13) Objective Last 24 Hour Vital Signs Date Time Temp Pulse Resp B/P (MAP) Pulse Ox O2 Delivery O2 Flow Rate FiO2 07/28/19 12:00 97.6 64 18 140/80 (100) 97 07/28/19 11:47 60 07/28/19 09:10 68 132/75 07/28/19 09:10 132/75 07/28/19 09:00 Room Air 07/28/19 07:59 75 07/28/19 07:58 97.7 75 20 132/74 (93) 95 07/28/19 04:00 67 07/28/19 04:00 98.2 75 20 147/80 (102) 98 07/28/19 00:00 97.9 67 20 148/82 (104) 97 07/28/19 00:00 72 07/27/19 21:00 Room Air 07/27/19 20:00 73 07/27/19 16:00 98.6 101 20 146/104 (118) Intake and Output 07/27/19 07/28/19 19:00 07:00 Intake Total 240 ml 120 ml Output Total 500 ml Balance -260 ml 120 ml Intake Oral 140 ml 120 ml IV Total 100 ml Output Urine Total 500 ml # Voids 2 Laboratory Tests 07/28/19 05:53: White Blood Count 5.1, Red Blood Count 4.14L, Hemoglobin 13.2, Hematocrit 36.9L , Mean Corpuscular Volume 89, Mean Corpuscular Hemoglobin 31.8H, Mean Corpuscular Hemoglobin Concent 35.7, Red Cell Distribution Width 10.6L, Platelet Count 159, Mean Platelet Volume 4.6L, Neutrophils (%) (Auto) 59.9, Lymphocytes (%) (Auto) 28.8, Monocytes (%) (Auto) 8.4, Eosinophils (%) (Auto) 2.1, Basophils (%) (Auto) 0.9, Sodium Level 131L, Potassium Level 3.4L, Chloride Level 98, Carbon Dioxide Level 27, Anion Gap 6, Blood Urea Nitrogen 9, Creatinine 0.5L, Estimat Glomerular Filtration Rate > 60, Glucose Level 95, Hemoglobin A1c 5.0, Uric Acid 3.8, Calcium Level 8.7, Phosphorus Level 3.2, Magnesium Level 2.1, Total Bilirubin 0.5, Direct Bilirubin 0.1, Aspartate Amino Transf (AST/SGOT) 34, Alanine Aminotransferase (ALT/SGPT) 22, Alkaline Phosphatase 129H, Total Protein 7.7, Albumin 3.8, Triglycerides Level 99, Cholesterol Level 267H, LDL Cholesterol 173H, HDL Cholesterol 63H, Cholesterol/ HDL Ratio 4.2, Thyroid Stimulating Hormone (TSH) 88.947H Height (Feet): 5 Height (Inches): 4.00 Weight (Pounds): 150 Cardiovascular: normal rate Respiratory/Chest: lungs clear Mindy Bryan MD Jul 28, 2019 15:54
[2019-07-28 16:00] VITALS: BP 111/66
--- NOTE | 2019-07-28 16:16 | Consultation ---
Consult Note Consult Note asked to evaluate at the request of dr fowler for low Na Know to me from her previous admission Patient presented after witnessed seizure at facility. Some recent facial trauma. Prior history of seizures on Keppra. Did not get Keppra this morning. 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
--- NOTE | 2019-07-28 18:42 | NUR ---
CASE MANAGEMENT: REVIEW 69Y/FEMALE BIBA FROM [facility] CC: SEIZURE . HEAD INJURY SI: SEIZURE . FACIAL TRAUMA T 98.4 HR 92 RR 18 BP 152/95 SAT 93% ROOM AIR NA 134 CHLORIDE 97 AST 38 ALK PHOS 143 IS: KEPPRA IV X1 PATIENT ADMITTED TO TELEMETRY UNIT 07/27/2019 DCP: PATIENT IS FROM [facility] CONV
--- NOTE | 2019-07-28 19:19 | NUR ---
HAND-OFF: Report given to COLLIN Nguyen.
--- NOTE | 2019-07-28 19:50 | NUR ---
NURSE NOTES: Received pt from COLLIN Kerr. Pt asleep. Bed in lowest position. Call light within reach. Will continue to monitor.
[2019-07-28 20:00] VITALS: BP 124/73
[2019-07-28] MEDS: Metoprolol Tartrate 12.5mg TAB ORAL SCH (20:39)
[2019-07-29] VITALS: BP 117/66
[2019-07-29 04:00] VITALS: BP 115/69
--- NOTE | 2019-07-29 05:34 | Hematology/Onc Progress Note ---
Assessment/Plan Assessment/Plan ASSESSMENT AND RECOMMENDATIONS: 1. Deep venous thrombosis of the right lower extremity. Partial visualization of an IVC filter. --> imaging has been reviewed --> hold off on anticoagulation given IVC filter is in place --> duplex lower ext ordered 2. history Thrombocytopenia, likely secondary to underlying liver disease, continue to closely monitor. This is the lowest counts she has had for past several years --> prior labs reviewed, hepatitis panel reviewed --> us of the abdomen was reviewed --> meds reviewed as well --> transfuse if she is bleeding with platelets --> plt trend 112-->180 3. Anemia secondary to chronic disease. --> w/u reviewed from prior adm 4. Hyponatremia. Nephrology is following --> Fluid restriction --> appreciate nephro recs 5. Seizure disorder --> Dr. Batista consulted 6. Left hip pain due to Lumbar compression fracture -- pain meds prn --> pain management DW RN and appreciate the consultation. Subjective HEENT: Denies: no symptoms, eye pain, blurred vision, tearing, double vision, ear pain, ear discharge, nose pain, nose congestion, throat pain, throat swelling, mouth pain, mouth swelling, other Cardiovascular: Denies: no symptoms, chest pain, edema, irregular heart rate, lightheadedness, palpitations, syncope, other Gastrointestinal/Abdominal: Denies: no symptoms, abdomen distended, abdominal pain, black stools, tarry stools, blood in stool, constipated, diarrhea, difficulty swallowing, nausea, poor appetite, poor fluid intake, rectal bleeding , vomiting, other Genitourinary: Denies: no symptoms, burning, discharge, frequency, flank pain, hematuria, incontinence, pain, urgency, other Neurologic/Psychiatric: Denies: no symptoms, anxiety, depressed, emotional problems, headache, numbness, paresthesia, pre-existing deficit, seizure, tingling, tremors, weakness, other Endocrine: Denies: no symptoms, excessive sweating, flushing, intolerance to cold, intolerance to heat, increased hunger, increased thirst, increased urine, unexplained weight gain, unexplained weight loss, other Allergies: Coded Allergies: CIPROFLOXACIN (Verified Allergy, Unknown, 10/02/13) HYDROCODONE (Verified Allergy, Unknown, 10/02/13) PENICILLINS (Verified Allergy, Unknown, 12/26/13) PROCHLORPERAZINE (Verified Allergy, Unknown, 10/02/13) Subjective 07/29: no events, no f/c, no bleeding reported, no changes Objective Objective Current Medications Medications (Trade) Dose Ordered Sig/Karlee Route PRN Reason Start Time Stop Time Status Last Admin Dose Admin Calcium Carbonate (Tums) 500 mg DAILY ORAL 07/28/19 09:00 08/27/19 08:59 07/28/19 09:09 Enoxaparin Sodium (Lovenox) 40 mg DAILY SUBQ 07/28/19 09:00 08/27/19 08:59 07/28/19 09:11 Folic Acid (Folate) 1 mg DAILY ORAL 07/28/19 09:00 08/27/19 08:59 07/28/19 09:09 Levetiracetam (Keppra) 750 mg Q12HR ORAL 07/27/19 21:00 08/26/19 20:59 07/28/19 20:39 Levothyroxine Sodium (Synthroid) 100 mcg DAILY IV 07/28/19 17:30 08/27/19 17:29 07/28/19 17:24 Metoprolol Tartrate (Lopressor) 12.5 mg Q12HR ORAL 07/28/19 21:00 08/27/19 08:59 07/28/19 20:39 Multivitamins Therapeutic (Therapeutic Multivitamin) 1 ea DAILY ORAL 07/28/19 09:00 08/27/19 08:59 07/28/19 09:09 Potassium Chloride (K-Dur) 40 meq DAILY ORAL 07/28/19 16:30 08/27/19 16:29 07/28/19 17:24 Last 24 Hour Vital Signs Date Time Temp Pulse Resp B/P (MAP) Pulse Ox O2 Delivery O2 Flow Rate FiO2 07/29/19 04:00 97.0 64 16 115/69 (84) 97 07/29/19 00:00 65 07/29/19 00:00 96.2 60 16 117/66 (83) 98 07/28/19 21:00 Room Air 07/28/19 20:39 71 124/73 07/28/19 20:00 68 07/28/19 20:00 96.4 71 16 124/73 (90) 98 07/28/19 16:00 97.4 61 20 111/66 (81) 96 07/28/19 15:53 66 07/28/19 12:00 97.6 64 18 140/80 (100) 97 07/28/19 11:47 60 07/28/19 09:10 68 132/75 07/28/19 09:10 132/75 07/28/19 09:00 Room Air 07/28/19 07:59 75 07/28/19 07:58 97.7 75 20 132/74 (93) 95 07/28/19 04:00 67 07/28/19 04:00 98.2 75 20 147/80 (102) 98 07/28/19 00:00 97.9 67 20 148/82 (104) 97 07/28/19 00:00 72 07/27/19 21:00 Room Air 07/27/19 20:00 73 07/27/19 16:00 98.6 101 20 146/104 (118) 07/27/19 15:43 79 07/27/19 14:21 98.1 81 18 151/81 (104) 07/27/19 14:20 Room Air 07/27/19 13:46 74 13 152/98 97 Room Air 07/27/19 13:00 79 18 130/82 98 Room Air 07/27/19 12:00 73 18 150/78 98 Room Air 07/27/19 11:07 72 15 144/70 97 Room Air 07/27/19 10:43 81 16 136/84 96 Room Air 07/27/19 10:43 81 14 Room Air 07/27/19 09:28 98.4 92 18 152/95 (114) 93 Room Air Intake and Output 07/28/19 07/29/19 19:00 07:00 Intake Total 480 ml Balance 480 ml Intake Oral 480 ml # Voids 3 Labs Test 07/27/19 09:55 07/28/19 05:53 White Blood Count 7.7 K/UL (4.8-10.8) 5.1 K/UL (4.8-10.8) Red Blood Count 4.64 M/UL (4.20-5.40) 4.14 M/UL (4.20-5.40) Hemoglobin 14.2 G/DL (12.0-16.0) 13.2 G/DL (12.0-16.0) Hematocrit 41.7 % (37.0-47.0) 36.9 % (37.0-47.0) Mean Corpuscular Volume 90 FL (80-99) 89 FL (80-99) Mean Corpuscular Hemoglobin 30.7 PG (27.0-31.0) 31.8 PG (27.0-31.0) Mean Corpuscular Hemoglobin Concent 34.2 G/DL (32.0-36.0) 35.7 G/DL (32.0-36.0) Red Cell Distribution Width 10.7 % (11.6-14.8) 10.6 % (11.6-14.8) Platelet Count 180 K/UL (150-450) 159 K/UL (150-450) Mean Platelet Volume 5.4 FL (6.5-10.1) 4.6 FL (6.5-10.1) Neutrophils (%) (Auto) 76.7 % (45.0-75.0) 59.9 % (45.0-75.0) Lymphocytes (%) (Auto) 15.9 % (20.0-45.0) 28.8 % (20.0-45.0) Monocytes (%) (Auto) 5.2 % (1.0-10.0) 8.4 % (1.0-10.0) Eosinophils (%) (Auto) 1.0 % (0.0-3.0) 2.1 % (0.0-3.0) Basophils (%) (Auto) 1.2 % (0.0-2.0) 0.9 % (0.0-2.0) Prothrombin Time 10.0 SEC (9.30-11.50) Prothromb Time International Ratio 0.9 (0.9-1.1) Activated Partial Thromboplast Time 30 SEC (23-33) Urine Color Pale yellow Urine Appearance Clear Urine pH 8 (4.5-8.0) Urine Specific [place] 1.010 (1.005-1.035) Urine Protein Negative (NEGATIVE) Urine Glucose (UA) Negative (NEGATIVE) Urine Ketones Negative (NEGATIVE) Urine Blood 1+ (NEGATIVE) Urine Nitrite Negative (NEGATIVE) Urine Bilirubin Negative (NEGATIVE) Urine Urobilinogen Normal MG/DL (0.0-1.0) Urine Leukocyte Esterase 1+ (NEGATIVE) Urine RBC 0-2 /HPF (0 - 2) Urine WBC 2-4 /HPF (0 - 2) Urine Squamous Epithelial Cells Few /LPF (NONE/OCC) Urine Bacteria Few /HPF (NONE) Sodium Level 134 MMOL/L (136-145) 131 MMOL/L (136-145) Potassium Level 3.8 MMOL/L (3.5-5.1) 3.4 MMOL/L (3.5-5.1) Chloride Level 97 MMOL/L (98-107) 98 MMOL/L (98-107) Carbon Dioxide Level 32 MMOL/L (21-32) 27 MMOL/L (21-32) Anion Gap 5 mmol/L (5-15) 6 mmol/L (5-15) Blood Urea Nitrogen 11 mg/dL (7-18) 9 mg/dL (7-18) Creatinine 0.6 MG/DL (0.55-1.30) 0.5 MG/DL (0.55-1.30) Estimat Glomerular Filtration Rate > 60 mL/min (>60) > 60 mL/min (>60) Glucose Level 98 MG/DL (74-106) 95 MG/DL (74-106) Calcium Level 8.9 MG/DL (8.5-10.1) 8.7 MG/DL (8.5-10.1) Total Bilirubin 0.3 MG/DL (0.2-1.0) 0.5 MG/DL (0.2-1.0) Aspartate Amino Transf (AST/SGOT) 38 U/L (15-37) 34 U/L (15-37) Alanine Aminotransferase (ALT/SGPT) 23 U/L (12-78) 22 U/L (12-78) Alkaline Phosphatase 143 U/L (46-116) 129 U/L (46-116) Total Protein 8.7 G/DL (6.4-8.2) 7.7 G/DL (6.4-8.2) Albumin 4.1 G/DL (3.4-5.0) 3.8 G/DL (3.4-5.0) Globulin 4.6 g/dL Albumin/Globulin Ratio 0.9 (1.0-2.7) Hemoglobin A1c 5.0 % (4.3-6.0) Uric Acid 3.8 MG/DL (2.6-7.2) Phosphorus Level 3.2 MG/DL (2.5-4.9) Magnesium Level 2.1 MG/DL (1.8-2.4) Direct Bilirubin 0.1 MG/DL (0.0-0.3) Triglycerides Level 99 MG/DL (30-150) Cholesterol Level 267 MG/DL (< 200) LDL Cholesterol 173 mg/dL (<100) HDL Cholesterol 63 MG/DL (40-60) Cholesterol/HDL Ratio 4.2 (3.3-4.4) Thyroid Stimulating Hormone (TSH) 88.947 uiU/mL (0.358-3.740) Height (Feet): 5 Height (Inches): 4.00 Weight (Pounds): 150 Objective Vital Signs reviewed Gen: normal inspection, alert, GCS 15 HEENT: normocephalic, atraumatic, bilateral eye PERRL Pulm: normal inspection, chest non-tender, no cwr CV: normal inspection, regular rate, rhythm, no gallop, no murmur Gastrointestinal: normal inspection, soft Lymphatic: normal inspection, no adenopathy Ext: no cce Crow Coley MD Jul 29, 2019 05:34
--- NOTE | 2019-07-29 07:20 | NUR ---
NURSE NOTES: Received report from COLLIN Nguyen. The patient is resting on the bed without acute distress or shortness of breath. The patient's bed in the lowest position, call light in reach, and fall, aspiration, and seizure precaution reinforced. No seizure noted at this time IV site intact and patent. Will continue plan of care.
[2019-07-29 07:22] LABS: BASOPHILS % (AUTO) 0.8 % (0.0-2.0); EOSINOPHILS % (AUTO) 2.8 % (0.0-3.0); HEMATOCRIT 37.4 % (37.0-47.0); LYMPHOCYTES % (AUTO) 35.5 % (20.0-45.0); MEAN CORPUSCULAR VOLUME 90 FL (80-99); MONOCYTES % (AUTO) 10.5 % (1.0-10.0); NEUTROPHILS % (AUTO) 50.3 % (45.0-75.0); PLATELET COUNT 181 K/UL (150-450); RED BLOOD COUNT 4.16 M/UL (4.20-5.40); RED CELL DISTRIBUTION WIDTH 11.8 % (11.6-14.8); WHITE BLOOD COUNT 4.7 K/UL (4.8-10.8)
[2019-07-29 07:48] LABS: ALANINE AMINOTRANSFERASE 24 U/L (12-78); ALBUMIN 3.6 G/DL (3.4-5.0); ALBUMIN/GLOBULIN RATIO 0.8 (1.0-2.7); ALKALINE PHOSPHATASE 121 U/L (46-116); ANION GAP 8 mmol/L (5-15); ASPARTATE AMINO TRANSFERASE 31 U/L (15-37); BILIRUBIN,TOTAL 0.5 MG/DL (0.2-1.0); BLOOD UREA NITROGEN 12 mg/dL (7-18); CALCIUM 9.3 MG/DL (8.5-10.1); CARBON DIOXIDE 28 MMOL/L (21-32); CHLORIDE 99 MMOL/L (98-107); CREATININE 0.6 MG/DL (0.55-1.30); FERRITIN 99 NG/ML (8-388); PHOSPHORUS 3.2 MG/DL (2.5-4.9); POTASSIUM 4.6 MMOL/L (3.5-5.1); SODIUM 135 MMOL/L (136-145)
--- NOTE | 2019-07-29 07:49 | NUR ---
HAND-OFF: Report given to COLLIN Payton. Pt stable.
[2019-07-29 08:00] VITALS: BP 128/70
[2019-07-29 08:00] LABS: IRON 74 ug/dL (50-175)
[2019-07-29 08:14] LABS: % IRON SATURATION 22 % (15-50); TOTAL IRON BINDING CAPACITY 341 ug/dL (250-450)
[2019-07-29] MEDS: Metoprolol Tartrate 12.5mg TAB ORAL SCH ×2 (08:53→21:28)
[2019-07-29] MEDS: Tums 500mg ORAL SCH (08:54)
[2019-07-29] MEDS: Multivitamin w/Minerals tab ORAL SCH (08:54)
[2019-07-29] MEDS: Enoxaparin 40mg Inj SUBQ SCH (08:55)
[2019-07-29] MEDS: Liothyronine 5mcg tab ORAL SCH (10:07)
--- NOTE | 2019-07-29 11:27 | Diagnostic Imaging Report ---
APPROVED REPORT CPT Code: 90534 Present Symptoms Lower Extremity Pain: BILATERAL: Imaging reveals a patent deep venous system bilaterally. There is no evidence of thrombus within the femoral, popliteal or tibial segments. The greater saphenous veins are also within normal limits. Doppler indicates normal spontaneous flow within these segments.
--- NOTE | 2019-07-29 11:30 | NUR ---
NURSE NOTES: The patient is stable without acute distress or shortness of breath. Will continue plan of care.
[2019-07-29 12:00] VITALS: BP 134/71
--- NOTE | 2019-07-29 12:07 | NUR ---
*-* INSURANCE *-* ALL AVAILABLE CLINICALS HAVE BEEN FAXED TO: LISANDRO MELVIN [facility]#[phone] FAX#[phone] REVIEWS/CLINICALS
--- NOTE | 2019-07-29 13:17 | Nephrology Progress Note ---
Assessment/Plan Problem List: (1) Hyponatremia (2) Hypothyroidism (3) Seizure disorder Assessment Low Na ? SIADH HypoThyroidism h/o Lumbar compression fracture Sz disorder Plan Fluid restriction Saline and Lasix as needed IV synthroid for now anti Sz meds per consultants Subjective ROS Limited/Unobtainable: No Constitutional: Reports: malaise Objective Objective Last 24 Hour Vital Signs Date Time Temp Pulse Resp B/P (MAP) Pulse Ox O2 Delivery O2 Flow Rate FiO2 07/29/19 12:00 98.7 61 18 134/71 (92) 96 07/29/19 09:00 Room Air 07/29/19 08:53 64 128/70 07/29/19 08:00 98.6 64 18 128/70 (89) 96 07/29/19 08:00 66 07/29/19 04:00 63 07/29/19 04:00 97.0 64 16 115/69 (84) 97 07/29/19 00:00 65 07/29/19 00:00 96.2 60 16 117/66 (83) 98 07/28/19 21:00 Room Air 07/28/19 20:39 71 124/73 07/28/19 20:00 68 07/28/19 20:00 96.4 71 16 124/73 (90) 98 07/28/19 16:00 97.4 61 20 111/66 (81) 96 07/28/19 15:53 66 Intake and Output 07/28/19 07/29/19 19:00 07:00 Intake Total 480 ml Balance 480 ml Intake Oral 480 ml # Voids 3 2 Laboratory Tests 07/29/19 05:35: White Blood Count 4.7L, Red Blood Count 4.16L, Hemoglobin 13.0, Hematocrit 37.4 , Mean Corpuscular Volume 90, Mean Corpuscular Hemoglobin 31.4H, Mean Corpuscular Hemoglobin Concent 34.9, Red Cell Distribution Width 11.8, Platelet Count 181, Mean Platelet Volume 4.7L, Neutrophils (%) (Auto) 50.3, Lymphocytes ( %) (Auto) 35.5, Monocytes (%) (Auto) 10.5H, Eosinophils (%) (Auto) 2.8, Basophils (%) (Auto) 0.8, Sodium Level 135L, Potassium Level 4.6, Chloride Level 99, Carbon Dioxide Level 28, Anion Gap 8, Blood Urea Nitrogen 12, Creatinine 0.6, Estimat Glomerular Filtration Rate > 60, Glucose Level 94, Uric Acid 4.2, Calcium Level 9.3, Phosphorus Level 3.2, Magnesium Level 2.3, Iron Level 74, Total Iron Binding Capacity 341, Percent Iron Saturation 22, Unsaturated Iron Binding 267, Ferritin 99, Total Bilirubin 0.5, Aspartate Amino Transf (AST/SGOT) 31, Alanine Aminotransferase (ALT/SGPT) 24, Alkaline Phosphatase 121H, C-Reactive Protein, Quantitative 1.8H, Pro-B-Type Natriuretic Peptide 193H, Total Protein 8.0, Albumin 3.6, Globulin 4.4, Albumin/Globulin Ratio 0.8L, Vitamin B12 Level 647, Folate 51.0, Free Thyroxine 0.44L, Free Triiodothyronine < 0.5L Height (Feet): 5 Height (Inches): 4.00 Weight (Pounds): 150 General Appearance: no apparent distress Cardiovascular: normal rate Respiratory/Chest: lungs clear Abdomen: soft Jesus Valdivia MD Jul 29, 2019 13:17
--- NOTE | 2019-07-29 15:00 | NUR ---
NURSE NOTES: As Dr. Batista has not seen the patient yet, called Dr. Batista's office. Per Dr. Batista, it might be better to get another [employer] consultant. Notified to Dr. Bryan. No answer yet. Will carry out the order as soon as receives it. Will continue plan of care.
--- NOTE | 2019-07-29 15:30 | NUR ---
NURSE NOTES: The patient is stable without acute distress or shortness of breath. Will continue plan of care.
[2019-07-29 16:00] VITALS: BP 137/71
--- NOTE | 2019-07-29 16:17 | NUR ---
NURSE NOTES: Per Dr. Bryan, he consulted again with Dr. Mancilla. Will continue plan of care.
--- NOTE | 2019-07-29 16:28 | General Progress Note ---
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, stable Status: progressing Assessment/Plan: no siezure today dr kim will see the patient breakthru seizure r/o intracranial hemmorrhage Subjective ROS Limited/Unobtainable: Yes Allergies: Coded Allergies: CIPROFLOXACIN (Verified Allergy, Unknown, 10/02/13) HYDROCODONE (Verified Allergy, Unknown, 10/02/13) PENICILLINS (Verified Allergy, Unknown, 10/02/13) PROCHLORPERAZINE (Verified Allergy, Unknown, 10/02/13) Objective Last 24 Hour Vital Signs Date Time Temp Pulse Resp B/P (MAP) Pulse Ox O2 Delivery O2 Flow Rate FiO2 07/29/19 16:00 97.9 63 18 137/71 (93) 95 07/29/19 12:00 98.7 61 18 134/71 (92) 96 07/29/19 12:00 57 07/29/19 09:00 Room Air 07/29/19 08:53 64 128/70 07/29/19 08:00 98.6 64 18 128/70 (89) 96 07/29/19 08:00 66 07/29/19 04:00 63 07/29/19 04:00 97.0 64 16 115/69 (84) 97 07/29/19 00:00 65 07/29/19 00:00 96.2 60 16 117/66 (83) 98 07/28/19 21:00 Room Air 07/28/19 20:39 71 124/73 07/28/19 20:00 68 07/28/19 20:00 96.4 71 16 124/73 (90) 98 Intake and Output 07/28/19 07/29/19 19:00 07:00 Intake Total 480 ml Balance 480 ml Intake Oral 480 ml # Voids 3 2 Laboratory Tests 07/29/19 05:35: White Blood Count 4.7L, Red Blood Count 4.16L, Hemoglobin 13.0, Hematocrit 37.4 , Mean Corpuscular Volume 90, Mean Corpuscular Hemoglobin 31.4H, Mean Corpuscular Hemoglobin Concent 34.9, Red Cell Distribution Width 11.8, Platelet Count 181, Mean Platelet Volume 4.7L, Neutrophils (%) (Auto) 50.3, Lymphocytes ( %) (Auto) 35.5, Monocytes (%) (Auto) 10.5H, Eosinophils (%) (Auto) 2.8, Basophils (%) (Auto) 0.8, Sodium Level 135L, Potassium Level 4.6, Chloride Level 99, Carbon Dioxide Level 28, Anion Gap 8, Blood Urea Nitrogen 12, Creatinine 0.6, Estimat Glomerular Filtration Rate > 60, Glucose Level 94, Uric Acid 4.2, Calcium Level 9.3, Phosphorus Level 3.2, Magnesium Level 2.3, Iron Level 74, Total Iron Binding Capacity 341, Percent Iron Saturation 22, Unsaturated Iron Binding 267, Ferritin 99, Total Bilirubin 0.5, Aspartate Amino Transf (AST/SGOT) 31, Alanine Aminotransferase (ALT/SGPT) 24, Alkaline Phosphatase 121H, C-Reactive Protein, Quantitative 1.8H, Pro-B-Type Natriuretic Peptide 193H, Total Protein 8.0, Albumin 3.6, Globulin 4.4, Albumin/Globulin Ratio 0.8L, Vitamin B12 Level 647, Folate 51.0, Free Thyroxine 0.44L, Free Triiodothyronine < 0.5L Height (Feet): 5 Height (Inches): 4.00 Weight (Pounds): 150 EENT: PERRL/EOMI Neck: supple Cardiovascular: normal rate Mindy Bryan MD Jul 29, 2019 16:28
--- NOTE | 2019-07-29 19:05 | NUR ---
HAND-OFF: Report given to COLLIN Vargas. The patient is resting on the bed without acute distress or shortness of breath. No seizure noticed during the day shift. The patient's bed in the lowest position, call light in reach, and fall, aspiration and seizure precaution reinforced. IV site intact and patent. Endorsed plan of care.
--- NOTE | 2019-07-29 19:06 | NUR ---
NURSE NOTES: Received report from COLLIN Payton. Patient is awake, lying in semi shafer's; resting comfortably. A/Ox4. Primarily faroese speaking. Able to make needs known with assistance. Denies pain at this time. No signs of acute cardiorespiratory distress noted. Checked IV site and flushed. No erythema, bleeding or infiltration noted. Bed siderails padded for seizure precaution. Bed at lowest position, brakes on, siderails x3. Call light within reach. Will continue to monitor.
[2019-07-29 20:00] VITALS: BP 119/66
[2019-07-30] VITALS: BP 121/64
--- NOTE | 2019-07-30 03:40 | NUR ---
NURSE NOTES: Resting throughout the night. No significant change of condition noted. No seizure activity during the shift. Will continue to monitor.
[2019-07-30 04:00] VITALS: BP 121/70
--- NOTE | 2019-07-30 06:16 | Hematology/Onc Progress Note ---
Assessment/Plan Assessment/Plan ASSESSMENT AND RECOMMENDATIONS: 1. Deep venous thrombosis of the right lower extremity. Partial visualization of an IVC filter. --> imaging has been reviewed --> hold off on anticoagulation given IVC filter is in place --> duplex lower ext 07/28 neg for dvt 2. history Thrombocytopenia, likely secondary to underlying liver disease, continue to closely monitor. This is the lowest counts she has had for past several years --> prior labs reviewed, hepatitis panel reviewed --> us of the abdomen was reviewed --> meds reviewed as well --> transfuse if she is bleeding with platelets --> plt trend 112-->180 3. Anemia secondary to chronic disease. --> w/u reviewed from prior adm 4. Hyponatremia. Nephrology is following --> Fluid restriction --> appreciate nephro recs 5. Seizure disorder --> Dr. Batista consulted 6. Left hip pain due to Lumbar compression fracture -- pain meds prn --> pain management DW RN and appreciate the consultation. Subjective Constitutional: Denies: no symptoms, chills, fever, malaise, weakness, other HEENT: Denies: no symptoms, eye pain, blurred vision, tearing, double vision, ear pain, ear discharge, nose pain, nose congestion, throat pain, throat swelling, mouth pain, mouth swelling, other Cardiovascular: Denies: no symptoms, chest pain, edema, irregular heart rate, lightheadedness, palpitations, syncope, other Respiratory: Denies: no symptoms, cough, shortness of breath, SOB with excertion, SOB at rest, sputum, wheezing, other Gastrointestinal/Abdominal: Denies: no symptoms, abdomen distended, abdominal pain, black stools, tarry stools, blood in stool, constipated, diarrhea, difficulty swallowing, nausea, poor appetite, poor fluid intake, rectal bleeding , vomiting, other Genitourinary: Denies: no symptoms, burning, discharge, frequency, flank pain, hematuria, incontinence, pain, urgency, other Neurologic/Psychiatric: Denies: no symptoms, anxiety, depressed, emotional problems, headache, numbness, paresthesia, pre-existing deficit, seizure, tingling, tremors, weakness, other Endocrine: Denies: no symptoms, excessive sweating, flushing, intolerance to cold, intolerance to heat, increased hunger, increased thirst, increased urine, unexplained weight gain, unexplained weight loss, other Allergies: Coded Allergies: CIPROFLOXACIN (Verified Allergy, Unknown, 10/02/13) HYDROCODONE (Verified Allergy, Unknown, 10/02/13) PENICILLINS (Verified Allergy, Unknown, 10/02/13) PROCHLORPERAZINE (Verified Allergy, Unknown, 10/02/13) Subjective 07/29: no events, no f/c, no bleeding reported, no changes 07/30: comfortable, no bleeding or chills, labs noted Objective Objective Current Medications Medications (Trade) Dose Ordered Sig/Karlee Route PRN Reason Start Time Stop Time Status Last Admin Dose Admin Calcium Carbonate (Tums) 500 mg DAILY ORAL 07/28/19 09:00 08/27/19 08:59 07/29/19 08:54 Enoxaparin Sodium (Lovenox) 40 mg DAILY SUBQ 07/28/19 09:00 08/27/19 08:59 07/29/19 08:55 Levetiracetam (Keppra) 750 mg Q12HR ORAL 07/27/19 21:00 08/26/19 20:59 07/29/19 21:27 Levothyroxine Sodium (Synthroid) 100 mcg DAILY IV 07/28/19 17:30 08/27/19 17:29 07/29/19 08:52 Liothyronine Sodium (Cytomel) 5 mcg DAILY ORAL 07/29/19 09:30 08/28/19 09:29 07/29/19 10:07 Metoprolol Tartrate (Lopressor) 12.5 mg Q12HR ORAL 07/28/19 21:00 08/27/19 08:59 07/29/19 21:28 Multivitamins Therapeutic (Therapeutic Multivitamin) 1 ea DAILY ORAL 07/28/19 09:00 08/27/19 08:59 07/29/19 08:54 Potassium Chloride (K-Dur) 40 meq DAILY ORAL 07/28/19 16:30 08/27/19 16:29 07/29/19 08:52 Last 24 Hour Vital Signs Date Time Temp Pulse Resp B/P (MAP) Pulse Ox O2 Delivery O2 Flow Rate FiO2 07/30/19 04:00 96.7 76 16 121/70 (87) 97 07/30/19 04:00 68 07/30/19 00:00 97.6 72 16 121/64 (83) 96 07/30/19 00:00 72 07/29/19 21:28 69 119/66 07/29/19 21:00 Room Air 07/29/19 20:00 97.2 69 16 119/66 (83) 95 07/29/19 20:00 88 07/29/19 16:00 97.9 63 18 137/71 (93) 95 07/29/19 16:00 66 07/29/19 12:00 98.7 61 18 134/71 (92) 96 07/29/19 12:00 57 07/29/19 09:00 Room Air 07/29/19 08:53 64 128/70 07/29/19 08:00 98.6 64 18 128/70 (89) 96 07/29/19 08:00 66 07/29/19 04:00 63 07/29/19 04:00 97.0 64 16 115/69 (84) 97 07/29/19 00:00 65 07/29/19 00:00 96.2 60 16 117/66 (83) 98 07/28/19 21:00 Room Air 07/28/19 20:39 71 124/73 07/28/19 20:00 68 07/28/19 20:00 96.4 71 16 124/73 (90) 98 07/28/19 16:00 97.4 61 20 111/66 (81) 96 07/28/19 15:53 66 07/28/19 12:00 97.6 64 18 140/80 (100) 97 07/28/19 11:47 60 07/28/19 09:10 68 132/75 07/28/19 09:10 132/75 07/28/19 09:00 Room Air 07/28/19 07:59 75 07/28/19 07:58 97.7 75 20 132/74 (93) 95 Intake and Output 07/29/19 07/30/19 18:59 06:59 Intake Total 720 ml 120 ml Balance 720 ml 120 ml Intake Oral 720 ml 120 ml # Voids 5 2 # Bowel Movements 1 Labs Test 07/27/19 09:55 07/28/19 05:53 07/29/19 05:35 White Blood Count 7.7 K/UL (4.8-10.8) 5.1 K/UL (4.8-10.8) 4.7 K/UL (4.8-10.8) Red Blood Count 4.64 M/UL (4.20-5.40) 4.14 M/UL (4.20-5.40) 4.16 M/UL (4.20-5.40) Hemoglobin 14.2 G/DL (12.0-16.0) 13.2 G/DL (12.0-16.0) 13.0 G/DL (12.0-16.0) Hematocrit 41.7 % (37.0-47.0) 36.9 % (37.0-47.0) 37.4 % (37.0-47.0) Mean Corpuscular Volume 90 FL (80-99) 89 FL (80-99) 90 FL (80-99) Mean Corpuscular Hemoglobin 30.7 PG (27.0-31.0) 31.8 PG (27.0-31.0) 31.4 PG (27.0-31.0) Mean Corpuscular Hemoglobin Concent 34.2 G/DL (32.0-36.0) 35.7 G/DL (32.0-36.0) 34.9 G/DL (32.0-36.0) Red Cell Distribution Width 10.7 % (11.6-14.8) 10.6 % (11.6-14.8) 11.8 % (11.6-14.8) Platelet Count 180 K/UL (150-450) 159 K/UL (150-450) 181 K/UL (150-450) Mean Platelet Volume 5.4 FL (6.5-10.1) 4.6 FL (6.5-10.1) 4.7 FL (6.5-10.1) Neutrophils (%) (Auto) 76.7 % (45.0-75.0) 59.9 % (45.0-75.0) 50.3 % (45.0-75.0) Lymphocytes (%) (Auto) 15.9 % (20.0-45.0) 28.8 % (20.0-45.0) 35.5 % (20.0-45.0) Monocytes (%) (Auto) 5.2 % (1.0-10.0) 8.4 % (1.0-10.0) 10.5 % (1.0-10.0) Eosinophils (%) (Auto) 1.0 % (0.0-3.0) 2.1 % (0.0-3.0) 2.8 % (0.0-3.0) Basophils (%) (Auto) 1.2 % (0.0-2.0) 0.9 % (0.0-2.0) 0.8 % (0.0-2.0) Prothrombin Time 10.0 SEC (9.30-11.50) Prothromb Time International Ratio 0.9 (0.9-1.1) Activated Partial Thromboplast Time 30 SEC (23-33) Urine Color Pale yellow Urine Appearance Clear Urine pH 8 (4.5-8.0) Urine Specific [place] 1.010 (1.005-1.035) Urine Protein Negative (NEGATIVE) Urine Glucose (UA) Negative (NEGATIVE) Urine Ketones Negative (NEGATIVE) Urine Blood 1+ (NEGATIVE) Urine Nitrite Negative (NEGATIVE) Urine Bilirubin Negative (NEGATIVE) Urine Urobilinogen Normal MG/DL (0.0-1.0) Urine Leukocyte Esterase 1+ (NEGATIVE) Urine RBC 0-2 /HPF (0 - 2) Urine WBC 2-4 /HPF (0 - 2) Urine Squamous Epithelial Cells Few /LPF (NONE/OCC) Urine Bacteria Few /HPF (NONE) Sodium Level 134 MMOL/L (136-145) 131 MMOL/L (136-145) 135 MMOL/L (136-145) Potassium Level 3.8 MMOL/L (3.5-5.1) 3.4 MMOL/L (3.5-5.1) 4.6 MMOL/L (3.5-5.1) Chloride Level 97 MMOL/L (98-107) 98 MMOL/L (98-107) 99 MMOL/L (98-107) Carbon Dioxide Level 32 MMOL/L (21-32) 27 MMOL/L (21-32) 28 MMOL/L (21-32) Anion Gap 5 mmol/L (5-15) 6 mmol/L (5-15) 8 mmol/L (5-15) Blood Urea Nitrogen 11 mg/dL (7-18) 9 mg/dL (7-18) 12 mg/dL (7-18) Creatinine 0.6 MG/DL (0.55-1.30) 0.5 MG/DL (0.55-1.30) 0.6 MG/DL (0.55-1.30) Estimat Glomerular Filtration Rate > 60 mL/min (>60) > 60 mL/min (>60) > 60 mL/min (>60) Glucose Level 98 MG/DL (74-106) 95 MG/DL (74-106) 94 MG/DL (74-106) Calcium Level 8.9 MG/DL (8.5-10.1) 8.7 MG/DL (8.5-10.1) 9.3 MG/DL (8.5-10.1) Total Bilirubin 0.3 MG/DL (0.2-1.0) 0.5 MG/DL (0.2-1.0) 0.5 MG/DL (0.2-1.0) Aspartate Amino Transf (AST/SGOT) 38 U/L (15-37) 34 U/L (15-37) 31 U/L (15-37) Alanine Aminotransferase (ALT/SGPT) 23 U/L (12-78) 22 U/L (12-78) 24 U/L (12-78) Alkaline Phosphatase 143 U/L (46-116) 129 U/L (46-116) 121 U/L (46-116) Total Protein 8.7 G/DL (6.4-8.2) 7.7 G/DL (6.4-8.2) 8.0 G/DL (6.4-8.2) Albumin 4.1 G/DL (3.4-5.0) 3.8 G/DL (3.4-5.0) 3.6 G/DL (3.4-5.0) Globulin 4.6 g/dL 4.4 g/dL Albumin/Globulin Ratio 0.9 (1.0-2.7) 0.8 (1.0-2.7) Hemoglobin A1c 5.0 % (4.3-6.0) Uric Acid 3.8 MG/DL (2.6-7.2) 4.2 MG/DL (2.6-7.2) Phosphorus Level 3.2 MG/DL (2.5-4.9) 3.2 MG/DL (2.5-4.9) Magnesium Level 2.1 MG/DL (1.8-2.4) 2.3 MG/DL (1.8-2.4) Direct Bilirubin 0.1 MG/DL (0.0-0.3) Triglycerides Level 99 MG/DL (30-150) Cholesterol Level 267 MG/DL (< 200) LDL Cholesterol 173 mg/dL (<100) HDL Cholesterol 63 MG/DL (40-60) Cholesterol/HDL Ratio 4.2 (3.3-4.4) Thyroid Stimulating Hormone (TSH) 88.947 uiU/mL (0.358-3.740) Iron Level 74 ug/dL (50-175) Total Iron Binding Capacity 341 ug/dL (250-450) Percent Iron Saturation 22 % (15-50) Unsaturated Iron Binding 267 ug/dL (112-346) Ferritin 99 NG/ML (8-388) C-Reactive Protein, Quantitative 1.8 mg/dL (0.00-0.90) Pro-B-Type Natriuretic Peptide 193 pg/mL (0-125) Vitamin B12 Level 647 PG/ML (193-986) Folate 51.0 NG/ML (8.6-58.9) Free Thyroxine 0.44 NG/DL (0.76-1.46) Free Triiodothyronine < 0.5 pg/mL (2.3-4.2) Height (Feet): 5 Height (Inches): 4.00 Weight (Pounds): 150 Objective Vital Signs reviewed Gen: normal inspection, alert, GCS 15 HEENT: normocephalic, atraumatic, bilateral eye PERRL Pulm: normal inspection, chest non-tender, no cwr CV: normal inspection, regular rate, rhythm, no gallop, no murmur Gastrointestinal: normal inspection, soft Lymphatic: normal inspection, no adenopathy Ext: no cce Crow Coley MD Jul 30, 2019 06:15
--- NOTE | 2019-07-30 07:40 | NUR ---
NURSE NOTES: Received report from Alicia POLANCO. Pt in bed and awake and orientedx4. No c/o pain. No SOB noted. IV site in LAC 20G SL and asymptomatic. Sinus rhythm on monitor. No s/sx of bleeding noted. Bed in lowest position and locked. Will continue to plan of care.
--- NOTE | 2019-07-30 07:40 | NUR ---
NURSE NOTES: Reinforced the patient to use the call light for help or for elimination.
--- NOTE | 2019-07-30 07:40 | NUR ---
HAND-OFF: Report given to COLLIN Malone. Plan of care endorsed.
[2019-07-30 08:00] VITALS: BP 128/67
[2019-07-30] MEDS: Enoxaparin 40mg Inj SUBQ SCH (09:00)
[2019-07-30] MEDS: Metoprolol Tartrate 12.5mg TAB ORAL SCH ×2 (09:10→20:24)
[2019-07-30] MEDS: Multivitamin w/Minerals tab ORAL SCH (09:11)
[2019-07-30] MEDS: Tums 500mg ORAL SCH (09:11)
[2019-07-30] MEDS: Liothyronine 5mcg tab ORAL SCH (09:11)
--- NOTE | 2019-07-30 09:30 | NUR ---
NURSE NOTES: Dr. Coley paged to clarify the order of Lovenox due to possible bleed on Brain ct. No responded.
--- NOTE | 2019-07-30 09:56 | Nephrology Progress Note ---
Assessment/Plan Problem List: (1) Hyponatremia (2) Hypothyroidism (3) Seizure disorder Assessment Low Na ? SIADH HypoThyroidism h/o Lumbar compression fracture Sz disorder Plan Fluid restriction Saline and Lasix as needed IV synthroid for now anti Sz meds per consultants med surg Subjective ROS Limited/Unobtainable: No Constitutional: Reports: malaise Objective Objective Last 24 Hour Vital Signs Date Time Temp Pulse Resp B/P (MAP) Pulse Ox O2 Delivery O2 Flow Rate FiO2 07/30/19 09:10 69 128/69 07/30/19 04:00 96.7 76 16 121/70 (87) 97 07/30/19 04:00 68 07/30/19 00:00 97.6 72 16 121/64 (83) 96 07/30/19 00:00 72 07/29/19 21:28 69 119/66 07/29/19 21:00 Room Air 07/29/19 20:00 97.2 69 16 119/66 (83) 95 07/29/19 20:00 88 07/29/19 16:00 97.9 63 18 137/71 (93) 95 07/29/19 16:00 66 07/29/19 12:00 98.7 61 18 134/71 (92) 96 07/29/19 12:00 57 Intake and Output 07/29/19 07/30/19 19:00 07:00 Intake Total 720 ml 120 ml Balance 720 ml 120 ml Intake Oral 720 ml 120 ml # Voids 5 2 # Bowel Movements 1 Height (Feet): 5 Height (Inches): 4.00 Weight (Pounds): 119 General Appearance: no apparent distress Objective no change Jesus Valdivia MD Jul 30, 2019 09:56
--- NOTE | 2019-07-30 10:39 | NUR ---
*-* INSURANCE *-* ALL AVAILABLE CLINICALS HAVE BEEN FAXED TO: [facility] #[phone] FAX#[phone] REVIEWS/CLINICALS Addendum: 07/30/19 at 1550 by DIMA STRAUSS CRISTIAN [facility] Tracking# [id number] CM: Kailee Rosado
--- NOTE | 2019-07-30 11:30 | NUR ---
HAND-OFF: Report given to Sherron POLANCO. Pt remains stable.
--- NOTE | 2019-07-30 11:45 | NUR ---
NURSE NOTES: I received report from COLLIN Stringer from Tele; patient awake, alert x4, Bengali speaking, patient's daughter at the bed side; on room air, no sing of distress and shortness of breath; no sing of chest pain; IV Left AC 20G flushes well; patient had right eye bruise; side rails up for seizure percussion and aspiration percussion; Tele nurse hold Lovenox this morning because fo patient's Head CT result shows exclude subtle bleed, COLLIN Stringer said she communicated MD Coley regarding this matter and no order received by COLLIN Stringer; Bed at lowest position, breaks engaged, bed alarm on, call light within reach; will keep monitoring.
[2019-07-30 12:00] VITALS: BP 120/59
[2019-07-30 16:00] VITALS: BP 121/63
--- NOTE | 2019-07-30 19:40 | NUR ---
NURSE NOTES: Dr. Hart came & seen the pt
--- NOTE | 2019-07-30 19:52 | NUR ---
HAND-OFF: Report given to COLLIN Ivy.
--- NOTE | 2019-07-30 19:53 | NUR ---
NURSE NOTES: Received report & pt from COLLIN Siu. Pt lying in bed, a&ox3, Luxembourgish speaking only, in room air. No s/s of acute distress & no c/o pain at this time. Right eye ecchymosis noted, otherwise skin intact. IV site intact & S/L'd. Bed in lowest position, call light within reach. Will continue to monitor.
[2019-07-30 20:00] VITALS: BP 128/72
--- NOTE | 2019-07-30 20:42 | Consultation ---
Consult Note Consult Note NEUROLOGY CONSULTATION: Full note dictated # 69-year-old, right-handed, lady, who has a past history of hypertension, diabetes mellitus, cerebrovascular disease with prior strokes, and seizure disorder. She was apparently noted to have a seizure in a long term the exact details of which are unknown to any of us. She was then sent to [facility] to be taken care of. Since she has been in the hospital she has been seizure-free. She herself is completely oblivious as to why she is here. ON EXAM: Awake and alert Oriented to self only Memory: 3/3-0, 2/3-1 and 3 even on second trial Unable to remember any [place] presidents Unable to do simple math Unable to do visual-spatial problems Unclear what her educational level is Speech with mild dysarthria Language anomia in Korean Cranial nerves II through XII intact Motor: G 5/5 except for G 4+/5 in finger extensors and iliopsoas muscles bilaterally Sensory: Intact to light touch Reflexes: 1+ and bilaterally symmetrical at biceps triceps brachioradialis and knees 0 at both ankles plantar responses flexor Coordination: [id number] within normal limits difficulty with performing [id number] bilaterally Stance and gait deferred as patient says that she cannot walk. IMPRESSION: Patient with multiple medical problems including seizure disorder who came in following a breakthrough seizure unfortunately it is unclear as to what kind of seizure the patient has had or had on that day. 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 The patient was on Depakote 500 mg every 12 hours and Keppra 750 mg every 12 hours at her long term however for some reason the Depakote has been held at [facility]. Recommendations: 1. Continue Keppra 750 mg every 12 hours. 2. Restart Depakote but increase dose to 750 mg every 12 hours. 3. EEG to better delineate type of seizure disorder. 4. MRI of brain to evaluate for acute cerebrovascular event. 5. Mobilize with help of physical and occupational therapy. Tyson Hart M.D., M.S.P.H. Tyson Hart MD Jul 30, 2019 20:42
[2019-07-30] MEDS: Depakote ER 250mg tab ORAL SCH (21:31)
[2019-07-31] VITALS (7 sets, daily range): BP systolic 102–141; BP diastolic 59–78
[2019-07-31 06:28] LABS: BASOPHILS % (AUTO) 1.1 % (0.0-2.0); EOSINOPHILS % (AUTO) 2.9 % (0.0-3.0); HEMATOCRIT 37.9 % (37.0-47.0); LYMPHOCYTES % (AUTO) 32.4 % (20.0-45.0); MEAN CORPUSCULAR VOLUME 90 FL (80-99); MONOCYTES % (AUTO) 11.7 % (1.0-10.0); PLATELET COUNT 197 K/UL (150-450); RED CELL DISTRIBUTION WIDTH 11.7 % (11.6-14.8)
[2019-07-31 07:08] LABS: ALANINE AMINOTRANSFERASE 23 U/L (12-78); ALBUMIN 3.6 G/DL (3.4-5.0); ALBUMIN/GLOBULIN RATIO 0.8 (1.0-2.7); ALKALINE PHOSPHATASE 121 U/L (46-116); ANION GAP 8 mmol/L (5-15); ASPARTATE AMINO TRANSFERASE 29 U/L (15-37); BILIRUBIN,TOTAL 0.4 MG/DL (0.2-1.0); BLOOD UREA NITROGEN 15 mg/dL (7-18); CARBON DIOXIDE 28 MMOL/L (21-32); CHLORIDE 103 MMOL/L (98-107); CREATININE 0.6 MG/DL (0.55-1.30); PHOSPHORUS 3.6 MG/DL (2.5-4.9); POTASSIUM 4.3 MMOL/L (3.5-5.1); SODIUM 139 MMOL/L (136-145)
--- NOTE | 2019-07-31 07:30 | NUR ---
HAND-OFF: Report given to COLLIN Cadena. Pt in stable condition. Rounds done. Called [place] (forestry technician) & informed him pt has an order for EEG. Endorsed to COLLIN Cadena.
--- NOTE | 2019-07-31 08:00 | NUR ---
NURSE NOTES: Patient awake and alert to name,respirations unlabored.patient sitting up in bed and eating breakfast.Bed alarm is on,call light within reach,side rails are padded
[2019-07-31] MEDS: Enoxaparin 40mg Inj SUBQ SCH (09:00)
[2019-07-31] MEDS: Liothyronine 5mcg tab ORAL SCH (09:05)
[2019-07-31] MEDS: Depakote ER 250mg tab ORAL SCH ×2 (09:06→21:12)
[2019-07-31] MEDS: Metoprolol Tartrate 12.5mg TAB ORAL SCH ×2 (09:07→21:11)
[2019-07-31] MEDS: Multivitamin w/Minerals tab ORAL SCH (09:07)
--- NOTE | 2019-07-31 11:47 | Nephrology Progress Note ---
Assessment/Plan Problem List: (1) Hyponatremia (2) Hypothyroidism (3) Seizure disorder Assessment Low Na ? SIADH HypoThyroidism h/o Lumbar compression fracture Sz disorder Plan Fluid restriction Saline and Lasix as needed IV synthroid for now anti Sz meds per consultants med surg Subjective ROS Limited/Unobtainable: No Constitutional: Reports: malaise Objective Objective Last 24 Hour Vital Signs Date Time Temp Pulse Resp B/P (MAP) Pulse Ox O2 Delivery O2 Flow Rate FiO2 07/31/19 09:07 68 121/68 07/31/19 08:53 68 121/68 (85) 07/31/19 08:00 97.7 65 18 123/62 (82) 95 07/31/19 04:00 97.7 63 17 141/78 (99) 96 07/31/19 00:00 98.3 63 17 137/68 (91) 96 07/30/19 21:00 Room Air 07/30/19 20:24 72 128/72 07/30/19 20:00 97.8 72 16 128/72 (90) 96 07/30/19 16:00 97.7 67 18 121/63 (82) 96 07/30/19 12:00 98.4 66 20 120/59 (79) 98 Intake and Output 07/30/19 07/31/19 19:00 07:00 Intake Total 480 ml 360 ml Balance 480 ml 360 ml Intake Oral 480 ml 360 ml # Voids 5 2 # Bowel Movements 5 Laboratory Tests 07/31/19 05:55: White Blood Count 4.0L, Red Blood Count 4.20, Hemoglobin 13.0, Hematocrit 37.9, Mean Corpuscular Volume 90, Mean Corpuscular Hemoglobin 31.0, Mean Corpuscular Hemoglobin Concent 34.3, Red Cell Distribution Width 11.7, Platelet Count 197, Mean Platelet Volume 5.6L, Neutrophils (%) (Auto) 52.0, Lymphocytes (%) (Auto) 32.4, Monocytes (%) (Auto) 11.7H, Eosinophils (%) (Auto) 2.9, Basophils (%) ( Auto) 1.1, Sodium Level 139, Potassium Level 4.3, Chloride Level 103, Carbon Dioxide Level 28, Anion Gap 8, Blood Urea Nitrogen 15, Creatinine 0.6, Estimat Glomerular Filtration Rate > 60, Glucose Level 93, Uric Acid 3.4, Calcium Level 9.0, Phosphorus Level 3.6, Magnesium Level 1.9, Total Bilirubin 0.4, Aspartate Amino Transf (AST/SGOT) 29, Alanine Aminotransferase (ALT/SGPT) 23, Alkaline Phosphatase 121H, Total Protein 8.0, Albumin 3.6, Globulin 4.4, Albumin/ Globulin Ratio 0.8L Height (Feet): 5 Height (Inches): 4.00 Weight (Pounds): 119 General Appearance: no apparent distress Objective no change Jesus Valdivia MD Jul 31, 2019 11:47
--- NOTE | 2019-07-31 11:49 | NUR ---
*-* INSURANCE *-* ALL AVAILABLE CLINICALS HAVE BEEN FAXED TO: [facility] Tracking# [id number] CM: Kailee Rosado #[phone]
--- NOTE | 2019-07-31 13:22 | NUR ---
RD ASSESSMENT & RECOMMENDATIONS SEE CARE ACTIVITY FOR COMPLETE ASSESSMENT DAILY ESTIMATED NEEDS: Needs based on cardiac / 54kg 25-30 kcals/kg 8291-7872 total kcals 1-1.3 g protein/kg 54-70 g total protein 1000ml fluid restriction per MD mL/kg . total fluid mLs NUTRITION DIAGNOSIS: * Altered nutrition related lab values R/T clinical condition as evidenced by low Na (131-> now normalized), on fluid restriction. CURRENT DIET:REGULAR + 1000ml fluid restriction PO DIET RECOMMENDATIONS: Liberalized regular diet/ texture per IRON PILER ADDITIONAL RECOMMENDATIONS: * Calibrated bedscale wt for accurate CBW * Fluid restriction per MD * IRON PILER evaluation for appropriate texture -> liquify pureed, NTL was recommended in Aug 2018 admission * Monitor lytes, replete as needed .
--- NOTE | 2019-07-31 15:18 | Diagnostic Imaging Report ---
Indication: Seizures Technique: sagittal T1 fast spin echo, axial T1 FLAIR, axial T2 FLAIR, axial T2 FS PROPELLER, axial T2* GRE, axial diffusion weighted images. ADC and exponential ADC maps generated Comparison: Brain MRI dated 10/06/2013, head CT dated 07/27/2019 Findings: No abnormal areas of restricted diffusion to suggest acute infarction. No acute hemorrhage or edema. No mass effect nor midline shift. There is marked age-related enlargement of the extra-axial CSF spaces and to a lesser extent the ventricles. This has progressed since prior study. The vascular flow voids are preserved. There is old lacunar infarct in the right cerebellar hemisphere.. Visualized orbits and sinuses are unremarkable. No signal abnormality that would correspond with the inferior frontal findings reported on recent CT scan; that finding was presumably artifactual Impression: Marked age-related volume loss, also previously demonstrated Negative for acute intracranial bleed, mass effect, or infarct Inferior frontal lobe findings reported on recent CT scan confirmed to be artifacts
--- NOTE | 2019-07-31 18:30 | NUR ---
NURSE NOTES: patient resting,no complaints ,call light within reach,bed ,side rails padded.Bed alarm on.
--- NOTE | 2019-07-31 19:57 | NUR ---
NURSE NOTES:HAND-OFF: Report given to Cyndi POLANCO.
--- NOTE | 2019-07-31 20:00 | NUR ---
Nurse Notes Received report from Tammi POLANCO. Pt awake alert able to make needs known with pattern drum maker. no acute distress noted. seizure precautions implemented. Pt IV to LAC intact. Pt fluid restriction 1 liter/ 24hours followed. Pt able to void freely with assistance to restroom. bed in lowest position call light in reach pt instructed to call for assistance will continue to monitor pt condition
--- NOTE | 2019-07-31 20:34 | Hematology/Onc Progress Note ---
Assessment/Plan Assessment/Plan ASSESSMENT AND RECOMMENDATIONS: 1. Deep venous thrombosis of the right lower extremity. Partial visualization of an IVC filter. --> imaging has been reviewed --> hold off on anticoagulation given IVC filter is in place --> duplex lower ext 07/28 neg for dvt 2. Leukopenia, likely secondary to underlying liver disease, continue to closely monitor. This is the lowest counts she has had for past several years --> prior labs reviewed, hepatitis panel reviewed --> us of the abdomen was reviewed --> meds reviewed as well --> transfuse if she is bleeding with platelets --> plt trend 112-->180 --> wbc trend 4.7-->4 3. Anemia secondary to chronic disease. --> w/u reviewed from prior adm 4. Hyponatremia. Nephrology is following --> Fluid restriction --> appreciate nephro recs 5. Seizure disorder --> Dr. Batista consulted 6. Left hip pain due to Lumbar compression fracture -- pain meds prn --> pain management DW RN and appreciate the consultation. Subjective Allergies: Coded Allergies: CIPROFLOXACIN (Verified Allergy, Unknown, 10/02/13) HYDROCODONE (Verified Allergy, Unknown, 10/02/13) PENICILLINS (Verified Allergy, Unknown, 10/02/13) PROCHLORPERAZINE (Verified Allergy, Unknown, 10/02/13) Subjective 07/29: no events, no f/c, no bleeding reported, no changes 07/30: comfortable, no bleeding or chills, labs noted 07/31: no events, labs noted, wbc lower Objective Objective Current Medications Medications (Trade) Dose Ordered Sig/Karlee Route PRN Reason Start Time Stop Time Status Last Admin Dose Admin Divalproex Sodium (Depakote ER) 750 mg EVERY 12 HOURS ORAL 07/30/19 21:00 08/29/19 20:59 07/31/19 09:06 Enoxaparin Sodium (Lovenox) 40 mg DAILY SUBQ 07/31/19 09:00 08/27/19 08:59 Levetiracetam (Keppra) 750 mg Q12HR ORAL 07/30/19 21:00 08/26/19 20:59 07/31/19 09:07 Levothyroxine Sodium (Synthroid) 100 mcg DAILY IV 07/31/19 09:00 08/27/19 17:29 07/31/19 09:05 Liothyronine Sodium (Cytomel) 5 mcg DAILY ORAL 07/31/19 09:00 08/28/19 09:29 07/31/19 09:05 Metoprolol Tartrate (Lopressor) 12.5 mg Q12HR ORAL 07/30/19 21:00 08/27/19 08:59 07/31/19 09:07 Multivitamins Therapeutic (Therapeutic Multivitamin) 1 ea DAILY ORAL 07/31/19 09:00 08/27/19 08:59 07/31/19 09:07 Potassium Chloride (K-Dur) 40 meq DAILY ORAL 07/31/19 09:00 08/27/19 16:29 07/31/19 09:06 Last 24 Hour Vital Signs Date Time Temp Pulse Resp B/P (MAP) Pulse Ox O2 Delivery O2 Flow Rate FiO2 07/31/19 12:00 97.3 88 19 131/73 (92) 98 07/31/19 09:07 68 121/68 07/31/19 09:00 Room Air 07/31/19 08:53 68 121/68 (85) 07/31/19 08:00 97.7 65 18 123/62 (82) 95 07/31/19 04:00 97.7 63 17 141/78 (99) 96 07/31/19 00:00 98.3 63 17 137/68 (91) 96 07/30/19 21:00 Room Air 07/30/19 20:24 72 128/72 07/30/19 20:00 97.8 72 16 128/72 (90) 96 07/30/19 16:00 97.7 67 18 121/63 (82) 96 07/30/19 12:00 98.4 66 20 120/59 (79) 98 07/30/19 09:10 69 128/69 07/30/19 09:00 Room Air 07/30/19 08:00 98.3 69 20 128/67 (87) 96 07/30/19 08:00 74 07/30/19 04:00 96.7 76 16 121/70 (87) 97 07/30/19 04:00 68 07/30/19 00:00 97.6 72 16 121/64 (83) 96 07/30/19 00:00 72 07/29/19 21:28 69 119/66 07/29/19 21:00 Room Air Intake and Output 07/30/19 07/31/19 19:00 07:00 Intake Total 480 ml 360 ml Balance 480 ml 360 ml Intake Oral 480 ml 360 ml # Voids 5 2 # Bowel Movements 5 Labs Test 07/29/19 05:35 07/30/19 11:00 07/31/19 05:55 White Blood Count 4.7 K/UL (4.8-10.8) 4.0 K/UL (4.8-10.8) Red Blood Count 4.16 M/UL (4.20-5.40) 4.20 M/UL (4.20-5.40) Hemoglobin 13.0 G/DL (12.0-16.0) 13.0 G/DL (12.0-16.0) Hematocrit 37.4 % (37.0-47.0) 37.9 % (37.0-47.0) Mean Corpuscular Volume 90 FL (80-99) 90 FL (80-99) Mean Corpuscular Hemoglobin 31.4 PG (27.0-31.0) 31.0 PG (27.0-31.0) Mean Corpuscular Hemoglobin Concent 34.9 G/DL (32.0-36.0) 34.3 G/DL (32.0-36.0) Red Cell Distribution Width 11.8 % (11.6-14.8) 11.7 % (11.6-14.8) Platelet Count 181 K/UL (150-450) 197 K/UL (150-450) Mean Platelet Volume 4.7 FL (6.5-10.1) 5.6 FL (6.5-10.1) Neutrophils (%) (Auto) 50.3 % (45.0-75.0) 52.0 % (45.0-75.0) Lymphocytes (%) (Auto) 35.5 % (20.0-45.0) 32.4 % (20.0-45.0) Monocytes (%) (Auto) 10.5 % (1.0-10.0) 11.7 % (1.0-10.0) Eosinophils (%) (Auto) 2.8 % (0.0-3.0) 2.9 % (0.0-3.0) Basophils (%) (Auto) 0.8 % (0.0-2.0) 1.1 % (0.0-2.0) Sodium Level 135 MMOL/L (136-145) 139 MMOL/L (136-145) Potassium Level 4.6 MMOL/L (3.5-5.1) 4.3 MMOL/L (3.5-5.1) Chloride Level 99 MMOL/L (98-107) 103 MMOL/L (98-107) Carbon Dioxide Level 28 MMOL/L (21-32) 28 MMOL/L (21-32) Anion Gap 8 mmol/L (5-15) 8 mmol/L (5-15) Blood Urea Nitrogen 12 mg/dL (7-18) 15 mg/dL (7-18) Creatinine 0.6 MG/DL (0.55-1.30) 0.6 MG/DL (0.55-1.30) Estimat Glomerular Filtration Rate > 60 mL/min (>60) > 60 mL/min (>60) Glucose Level 94 MG/DL (74-106) 93 MG/DL (74-106) Uric Acid 4.2 MG/DL (2.6-7.2) 3.4 MG/DL (2.6-7.2) Calcium Level 9.3 MG/DL (8.5-10.1) 9.0 MG/DL (8.5-10.1) Phosphorus Level 3.2 MG/DL (2.5-4.9) 3.6 MG/DL (2.5-4.9) Magnesium Level 2.3 MG/DL (1.8-2.4) 1.9 MG/DL (1.8-2.4) Iron Level 74 ug/dL (50-175) Total Iron Binding Capacity 341 ug/dL (250-450) Percent Iron Saturation 22 % (15-50) Unsaturated Iron Binding 267 ug/dL (112-346) Ferritin 99 NG/ML (8-388) Total Bilirubin 0.5 MG/DL (0.2-1.0) 0.4 MG/DL (0.2-1.0) Aspartate Amino Transf (AST/SGOT) 31 U/L (15-37) 29 U/L (15-37) Alanine Aminotransferase (ALT/SGPT) 24 U/L (12-78) 23 U/L (12-78) Alkaline Phosphatase 121 U/L (46-116) 121 U/L (46-116) C-Reactive Protein, Quantitative 1.8 mg/dL (0.00-0.90) Pro-B-Type Natriuretic Peptide 193 pg/mL (0-125) Total Protein 8.0 G/DL (6.4-8.2) 8.0 G/DL (6.4-8.2) Albumin 3.6 G/DL (3.4-5.0) 3.6 G/DL (3.4-5.0) Globulin 4.4 g/dL 4.4 g/dL Albumin/Globulin Ratio 0.8 (1.0-2.7) 0.8 (1.0-2.7) Vitamin B12 Level 647 PG/ML (193-986) Folate 51.0 NG/ML (8.6-58.9) Free Thyroxine 0.44 NG/DL (0.76-1.46) Free Triiodothyronine < 0.5 pg/mL (2.3-4.2) Urine Osmolality 707 mOsm/kg (429-449) Urine Random Sodium 23 mmol/L (20-110) Height (Feet): 5 Height (Inches): 4.00 Weight (Pounds): 119 Objective Vital Signs reviewed Gen: normal inspection, alert, GCS 15 HEENT: normocephalic, atraumatic, bilateral eye PERRL Pulm: normal inspection, chest non-tender, no cwr CV: normal inspection, regular rate, rhythm, no gallop, no murmur Gastrointestinal: normal inspection, soft Lymphatic: normal inspection, no adenopathy Ext: no cce Crow Coley MD Jul 31, 2019 20:34
--- NOTE | 2019-07-31 21:43 | General Progress Note ---
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, stable Status: progressing Assessment/Plan: no siezure today dr kim will see the patient dc in am to snf reviewed chart and labs Subjective ROS Limited/Unobtainable: Yes Allergies: Coded Allergies: CIPROFLOXACIN (Verified Allergy, Unknown, 10/02/13) HYDROCODONE (Verified Allergy, Unknown, 10/02/13) PENICILLINS (Verified Allergy, Unknown, 10/02/13) PROCHLORPERAZINE (Verified Allergy, Unknown, 10/02/13) Objective Last 24 Hour Vital Signs Date Time Temp Pulse Resp B/P (MAP) Pulse Ox O2 Delivery O2 Flow Rate FiO2 07/31/19 21:11 67 131/68 07/31/19 16:00 98.1 73 19 102/59 (73) 98 07/31/19 12:00 97.3 88 19 131/73 (92) 98 07/31/19 09:07 68 121/68 07/31/19 09:00 Room Air 07/31/19 08:53 68 121/68 (85) 07/31/19 08:00 97.7 65 18 123/62 (82) 95 07/31/19 04:00 97.7 63 17 141/78 (99) 96 07/31/19 00:00 98.3 63 17 137/68 (91) 96 Intake and Output 07/30/19 07/31/19 19:00 07:00 Intake Total 480 ml 360 ml Balance 480 ml 360 ml Intake Oral 480 ml 360 ml # Voids 5 2 # Bowel Movements 5 Laboratory Tests 07/31/19 05:55: White Blood Count 4.0L, Red Blood Count 4.20, Hemoglobin 13.0, Hematocrit 37.9, Mean Corpuscular Volume 90, Mean Corpuscular Hemoglobin 31.0, Mean Corpuscular Hemoglobin Concent 34.3, Red Cell Distribution Width 11.7, Platelet Count 197, Mean Platelet Volume 5.6L, Neutrophils (%) (Auto) 52.0, Lymphocytes (%) (Auto) 32.4, Monocytes (%) (Auto) 11.7H, Eosinophils (%) (Auto) 2.9, Basophils (%) ( Auto) 1.1, Sodium Level 139, Potassium Level 4.3, Chloride Level 103, Carbon Dioxide Level 28, Anion Gap 8, Blood Urea Nitrogen 15, Creatinine 0.6, Estimat Glomerular Filtration Rate > 60, Glucose Level 93, Uric Acid 3.4, Calcium Level 9.0, Phosphorus Level 3.6, Magnesium Level 1.9, Total Bilirubin 0.4, Aspartate Amino Transf (AST/SGOT) 29, Alanine Aminotransferase (ALT/SGPT) 23, Alkaline Phosphatase 121H, Total Protein 8.0, Albumin 3.6, Globulin 4.4, Albumin/ Globulin Ratio 0.8L Height (Feet): 5 Height (Inches): 4.00 Weight (Pounds): 119 Neck: supple Cardiovascular: normal rate Respiratory/Chest: lungs clear Abdomen: soft Mindy Bryan MD Jul 31, 2019 21:43
--- NOTE | 2019-07-31 21:59 | Neurology Progress Note ---
Interim History Interim History Interim History Ms. Paul Rivera feels well today. She continues to be seizure-free. She feels that her mind is clear. She denies any weakness on one side of the other. She continues to be cognitively impoverished. She did have the MRI scan of the brain performed today. She is tolerating her medicines well. Review of Systems Neuro Review of Systems Benign. Objective Physical Exam Last Vital Signs Date Time Temp Pulse Resp B/P (MAP) Pulse Ox O2 Delivery O2 Flow Rate FiO2 07/31/19 21:11 67 131/68 07/31/19 16:00 98.1 19 98 07/31/19 09:00 Room Air Laboratory Tests Test 07/31/19 05:55 White Blood Count 4.0 K/UL (4.8-10.8) L Red Blood Count 4.20 M/UL (4.20-5.40) Hemoglobin 13.0 G/DL (12.0-16.0) Hematocrit 37.9 % (37.0-47.0) Mean Corpuscular Volume 90 FL (80-99) Mean Corpuscular Hemoglobin 31.0 PG (27.0-31.0) Mean Corpuscular Hemoglobin Concent 34.3 G/DL (32.0-36.0) Red Cell Distribution Width 11.7 % (11.6-14.8) Platelet Count 197 K/UL (150-450) Mean Platelet Volume 5.6 FL (6.5-10.1) L Neutrophils (%) (Auto) 52.0 % (45.0-75.0) Lymphocytes (%) (Auto) 32.4 % (20.0-45.0) Monocytes (%) (Auto) 11.7 % (1.0-10.0) H Eosinophils (%) (Auto) 2.9 % (0.0-3.0) Basophils (%) (Auto) 1.1 % (0.0-2.0) Sodium Level 139 MMOL/L (136-145) Potassium Level 4.3 MMOL/L (3.5-5.1) Chloride Level 103 MMOL/L (98-107) Carbon Dioxide Level 28 MMOL/L (21-32) Anion Gap 8 mmol/L (5-15) Blood Urea Nitrogen 15 mg/dL (7-18) Creatinine 0.6 MG/DL (0.55-1.30) Estimat Glomerular Filtration Rate > 60 mL/min (>60) Glucose Level 93 MG/DL (74-106) Uric Acid 3.4 MG/DL (2.6-7.2) Calcium Level 9.0 MG/DL (8.5-10.1) Phosphorus Level 3.6 MG/DL (2.5-4.9) Magnesium Level 1.9 MG/DL (1.8-2.4) Total Bilirubin 0.4 MG/DL (0.2-1.0) Aspartate Amino Transf (AST/SGOT) 29 U/L (15-37) Alanine Aminotransferase (ALT/SGPT) 23 U/L (12-78) Alkaline Phosphatase 121 U/L (46-116) H Total Protein 8.0 G/DL (6.4-8.2) Albumin 3.6 G/DL (3.4-5.0) Globulin 4.4 g/dL Albumin/Globulin Ratio 0.8 (1.0-2.7) L Neurologic Exam Objective MENTAL STATUS EXAMINATION: Awake and alert Oriented to self only Memory: 3/3-0, 2/3-1 and 3 even on second trial Unable to remember any [place] presidents Unable to do simple math Unable to do visual-spatial problems Unclear what her educational level is SPEECH: Mild dysarthria LANGUAGE: Anomia in [place] CRANIAL NERVE EXAMINATION: II through XII intact MOTOR: G 5/5 except for G 4+/5 in finger extensors and iliopsoas muscles bilaterally SENSORY: Intact to light touch REFLEXES: 1+ and bilaterally symmetrical at biceps, triceps, brachioradialis, and knees. 0 at both ankles. Plantar responses flexor COORDINATION: [id number] within normal limits. Difficulty with performing [id number] bilaterally STANCE & GAIT: Deferred as patient says that she cannot walk. Impression/Recommendations Diagnostic Impression 1. Ms. Paul Rivera is a 69-year-old, right-handed, lady, who has a past history of hypertension, diabetes mellitus, cerebrovascular disease with prior strokes, and seizure disorder. She was apparently noted to have a seizure in a [place] [facility] facility the exact details of which are unknown to any of us. She was then sent to [facility] to be taken care of. Since she has been in the hospital she has been seizure-free. 2. She feels well today. She continues to be seizure-free. She feels that her mind is clear. She denies any weakness on one side of the other. She continues to be cognitively impoverished. She did have the MRI scan of the brain performed today. She is tolerating her medicines well. 3. On neurological examination, at this time, she is oriented to self only. She does have significant problems with recent and remote memory, visual- spatial function, higher cognitive function, and language. She exhibits weakness in her finger extensors and iliopsoas muscles bilaterally. Her deep tendon reflexes are globally diminished. She is unable to perform [id number] testing. She is unable to stand or walk with the help of one person only. 4. The MRI scan of the brain performed on 07/31/2019 reveals enlarged extra- axial CSF spaces bilaterally. In addition she has a small old right cerebellar lacune. No acute pathology is seen. 5. The patient's history and neurological examination are most compatible with an underlying seizure disorder with a breakthrough seizure most probably due to subtherapeutic anticonvulsants. Recommendations 1. Continue present management. 2. Continue Keppra 750 mg every 12 hours. 3. Continue Depakote 750 mg every 12 hours. 4. Await EEG. 5. Mobilize with help of physical and occupational therapy. Tyson Hart M.D., M.S.P.H. Tyson Hart MD Jul 31, 2019 21:59
[2019-08-01] VITALS: BP 126/72
[2019-08-01 04:00] VITALS: BP 140/73
[2019-08-01 08:00] VITALS: BP 119/65
--- NOTE | 2019-08-01 08:07 | NUR ---
nurse notes report given to Salma MARIEE
--- NOTE | 2019-08-01 08:08 | NUR ---
NURSE NOTES: Received report from COLLIN Hanna. Pt is A/Ox4, on RA, IV site intact and patent. No apparent distress or complaints of pain at the moment. Bed locked in lowest position, side rails up, call light within reach. Reinforced pt to used the call light when getting out of the bed.
--- NOTE | 2019-08-01 08:14 | NUR ---
Nurses Notes Dr Franklyn salas regarding pt trending down WBC report given to ongoing nurse
[2019-08-01] MEDS: Multivitamin w/Minerals tab ORAL SCH (08:59)
[2019-08-01] MEDS: Liothyronine 5mcg tab ORAL SCH (08:59)
[2019-08-01] MEDS: Depakote ER 250mg tab ORAL SCH (09:00)
[2019-08-01] MEDS: Metoprolol Tartrate 12.5mg TAB ORAL SCH ×2 (09:00→09:42)
[2019-08-01] MEDS: Enoxaparin 40mg Inj SUBQ SCH (09:01)
--- NOTE | 2019-08-01 11:38 | Nephrology Progress Note ---
Assessment/Plan Problem List: (1) Hyponatremia (2) Hypothyroidism (3) Seizure disorder Assessment Low Na ? SIADH HypoThyroidism h/o Lumbar compression fracture Sz disorder Plan Fluid restriction Saline and Lasix as needed IV synthroid for now anti Sz meds per consultants med surg Subjective ROS Limited/Unobtainable: No Objective Objective Last 24 Hour Vital Signs Date Time Temp Pulse Resp B/P (MAP) Pulse Ox O2 Delivery O2 Flow Rate FiO2 08/01/19 09:42 65 119/65 08/01/19 08:00 98.0 65 20 119/65 (83) 97 08/01/19 04:00 98.1 64 18 140/73 (95) 97 08/01/19 00:00 98.6 66 18 126/72 (90) 96 07/31/19 21:11 67 131/68 07/31/19 21:00 Room Air 07/31/19 20:00 98.4 67 18 131/68 (89) 95 07/31/19 16:00 98.1 73 19 102/59 (73) 98 07/31/19 12:00 97.3 88 19 131/73 (92) 98 Intake and Output 07/31/19 08/01/19 19:00 07:00 Intake Total 360 ml 480 ml Balance 360 ml 480 ml Intake Oral 360 ml 480 ml # Voids 4 4 # Bowel Movements 1 Height (Feet): 5 Height (Inches): 4.00 Weight (Pounds): 119 General Appearance: no apparent distress Objective no change Jesus Valdivia MD Aug 01, 2019 11:38
--- NOTE | 2019-08-01 11:53 | Consultation ---
DATE OF CONSULTATION: 07/30/2019 NEUROLOGY CONSULTATION CONSULTING PHYSICIAN: Tyson Hart M.D. REQUESTING PHYSICIAN: Mindy Bryan M.D. HISTORY: Ms. Paul Rivera is a 69-year-old, right-handed, lady, who does have a past history of hypertension, diabetes mellitus, cerebrovascular disease with prior strokes and a seizure disorder, the exact details of which are unknown to us. She was apparently noted to have a seizure at her usp. The exact details of which are unknown to us. She was then sent to [facility] to be taken care of. Since she has been in the hospital, she has been seizure-free. She herself is completely oblivious as to why she is here. She is unable to give any further history. PAST MEDICAL HISTORY: Significant for hypertension, diabetes mellitus, cerebrovascular disease with prior strokes, and seizure disorder. FAMILY HISTORY: Nothing significant with definitely no family history of seizures. PERSONAL HISTORY: Home: She lives in a usp. Work: She is unemployed. Habits: Unknown. MEDICATIONS: Present medications include Lovenox, Synthroid, Cytomel, multivitamins, potassium chloride, metoprolol, and Keppra 750 mg q.12 hours. Please note that she is not on the Depakote 500 mg q.12 hours that she was taking when she was at a usp. PHYSICAL EXAMINATION: GENERAL: She is a well-developed, well-nourished, pleasant lady, lying in bed, in no acute distress. VITAL SIGNS: Pulse 67/minute, blood pressure 121/63 mmHg, respirations 18/minute, temperature 97.7 degrees Fahrenheit. HEAD: Normocephalic and atraumatic. EENT: Examination was benign. NECK: No neck rigidity was observed. NEUROLOGICAL EXAMINATION: MENTAL STATUS EXAMINATION: She was awake and alert. She was oriented to self only. She had no idea where she was or what the date was. She was able to recall 3/3 words immediately, but could only remember 2/3 words in 1 minute and 3 minutes even on the second trial. She was unable to tell me who the present President was and who prior presidents were. Her mathematical skills were impaired. Her visuospatial function was also impaired. It is unclear what her education level is. SPEECH: She had a mild dysarthria. LANGUAGE: She had anomia even in English. CRANIAL NERVE EXAMINATION: II: The visual sinha were intact to confrontation testing. III, IV, : External ocular movements were full and the pupils 3 mm in diameter, equal, round, regular, and reactive to light. V: She had normal facial sensations, and the temporales, masseters, and pterygoids functioned normally. VII: She had normal facial expressions and no facial asymmetry. VIII: She was able to hear well bilaterally and had no nystagmus. IX: The palate moved symmetrically on phonation. X: She had no hoarseness of voice. XI: The sternocleidomastoids and trapezii functioned normally. XII: The tongue was in the midline without any fasciculations or atrophy. MOTOR SYSTEM: The tone was normal in all four extremities. Examination of muscle mass revealed no focal wasting. Examination of power revealed G 5/5 power except for G 4+/5 power in the finger extensors and iliopsoas muscles bilaterally. SENSORY EXAMINATION: She responded appropriately to light touch. REFLEXES: 1+ and bilaterally symmetrical at the biceps, triceps, brachioradialis, and knees. 0 at both ankles. The plantar responses were flexor bilaterally. COORDINATION: Eaacyc-ki-ldnm testing was performed relatively well. She was unable to perform ymll-ls-osqv testing bilaterally. STANCE & GAIT: Were deferred as the patient said that she has not walked for quite some time now and refused to try to walk. DIAGNOSTIC IMPRESSION: 1. Ms. Amanda Rivera is a 69-year-old, right-handed, lady, who does have a past history of multiple medical problems including hypertension, diabetes mellitus, cerebrovascular disease with prior strokes, the details of which are unknown to us, and seizure disorder the type of which is unknown to us. She was taking Depakote 500 mg twice a day and Keppra 750 mg twice a day and in spite of that, apparently had a breakthrough seizure at her usp. 2. On neurological examination, at this time, she is disoriented to time and place, has significant problems with recent and remote memory, visuospatial function, higher cognitive function, and language. She also has weakness in the finger extensors and iliopsoas muscles bilaterally. The deep tendon reflexes are globally diminished with loss of ankle jerks. She is unable to perform dfpc-sc-xxsg testing and is unable to stand and walk because she says that she has not done so for quite some time now. 3. Her latest laboratory data revealed relatively normal CBC. Chemistry panel with a minimally low sodium of 135, alkaline phosphatase elevated at 121. C-reactive protein elevated at 1.8. Her BNP elevated at 193. TSH elevated at 88, free T4 low at 0.44, and free T3 low at <0.5. Her urinalysis revealed 1+ leukocyte esterase, 0-2 red blood cells, and 2-4 white blood cells per high-power field. 4. The CT scan of the brain performed on 07/27/2019 revealed bilateral subdural collections. She also exhibited deep white matter changes involving the brain however no definite acute pathology was seen. 5. The patient's history, neurological examination, laboratory data, and imaging studies are most consistent with a single breakthrough seizure. The exact details of which are unknown to us in this patient who does have a prior history of seizures. RECOMMENDATIONS: 1. Agree with management thus far. 2. The patient should be restarted on Depakote but the dose should be increased to 750 mg q.12 hours. After three days, a level should be obtained and aim should be for level of between 60-90 mcg/mL. 3. Keppra 750 mg q.12 hours should be continued. 4. An EEG will be ordered to better delineate the type of seizure disorder. 5. An MRI scan of the brain will be ordered to evaluate the patient for acute intracranial pathology. 6. The patient should be mobilized with the help of physical and occupational therapy. Thank you for entrusting me with the care of Ms. Rivera. I shall follow her with you. Tyson Hart M.D., M.S.P.H. DR: Martin JOB#: [id number] BETH
[2019-08-01 12:00] VITALS: BP 127/73
--- NOTE | 2019-08-01 13:57 | NUR ---
*-* INSURANCE *-* ALL AVAILABLE CLINICALS HAVE BEEN FAXED TO: [facility] Tracking# [id number] CM: Kailee Rosado #[phone]
--- NOTE | 2019-08-01 14:53 | NUR ---
DISCHARGE PLANNING DISCHARGE ORDER NOTED [facility] [address] [place] [address] Bed: 16-B Skilled [facility] [phone] for Nurse to Nurse report [facility] ETA for transportation: 16:30
--- NOTE | 2019-08-01 14:59 | Hematology/Onc Progress Note ---
Assessment/Plan Assessment/Plan ASSESSMENT AND RECOMMENDATIONS: 1. Deep venous thrombosis of the right lower extremity. Partial visualization of an IVC filter. --> imaging has been reviewed --> hold off on anticoagulation given IVC filter is in place --> duplex lower ext 07/28 neg for dvt 2. Leukopenia, likely secondary to underlying liver disease, continue to closely monitor. This is the lowest counts she has had for past several years --> prior labs reviewed, hepatitis panel reviewed --> us of the abdomen was reviewed --> meds reviewed as well --> transfuse if she is bleeding with platelets --> plt trend 112-->180 --> wbc trend 4.7-->4 3. Anemia secondary to chronic disease. --> w/u reviewed from prior adm 4. Hyponatremia. Nephrology is following --> Fluid restriction --> appreciate nephro recs 5. Seizure disorder --> Dr. Batista consulted 6. Left hip pain due to Lumbar compression fracture -- pain meds prn --> pain management DW RN and appreciate the consultation. Subjective Cardiovascular: Denies: no symptoms, chest pain, edema, irregular heart rate, lightheadedness, palpitations, syncope, other Respiratory: Denies: no symptoms, cough, shortness of breath, SOB with excertion, SOB at rest, sputum, wheezing, other Gastrointestinal/Abdominal: Denies: no symptoms, abdomen distended, abdominal pain, black stools, tarry stools, blood in stool, constipated, diarrhea, difficulty swallowing, nausea, poor appetite, poor fluid intake, rectal bleeding , vomiting, other Genitourinary: Denies: no symptoms, burning, discharge, frequency, flank pain, hematuria, incontinence, pain, urgency, other Neurologic/Psychiatric: Denies: no symptoms, anxiety, depressed, emotional problems, headache, numbness, paresthesia, pre-existing deficit, seizure, tingling, tremors, weakness, other Endocrine: Denies: no symptoms, excessive sweating, flushing, intolerance to cold, intolerance to heat, increased hunger, increased thirst, increased urine, unexplained weight gain, unexplained weight loss, other Hematologic/Lymphatic: Denies: no symptoms, anemia, easy bleeding, easy bruising, adenopathy, other Allergies: Coded Allergies: CIPROFLOXACIN (Verified Allergy, Unknown, 10/02/13) HYDROCODONE (Verified Allergy, Unknown, 10/02/13) PENICILLINS (Verified Allergy, Unknown, 10/02/13) PROCHLORPERAZINE (Verified Allergy, Unknown, 10/02/13) Subjective 07/29: no events, no f/c, no bleeding reported, no changes 07/30: comfortable, no bleeding or chills, labs noted 07/31: no events, labs noted, wbc lower 08/01: no events, no f/c, dc planning, potential dc today Objective Objective Current Medications Medications (Trade) Dose Ordered Sig/Karlee Route PRN Reason Start Time Stop Time Status Last Admin Dose Admin Divalproex Sodium (Depakote ER) 750 mg EVERY 12 HOURS ORAL 07/30/19 21:00 08/29/19 20:59 08/01/19 09:00 Enoxaparin Sodium (Lovenox) 40 mg DAILY SUBQ 07/31/19 09:00 08/27/19 08:59 08/01/19 09:01 Levetiracetam (Keppra) 750 mg Q12HR ORAL 07/30/19 21:00 08/26/19 20:59 08/01/19 08:59 Levothyroxine Sodium (Synthroid) 100 mcg DAILY IV 07/31/19 09:00 08/27/19 17:29 08/01/19 09:01 Liothyronine Sodium (Cytomel) 5 mcg DAILY ORAL 07/31/19 09:00 08/28/19 09:29 08/01/19 08:59 Metoprolol Tartrate (Lopressor) 12.5 mg Q12HR ORAL 07/30/19 21:00 08/27/19 08:59 08/01/19 09:42 Multivitamins Therapeutic (Therapeutic Multivitamin) 1 ea DAILY ORAL 07/31/19 09:00 08/27/19 08:59 08/01/19 08:59 Potassium Chloride (K-Dur) 40 meq DAILY ORAL 07/31/19 09:00 08/27/19 16:29 08/01/19 08:59 Last 24 Hour Vital Signs Date Time Temp Pulse Resp B/P (MAP) Pulse Ox O2 Delivery O2 Flow Rate FiO2 08/01/19 12:00 97.8 78 20 127/73 (91) 97 08/01/19 09:42 65 119/65 08/01/19 09:00 Room Air 10/25/19 08:00 98.0 65 20 119/65 (83) 97 08/01/19 04:00 98.1 64 18 140/73 (95) 97 08/01/19 00:00 98.6 66 18 126/72 (90) 96 07/31/19 21:11 67 131/68 07/31/19 21:00 Room Air 07/31/19 20:00 98.4 67 18 131/68 (89) 95 07/31/19 16:00 98.1 73 19 102/59 (73) 98 07/31/19 12:00 97.3 88 19 131/73 (92) 98 07/31/19 09:07 68 121/68 07/31/19 09:00 Room Air 07/31/19 08:53 68 121/68 (85) 07/31/19 08:00 97.7 65 18 123/62 (82) 95 07/31/19 04:00 97.7 63 17 141/78 (99) 96 07/31/19 00:00 98.3 63 17 137/68 (91) 96 07/30/19 21:00 Room Air 07/30/19 20:24 72 128/72 07/30/19 20:00 97.8 72 16 128/72 (90) 96 07/30/19 16:00 97.7 67 18 121/63 (82) 96 Intake and Output 07/31/19 08/01/19 19:00 07:00 Intake Total 360 ml 480 ml Balance 360 ml 480 ml Intake Oral 360 ml 480 ml # Voids 4 4 # Bowel Movements 1 Labs Test 07/30/19 11:00 07/31/19 05:55 Urine Osmolality 707 mOsm/kg (429-449) Urine Random Sodium 23 mmol/L (20-110) White Blood Count 4.0 K/UL (4.8-10.8) Red Blood Count 4.20 M/UL (4.20-5.40) Hemoglobin 13.0 G/DL (12.0-16.0) Hematocrit 37.9 % (37.0-47.0) Mean Corpuscular Volume 90 FL (80-99) Mean Corpuscular Hemoglobin 31.0 PG (27.0-31.0) Mean Corpuscular Hemoglobin Concent 34.3 G/DL (32.0-36.0) Red Cell Distribution Width 11.7 % (11.6-14.8) Platelet Count 197 K/UL (150-450) Mean Platelet Volume 5.6 FL (6.5-10.1) Neutrophils (%) (Auto) 52.0 % (45.0-75.0) Lymphocytes (%) (Auto) 32.4 % (20.0-45.0) Monocytes (%) (Auto) 11.7 % (1.0-10.0) Eosinophils (%) (Auto) 2.9 % (0.0-3.0) Basophils (%) (Auto) 1.1 % (0.0-2.0) Sodium Level 139 MMOL/L (136-145) Potassium Level 4.3 MMOL/L (3.5-5.1) Chloride Level 103 MMOL/L (98-107) Carbon Dioxide Level 28 MMOL/L (21-32) Anion Gap 8 mmol/L (5-15) Blood Urea Nitrogen 15 mg/dL (7-18) Creatinine 0.6 MG/DL (0.55-1.30) Estimat Glomerular Filtration Rate > 60 mL/min (>60) Glucose Level 93 MG/DL (74-106) Uric Acid 3.4 MG/DL (2.6-7.2) Calcium Level 9.0 MG/DL (8.5-10.1) Phosphorus Level 3.6 MG/DL (2.5-4.9) Magnesium Level 1.9 MG/DL (1.8-2.4) Total Bilirubin 0.4 MG/DL (0.2-1.0) Aspartate Amino Transf (AST/SGOT) 29 U/L (15-37) Alanine Aminotransferase (ALT/SGPT) 23 U/L (12-78) Alkaline Phosphatase 121 U/L (46-116) Total Protein 8.0 G/DL (6.4-8.2) Albumin 3.6 G/DL (3.4-5.0) Globulin 4.4 g/dL Albumin/Globulin Ratio 0.8 (1.0-2.7) Height (Feet): 5 Height (Inches): 4.00 Weight (Pounds): 119 Objective Vital Signs reviewed Gen: normal inspection, alert, GCS 15 HEENT: normocephalic, atraumatic, bilateral eye PERRL Pulm: normal inspection, chest non-tender, no cwr CV: normal inspection, regular rate, rhythm, no gallop, no murmur Gastrointestinal: normal inspection, soft Lymphatic: normal inspection, no adenopathy Ext: no cce Crow Coley MD Aug 01, 2019 14:59
--- NOTE | 2019-08-01 15:00 | NUR ---
NURSE NOTES: Called report to OUSMANE Starr, at [facility].
--- NOTE | 2019-08-01 15:29 | NUR ---
NURSE NOTES: Notified pt's daughter, Tiffanie Sanchez, of pt's DC to [facility].
--- NOTE | 2019-08-01 15:37 | Neurology Progress Note ---
Interim History Interim History Interim History Ms. Rivera feels well today. She is resting in bed right now. She slept well last night. Her appetite is good and she has been eating well. She continues to be seizure-free. Plans are to send her back to her senior care facility. She denies any new neurological symptoms. Review of Systems Neuro Review of Systems Benign. Objective Physical Exam Last Vital Signs Date Time Temp Pulse Resp B/P (MAP) Pulse Ox O2 Delivery O2 Flow Rate FiO2 08/01/19 12:00 97.8 78 20 127/73 (91) 97 08/01/19 09:00 Room Air Neurologic Exam Objective PHYSICAL EXAMINATION: GENERAL: She is a well-developed, well-nourished, pleasant lady, lying in bed, in no acute distress. HEAD: Normocephalic and atraumatic. EENT: Examination was benign. NECK: No neck rigidity was observed. NEUROLOGICAL EXAMINATION: MENTAL STATUS EXAMINATION: She was awake and alert. She was oriented to self, [facility] and [facility] only. She was able to recall 3/3 words immediately, but could only remember 2/3 words in 1 minute and 3 minutes. She was unable to tell me who the present President was and who prior presidents were. Her mathematical skills were impaired. Her visuospatial function was also impaired. SPEECH: She had a mild dysarthria. LANGUAGE: She had anomia even in Welsh. CRANIAL NERVE EXAMINATION: II: The visual sinha were intact to confrontation testing. III, IV, : External ocular movements were full and the pupils 3 mm in diameter, equal, round, regular, and reactive to light. V: She had normal facial sensations, and the temporales, masseters, and pterygoids functioned normally. VII: She had normal facial expressions and no facial asymmetry. VIII: She was able to hear well bilaterally and had no nystagmus. IX: The palate moved symmetrically on phonation. X: She had no hoarseness of voice. XI: The sternocleidomastoids and trapezii functioned normally. XII: The tongue was in the midline without any fasciculations or atrophy. MOTOR SYSTEM: The tone was normal in all four extremities. Examination of muscle mass revealed no focal wasting. Examination of power revealed G 5/5 power except for G 4+/5 power in the finger extensors and iliopsoas muscles bilaterally. SENSORY EXAMINATION: She responded appropriately to light touch. REFLEXES: 1+ and bilaterally symmetrical at the biceps, triceps, brachioradialis , and knees. 0 at both ankles. The plantar responses were flexor bilaterally. COORDINATION: Ouqesq-bu-auti testing was performed relatively well. STANCE & GAIT: Were deferred. Impression/Recommendations Diagnostic Impression 1. Ms. Paul Rivera is a 69-year-old, right-handed, lady, who has a past history of hypertension, diabetes mellitus, cerebrovascular disease with prior strokes, and seizure disorder. She was apparently noted to have a seizure in a long term the exact details of which are unknown to any of us. She was then sent to [facility] to be taken care of. Since she has been in the hospital she has been seizure-free. 2. She feels well today. She is resting in bed right now. She slept well last night. Her appetite is good and she has been eating well. She continues to be seizure-free. Plans are to send her back to her senior care facility. She denies any new neurological symptoms. She is tolerating her medicines well. 3. On neurological examination, at this time, she is oriented to self, [facility] and July. She does have significant problems with recent and remote memory, visual-spatial function, higher cognitive function, and language. She exhibits weakness in her finger extensors and iliopsoas muscles bilaterally. Her deep tendon reflexes are globally diminished. She is unable to perform zylj-dx-ljfz testing. She is unable to stand or walk with the help of one person only. 4. The MRI scan of the brain performed on 07/31/2019 reveals enlarged extra- axial CSF spaces bilaterally. In addition she has a small old right cerebellar lacune. No acute pathology is seen. 5. The patient's history and neurological examination are most compatible with an underlying seizure disorder with a breakthrough seizure most probably due to subtherapeutic anticonvulsants. Recommendations 1. Continue present management. 2. Continue Keppra 750 mg every 12 hours. 3. Continue Depakote 750 mg every 12 hours. 4. Obtain EEG in future. 5. Mobilize with help of physical and occupational therapy. 6. Agree with discharge to SNF. 7. Get trough Depakote level in next few days and am for VA level of 60-90. Tyson Hart M.D., M.S.P.H. Tyson Hart MD Aug 01, 2019 15:37
[2019-08-01 16:00] VITALS: BP 124/76
--- NOTE | 2019-08-01 19:25 | NUR ---
HAND-OFF: Report given to COLLIN Romero.
--- NOTE | 2019-08-01 19:30 | NUR ---
NURSE NOTES: Received patient in bed, [place] speaking only,patient is in stable condition, awaiting to be transported to [facility]. Call light is within reach, bed is in low position, locked and alarm is on.
--- NOTE | 2019-08-01 19:55 | NUR ---
patient has been transported by ambulance, report is given to ambulance staff. Patient is stable upon discharge, IV removed, belongings been verified.
--- NOTE | 2019-08-03 15:10 | Discharge Summary ---
Discharge Summary Discharge Summary _ DATE OF ADMISSION: 07/27/2019 DATE OF DISCHARGE: 08/01/2019 DISCHARGED BY: Dr. Mindy Paulino CONSULTANTS: Dr. Tyson Valdivia BRIEF HOSPITAL COURSE: Patient is a 69-year-old female, who presented to ED via EMS due to witnessed seizure activity at the facility. Patient has history of seizures on Keppra. She was not able to get the Keppra in the morning. She had a witnessed full tonic-clonic body seizure that lasted for several minutes. Upon evaluation at the ED, patient was alert GCS 15. She was noted to have recent head trauma. Blood work did not show any leukocytosis. Hemoglobin and hematocrit were stable. Electrolytes were normal. Head CT and large extra- axial CSF spaces bilaterally. Increased density which is likely artifactual but may represent a small hemorrhage. She was given IV fluids and was loaded with IV Keppra. She was admitted for evaluation of seizure. Patient has a history of right leg DVT status post IVC filter. She has history of thrombocytopenia, likely secondary to underlying liver disease. Platelet count during this admission was stable. She was placed on fluid restrictions. She was given antiseizure medications. IV Synthroid. Neuro evaluation was done. He was continued on Keppra 750 mg every 12 hours. She was restarted on Depakote but was increased to 750 mg every 12 hours. She had MRI of the brain that revealed an enlarged extra-axial CSF spaces bilaterally. Small old right cerebellar lacunae. Kidney function was monitored. Patient had episodes of hyponatremia. Urine osmolality was 707. Random urine sodium 23. TSH was elevated to 88. She was given 100 mg IV Synthroid. She was given Cytomel 5 mg daily. She was eventually given physical therapy. There was no recurrence of seizure activity. She was eventually discharged back to assisted. DISPOSITION: Patient was discharged home. DISCHARGE MEDICATIONS: Refer to Discharge Medication List. I have been assigned to complete a discharge summary on this account, I was not involved with the patient's management.--HEMA Perez Jacqueline Robles NP Aug 03, 2019 15:10
--- NOTE | 2019-08-04 14:01 | Cardiology Report ---
APPROVED REPORT EKG Measurement Heart [id number] Normal sinus rhythm Possible Left atrial enlargement Right bundle branch block T wave abnormality, consider inferior ischemia Abnormal ECG
== END 2019-08-01 19:55 | DRG 53 ==
LOC: EDBD 09:27 → EDUNIT# 09:27 → EMR 09:43 → EDBEDREQ 10:16 → 2E 10:48 → EDBEDREQ 12:27 → 2E 14:19 → 4E 07-30 11:20
DX: G40.909 Epilepsy, unspecified, not intractable, without status epilepticus (principal); E87.1 Hypo-osmolality and hyponatremia; I10 Essential (primary) hypertension; Z86.73 Personal history of transient ischemic attack (TIA), and cerebral infarction without residual deficits; Z88.1 Allergy status to other antibiotic agents; Z88.0 Allergy status to penicillin; Z88.8 Allergy status to other drugs, medicaments and biological substances; I82.501 Chronic embolism and thrombosis of unspecified deep veins of right lower extremity; D63.8 Anemia in other chronic diseases classified elsewhere; S00.83XA Contusion of other part of head, initial encounter; S32.009A Unspecified fracture of unspecified lumbar vertebra, initial encounter for closed fracture; X58.XXXA Exposure to other specified factors, initial encounter; Z95.828 Presence of other vascular implants and grafts; D69.59 Other secondary thrombocytopenia; E03.9 Hypothyroidism, unspecified
CPT/HCPCS: 36415; 70450; 70551; 71045; 80048; 80053; 80061; 80076; 80299; 81001; 82607; 82728; 82746; 83036; 83540; 83550; 83735; 83880; 83935; 84100; 84300; 84439; 84443; 84481; 84550; 85025; 85610; 85730; 86140; 87081; 93005; 93970; 96372; 96374; 99285; J8499

== ENCOUNTER 2019-09-12 10:50 | Inpatient (IN) | payer MEDICAID ==
[~2019-09-12] VITALS: Ht 162.6 cm; Wt 64.9 kg
[~2019-09-12 10:50] MED LIST changes: +CRANBERRY450 M5 PO; +KEPPRA750 MG ORAL; +OYSTER SHELL C500 MG PO; +SYNTHROID125 MCG ORAL
--- NOTE | 2019-09-12 11:00 | NUR ---
ED Nurse Note: pt brought in by private ambulance from [facility], per EMS report pt had seizure witnessed by nursing staff while sitting on the wheelchair and fell on the ground and hit her head around 0835 am. noted hematoma with abrasion and small bleeding on left orbital area. pt denies blurry vision at this time. pt denies pain but noted mild tenderness on left orbital area. pt vss, resp even and unlabored on RA, AA&ox4, gcs=15, skin warm and dry, sinus rhythm on lunchroom monitor, will cont monitor seizure and aspiration precaution started.
[2019-09-12] MEDS ORDERED: DEPAKOTE250 MG PO (11:01)
[2019-09-12] MEDS ORDERED: COLACE100 MG ORAL (11:01)
[2019-09-12] MEDS ORDERED: OYSTER SHELL C500 MG PO (11:01)
[2019-09-12] MEDS ORDERED: MILK OF MA400 MG/51 ORAL (11:01)
[2019-09-12] MEDS ORDERED: TYLENOL EXTRA500 MG ORAL (11:05)
[2019-09-12] MEDS ORDERED: ACETAMINOPHEN325 M1 ORAL (11:05)
[2019-09-12 11:30] VITALS: BP 167/101
--- NOTE | 2019-09-12 12:17 | Diagnostic Imaging Report ---
Indications: Trauma, status post fall Technique: Spiral acquisitions obtained through the brain. Angled axial and coronal 5 x 5 mm slices were reconstructed. Total dose length product 1214 mGycm. CTDI vol(s) 60 mGy. Dose reduction achieved using automated exposure control Comparison: 07/27/2019 Findings: Again demonstrated is marked age-related enlargement of the extra-axial CSF spaces and to lesser extent the ventricles, more severe on the right than on the left. Again demonstrated is a cortical calcification in the right frontal lobe. There is mild periventricular deep white matter low-attenuation, consistent with chronic microvascular ischemic change. No acute intracranial hemorrhage or edema. No mass effect nor midline shift. Morales-white differentiation is normal. The calvarium is intact. The visualized orbits are unremarkable. There is an air-fluid level in the left maxillary sinus which is a new finding. There is some left malar region soft tissue swelling. There is minimal left mastoid opacification. Impression: Marked age-related volume loss, also previously reported Negative for acute intracranial bleed or mass effect Left malar region soft tissue swelling. Left maxillary sinus air-fluid level, new, presumably due to maxillary sinus trauma. Please refer to separate maxillofacial CT report Left mastoid disease The CT scanner at [facility] is accredited by the [employer] and the scans are performed using protocols designed to limit radiation exposure to as low as reasonably achievable to attain images of sufficient resolution adequate for diagnostic evaluation.
[2019-09-12 12:20] LABS: APPEARANCE,URINE CLEAR; BILIRUBIN, URINE NEGATIVE (NEGATIVE); COLOR,URINE PALE YELLOW; GLUCOSE, URINE (UA) NEGATIVE (NEGATIVE); KETONES,URINE NEGATIVE (NEGATIVE); LEUKOCYTE ESTERASE ,URINE 2+ (NEGATIVE); NITRITE,URINE NEGATIVE (NEGATIVE); PH,URINE 7 (4.5-8.0); PROTEIN,URINE 2+ (NEGATIVE); UROBILINOGEN,URINE NORMAL MG/DL (0.0-1.0)
--- NOTE | 2019-09-12 12:21 | Diagnostic Imaging Report ---
Indications: Head trauma, pain, status post fall Technique: Spiral images obtained through the facial bones. No IV contrast utilized. Multiplanar reconstructions were generated.Total dose length product 529 mGycm. CTDIvol(s) 25 mGy. Dose reduction achieved using automated exposure control Comparison: none Findings: There is left periorbital soft tissue swelling, and possible evidence of a skin laceration. There is a left maxillary sinus air-fluid level. There is a subtle defect in the posterolateral left maxillary sinus wall with a small air bubble that likely indicates a fracture. There is also questionably a nondisplaced fracture of the left orbital floor. The nasal bone is intact. There is minimal ethmoid sinus mucosal disease. The optic globes and retroseptal orbits appear intact. There is evidence of multiple prior tooth extractions with the maxilla being edentulous. The mandible is intact. The visualized cervical spine is unremarkable Impression: Subtle nondisplaced fractures of the right lateral maxillary sinus wall and inferior orbital wall. Left maxillary sinus air-fluid level, presumed posttraumatic related to the above Left periorbital soft tissue contusion demonstrated The CT scanner at [facility] is accredited by the [employer] and the scans are performed using protocols designed to limit radiation exposure to as low as reasonably achievable to attain images of sufficient resolution adequate for diagnostic evaluation.
[2019-09-12 12:25] LABS: BASOPHILS % (AUTO) 1.1 % (0.0-2.0); EOSINOPHILS % (AUTO) 1.2 % (0.0-3.0); HEMATOCRIT 42.7 % (37.0-47.0); HEMOGLOBIN 14.6 G/DL (12.0-16.0); MEAN CORPUSCULAR VOLUME 89 FL (80-99); MONOCYTES % (AUTO) 6.8 % (1.0-10.0); NEUTROPHILS % (AUTO) 62.8 % (45.0-75.0); PLATELET COUNT 194 K/UL (150-450); RED CELL DISTRIBUTION WIDTH 11.5 % (11.6-14.8); WHITE BLOOD COUNT 5.9 K/UL (4.8-10.8)
[2019-09-12 12:30] VITALS: BP 148/77
[2019-09-12 12:34] LABS: ANION GAP 6 mmol/L (5-15); BLOOD UREA NITROGEN 14 mg/dL (7-18); CALCIUM 9.4 MG/DL (8.5-10.1); CARBON DIOXIDE 34 MMOL/L (21-32); CHLORIDE 98 MMOL/L (98-107); CREATININE 0.6 MG/DL (0.55-1.30); POTASSIUM 3.5 MMOL/L (3.5-5.1); SODIUM 138 MMOL/L (136-145)
[2019-09-12 12:39] LABS: ALANINE AMINOTRANSFERASE 22 U/L (12-78); ALBUMIN 4.1 G/DL (3.4-5.0); ALBUMIN/GLOBULIN RATIO 0.9 (1.0-2.7); ALKALINE PHOSPHATASE 134 U/L (46-116); ASPARTATE AMINO TRANSFERASE 40 U/L (15-37); BILIRUBIN,TOTAL 0.4 MG/DL (0.2-1.0)
[2019-09-12] MEDS ORDERED: ceFAZolin 1gm/50ml Premix 50 ML IV ONE (13:30)
--- NOTE | 2019-09-12 14:00 | NUR ---
ED Nurse Note: pt void, cleaned and changed, warm blanket provided for comfort.
--- NOTE | 2019-09-12 14:17 | NUR ---
ED Nurse Note: pt refused nasal swab.
--- NOTE | 2019-09-12 14:27 | NUR ---
ED Nurse Note: REPORT GIVEN TO COLLIN ZARAGOZA
[2019-09-12 14:30] VITALS: BP 146/68
--- NOTE | 2019-09-12 14:53 | Emergency Room Report ---
History of Present Illness General Chief Complaint: Seizure Source: Patient, Medical Record, EMS Present Illness HPI This patient is brought in from a retirement facility. She has a history of CVA and seizures. She presents for evaluation after having a seizure that was witnessed by a staff member. Apparently she was sitting in a chair and had a seizure and fell and hit her face and her left eye. She complains of pain around her left eye. There were no other complaints. Allergies: Coded Allergies: CIPROFLOXACIN (Verified Allergy, Unknown, 10/02/13) HYDROCODONE (Verified Allergy, Unknown, 10/02/13) PENICILLINS (Verified Allergy, Unknown, 10/02/13) PROCHLORPERAZINE (Verified Allergy, Unknown, 10/02/13) Patient History Past Medical History: see triage record, HTN, MD, CAD, GERD, CVA/TIA, seizures Past Surgical History: other - Hx of tracheostomy Social History: Denies: smoking, alcohol use, drug use Reviewed Nursing Documentation: PMH: Agreed; PSxH: Agreed Nursing Documentation-PMH Hx Cardiac Problems: Yes - mi Hx Hypertension: Yes Hx Pacemaker: No Hx Asthma: No - pna, sepsis, resp insuff., neuropathy, hypothyroidsm, Hx COPD: Yes Hx Diabetes: Yes Hx Cancer: No Hx Gastrointestinal Problems: No Hx Neurological Problems: Yes Hx Cerebrovascular Accident: Yes - DVT Hx Dementia: Yes Hx Seizures: Yes Hx Weakness: Yes Review of Systems All Other Systems: negative except mentioned in HPI Physical Exam Vital Signs Date Time Temp Pulse Resp B/P (MAP) Pulse Ox O2 Delivery O2 Flow Rate FiO2 09/12/19 10:48 98.1 87 16 182/101 (128) 98 Room Air Sp02 EP Interpretation: reviewed, normal General Appearance: no apparent distress, alert, GCS 15, non-toxic Head: normocephalic, other - Gaby-orbital ecchymosis over L. eye. 2 mm superficial laceration of Eyes: bilateral eye normal inspection, bilateral eye PERRL ENT: hearing grossly normal, normal pharynx, no angioedema, normal voice Neck: full range of motion, supple/symm/no masses Respiratory: chest non-tender, lungs clear, normal breath sounds, no respiratory distress, no retraction, no accessory muscle use, speaking full sentences Cardiovascular #1: regular rate, rhythm, no edema Gastrointestinal: normal bowel sounds, non tender, soft, non-distended, no guarding, no rebound Rectal: deferred Musculoskeletal: back normal, normal range of motion, non-tender Neurologic: alert, motor strength/tone normal, oriented x3, sensory intact, responsive, speech normal Psychiatric: judgement/insight normal, memory normal, mood/affect normal, no suicidal/homicidal ideation Skin: other - See above in Head. Medical Decision Making Diagnostic Impression: Primary Impression: Seizure disorder Additional Impressions: Fracture of inferior orbital wall Maxillary sinus fracture ER Course This patient has a history of seizure disorders. She had a breakthrough seizure and suffered a inferior orbital wall fracture and a maxillary sinus fracture. I did discuss the case with Dr. Dawson plastics and these are nonsurgical. I did give the patient prophylactic antibiotics as a precaution. Dr. Greer of ophthalmology was consulted to see the patient as an inpatient. Patient will be admitted for seizure control, further monitoring and further evaluation and treatment. Laboratory Tests Test 09/12/19 11:35 White Blood Count 5.9 K/UL (4.8-10.8) Red Blood Count 4.80 M/UL (4.20-5.40) Hemoglobin 14.6 G/DL (12.0-16.0) Hematocrit 42.7 % (37.0-47.0) Mean Corpuscular Volume 89 FL (80-99) Mean Corpuscular Hemoglobin 30.5 PG (27.0-31.0) Mean Corpuscular Hemoglobin Concent 34.3 G/DL (32.0-36.0) Red Cell Distribution Width 11.5 % (11.6-14.8) L Platelet Count 194 K/UL (150-450) Mean Platelet Volume 4.8 FL (6.5-10.1) L Neutrophils (%) (Auto) 62.8 % (45.0-75.0) Lymphocytes (%) (Auto) 28.0 % (20.0-45.0) Monocytes (%) (Auto) 6.8 % (1.0-10.0) Eosinophils (%) (Auto) 1.2 % (0.0-3.0) Basophils (%) (Auto) 1.1 % (0.0-2.0) Prothrombin Time 10.7 SEC (9.30-11.50) Prothrombin Time INR 1.0 (0.9-1.1) PTT 34 SEC (23-33) H Urine Color Pale yellow Urine Appearance Clear Urine pH 7 (4.5-8.0) Urine Specific [place] 1.010 (1.005-1.035) Urine Protein 2+ (NEGATIVE) H Urine Glucose (UA) Negative (NEGATIVE) Urine Ketones Negative (NEGATIVE) Urine Blood 2+ (NEGATIVE) H Urine Nitrite Negative (NEGATIVE) Urine Bilirubin Negative (NEGATIVE) Urine Urobilinogen Normal MG/DL (0.0-1.0) Urine Leukocyte Esterase 2+ (NEGATIVE) H Urine RBC 2-4 /HPF (0 - 2) H Urine WBC 5-10 /HPF (0 - 2) H Urine Squamous Epithelial Cells Occasional /LPF Urine Bacteria Occasional /HPF (NONE) Sodium Level 138 MMOL/L (136-145) Potassium Level 3.5 MMOL/L (3.5-5.1) Chloride Level 98 MMOL/L (98-107) Carbon Dioxide Level 34 MMOL/L (21-32) H Anion Gap 6 mmol/L (5-15) Blood Urea Nitrogen 14 mg/dL (7-18) Creatinine 0.6 MG/DL (0.55-1.30) Estimate Glomerular Filtration Rate > 60 mL/min (>60) Glucose Level 88 MG/DL (74-106) Calcium Level 9.4 MG/DL (8.5-10.1) Total Bilirubin 0.4 MG/DL (0.2-1.0) Aspartate Amino Transferase (AST) 40 U/L (15-37) H Alanine Aminotransferase (ALT) 22 U/L (12-78) Alkaline Phosphatase 134 U/L (46-116) H Troponin I 0.004 ng/mL (0.000-0.056) Total Protein 8.9 G/DL (6.4-8.2) H Albumin 4.1 G/DL (3.4-5.0) Globulin 4.8 g/dL Albumin/Globulin Ratio 0.9 (1.0-2.7) L EKG Diagnostic Results Rate: normal Rhythm: NSR ST Segments: no acute changes Rhythm Strip Diag. Results EP Interpretation: yes Rate: 80's Rhythm: NSR, no PVC's, no ectopy CT/MRI/US Diagnostic Results CT/MRI/US Diagnostic Results : Imaging Test Ordered: CT head, CT max/facial bones Impression Impression: Marked age-related volume loss, also previously reported Negative for acute intracranial bleed or mass effect Left malar region soft tissue swelling. Left maxillary sinus air-fluid level, new, presumably due to maxillary sinus trauma. Please refer to separate maxillofacial CT report Left mastoid disease Impression: Subtle nondisplaced fractures of the right lateral maxillary sinus wall and inferior orbital wall. Left maxillary sinus air-fluid level, presumed posttraumatic related to the above Left periorbital soft tissue contusion demonstrated Last Vital Signs Date Time Temp Pulse Resp B/P (MAP) Pulse Ox O2 Delivery O2 Flow Rate FiO2 09/12/19 11:30 98.1 72 16 167/101 98 Room Air Disposition: ADMITTED INPATIENT Condition: Serious Referrals: Mindy Bryan MD (PCP) Cinda Clay DO Sep 12, 2019 14:53
--- NOTE | 2019-09-12 15:30 | NUR ---
TRANSFER TO FLOOR: Patient transferred to tele per ERMD order via gurney per Hospital protocol, pt vss, sinus rhythm on groundwater monitoring technician, iv intact and patent, pt belongings sent w/ pt, report was given to COLLIN Burns and care endorsed to tele staff.
[2019-09-12 16:00] VITALS: BP 144/82
--- NOTE | 2019-09-12 16:00 | NUR ---
NEW ADMISSION. PT ARRIVED TO THE FLOOR AT 1600. ADM DR DICK, DX: SEIZURE. PT IS AWAKE AND AOX4, SYRIAC SPEAKING. PT IS ON ROOM AIR WITH NO SIGN OF RESP DISTRESS. iV IS C/D/I AND LOCKED. PT BELONGING LIST WAS SIGNED. PT IS AMBULATORY WITH STANDBY. SEIZURE AND FALL PRECAUTIONS ARE IN PLACED.
--- NOTE | 2019-09-12 19:00 | NUR ---
OBTAINED REPORT FROM NIK POLANCO. PT RESTING IN BED FREE FROM APPARENT DISTRESS. FALL RISK AND SEIZURE PRECAUTIONS IN PLACE AT ALL TIMES. CALL LIGHT WITHIN REACH.
[2019-09-12] MEDS: Docusate 250mg cap ORAL SCH (19:07)
[2019-09-12 20:00] VITALS: BP 140/90
[2019-09-12] MEDS: Metoprolol Tartrate 12.5mg TAB ORAL SCH (20:44)
[2019-09-12] MEDS: Acetaminophen 500mg (ES) tab ORAL PRN (20:45)
[2019-09-13] VITALS: BP 100/72
--- NOTE | 2019-09-13 03:01 | History and Physical Report ---
DATE OF ADMISSION: 09/12/2019 HISTORY OF PRESENT ILLNESS: The patient had a breakthrough seizure and fell and sustained a laceration above the eye as well as on the CT scan according the ER doctor shows nondisplaced fracture of the right lateral maxillary sinus wall and inferior orbital wall. The patient is also admitted for low potassium, breakthrough seizure, elevated CO2, and dehydration. The patient is a poor historian. Cannot get a reliable history from the patient. Denies headache, nausea, or vomiting. Denies diarrhea or significant pain. PAST MEDICAL HISTORY: History of mastoiditis, history of pancytopenia, history of diverticulosis, organic brain syndrome, history of herpes zoster, electrolyte imbalance, history of gallstones, history of hypothyroidism, constipation, history of subdural hematoma in the past, CHF, encephalopathy, history of SVT, history of dysphagia, hypertension, and seizure disorder. PAST SURGICAL HISTORY: History of PEG. ALLERGIES: Cipro, hydrocodone, penicillin, and prochlorperazine. MEDICATIONS: Calcium carbonate, Depakote, Colace, folic acid, hydralazine, Keppra, Levoxyl, and metoprolol. FAMILY HISTORY: Noncontributory. SOCIAL HISTORY: Denies smoking, alcohol, or illicit drugs. Comes from a prison. REVIEW OF SYSTEMS: Relatively poor historian .HEENT: Denies headaches. RESPIRATORY: No shortness of breath. Denies cough. CARDIOVASCULAR: Denies chest pain. GASTROINTESTINAL: Denies nausea, vomiting, or diarrhea. EXTREMITIES: Denies any significant pain. CENTRAL NERVOUS SYSTEM: Denies change in speech pattern. PHYSICAL EXAMINATION: VITAL SIGNS: Temperature is 98.7, pulse 65, and blood pressure 146/68. HEENT: PERRLA. NECK: Supple. The patient does have mild facial edema. CHEST: Clear to auscultation. CARDIOVASCULAR: Regular rate and rhythm. No murmurs at this time. GASTROINTESTINAL: Soft, nontender, and nondistended. Positive bowel sounds. EXTREMITIES: No edema. Reflexes in both sides. Moves all extremities. LABORATORY DATA: WBC of 5.9, hemoglobin 14.6, and platelets 194,000. Sodium 138, potassium 3.5, BUN of 14, and creatinine of 0.6. Troponin negative. ASSESSMENT AND PLAN: Breakthrough seizure, status post fall with a laceration above the eye. CT showed a nondisplaced fracture of the right lateral maxillary sinus wall and inferior orbital wall. The patient is also admitted for hypokalemia, elevated COPD, and dehydration. I have consulted Dr. Dunlap as well as Dr. Batista, Dr. Valdivia as well for the above-mentioned diagnoses and treatment as well as other treatment. Mindy Bryan M.D. DR: MANA JOB#: [id number] CC:
[2019-09-13 04:00] VITALS: BP 113/70
[2019-09-13] MEDS: Levothyroxine 125mcg tab ORAL SCH (05:53)
--- NOTE | 2019-09-13 07:10 | NUR ---
GAVE FULL REPORT TO KATHY POLANCO. PT RESTING IN BED FREE FROM APPARENT DISTRESS. FALL RISK AND SEIZURE PRECAUTIONS IN PLACE. CALL LIGHT WITHIN REACH.
--- NOTE | 2019-09-13 07:26 | NUR ---
NURSE NOTES: Received report from COLLIN Bennett. Patient in bed resting, no active s/s cardiac, respiratory distress noticed at this time. Patient on room air, AOX4, SR w/ BBB with HR 60. Endorsed no seizure activity during the night. IV on left FA 20G, asymptomatic, patent, intact. Bed in lowest position, side rail upx2, padded, bed alarm on, call light within reach. Will continue to monitor.
[2019-09-13 08:00] VITALS: BP 112/56
[2019-09-13 08:15] LABS: BASOPHILS % (AUTO) 0.7 % (0.0-2.0); EOSINOPHILS % (AUTO) 1.2 % (0.0-3.0); HEMOGLOBIN 13.7 G/DL (12.0-16.0); LYMPHOCYTES % (AUTO) 36.2 % (20.0-45.0); MEAN CORPUSCULAR VOLUME 89 FL (80-99); MONOCYTES % (AUTO) 8.3 % (1.0-10.0); NEUTROPHILS % (AUTO) 53.6 % (45.0-75.0); PLATELET COUNT 172 K/UL (150-450); RED BLOOD COUNT 4.47 M/UL (4.20-5.40); RED CELL DISTRIBUTION WIDTH 11.9 % (11.6-14.8); WHITE BLOOD COUNT 5.2 K/UL (4.8-10.8)
[2019-09-13] MEDS: HydrALAZINE 10mg Tab ORAL SCH (08:29)
[2019-09-13] MEDS: Metoprolol Tartrate 12.5mg TAB ORAL SCH ×2 (08:29→20:39)
[2019-09-13] MEDS: Multivitamin w/Minerals tab ORAL SCH (08:29)
[2019-09-13] MEDS: Docusate 250mg cap ORAL SCH (08:29)
[2019-09-13 08:50] LABS: ANION GAP 7 mmol/L (5-15); BLOOD UREA NITROGEN 13 mg/dL (7-18); CALCIUM 8.3 MG/DL (8.5-10.1); CARBON DIOXIDE 30 MMOL/L (21-32); CHLORIDE 100 MMOL/L (98-107); CREATININE 0.7 MG/DL (0.55-1.30); POTASSIUM 3.5 MMOL/L (3.5-5.1); SODIUM 137 MMOL/L (136-145)
[2019-09-13 12:00] VITALS: BP 117/82
[2019-09-13 16:00] VITALS: BP 112/61
--- NOTE | 2019-09-13 16:59 | General Progress Note ---
Assessment/Plan Problem List: (1) Seizure disorder ICD Codes: G40.909 - Seizure disorder SNOMED: 251680494 (2) Diabetes ICD Codes: E11.9 - Diabetes SNOMED: 36907985 (3) Hypertension ICD Codes: I10 - Hypertension SNOMED: 60641390 (4) Hypothyroid ICD Codes: E03.9 - Hypothyroid SNOMED: 87365408 (5) Malnutrition ICD Codes: E46 - Malnutrition SNOMED: 8483480 (6) CHF (congestive heart failure) Status: progressing Assessment/Plan: no siezure today facial fracture break thru seizure check lytes afebrile htn reviewed chart and labs Subjective ROS Limited/Unobtainable: Yes Allergies: Coded Allergies: CIPROFLOXACIN (Verified Allergy, Unknown, 10/02/13) HYDROCODONE (Verified Allergy, Unknown, 10/02/13) PENICILLINS (Verified Allergy, Unknown, 10/02/13) PROCHLORPERAZINE (Verified Allergy, Unknown, 10/02/13) Objective Last 24 Hour Vital Signs Date Time Temp Pulse Resp B/P (MAP) Pulse Ox O2 Delivery O2 Flow Rate FiO2 09/13/19 16:00 98.2 57 18 112/61 (78) 100 09/13/19 12:00 56 09/13/19 12:00 97.5 60 18 117/82 (94) 97 09/13/19 09:00 Room Air 09/13/19 08:29 75 112/56 09/13/19 08:29 112/56 09/13/19 08:00 60 09/13/19 08:00 97.5 61 18 112/56 (74) 99 09/13/19 04:00 60 09/13/19 04:00 97.7 63 18 113/70 (84) 97 09/13/19 00:16 62 09/13/19 00:00 98.0 66 20 100/72 (81) 96 09/12/19 20:44 75 131/70 09/12/19 20:00 98.6 70 20 140/90 (107) 99 09/12/19 20:00 Room Air 09/12/19 20:00 64 09/12/19 17:13 Room Air Intake and Output 09/12/19 09/13/19 19:00 07:00 Output Total 300 ml 150 ml Balance -300 ml -150 ml Output Urine Total 300 ml 150 ml # Voids 1 2 Laboratory Tests 09/13/19 05:45: White Blood Count 5.2, Red Blood Count 4.47, Hemoglobin 13.7, Hematocrit 40.0, Mean Corpuscular Volume 89, Mean Corpuscular Hemoglobin 30.5, Mean Corpuscular Hemoglobin Concent 34.2, Red Cell Distribution Width 11.9, Platelet Count 172, Mean Platelet Volume 3.9L, Neutrophils (%) (Auto) 53.6, Lymphocytes (%) (Auto) 36.2, Monocytes (%) (Auto) 8.3, Eosinophils (%) (Auto) 1.2, Basophils (%) (Auto ) 0.7, Sodium Level 137, Potassium Level 3.5, Chloride Level 100, Carbon Dioxide Level 30, Anion Gap 7, Blood Urea Nitrogen 13, Creatinine 0.7, Estimat Glomerular Filtration Rate > 60, Glucose Level 81, Calcium Level 8.3L Height (Feet): 5 Height (Inches): 4.00 Weight (Pounds): 143 Neck: supple Cardiovascular: normal rate Respiratory/Chest: lungs clear Abdomen: soft Mindy Bryan MD Sep 13, 2019 16:59
[2019-09-13] MEDS: Acetaminophen 500mg (ES) tab ORAL PRN (17:54)
--- NOTE | 2019-09-13 19:26 | NUR ---
HAND-OFF: Report given to COLLIN Burnett.
--- NOTE | 2019-09-13 19:27 | NUR ---
NURSE NOTES: Got report from Nicho POLANCO. Pt in stable condition. Denies any pain. No s/s of distress or discomfort noted. Pt resting in bed comfortably. Bed in low and locked position, call light within reach, bedside table within reach. Continue to monitor.
[2019-09-13 20:00] VITALS: BP 122/71
[2019-09-14] VITALS: BP 117/61
[2019-09-14 04:00] VITALS: BP 120/70
[2019-09-14] MEDS: Levothyroxine 125mcg tab ORAL SCH (06:14)
--- NOTE | 2019-09-14 07:14 | NUR ---
HAND-OFF: Report given to Mesfin POLANCO.
--- NOTE | 2019-09-14 07:15 | NUR ---
NURSE NOTES: Received report from COLLIN Burnett. Patient in bed resting, no active s/s cardiac, respiratory distress noticed at this time. Patient on room air, SR with BBB with HR 61, AOx4, denies pain at this time. IV on left FA 20G, asymptomatic, patent, intact. Endorsed no seizure activity during the night. Bed in lowest position, side rails upx2, call light within reach, bed alarm on. Will continue to monitor.
[2019-09-14 08:00] VITALS: BP 103/57
[2019-09-14] MEDS: Multivitamin w/Minerals tab ORAL SCH (08:54)
[2019-09-14] MEDS: Docusate 250mg cap ORAL SCH (08:55)
[2019-09-14] MEDS: Metoprolol Tartrate 12.5mg TAB ORAL SCH ×2 (09:00→21:51)
[2019-09-14] MEDS: HydrALAZINE 10mg Tab ORAL SCH (09:00)
--- NOTE | 2019-09-14 11:45 | NUR ---
NURSE NOTES: Per Dr. Bryan, CBC CMP today. Order noted, entered, carried out.
[2019-09-14] MEDS: Acetaminophen 500mg (ES) tab ORAL PRN (11:54)
[2019-09-14 12:00] VITALS: BP 112/61
[2019-09-14 13:00] LABS: BASOPHILS % (AUTO) 1.3 % (0.0-2.0); EOSINOPHILS % (AUTO) 1.9 % (0.0-3.0); HEMATOCRIT 37.2 % (37.0-47.0); HEMOGLOBIN 12.7 G/DL (12.0-16.0); LYMPHOCYTES % (AUTO) 33.8 % (20.0-45.0); MEAN CORPUSCULAR VOLUME 89 FL (80-99); MONOCYTES % (AUTO) 6.6 % (1.0-10.0); NEUTROPHILS % (AUTO) 56.3 % (45.0-75.0); PLATELET COUNT 157 K/UL (150-450); RED BLOOD COUNT 4.18 M/UL (4.20-5.40); RED CELL DISTRIBUTION WIDTH 11.5 % (11.6-14.8); WHITE BLOOD COUNT 4.9 K/UL (4.8-10.8)
[2019-09-14 13:11] LABS: ALANINE AMINOTRANSFERASE 17 U/L (12-78); ALBUMIN 3.4 G/DL (3.4-5.0); ALBUMIN/GLOBULIN RATIO 0.9 (1.0-2.7); ALKALINE PHOSPHATASE 106 U/L (46-116); ANION GAP 11 mmol/L (5-15); ASPARTATE AMINO TRANSFERASE 29 U/L (15-37); BILIRUBIN,TOTAL 0.4 MG/DL (0.2-1.0); BLOOD UREA NITROGEN 11 mg/dL (7-18); CALCIUM 8.4 MG/DL (8.5-10.1); CARBON DIOXIDE 26 MMOL/L (21-32); CHLORIDE 98 MMOL/L (98-107); CREATININE 0.5 MG/DL (0.55-1.30); POTASSIUM 3.9 MMOL/L (3.5-5.1); SODIUM 135 MMOL/L (136-145)
[2019-09-14 16:00] VITALS: BP 123/63
--- NOTE | 2019-09-14 19:08 | NUR ---
HAND-OFF: Report given to COLLIN Burnett.
[2019-09-14 20:00] VITALS: BP 122/69
--- NOTE | 2019-09-14 20:17 | General Progress Note ---
Assessment/Plan Problem List: (1) Seizure disorder ICD Codes: G40.909 - Seizure disorder SNOMED: 291859043 (2) Diabetes ICD Codes: E11.9 - Diabetes SNOMED: 44929224 (3) Hypertension ICD Codes: I10 - Hypertension SNOMED: 84488186 (4) Hypothyroid ICD Codes: E03.9 - Hypothyroid SNOMED: 03450100 (5) Malnutrition ICD Codes: E46 - Malnutrition SNOMED: 7937108 (6) CHF (congestive heart failure) Status: progressing Assessment/Plan: no siezure today facial fracture ecchymoses around eye Subjective ROS Limited/Unobtainable: Yes Allergies: Coded Allergies: CIPROFLOXACIN (Verified Allergy, Unknown, 10/02/13) HYDROCODONE (Verified Allergy, Unknown, 10/02/13) PENICILLINS (Verified Allergy, Unknown, 10/02/13) PROCHLORPERAZINE (Verified Allergy, Unknown, 10/02/13) Objective Last 24 Hour Vital Signs Date Time Temp Pulse Resp B/P (MAP) Pulse Ox O2 Delivery O2 Flow Rate FiO2 09/14/19 16:00 65 09/14/19 16:00 97.0 65 19 123/63 (83) 98 09/14/19 12:00 97.0 60 19 112/61 (78) 98 09/14/19 12:00 59 09/14/19 09:00 Room Air 09/14/19 09:00 57 103/57 09/14/19 09:00 103/57 09/14/19 08:00 57 09/14/19 08:00 97.0 61 20 103/57 (72) 98 09/14/19 04:00 97.0 62 16 120/70 (87) 99 09/14/19 04:00 53 09/14/19 00:00 52 09/14/19 00:00 97.0 59 16 117/61 (79) 100 09/13/19 21:00 Room Air 09/13/19 20:39 60 122/71 Intake and Output 09/13/19 09/14/19 19:00 07:00 Intake Total 480 ml Output Total 300 ml Balance 180 ml Intake Oral 480 ml Output Urine Total 300 ml # Voids 2 2 # Bowel Movements 1 Laboratory Tests 09/14/19 12:15: White Blood Count 4.9, Red Blood Count 4.18L, Hemoglobin 12.7, Hematocrit 37.2, Mean Corpuscular Volume 89, Mean Corpuscular Hemoglobin 30.4, Mean Corpuscular Hemoglobin Concent 34.2, Red Cell Distribution Width 11.5L, Platelet Count 157, Mean Platelet Volume 5.8L, Neutrophils (%) (Auto) 56.3, Lymphocytes (%) (Auto) 33.8, Monocytes (%) (Auto) 6.6, Eosinophils (%) (Auto) 1.9, Basophils (%) (Auto ) 1.3, Sodium Level 135L, Potassium Level 3.9, Chloride Level 98, Carbon Dioxide Level 26, Anion Gap 11, Blood Urea Nitrogen 11, Creatinine 0.5L, Estimat Glomerular Filtration Rate > 60, Glucose Level 83, Calcium Level 8.4L, Total Bilirubin 0.4, Aspartate Amino Transf (AST/SGOT) 29, Alanine Aminotransferase (ALT/SGPT) 17, Alkaline Phosphatase 106, Total Protein 7.1, Albumin 3.4, Globulin 3.7, Albumin/Globulin Ratio 0.9L Height (Feet): 5 Height (Inches): 4.00 Weight (Pounds): 143 Cardiovascular: normal rate Respiratory/Chest: lungs clear Mindy Bryan MD Sep 14, 2019 20:17
[2019-09-15] VITALS: BP 117/65
--- NOTE | 2019-09-15 03:15 | NUR ---
HAND-OFF: Report given to Reggie POLANCO.
--- NOTE | 2019-09-15 03:18 | NUR ---
NURSE NOTES: Received report from COLLIN Banks. pt is awake, lying, semi-shafer's; resting comfortably. No signs of acute distress noted; denies any pain at this time. AOx4. Primarily speaks Portuguese. No erythema, bleeding, or infiltration noted. Bed at lowest position, brakes on, siderails up x2. Call light within reach. Will continue to monitor.
--- NOTE | 2019-09-15 03:52 | NUR ---
NURSE NOTES: Pt is sleeping. Will continue to monitor.
[2019-09-15 04:00] VITALS: BP 138/76
[2019-09-15] MEDS: Levothyroxine 125mcg tab ORAL SCH (05:39)
--- NOTE | 2019-09-15 07:57 | NUR ---
HAND-OFF: Report given to COLLIN Morrison. Patient is awake lying semi-shafer's; resting comfortably. In stable condition.
[2019-09-15 08:00] VITALS: BP 147/65
--- NOTE | 2019-09-15 09:00 | NUR ---
NURSE NOTES: Patient stable AOx4 with no complaints of pain and no s/sx of distress. RR even and unlabored on RA. Side rails padded and up x2, call light within reach, bed low and locked. Will continue to monitor.
[2019-09-15] MEDS: Multivitamin w/Minerals tab ORAL SCH (09:08)
[2019-09-15] MEDS: Metoprolol Tartrate 12.5mg TAB ORAL SCH ×2 (09:09→21:00)
[2019-09-15] MEDS: HydrALAZINE 10mg Tab ORAL SCH (09:09)
[2019-09-15] MEDS: Docusate 250mg cap ORAL SCH (09:09)
[2019-09-15 12:00] VITALS: BP 129/76
--- NOTE | 2019-09-15 13:59 | NUR ---
CASE MANAGEMENT: INITIAL REVIEW 69 YR OLD FEMALE BIBA FROM [facility] con CC: SEIZURE SI: SEIZURE DISORDER . FX INFERIOR ORBITAL . FX MAXILLARY SINUS . HTN 98.0 87 16 182/101 98% ON RA CO2 34 AST 40 ALK PHOS 134 IS:IVF NS BOLUS X1 IV CEFAZOLIN X1 LOPRESSOR PO X1 \: 2E TELE UNIT DCP: RETURN TO [facility] WHEN MEDICALLY CLEARED PLAN: CT HEAD -FX CT MAXILLOFACIAL -FX CASE MANAGEMENT: REVIEW 09/13/19 SI: SEIZURE DISORDER . FX INFERIOR ORBITAL . FX MAXILLARY SINUS 97.5 61 18 112/56 99% ON RA CA+8.3 IS:DEPAKOTE PO BID HYDRALAZINE PO QD KEPPRA PO BID LOPRESSOR PO BID \: 2E TELE UNIT DCP: RETURN TO [facility] WHEN MEDICALLY CLEARED CASE MANAGEMENT: REVIEW 09/14/19 SI: SEIZURE DISORDER . FX INFERIOR ORBITAL . FX MAXILLARY SINUS 97.0 61 20 103/57 98% ON RA BUN 0.5 CA+8.4 NA+ 135 IS:DEPAKOTE PO BID HYDRALAZINE PO QD KEPPRA PO BID LOPRESSOR PO BID \: 2E TELE UNIT DCP: RETURN TO [facility] WHEN MEDICALLY CLEARED CASE MANAGEMENT: REVIEW 09/15/19 SI: SEIZURE DISORDER . FX INFERIOR ORBITAL . FX MAXILLARY SINUS 97.7 73 20 147/65 97% ON RA IS:DEPAKOTE PO BID HYDRALAZINE PO QD KEPPRA PO BID LOPRESSOR PO BID \: 2E TELE UNIT DCP: RETURN TO [facility] WHEN MEDICALLY CLEARED PLAN: BEDSIDE VIDEO SWALLOW EVAL
--- NOTE | 2019-09-15 15:14 | NUR ---
ST NOTES: REFERRED FOR SWALLOW EVAL BY DR SUTTON, SEE FULL REPORT. DYSPHAGIA RISK FACTORS FOR THIS 69 Y.O. [place] SPEAKING (MX) FEMALE: ACUTE ISSUES: FALL DUE TO SEIZURE (FROM W/CHAIR) WITH LEFT ORBITAL HEMORRHAGE AND NONDISPLACED FX RIGHT LATERAL MAXILLARY SINUS AND INF ORBITAL WALL. CT HEAD NEG ACUTE BLEED/MASS BUT HAS MARKED AGE RELATED VOLUME LOSS AND CORTICAL CALCIFICATION RIGHT FRONTAL LOBE. LUNGS ARE CLEAR NOW. H/O DYSPHAGIA, GTUBE, GERD, PNA, PNEUMONITIS, DEMENTIA, CVA, TRAUMA SDH, DM2, HYPOTHYROIDISM, L MASTOID DZ, TRACH, COPD, MDD, MOOD DISORDER, AND ANXIETY. PER POLST OK TO HAVE TF IF NEEDS (HAD GT IN PAST). DYSPHAGIA NOTED ON MOD BARIUM SWALLOW STUDY IN OCT 2013 MODERATE OROPHARYNGEAL DYSPHAGIA AND PLACED ON LIQUIFIED PUREED LIKE NECTAR THICK SOUP CONSISTENCY. 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 PLACED ON LIQUIFIED PUREED LIKE NECTAR THICK SOUP CONSISTENCY. ALSO HAD OSTEOPHYTES C3,C4,C5 NO OBSTRUCTION OF FLOW. SEEN AT [facility] (NOT ST) 07/31/19 PLACED ON REGULAR DIET TEXTURE AND HONEY THICK LIQUIDS. CURRENTLY ON A REG DIET TYPE PUREED AND THIN LIQUIDS WITH POOR TO FAIR INTAKE 15/50/100% W/O OVERT ASPIRATION PER [place] JOYNER. PER RNYANET, TOLERATED HER MEDS WHOLE WITH WATER W/O OVERT ASPIRATION. PATIENT IS ALERT AND ABLE TO EXPRESS BASIC NEEDS IN [place]. NO DENTURES HERE AND MISSING ALL UPPER TEETH AND LOWER MOLARS. INITIAL IMPRESSIONS: S/S OF AT LEAST A MILD OROPHARYNGEAL DYSPHAGIA WITH MILD INCREASE IN OROPHARYNGEAL TRANSIT TIMES. GIVEN THIN LIQUIDS VIA STRAW, GETS A LITTLE SOB AFTER A FEW SIPS BUT APPEARED TO HAVE A GROSSLY FUNCTIONAL SWALLOW W/O OVERT ASPIRATION. ON ROOM AIR BUT RESP RATE AT 18 TO 20 GIVEN TSP PUREED, SLOWER TRANSIT TIMES (CHEWS FOR 4-5 SECONDS) AND THEN SWALLOWS 2X (LAST SWALLOW IS DELAYED FEW SECONDS) BUT HAS FAIR HYOLARYNGEAL EXCURSION, NO OVERT ASPIRATION. WILL HOLD ON MASTICATED SOLIDS FOR NOW (REFUSED) RECOMMENDATIONS: CONSIDER MOD BARIUM SWALLOW STUDY IP OR OP IF DC TO FURTHER ASSESS SWALLOW, DETERMINE SILENT ASP RISK, AND ATTEMPT TRIAL TX IF PO CONTINUES FOR QUALITY OF LIFE, CONSIDER CONTINUING WITH CURRENT PUREED DIET AND THIN LIQUIDS WITH POSTED ASP/REFLUX PRECAUTIONS AND ONE TO ONE FEEDING. NO RD REPORT TO DATE SO CONSIDER DIET TYPE OF SNF ([facility]-MED AND DAVID WITH NONFAT MILK SMALL PORTIONS). REST IF RESP RATE ABOVE 24. SKILLED DYSPHAGIA MANAGEMENT AND TX AND COG-COM EVAL/TX EDUCATED/TRAINED STAFF IN POSTED PRECAUTIONS
[2019-09-15 16:00] VITALS: BP 130/73
--- NOTE | 2019-09-15 19:26 | NUR ---
HAND-OFF: Report given to Marychuy Jiang RN. Patient stable. Plan of care endorsed.
[2019-09-15] MEDS ORDERED: BISACODYL10 M1 RC (19:51)
[2019-09-15] MEDS ORDERED: FLEET ENEMA133 ML RECTAL (19:51)
[2019-09-15] MEDS ORDERED: DOCUSATE SODIU250 MG ORAL (19:51)
--- NOTE | 2019-09-15 19:53 | NUR ---
NURSE NOTES: Received pt and report from COLLIN Harry. Observed pt resting in bed with both eyes closed; arousable to voice. Pt is A/Ox3; forgetful. court recording monitor is in placed, IV site intact, asymptomatic and patent. Bed is in the lowest position and locked. Call light and bedside table within reach. No signs/symptoms of acute distress noted at this time. Will continue plan of care.
[2019-09-15 20:00] VITALS: BP 137/73
--- NOTE | 2019-09-15 20:08 | General Progress Note ---
Assessment/Plan Problem List: (1) Seizure disorder ICD Codes: G40.909 - Seizure disorder SNOMED: 531132633 (2) Diabetes ICD Codes: E11.9 - Diabetes SNOMED: 38137144 (3) Hypertension ICD Codes: I10 - Hypertension SNOMED: 92209910 (4) Hypothyroid ICD Codes: E03.9 - Hypothyroid SNOMED: 71932762 (5) Malnutrition ICD Codes: E46 - Malnutrition SNOMED: 4194473 (6) CHF (congestive heart failure) Status: progressing Assessment/Plan: no siezure today facial fracture ecchymoses around eye htn hypothyroids afebrile Subjective ROS Limited/Unobtainable: Yes Allergies: Coded Allergies: CIPROFLOXACIN (Verified Allergy, Unknown, 10/02/13) HYDROCODONE (Verified Allergy, Unknown, 10/02/13) PENICILLINS (Verified Allergy, Unknown, 10/02/13) PROCHLORPERAZINE (Verified Allergy, Unknown, 10/02/13) Objective Last 24 Hour Vital Signs Date Time Temp Pulse Resp B/P (MAP) Pulse Ox O2 Delivery O2 Flow Rate FiO2 09/15/19 16:00 98.6 67 19 130/73 (92) 96 09/15/19 16:00 59 09/15/19 12:00 59 09/15/19 12:00 98.5 63 20 129/76 (93) 97 09/15/19 09:09 73 147/65 09/15/19 09:09 147/65 09/15/19 09:00 Room Air 09/15/19 08:00 97.7 73 20 147/65 (92) 97 09/15/19 08:00 81 09/15/19 04:00 97.4 60 18 138/76 (96) 97 09/15/19 03:38 60 09/15/19 00:00 63 09/15/19 00:00 97.2 60 18 117/65 (82) 97 09/14/19 21:51 64 122/69 09/14/19 21:00 Room Air Intake and Output 09/14/19 09/15/19 19:00 07:00 Intake Total 320 ml 240 ml Balance 320 ml 240 ml Intake Oral 320 ml 240 ml # Voids 2 2 # Bowel Movements 1 Height (Feet): 5 Height (Inches): 4.00 Weight (Pounds): 143 Cardiovascular: normal rate Respiratory/Chest: chest wall non-tender Abdomen: soft Mindy Bryan MD Sep 15, 2019 20:08
[2019-09-16] VITALS: BP 131/76
--- NOTE | 2019-09-16 02:45 | NUR ---
NURSE NOTES: Observed pt asleep in bed with both eyes closed. No signs/symptoms of acute distress noted at this time. Will continue plan of care.
[2019-09-16 04:00] VITALS: BP 127/80
[2019-09-16] MEDS: Levothyroxine 125mcg tab ORAL SCH (06:47)
--- NOTE | 2019-09-16 07:03 | NUR ---
NURSE NOTES: HANDOFF RECEIVED FROM COLLIN RAMOS. PATIENT RECEIVED SLEEPING IN BED, NO ACUTE SIGNS OF DISTRESS NOTED. PATIENT HAS LEFT FA IV SITE CLEAN DRY AND INTACT, SALINE LOCKED. BED IN THE LOW AND LOCKED POSITION WITH CALL LIGHT WITHIN REACH, WILL CONTINUE TO MONITOR PATIENT. Addendum: 09/16/19 at 0707 by James David RN CHARTED ON WRONG PATIENT. PLEASE DISREGARD.
--- NOTE | 2019-09-16 07:36 | NUR ---
NURSE NOTES: PATIENT RECEIVED FROM COLLIN MELENDEZ. PATIENT ALERT AND ABLE TO MAKE NEEDS KNOWN. PATIENT SITTING IN BED EATING BREAKFAST, NO ACUTE SIGNS OF DISTRESS NOTED. BED RAILS ARE PADDED, BED IN THE LOW AND LOCKED POSITION WITH CALL LIGHT WITHIN REACH, IV SITE IS CLEAN DRY AND INTACT, SALINE LOCKED. WILL CONTINUE TO MONITOR PATIENT.
--- NOTE | 2019-09-16 07:45 | NUR ---
HAND-OFF: Report given to COLLIN Ramirez. Plan of care endorsed.
[2019-09-16 08:00] VITALS: BP 108/55
[2019-09-16] MEDS: Multivitamin w/Minerals tab ORAL SCH (08:49)
[2019-09-16] MEDS: HydrALAZINE 10mg Tab ORAL SCH (08:50)
[2019-09-16] MEDS: Docusate 250mg cap ORAL SCH (08:51)
[2019-09-16] MEDS: Metoprolol Tartrate 12.5mg TAB ORAL SCH (08:51)
--- NOTE | 2019-09-16 11:05 | NUR ---
CASE MANAGEMENT: REVIEW 09/16/19 SI: SEIZURE DISORDER . FX INFERIOR ORBITAL . FX MAXILLARY SINUS 98.0 67 18 108/55 96% ON RA IS:DEPAKOTE PO BID HYDRALAZINE PO QD KEPPRA PO BID LOPRESSOR PO BID FOLATE PO QD \: 2E TELE UNIT DCP: RETURN TO [facility] WHEN MEDICALLY CLEARED PLAN: BEDSIDE VIDEO SWALLOW EVAL
[2019-09-16 12:00] VITALS: BP 110/72
--- NOTE | 2019-09-16 12:57 | NUR ---
DISCHARGE PLANNED: PATIENT RETURNING BACK TO [facility]. T: [phone] FOR NURSE TO NURSE REPORT ROOM#26A SKILLED Addendum: 09/16/19 at 1353 by JOSÉ SANDERSON LVN [facility] CALLED PICKUP @4PM
--- NOTE | 2019-09-16 14:27 | NUR ---
NURSE NOTES: CALLED [facility] AND GAVE REPORT TO ANDREW, PATIENT TRANSFERRING BACK TO FACILITY AROUND 1600 TODAY.
[2019-09-16 16:00] VITALS: BP 115/79
--- NOTE | 2019-09-16 16:00 | Consultation ---
DATE OF CONSULTATION: 09/16/2019 NEUROLOGIC CONSULTATION CONSULTING PHYSICIAN: Pavel Batista M.D. This is one of several [facility] admissions for this 69-year-old probably right-handed woman with a previous history of a right cerebellar infarct who was admitted with a breakthrough seizure, although she has had previous history of seizures before and a fall and injury to the left side of her skull. HISTORY OF PRESENT ILLNESS: The patient was seen by Dr. Tyson Hart on 07/30/2019. He noted that the patient had prior strokes and seizure disorder. She apparently was admitted in July 2019 for seizures and we ordered an EEG. The patient also has a history of dementia. The patient has no history of actually what happened at her [place] [facility], but apparently she had a breakthrough seizure, fell hitting the left side of her head, and was brought to this hospital. The patient denies any symptoms, for instance she denies any headaches, confusion, memory loss, previous seizures, acute disorder, muscle weakness, numbness or tingling, double vision, blurred vision, slurred speech, hearing loss, tinnitus, or dizzy spells. The patient on admission to this hospital was found to have normal RBC count. The patient had a low RBC count prior. Her platelets were normal. White count was within normal limits. Her chemistries, she had a normal sodium on admission, but 2 days ago it was 135. Her calciums were normal on admission, now they were low at 8.3. Magnesium is 1.9. Liver function tests were mildly elevated. Troponin was negative. Her total protein and albumin were normal. Urinalysis revealed 5 to 10 wbc's per high-power field, occasional bacteria. The patient's maxillofacial CT scan with contrast revealed some subtle nondisplaced fractures in the right lateral maxillary sinus wall, inferior orbital wall, and left maxillary sinus air fluid level posttraumatic. There is a left periorbital soft tissue contusion noted. The CT scan of the brain revealed atrophy and chronic microvascular disease. An air-fluid level in the left maxillary sinus, which was new. She had left malar region soft tissue swelling. Cortical calcification of the right frontal lobe. Cultures for MRSA were negative. The patient apparently did not have an EEG when she saw Dr. Hart. There is no known family history of neurologic disease. PAST MEDICAL HISTORY/PAST MEDICAL ILLNESSES: 1. Mastoiditis. 2. History of pancytopenia. 3. Diverticulosis. 4. History of herpes zoster. 5. Cholelithiasis. 6. Hypothyroidism. 7. History of subdural hematoma in the past. 8. Dementia. 9. Hypertension. MEDICATIONS: She is on calcium carbonate, Colace, folic acid, hydralazine, Keppra, Levoxyl, and metoprolol. HABITS: She denies drinking alcohol or smoking or illegal drug use. FAMILY HISTORY: Noncontributory. REVIEW OF SYSTEMS: Negative. ALLERGIES: She is allergic to Cipro, hydrocodone, penicillin, and prochlorperazine. SURGICAL HISTORY: She had a PEG in the past. PHYSICAL EXAMINATION: GENERAL: She is a well-developed, well-nourished woman, lying in bed, in no acute distress. VITAL SIGNS: Blood pressure 100/55, respiratory rate is 18, pulse is 67 and regular. HEENT: The patient has an ecchymotic lesion below the left eye and small hemorrhagic lesion above the eyelid. NECK: Her neck is supple. Carotids were +2. I could not hear any bruits. LUNGS: Lungs are clear to auscultation. CARDIOVASCULAR: The patient has a grade 2/6 holosystolic murmur heard best at the left sternal border increasing probably with respiration. ABDOMEN: The abdomen is slightly obese. Bowel sounds intact. There is no obvious tenderness, masses, or organomegaly. EXTREMITIES: She has evidence of degenerative joint disease. BACK: There is no tenderness to percussion. NEUROLOGIC EXAMINATION: MENTAL STATUS: The patient is awake and alert. She could do follow one-step commands. Date, she knows it is September and Sunday, but did not know the year. Place, she did not know where she was. Person, she was oriented to person. Language function, the patient spoke Moldovan with decreased output. She could not spell malick in [place]ovan. She denied all symptoms. CRANIAL NERVE EXAMINATION: CRANIAL NERVE II: Visual sinha are intact to gross confrontation. CRANIAL NERVES III, IV, AND : Extraocular motility was full. Pupils are approximately 5 mm, round, light reactive. CRANIAL NERVE V: Corneal sensation is intact to fine touch. CRANIAL NERVE VII: There is quite decreased left nasolabial fold in smile. CRANIAL NERVE VIII: Auditory acuity is partially intact. CRANIAL NERVES IX AND X: Gag is decreased bilaterally. CRANIAL NERVE XI: Sternocleidomastoid strength is 5/5. CRANIAL NERVES XII: Tongue protrudes in the midline without fasciculations or atrophy. MUSCLE EXAMINATION: Muscle bulk is symmetrically decreased. Tone is normal. Strength is probably 5/5 in the lower extremities. Maybe 5-/5 in the left upper extremity and 5/5 in the right upper extremity. REFLEXES: +1 in the upper extremities, trace to +1 at the knees, 0 at the ankles with downgoing toes and testing for Babinski response. COORDINATION: [id number] revealed some dysmetria in the left upper extremity with slight tremor. [id number]-[id number] testing could not be done. SENSORY EXAMINATION: The patient responded normally to pinprick in all the extremities. IMPRESSION: The patient probably has Alzheimer disease. She had a cortical lesion on her CT scan, which could be cysticercosis or known hemorrhage. In any event, this could serve as a nidus for seizure disorder. The patient is placed on Keppra 750 mg b.i.d. We can get an EEG on her. We continue to follow her. PLAN: 1. Continue Keppra 750 mg p.o. b.i.d. 2. EEG. 3. Her sodium, magnesium, and calcium are within the normal range. Thank you for this interesting case, Dr. Bryan. Pavel Batista MD DR: AKIL JOB#: [id number] CC:
--- NOTE | 2019-09-16 18:31 | NUR ---
NURSE NOTES: PATIENT DISCHARGED AND LEFT WITH EMS, P PATIENT SIGNED BELONGINGS LIST, PATIENT LEFT ALERT AND STABLE ON A GURNEY WITH NO ACUTE SIGNS OF DISTRESS NOTED. IV SITE REMOVED, NO BLEEDING OR HEMATOMA.
--- NOTE | 2019-09-17 09:40 | Discharge Summary ---
Discharge Summary Discharge Summary _ DATE OF ADMISSION: 09/12/2019 DATE OF DISCHARGE: 09/16/2019 DISCHARGED BY: Dr. Bryan REASON FOR ADMISSION: 69 years old female with past medical history of hypertension, coronary artery disease with history of MA, CVA, GERD, seizure disorder, presented for evaluation after having seizure episode at the facility , witnessed by the staff member. Patient was sitting in the chair , when she started to have seizure. Subsequently she fell and hit her face and left eye. Patient complained of pain around her left eye. CT of the head revealed no acute intracranial bleeding or mass-effect. Left malar region soft tissue swelling. Maxillofacial CT revealed subtle nondisplaced fracture of the right lateral maxillary sinus wall and inferior orbital wall. Left maxillary sinus air-fluid level presumed posttraumatic , related to the above. Left periorbital soft tissue contusion. Laboratory work-up revealed no leukocytosis , stable hemoglobin and hematocrit. Stable electrolytes and renal parameters. Troponin negative. Urinalysis revealed mild pyuria , occasional bacteria , +2 protein. Clinical examination revealed superficial laceration of the left eye with periorbital ecchymosis. Emergency room physician discussed findings seen on imaging with the plastic surgeon Dr. Dawson. Per plastic surgeon, fracture were nonsurgical. Patient received prophylactic antibiotics , analgesics and admitted for further management . CONSULTANTS: neurologist Dr. Batista [facility] COURSE: Patient admitted to telemetry floor. Seizure precaution maintained. Neurologist seen and evaluated patient. Seizure precautions maintained. Patient was placed on Keppra 750 mg twice daily. Depakote continued. No further evidence of seizure activity while in the hospital. Sodium , magnesium and calcium were all within normal range. Neurologist recommended EEG , which can be arranged as outpatient. Bedside swallow evaluation revealed mild dysphagia . Diet modified as per speech therapist recommendation . Aspiration precaution maintained. Speech therapist recommended video swallow evaluation to determine silent aspiration risk , which can be done as outpatient. SNF medication resumed. Blood pressure was managed with current regimen and remained stable. Levothyroxine continued. Blood sugar remained stable. Fall precautions maintained. Patient clinically stabilized and was ready for transfer back to [facility] facility for continuation of care. FINAL DIAGNOSES Seizure disorder with breakthrough seizure episode Status post fall Fracture of inferior orbital wall Right lateral subtle nondisplaced maxillary sinus fracture Diabetes mellitus Hypertension Hypothyroidism DISCHARGE MEDICATIONS: See Medication Reconciliation list. DISCHARGE INSTRUCTIONS: Patient was discharged to the [facility] facility. Follow up with medical doctor at the facility. I have been assigned to dictate discharge summary for this account. I was not involved in the patient's management. Anitha Sommer NP Sep 17, 2019 09:40
--- NOTE | 2019-09-18 12:55 | Cardiology Report ---
APPROVED REPORT EKG Measurement Heart [id number] MD [id number] Normal sinus rhythm Possible Left atrial enlargement Right bundle branch block Abnormal ECG
--- NOTE | 2019-09-21 12:11 | NUR ---
CASE MANAGEMENT: CM review and clinical information (face sheet/ H&P/ER notes/DC summary) faxed to [facility] @ [phone]. T# [id number]
== END 2019-09-16 18:16 | DRG 53 ==
LOC: EDBD 10:50 → EMR 11:40 → EDBEDREQ 13:04 → 2E 13:24 → EDBEDREQ 13:48
DX: G40.909 Epilepsy, unspecified, not intractable, without status epilepticus (principal); S02.19XA Other fracture of base of skull, initial encounter for closed fracture; S02.40CA Maxillary fracture, right side, initial encounter for closed fracture; S02.31XA Fracture of orbital floor, right side, initial encounter for closed fracture; W07.XXXA Fall from chair, initial encounter; Y92.122 Bedroom in nursing home as the place of occurrence of the external cause; G30.9 Alzheimer's disease, unspecified; F02.80 Dementia in other diseases classified elsewhere, unspecified severity, without behavioral disturbance, psychotic disturbance, mood disturbance, and anxiety; E11.9 Type 2 diabetes mellitus without complications; E03.9 Hypothyroidism, unspecified; E46 Unspecified protein-calorie malnutrition; Z68.24 Body mass index [BMI] 24.0-24.9, adult; I11.0 Hypertensive heart disease with heart failure; I50.9 Heart failure, unspecified; Z86.73 Personal history of transient ischemic attack (TIA), and cerebral infarction without residual deficits
CPT/HCPCS: 36415; 70450; 70486; 80048; 80053; 80299; 81003; 84484; 85025; 85610; 85730; 87081; 93005; 96361; 96365; 99285; J7030

== ENCOUNTER 2019-12-22 13:46 | Inpatient (IN) | payer MEDICAID ==
[~2019-12-22] VITALS: Ht 157.5 cm; Wt 60.4 kg
[~2019-12-22 13:46] MED LIST changes: +BISACODYL10 M1 RC; +DOCUSATE SODIU250 MG ORAL; +TYLENOL EXTRA500 MG ORAL
[2019-12-22 14:15] VITALS: BP 124/71
--- NOTE | 2019-12-22 15:55 | Diagnostic Imaging Report ---
Indication: Cough Technique: One view of the chest Comparison: 10/20/2019 Findings: There is scalloping of the left hemidiaphragm. The lungs and pleural spaces are otherwise clear. There is mild chronic appearing central bronchial wall thickening again demonstrated. The heart size is upper limits of normal. There is an inferior vena cava filter noted. Impression: No acute process
[2019-12-22 16:00] LABS: ANION GAP 8 mmol/L (5-15); BLOOD UREA NITROGEN 13 mg/dL (7-18); CALCIUM 7.6 MG/DL (8.5-10.1); CARBON DIOXIDE 24 MMOL/L (21-32); CHLORIDE 106 MMOL/L (98-107); CREATININE 0.5 MG/DL (0.55-1.30); POTASSIUM 3.5 MMOL/L (3.5-5.1); SODIUM 138 MMOL/L (136-145)
[2019-12-22 16:03] LABS: AMMONIA 111 umol/L (11-32)
[2019-12-22 16:05] LABS: ALANINE AMINOTRANSFERASE 11 U/L (12-78); ALBUMIN 2.5 G/DL (3.4-5.0); ALBUMIN/GLOBULIN RATIO 0.8 (1.0-2.7); ALKALINE PHOSPHATASE 49 U/L (46-116); ASPARTATE AMINO TRANSFERASE 20 U/L (15-37); BILIRUBIN,TOTAL 0.3 MG/DL (0.2-1.0)
[2019-12-22 16:15] VITALS: BP 117/76
[2019-12-22 16:38] LABS: HEMATOCRIT 25.7 % (37.0-47.0); HEMOGLOBIN 8.7 G/DL (12.0-16.0); MEAN CORPUSCULAR VOLUME 92 FL (80-99); PLATELET COUNT 64 K/UL (150-450); RED BLOOD COUNT 2.79 M/UL (4.20-5.40); RED CELL DISTRIBUTION WIDTH 12.8 % (11.6-14.8); WHITE BLOOD COUNT 2.5 K/UL (4.8-10.8)
[2019-12-22 17:17] LABS: APPEARANCE,URINE CLEAR; BILIRUBIN, URINE NEGATIVE (NEGATIVE); COLOR,URINE PALE YELLOW; GLUCOSE, URINE (UA) NEGATIVE (NEGATIVE); KETONES,URINE NEGATIVE (NEGATIVE); LEUKOCYTE ESTERASE ,URINE NEGATIVE (NEGATIVE); NITRITE,URINE NEGATIVE (NEGATIVE); PH,URINE 5 (4.5-8.0); PROTEIN,URINE NEGATIVE (NEGATIVE); UROBILINOGEN,URINE NORMAL MG/DL (0.0-1.0)
[2019-12-22 18:15] VITALS: BP 127/63
[2019-12-22 20:00] VITALS: BP 132/70
--- NOTE | 2019-12-22 20:55 | Emergency Room Report ---
History of Present Illness General Chief Complaint: Abnormal Labs Source: Patient Present Illness HPI [facility]. She has a history of liver failure, diabetes, seizure disorder. She underwent labs at the [facility] and was found to have an elevated ammonia and an elevated Keppra level. There was concern that she is also had some altered mental status. History is primarily from EMS and the patient's primary care physician at the [facility] who sent her to the emergency department. Patient herself has no specific complaints. COVID-19 risk:Travel to affect: No Has patient experienced leo: No Allergies: Coded Allergies: CIPROFLOXACIN (Verified Allergy, Unknown, 10/02/13) HYDROCODONE (Verified Allergy, Unknown, 10/02/13) PENICILLINS (Verified Allergy, Unknown, 10/02/13) PROCHLORPERAZINE (Verified Allergy, Unknown, 10/02/13) Patient History Past Medical History: see triage record, old chart reviewed, DM, HTN, FL, CAD, COPD, CVA/TIA, dementia, seizures, other - Liver failure, Hypothyroid Social History: Denies: smoking, alcohol use, drug use Reviewed Nursing Documentation: PMH: Agreed; PSxH: Agreed Nursing Documentation-PMH Hx Cardiac Problems: Yes - FL, SVT, DVT Hx Pacemaker: No Hx Asthma: Yes Hx Diabetes: Yes Hx Cancer: No Hx Gastrointestinal Problems: Yes - diverticulosis,GERD Hx Neurological Problems: Yes Hx Cerebrovascular Accident: Yes Hx Dementia: Yes Hx Seizures: Yes Hx Head Trauma: Yes Hx Syncope: Yes Hx Headaches: Yes Hx Weakness: Yes Review of Systems All Other Systems: negative except mentioned in HPI Physical Exam Vital Signs Date Time Temp Pulse Resp B/P (MAP) Pulse Ox O2 Delivery O2 Flow Rate FiO2 12/22/19 13:58 98.2 72 16 124/71 (88) 98 Room Air Sp02 EP Interpretation: reviewed, normal General Appearance: no apparent distress, alert, GCS 15, non-toxic Head: normocephalic, atraumatic Eyes: bilateral eye normal inspection, bilateral eye PERRL ENT: hearing grossly normal, normal pharynx, no angioedema, normal voice Neck: full range of motion, supple/symm/no masses Respiratory: chest non-tender, lungs clear, normal breath sounds, no respiratory distress, no retraction, no accessory muscle use, speaking full sentences Cardiovascular #1: regular rate, rhythm, no edema Gastrointestinal: normal bowel sounds, non tender, soft, non-distended, no guarding, no rebound Rectal: deferred Musculoskeletal: back normal, normal range of motion, non-tender Neurologic: alert, motor strength/tone normal, responsive, speech normal Psychiatric: judgement/insight normal, memory normal, mood/affect normal, no suicidal/homicidal ideation Skin: no rash, normal color Medical Decision Making Diagnostic Impression: Primary Impression: Hepatic encephalopathy Additional Impression: Pancytopenia ER Course This patient has an elevated ammonia. I am unsure the patient's baseline mental status, but given the elevated ammonia I suspect this patient does have an encephalopathy. The patient is admitted for hepatic encephalopathy and pancytopenia. She remained stable in the emergency department and is admitted for further evaluation and treatment. Laboratory Tests Test 12/22/19 15:05 12/22/19 15:08 12/22/19 16:15 12/22/19 17:00 Valproic Acid Level 99 MCG/ML (50-100) Sodium Level 138 MMOL/L (136-145) Potassium Level 3.5 MMOL/L (3.5-5.1) Chloride Level 106 MMOL/L (98-107) Carbon Dioxide Level 24 MMOL/L (21-32) Anion Gap 8 mmol/L (5-15) Blood Urea Nitrogen 13 mg/dL (7-18) Creatinine 0.5 MG/DL (0.55-1.30) L Estimate Glomerular Filtration Rate > 60 mL/min (>60) Glucose Level 83 MG/DL (74-106) Lactic Acid Level 1.40 mmol/L (0.4-2.0) Calcium Level 7.6 MG/DL (8.5-10.1) L Total Bilirubin 0.3 MG/DL (0.2-1.0) Aspartate Amino Transferase (AST) 20 U/L (15-37) Alanine Aminotransferase (ALT) 11 U/L (12-78) L Alkaline Phosphatase 49 U/L (46-116) Ammonia 111 umol/L (11-32) H Total Protein 5.6 G/DL (6.4-8.2) L Albumin 2.5 G/DL (3.4-5.0) L Globulin 3.1 g/dL Albumin/Globulin Ratio 0.8 (1.0-2.7) L Levetiracetam Level Pending White Blood Count 2.5 K/UL (4.8-10.8) L Red Blood Count 2.79 M/UL (4.20-5.40) L Hemoglobin 8.7 G/DL (12.0-16.0) L Hematocrit 25.7 % (37.0-47.0) L Mean Corpuscular Volume 92 FL (80-99) Mean Corpuscular Hemoglobin 31.4 PG (27.0-31.0) H Mean Corpuscular Hemoglobin Concent 34.1 G/DL (32.0-36.0) Red Cell Distribution Width 12.8 % (11.6-14.8) Platelet Count 64 K/UL (150-450) L Mean Platelet Volume 6.5 FL (6.5-10.1) Neutrophils (%) (Auto) % (45.0-75.0) Lymphocytes (%) (Auto) % (20.0-45.0) Monocytes (%) (Auto) % (1.0-10.0) Eosinophils (%) (Auto) % (0.0-3.0) Basophils (%) (Auto) % (0.0-2.0) Differential Total Cells Counted 100 Neutrophils % (Manual) 35 % (45-75) L Lymphocytes % (Manual) 51 % (20-45) H Monocytes % (Manual) 11 % (1-10) H Eosinophils % (Manual) 2 % (0-3) Basophils % (Manual) 1 % (0-2) Band Neutrophils 0 % (0-8) Platelet Estimate Decreased L Platelet Morphology Normal Hypochromasia 1+ Anisocytosis 1+ Urine Color Pale yellow Urine Appearance Clear Urine pH 5 (4.5-8.0) Urine Specific Paia 1.025 (1.005-1.035) Urine Protein Negative (NEGATIVE) Urine Glucose (UA) Negative (NEGATIVE) Urine Ketones Negative (NEGATIVE) Urine Blood Negative (NEGATIVE) Urine Nitrite Negative (NEGATIVE) Urine Bilirubin Negative (NEGATIVE) Urine Urobilinogen Normal MG/DL (0.0-1.0) Urine Leukocyte Esterase Negative (NEGATIVE) EKG Diagnostic Results Rate: normal Rhythm: NSR ST Segments: no acute changes Other Impression RBBB Rhythm Strip Diag. Results EP Interpretation: yes Rate: 70's Rhythm: NSR, no PVC's, no ectopy Chest X-Ray Diagnostic Results Chest X-Ray Diagnostic Results : Chest X-Ray Ordered: Yes # of Views/Limited/Complete: 1 View Indication: Other EP Interpretation: Yes Interpretation: no consolidation, no effusion, no pneumothorax, no acute cardiopulmonary disease Impression: No acute disease Electronically Signed by: Cinda Clay DO Last Vital Signs Date Time Temp Pulse Resp B/P (MAP) Pulse Ox O2 Delivery O2 Flow Rate FiO2 12/22/19 20:00 97.9 73 13 132/70 100 Room Air Disposition: ADMITTED INPATIENT Condition: Stable Referrals: Mindy Bryan MD (PCP) Cinda Clay DO Dec 22, 2019 20:55
--- NOTE | 2019-12-22 21:30 | History and Physical Report ---
DATE OF ADMISSION: 12/22/2019 HISTORY OF PRESENT ILLNESS: The patient is here for anemia as well as pancytopenia, elevated ammonia, encephalopathy, altered mental status. The patient also had elevated Keppra and Depakote level at the halfway, admitted for those reasons. The patient is poor historian, more altered, more confused, cannot get a reliable history from the patient. PAST MEDICAL HISTORY: Organic brain syndrome, seizure disorder, history of GERD, history of hypertension, history of chronic renal insufficiency. PAST SURGICAL HISTORY: Denies. ALLERGIES: Denies. MEDICATIONS: Keppra as well as Depakote. FAMILY HISTORY: Noncontributory. SOCIAL HISTORY: Denies history of smoking, alcohol use, or illicit drugs. REVIEW OF SYSTEMS: HEENT: Denies headaches. RESPIRATORY: Denies shortness of breath. Denies cough. CARDIOVASCULAR: Denies chest pain. GASTROINTESTINAL: Denies nausea, vomiting, or diarrhea; however is a poor historian. PHYSICAL EXAMINATION: VITAL SIGNS: Temperature 97.2, pulse 78, blood pressure 132/70. HEENT: PERRLA. NECK: Supple. No lymphadenopathy. CHEST: Clear to auscultation. CARDIOVASCULAR: Regular rate and rhythm. No murmurs or extra sounds. GASTROINTESTINAL: Soft, nontender, nondistended. No organomegaly. EXTREMITIES: No edema. Reflexes equal on both sides. NEUROLOGIC: Does not follow neurological exam, confused. LABORATORY DATA: Sodium was 138, potassium 3.5, BUN of 13, creatinine 0.5. WBC of 2.5, hemoglobin of 8.7, platelets of . Ammonia 111. ASSESSMENT: Altered mental status and encephalopathy, could be due to elevated ammonia and also patient has elevated Depakote level and elevated Keppra level, admitted from the halfway as well as history of pancytopenia. I have consulted Dr. Landa, Dr. Crow Coley, as well as Dr. Siegel and Dr. Valdivia to help with the management of the above-mentioned abnormalities, symptoms and abnormalities. We will follow the patient . Mindy Bryan M.D. DR: Ash JOB#: [id number] CC:
[2019-12-23] VITALS: BP 145/75
[2019-12-23 04:00] VITALS: BP 139/90
--- NOTE | 2019-12-23 06:43 | Consultation ---
History of Present Illness General Chief Complaint: Abnormal Labs Present Illness Allergies: Coded Allergies: CIPROFLOXACIN (Verified Allergy, Unknown, 10/02/13) HYDROCODONE (Verified Allergy, Unknown, 10/02/13) PENICILLINS (Verified Allergy, Unknown, 10/02/13) PROCHLORPERAZINE (Verified Allergy, Unknown, 10/02/13) Medication History Scheduled Calcium Carbonate (Oyster Shell Calcium), 500 MG PO DAILY WITH BREAKFAST, ( Reported) Divalproex Sodium* (Depakote*), 750 MG PO Q12HR, (Reported) Docusate Sodium* (Docusate Sodium*), 250 MG ORAL DAILY, (Reported) Folic Acid* (Folic Acid*), 1 MG PO DAILY, (Reported) Hydralazine HCl (Hydralazine HCl), 10 MG ORAL DAILY, (Reported) Levetiracetam (Keppra), 750 MG ORAL Q12HR, (Reported) Levothyroxine Sodium* (Synthroid*), 125 MCG ORAL DAILY, (Reported) Metoprolol Tartrate* (Metoprolol Tartrate*), 12.5 MG ORAL EVERY MORNING, ( Reported) Multivitamin With Minerals (Multivitamins With Minerals*), 1 TAB ORAL DAILY, ( Reported) Scheduled PRN Acetaminophen* (Tylenol Extra Strength*), 1,000 MG ORAL Q4HR PRN for Moderate Pain (Pain Scale 4-6), (Reported) Acetaminophen* (Acetaminophen 325MG Tablet*), 650 MG ORAL Q4H PRN for Mild Pain (Pain Scale 1-3), (Reported) Acetaminophen* (Acetaminophen 325MG Tablet*), 650 MG ORAL Q4H PRN for temperature > 101 F, (Reported) Bisacodyl (Bisacodyl), 10 MG RC DAILY PRN for Constipation, (Reported) Magnesium Hydroxide* (Milk Of Magnesia*), 30 ML ORAL QHS PRN for Constipation, ( Reported) Na Phos,M-B/Na Phos,Di-Ba* (Fleet Enema*), 133 ML RECTAL EVERY 2 DAYS PRN for Constipation, (Reported) Patient History Healthcare decision maker Resuscitation status Full Code Advanced Directive on File Physical Exam Last 24 Hour Vital Signs Date Time Temp Pulse Resp B/P (MAP) Pulse Ox O2 Delivery O2 Flow Rate FiO2 12/23/19 04:00 98.4 65 17 139/90 (106) 96 12/23/19 00:00 98.1 69 17 145/75 (98) 95 12/22/19 21:46 Room Air 12/22/19 21:25 97.9 73 13 132/70 100 Room Air 12/22/19 20:00 97.9 73 13 132/70 100 Room Air 12/22/19 18:15 97.9 76 18 127/63 100 Room Air 12/22/19 16:15 98.0 78 17 117/76 99 Room Air 12/22/19 14:15 98.2 75 16 124/71 98 Room Air 12/22/19 13:58 98.2 72 16 124/71 (88) 98 Room Air Intake and Output 12/22/19 12/23/19 19:00 07:00 Intake Total 0 ml Balance 0 ml Intake Oral 0 ml # Bowel Movements 1 Laboratory Tests Test 12/22/19 15:05 12/22/19 15:08 12/22/19 16:15 12/22/19 17:00 Valproic Acid (Depakene) Level 99 MCG/ML (50-100) Sodium Level 138 MMOL/L (136-145) Potassium Level 3.5 MMOL/L (3.5-5.1) Chloride Level 106 MMOL/L (98-107) Carbon Dioxide Level 24 MMOL/L (21-32) Anion Gap 8 mmol/L (5-15) Blood Urea Nitrogen 13 mg/dL (7-18) Creatinine 0.5 MG/DL (0.55-1.30) L Estimat Glomerular Filtration Rate > 60 mL/min (>60) Glucose Level 83 MG/DL (74-106) Lactic Acid Level 1.40 mmol/L (0.4-2.0) Calcium Level 7.6 MG/DL (8.5-10.1) L Total Bilirubin 0.3 MG/DL (0.2-1.0) Aspartate Amino Transf (AST/SGOT) 20 U/L (15-37) Alanine Aminotransferase (ALT/SGPT) 11 U/L (12-78) L Alkaline Phosphatase 49 U/L (46-116) Ammonia 111 umol/L (11-32) H Total Protein 5.6 G/DL (6.4-8.2) L Albumin 2.5 G/DL (3.4-5.0) L Globulin 3.1 g/dL Albumin/Globulin Ratio 0.8 (1.0-2.7) L Levetiracetam (Keppra) Level Pending White Blood Count 2.5 K/UL (4.8-10.8) L Red Blood Count 2.79 M/UL (4.20-5.40) L Hemoglobin 8.7 G/DL (12.0-16.0) L Hematocrit 25.7 % (37.0-47.0) L Mean Corpuscular Volume 92 FL (80-99) Mean Corpuscular Hemoglobin 31.4 PG (27.0-31.0) H Mean Corpuscular Hemoglobin Concent 34.1 G/DL (32.0-36.0) Red Cell Distribution Width 12.8 % (11.6-14.8) Platelet Count 64 K/UL (150-450) L Mean Platelet Volume 6.5 FL (6.5-10.1) Neutrophils (%) (Auto) % (45.0-75.0) Lymphocytes (%) (Auto) % (20.0-45.0) Monocytes (%) (Auto) % (1.0-10.0) Eosinophils (%) (Auto) % (0.0-3.0) Basophils (%) (Auto) % (0.0-2.0) Differential Total Cells Counted 100 Neutrophils % (Manual) 35 % (45-75) L Lymphocytes % (Manual) 51 % (20-45) H Monocytes % (Manual) 11 % (1-10) H Eosinophils % (Manual) 2 % (0-3) Basophils % (Manual) 1 % (0-2) Band Neutrophils 0 % (0-8) Platelet Estimate Decreased L Platelet Morphology Normal Hypochromasia 1+ Anisocytosis 1+ Urine Color Pale yellow Urine Appearance Clear Urine pH 5 (4.5-8.0) Urine Specific [place] 1.025 (1.005-1.035) Urine Protein Negative (NEGATIVE) Urine Glucose (UA) Negative (NEGATIVE) Urine Ketones Negative (NEGATIVE) Urine Blood Negative (NEGATIVE) Urine Nitrite Negative (NEGATIVE) Urine Bilirubin Negative (NEGATIVE) Urine Urobilinogen Normal MG/DL (0.0-1.0) Urine Leukocyte Esterase Negative (NEGATIVE) Height (Feet): 5 Height (Inches): 2.00 Weight (Pounds): 135 Assessment/Plan Assessment/Plan: Hematology Oncology Consult REQ : Mindy Urrutia [facility]: DVT s/p IVC filter, pancytopenia DOS:12/23/2019 ID 69-year-old female, well known to me, with history of hyponatremia and neuropathy, prior dvt s/p ivf filter in the past, here for admission. Patient is a sammarinese speaker, denies saddle paresthesia, urinary/bowel incontinence. Denies head trauma. Patient is unable to ambulate and elicit a lot of pain at area of hip, shes had this before. She's had similar symptoms before. Denies any other injury, chest pain, shortness of breath, dizziness, palpitation, abdominal pain, nausea vomiting and all other associated symptoms. She further denies tingling numbness. Now has low Na and IVC filter for hx of DVT, here at this time for ams. Allergies: CIPROFLOXACIN (Verified Allergy, Unknown, 10/02/13) HYDROCODONE (Verified Allergy, Unknown, 10/02/13) PENICILLINS (Verified Allergy, Unknown, 10/02/13) PROCHLORPERAZINE (Verified Allergy, Unknown, 10/02/13) Patient History Past Medical History: see triage record Past Surgical History: unable to obtain Immunizations: UTD Reviewed Nursing Documentation: PMH: Agreed; PSxH: Agreed Past Medical History: No History, Except For Hx Cardiac Problems: Yes Hx Hypertension: Yes Hx Pacemaker: No Hx Asthma: No - pna, sepsis, resp insuff., neuropathy, hypothyroidsm, Hx Diabetes: Yes Hx Cancer: No Hx Gastrointestinal Problems: Yes Hx Neurological Problems: Yes Hx Cerebrovascular Accident: Yes Hx Seizures: Yes All Other Systems: negative except mentioned in HPI Very comfortable, no other events Vital Signs reviewed Gen: normal inspection, alert, GCS 15 HEENT: normocephalic, atraumatic, bilateral eye PERRL Pulm: normal inspection, chest non-tender, no cwr CV: normal inspection, regular rate, rhythm, no gallop, no murmur Gastrointestinal: normal inspection, soft Lymphatic: normal inspection, no adenopathy Ext: no cce Labs: noted Imaging: noted ASSESSMENT AND RECOMMENDATIONS: 1. Deep venous thrombosis of the right lower extremity. Partial visualization of an IVC filter. On the right, wall adherent nonocclusive thrombus is seen within the common femoral vein and downstream superficial femoral vein. While the appearance is suggestive of chronic recanalized thrombus, this is nonetheless a new finding since prior study of 07/28/2019 --> imaging has been reviewed --> hx IVC filter is in place --> duplex lower ext reviewed--> has completed 3 months of anticoag recently 2. Pancytopenia likely secondary to underlying liver disease, continue to closely monitor. This is the lowest counts she has had for past several years --> Prior labs reviewed, hepatitis panel reviewed --> us of the abdomen was reviewed --> meds reviewed as well --> transfuse if she is bleeding with platelets --> plt trend 79k-->64k --> wbc 3-->2.5 --> hgb 11.8-->8.7 3. Anemia secondary to chronic disease. --> w/u reviewed from prior adm --> trend as needed 4. Hyponatremia. Nephrology is following --> Fluid restriction --> appreciate nephro recs 5. Seizure disorder --> as per neuro 6. Left hip pain due to Lumbar compression fracture -- pain meds prn --> pain management 7. AMs as per neuro DW RN and appreciate the consultation. Crow Coley MD Dec 23, 2019 06:43
[2019-12-23 08:00] VITALS: BP 112/59
[2019-12-23 08:11] LABS: HEMATOCRIT 32.4 % (37.0-47.0); HEMOGLOBIN 11.6 G/DL (12.0-16.0); MEAN CORPUSCULAR VOLUME 89 FL (80-99); PLATELET COUNT 87 K/UL (150-450); RED BLOOD COUNT 3.63 M/UL (4.20-5.40); RED CELL DISTRIBUTION WIDTH 11.5 % (11.6-14.8); WHITE BLOOD COUNT 2.9 K/UL (4.8-10.8)
[2019-12-23 08:59] LABS: ALANINE AMINOTRANSFERASE 12 U/L (12-78); ALBUMIN/GLOBULIN RATIO 0.8 (1.0-2.7); ALKALINE PHOSPHATASE 50 U/L (46-116); ANION GAP 12 mmol/L (5-15); ASPARTATE AMINO TRANSFERASE 21 U/L (15-37); BILIRUBIN,TOTAL 0.4 MG/DL (0.2-1.0); BLOOD UREA NITROGEN 10 mg/dL (7-18); CALCIUM 8.9 MG/DL (8.5-10.1); CARBON DIOXIDE 23 MMOL/L (21-32); CHLORIDE 99 MMOL/L (98-107); CREATININE 0.4 MG/DL (0.55-1.30); POTASSIUM 3.5 MMOL/L (3.5-5.1); SODIUM 134 MMOL/L (136-145)
[2019-12-23 09:07] LABS: FERRITIN 272 NG/ML (8-388)
[2019-12-23 09:34] LABS: % IRON SATURATION 35 % (15-50); IRON 78 ug/dL (50-175); TOTAL IRON BINDING CAPACITY 225 ug/dL (250-450)
[2019-12-23 12:00] VITALS: BP 130/70
[2019-12-23 16:00] VITALS: BP 124/64
[2019-12-23 20:00] VITALS: BP 131/59
[2019-12-23] MEDS ORDERED: DEPAKOTE ER500 MG ORAL (20:12)
[2019-12-23] MEDS ORDERED: ELIQUIS5 MG PO (20:12)
[2019-12-23] MEDS ORDERED: LACTULOSE10 GM/153 PO (20:12)
--- NOTE | 2019-12-23 21:25 | General Progress Note ---
Assessment/Plan Assessment/Plan: Assessment - incidental mild elevation of NH3, more near normal at second measure - no historical or clinical evidence of cirrhosis - mental status preserved Recommendation - follow NH3 levels - no indications for treatment at this time - Subjective Allergies: Coded Allergies: CIPROFLOXACIN (Verified Allergy, Unknown, 10/02/13) HYDROCODONE (Verified Allergy, Unknown, 10/02/13) PENICILLINS (Verified Allergy, Unknown, 10/02/13) PROCHLORPERAZINE (Verified Allergy, Unknown, 10/02/13) Objective Last 24 Hour Vital Signs Date Time Temp Pulse Resp B/P (MAP) Pulse Ox O2 Delivery O2 Flow Rate FiO2 12/23/19 20:11 Room Air 12/23/19 20:00 97.9 65 17 131/59 (83) 95 12/23/19 16:00 97.9 73 18 124/64 (84) 96 12/23/19 12:00 97.7 75 18 130/70 (90) 97 12/23/19 09:00 Room Air 12/23/19 08:00 97.6 65 17 112/59 (76) 96 12/23/19 04:00 98.4 65 17 139/90 (106) 96 12/23/19 00:00 98.1 69 17 145/75 (98) 95 12/22/19 21:46 Room Air 12/22/19 21:25 97.9 73 13 132/70 100 Room Air Intake and Output 12/22/19 12/23/19 19:00 07:00 Intake Total 0 ml Balance 0 ml Intake Oral 0 ml # Bowel Movements 1 Laboratory Tests 12/23/19 07:16: White Blood Count 2.9L, Red Blood Count 3.63L, Hemoglobin 11.6#L, Hematocrit 32.4L, Mean Corpuscular Volume 89, Mean Corpuscular Hemoglobin 31.8H, Mean Corpuscular Hemoglobin Concent 35.6, Red Cell Distribution Width 11.5L, Platelet Count 87L, Mean Platelet Volume 5.0L, Neutrophils (%) (Auto) , Lymphocytes (%) (Auto) , Monocytes (%) (Auto) , Eosinophils (%) (Auto) , Basophils (%) (Auto) , Differential Total Cells Counted 100, Neutrophils % ( Manual) 35L, Lymphocytes % (Manual) 51H, Monocytes % (Manual) 11H, Eosinophils % (Manual) 3, Basophils % (Manual) 0, Band Neutrophils 0, Platelet Estimate DecreasedL, Platelet Morphology Normal, Sodium Level 134L, Potassium Level 3.5, Chloride Level 99, Carbon Dioxide Level 23, Anion Gap 12, Blood Urea Nitrogen 10 , Creatinine 0.4L, Estimat Glomerular Filtration Rate > 60, Glucose Level 75, Calcium Level 8.9, Iron Level 78, Total Iron Binding Capacity 225L, Percent Iron Saturation 35, Unsaturated Iron Binding 147, Ferritin 272, Total Bilirubin 0.4, Aspartate Amino Transf (AST/SGOT) 21, Alanine Aminotransferase (ALT/SGPT) 12, Alkaline Phosphatase 50, Ammonia 46H, Total Protein 6.6, Albumin 3.0L, Globulin 3.6, Albumin/Globulin Ratio 0.8L, Folate 52.7 Height (Feet): 5 Height (Inches): 2.00 Weight (Pounds): 135 Jose De Jesus Landa MD Dec 23, 2019 21:25
--- NOTE | 2019-12-23 21:44 | General Progress Note ---
Assessment/Plan Problem List: (1) Abdominal pain ICD Codes: R10.9 - Unspecified abdominal pain SNOMED: 69907974 (2) CHF (congestive heart failure) Status: progressing Assessment/Plan: elevated keppra and valproic level afebrile pancytopenia encephalopathy heme/onc consult Subjective ROS Limited/Unobtainable: Yes Allergies: Coded Allergies: CIPROFLOXACIN (Verified Allergy, Unknown, 10/02/13) HYDROCODONE (Verified Allergy, Unknown, 10/02/13) PENICILLINS (Verified Allergy, Unknown, 10/02/13) PROCHLORPERAZINE (Verified Allergy, Unknown, 10/02/13) Objective Last 24 Hour Vital Signs Date Time Temp Pulse Resp B/P (MAP) Pulse Ox O2 Delivery O2 Flow Rate FiO2 12/23/19 20:11 Room Air 12/23/19 20:00 97.9 65 17 131/59 (83) 95 12/23/19 16:00 97.9 73 18 124/64 (84) 96 12/23/19 12:00 97.7 75 18 130/70 (90) 97 12/23/19 09:00 Room Air 12/23/19 08:00 97.6 65 17 112/59 (76) 96 12/23/19 04:00 98.4 65 17 139/90 (106) 96 12/23/19 00:00 98.1 69 17 145/75 (98) 95 12/22/19 21:46 Room Air Intake and Output 12/22/19 12/23/19 19:00 07:00 Intake Total 0 ml Balance 0 ml Intake Oral 0 ml # Bowel Movements 1 Laboratory Tests 12/23/19 07:16: White Blood Count 2.9L, Red Blood Count 3.63L, Hemoglobin 11.6#L, Hematocrit 32.4L, Mean Corpuscular Volume 89, Mean Corpuscular Hemoglobin 31.8H, Mean Corpuscular Hemoglobin Concent 35.6, Red Cell Distribution Width 11.5L, Platelet Count 87L, Mean Platelet Volume 5.0L, Neutrophils (%) (Auto) , Lymphocytes (%) (Auto) , Monocytes (%) (Auto) , Eosinophils (%) (Auto) , Basophils (%) (Auto) , Differential Total Cells Counted 100, Neutrophils % ( Manual) 35L, Lymphocytes % (Manual) 51H, Monocytes % (Manual) 11H, Eosinophils % (Manual) 3, Basophils % (Manual) 0, Band Neutrophils 0, Platelet Estimate DecreasedL, Platelet Morphology Normal, Sodium Level 134L, Potassium Level 3.5, Chloride Level 99, Carbon Dioxide Level 23, Anion Gap 12, Blood Urea Nitrogen 10 , Creatinine 0.4L, Estimat Glomerular Filtration Rate > 60, Glucose Level 75, Calcium Level 8.9, Iron Level 78, Total Iron Binding Capacity 225L, Percent Iron Saturation 35, Unsaturated Iron Binding 147, Ferritin 272, Total Bilirubin 0.4, Aspartate Amino Transf (AST/SGOT) 21, Alanine Aminotransferase (ALT/SGPT) 12, Alkaline Phosphatase 50, Ammonia 46H, Total Protein 6.6, Albumin 3.0L, Globulin 3.6, Albumin/Globulin Ratio 0.8L, Folate 52.7 Height (Feet): 5 Height (Inches): 2.00 Weight (Pounds): 135 Cardiovascular: regular rhythm Respiratory/Chest: lungs clear Abdomen: soft Mindy Bryan MD Dec 23, 2019 21:44
[2019-12-24 04:00] VITALS: BP 125/75
[2019-12-24 05:53] LABS: HEMATOCRIT 31.5 % (37.0-47.0); HEMOGLOBIN 11.3 G/DL (12.0-16.0); MEAN CORPUSCULAR VOLUME 88 FL (80-99); PLATELET COUNT 93 K/UL (150-450); RED BLOOD COUNT 3.56 M/UL (4.20-5.40); RED CELL DISTRIBUTION WIDTH 11.6 % (11.6-14.8); WHITE BLOOD COUNT 2.8 K/UL (4.8-10.8)
[2019-12-24 06:09] LABS: ANION GAP 8 mmol/L (5-15); BLOOD UREA NITROGEN 13 mg/dL (7-18); CARBON DIOXIDE 28 MMOL/L (21-32); CHLORIDE 102 MMOL/L (98-107); CREATININE 0.4 MG/DL (0.55-1.30); POTASSIUM 3.8 MMOL/L (3.5-5.1); SODIUM 138 MMOL/L (136-145)
--- NOTE | 2019-12-24 06:37 | Hematology/Onc Progress Note ---
Assessment/Plan Assessment/Plan ASSESSMENT AND RECOMMENDATIONS: 1. Deep venous thrombosis of the right lower extremity. Partial visualization of an IVC filter. On the right, wall adherent nonocclusive thrombus is seen within the common femoral vein and downstream superficial femoral vein. While the appearance is suggestive of chronic recanalized thrombus, this is nonetheless a new finding since prior study of 07/28/2019 --> imaging has been reviewed --> hx IVC filter is in place --> duplex lower ext reviewed--> has completed 3 months of anticoag recently 2. Pancytopenia likely secondary to underlying liver disease, continue to closely monitor. This is the lowest counts she has had for past several years --> Prior labs reviewed, hepatitis panel reviewed --> us of the abdomen was reviewed --> meds reviewed as well --> transfuse if she is bleeding with platelets --> plt trend 79k-->64k --> wbc 3-->2.5-->2.8 --> hgb 11.8-->8.7-->9.3 3. Anemia secondary to chronic disease. --> w/u reviewed from prior adm --> trend as needed 4. Hyponatremia. Nephrology is following --> Fluid restriction --> appreciate nephro recs 5. Seizure disorder --> as per neuro 6. Left hip pain due to Lumbar compression fracture -- pain meds prn --> pain management 7. AMs as per neuro DW RN and appreciate the consultation. Subjective Allergies: Coded Allergies: CIPROFLOXACIN (Verified Allergy, Unknown, 10/02/13) HYDROCODONE (Verified Allergy, Unknown, 10/02/13) PENICILLINS (Verified Allergy, Unknown, 10/02/13) PROCHLORPERAZINE (Verified Allergy, Unknown, 10/02/13) Subjective 12/23 no bleeding, no events, no major changes, labs noted, wbc 2.8 Objective Objective Current Medications Medications (Trade) Dose Ordered Sig/Karlee Route PRN Reason Start Time Stop Time Status Last Admin Dose Admin Levetiracetam (Keppra) 500 mg Q12HR ORAL 12/23/19 21:00 01/22/20 20:59 12/23/19 21:36 Last 24 Hour Vital Signs Date Time Temp Pulse Resp B/P (MAP) Pulse Ox O2 Delivery O2 Flow Rate FiO2 12/24/19 04:00 98.0 69 18 125/75 (92) 96 12/23/19 20:11 Room Air 12/23/19 20:00 97.9 65 17 131/59 (83) 95 12/23/19 16:00 97.9 73 18 124/64 (84) 96 12/23/19 12:00 97.7 75 18 130/70 (90) 97 12/23/19 09:00 Room Air 12/23/19 08:00 97.6 65 17 112/59 (76) 96 12/23/19 04:00 98.4 65 17 139/90 (106) 96 12/23/19 00:00 98.1 69 17 145/75 (98) 95 12/22/19 21:46 Room Air 12/22/19 21:25 97.9 73 13 132/70 100 Room Air 12/22/19 20:00 97.9 73 13 132/70 100 Room Air 12/22/19 18:15 97.9 76 18 127/63 100 Room Air 12/22/19 16:15 98.0 78 17 117/76 99 Room Air 12/22/19 14:15 98.2 75 16 124/71 98 Room Air 12/22/19 13:58 98.2 72 16 124/71 (88) 98 Room Air Intake and Output 12/23/19 12/24/19 19:00 07:00 Intake Total 240 ml Balance 240 ml Intake Oral 240 ml # Voids 2 2 Labs Test 12/22/19 15:05 12/22/19 15:08 12/22/19 16:15 12/22/19 17:00 Valproic Acid (Depakene) Level 99 MCG/ML (50-100) Sodium Level 138 MMOL/L (136-145) Potassium Level 3.5 MMOL/L (3.5-5.1) Chloride Level 106 MMOL/L (98-107) Carbon Dioxide Level 24 MMOL/L (21-32) Anion Gap 8 mmol/L (5-15) Blood Urea Nitrogen 13 mg/dL (7-18) Creatinine 0.5 MG/DL (0.55-1.30) Estimat Glomerular Filtration Rate > 60 mL/min (>60) Glucose Level 83 MG/DL (74-106) Lactic Acid Level 1.40 mmol/L (0.4-2.0) Calcium Level 7.6 MG/DL (8.5-10.1) Total Bilirubin 0.3 MG/DL (0.2-1.0) Aspartate Amino Transf (AST/SGOT) 20 U/L (15-37) Alanine Aminotransferase (ALT/SGPT) 11 U/L (12-78) Alkaline Phosphatase 49 U/L (46-116) Ammonia 111 umol/L (11-32) Total Protein 5.6 G/DL (6.4-8.2) Albumin 2.5 G/DL (3.4-5.0) Globulin 3.1 g/dL Albumin/Globulin Ratio 0.8 (1.0-2.7) White Blood Count 2.5 K/UL (4.8-10.8) Red Blood Count 2.79 M/UL (4.20-5.40) Hemoglobin 8.7 G/DL (12.0-16.0) Hematocrit 25.7 % (37.0-47.0) Mean Corpuscular Volume 92 FL (80-99) Mean Corpuscular Hemoglobin 31.4 PG (27.0-31.0) Mean Corpuscular Hemoglobin Concent 34.1 G/DL (32.0-36.0) Red Cell Distribution Width 12.8 % (11.6-14.8) Platelet Count 64 K/UL (150-450) Mean Platelet Volume 6.5 FL (6.5-10.1) Neutrophils (%) (Auto) % (45.0-75.0) Lymphocytes (%) (Auto) % (20.0-45.0) Monocytes (%) (Auto) % (1.0-10.0) Eosinophils (%) (Auto) % (0.0-3.0) Basophils (%) (Auto) % (0.0-2.0) Differential Total Cells Counted 100 Neutrophils % (Manual) 35 % (45-75) Lymphocytes % (Manual) 51 % (20-45) Monocytes % (Manual) 11 % (1-10) Eosinophils % (Manual) 2 % (0-3) Basophils % (Manual) 1 % (0-2) Band Neutrophils 0 % (0-8) Platelet Estimate Decreased Platelet Morphology Normal Hypochromasia 1+ Anisocytosis 1+ Urine Color Pale yellow Urine Appearance Clear Urine pH 5 (4.5-8.0) Urine Specific [place] 1.025 (1.005-1.035) Urine Protein Negative (NEGATIVE) Urine Glucose (UA) Negative (NEGATIVE) Urine Ketones Negative (NEGATIVE) Urine Blood Negative (NEGATIVE) Urine Nitrite Negative (NEGATIVE) Urine Bilirubin Negative (NEGATIVE) Urine Urobilinogen Normal MG/DL (0.0-1.0) Urine Leukocyte Esterase Negative (NEGATIVE) Test 12/23/19 07:16 12/24/19 04:58 White Blood Count 2.9 K/UL (4.8-10.8) 2.8 K/UL (4.8-10.8) Red Blood Count 3.63 M/UL (4.20-5.40) 3.56 M/UL (4.20-5.40) Hemoglobin 11.6 G/DL (12.0-16.0) 11.3 G/DL (12.0-16.0) Hematocrit 32.4 % (37.0-47.0) 31.5 % (37.0-47.0) Mean Corpuscular Volume 89 FL (80-99) 88 FL (80-99) Mean Corpuscular Hemoglobin 31.8 PG (27.0-31.0) 31.6 PG (27.0-31.0) Mean Corpuscular Hemoglobin Concent 35.6 G/DL (32.0-36.0) 35.8 G/DL (32.0-36.0) Red Cell Distribution Width 11.5 % (11.6-14.8) 11.6 % (11.6-14.8) Platelet Count 87 K/UL (150-450) 93 K/UL (150-450) Mean Platelet Volume 5.0 FL (6.5-10.1) 5.2 FL (6.5-10.1) Neutrophils (%) (Auto) % (45.0-75.0) % (45.0-75.0) Lymphocytes (%) (Auto) % (20.0-45.0) % (20.0-45.0) Monocytes (%) (Auto) % (1.0-10.0) % (1.0-10.0) Eosinophils (%) (Auto) % (0.0-3.0) % (0.0-3.0) Basophils (%) (Auto) % (0.0-2.0) % (0.0-2.0) Differential Total Cells Counted 100 Neutrophils % (Manual) 35 % (45-75) Lymphocytes % (Manual) 51 % (20-45) Monocytes % (Manual) 11 % (1-10) Eosinophils % (Manual) 3 % (0-3) Basophils % (Manual) 0 % (0-2) Band Neutrophils 0 % (0-8) Platelet Estimate Decreased Platelet Morphology Normal Sodium Level 134 MMOL/L (136-145) 138 MMOL/L (136-145) Potassium Level 3.5 MMOL/L (3.5-5.1) 3.8 MMOL/L (3.5-5.1) Chloride Level 99 MMOL/L (98-107) 102 MMOL/L (98-107) Carbon Dioxide Level 23 MMOL/L (21-32) 28 MMOL/L (21-32) Anion Gap 12 mmol/L (5-15) 8 mmol/L (5-15) Blood Urea Nitrogen 10 mg/dL (7-18) 13 mg/dL (7-18) Creatinine 0.4 MG/DL (0.55-1.30) 0.4 MG/DL (0.55-1.30) Estimat Glomerular Filtration Rate > 60 mL/min (>60) > 60 mL/min (>60) Glucose Level 75 MG/DL (74-106) 70 MG/DL (74-106) Calcium Level 8.9 MG/DL (8.5-10.1) 9.0 MG/DL (8.5-10.1) Iron Level 78 ug/dL (50-175) Total Iron Binding Capacity 225 ug/dL (250-450) Percent Iron Saturation 35 % (15-50) Unsaturated Iron Binding 147 ug/dL (112-346) Ferritin 272 NG/ML (8-388) Total Bilirubin 0.4 MG/DL (0.2-1.0) Aspartate Amino Transf (AST/SGOT) 21 U/L (15-37) Alanine Aminotransferase (ALT/SGPT) 12 U/L (12-78) Alkaline Phosphatase 50 U/L (46-116) Ammonia 46 umol/L (11-32) 63 umol/L (11-32) Total Protein 6.6 G/DL (6.4-8.2) Albumin 3.0 G/DL (3.4-5.0) Globulin 3.6 g/dL Albumin/Globulin Ratio 0.8 (1.0-2.7) Folate 52.7 NG/ML (8.6-58.9) Height (Feet): 5 Height (Inches): 2.00 Weight (Pounds): 133 Objective Vital Signs reviewed Gen: normal inspection, alert, GCS 15 HEENT: normocephalic, atraumatic, bilateral eye PERRL Pulm: normal inspection, chest non-tender, no cwr CV: normal inspection, regular rate, rhythm, no gallop, no murmur Gastrointestinal: normal inspection, soft Lymphatic: normal inspection, no adenopathy Ext: no cce Crow Coley MD Dec 24, 2019 06:37
[2019-12-24 08:28] VITALS: BP 101/66
--- NOTE | 2019-12-24 11:41 | Diagnostic Imaging Report ---
Indication: Abdominal pain Technique: Grayscale and duplex Doppler imaging of the abdomen performed. Comparison: None Findings: The liver is unremarkable. Doppler interrogation of the main portal vein shows patency with hepatopedal, monophasic flow. There is no biliary ductal dilatation identified. Gallbladder is stones are demonstrated. Sonographic Coreas's is negative per technologist. There are splenic calcifications present. Patient has a known aortic dissection by CT. The current examination demonstrates color Doppler flow within both the true lumen and false lumen within portions of the aorta scanned. Please refer to CT abdomen report from 10/22/2019. The demonstrated part of the pancreas and IVC show no definite abnormalities. 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 Some calcifications within the cortex could be related to stones or may be vascular. There is no hydronephrosis. IMPRESSION: Cholelithiasis. Aortic dissection. Please refer to the 10/22/2019 CT report. Duplicated left collecting system. Cortical calcifications may be stones versus vascular calcification. Splenic calcifications may be due to old granulomatous disease
[2019-12-24 12:00] VITALS: BP 105/54
[2019-12-24 16:00] VITALS: BP 103/55
[2019-12-24 20:00] VITALS: BP 109/57
--- NOTE | 2019-12-24 20:43 | General Progress Note ---
Assessment/Plan Problem List: (1) Abdominal pain ICD Codes: R10.9 - Unspecified abdominal pain SNOMED: [id number] (2) CHF (congestive heart failure) Status: progressing Assessment/Plan: ammonia level is going higher confused afebrile pancytopenia improved encephalopathy Subjective ROS Limited/Unobtainable: Yes Allergies: Coded Allergies: CIPROFLOXACIN (Verified Allergy, Unknown, 10/02/13) HYDROCODONE (Verified Allergy, Unknown, 10/02/13) PENICILLINS (Verified Allergy, Unknown, 10/02/13) PROCHLORPERAZINE (Verified Allergy, Unknown, 10/02/13) Objective Last 24 Hour Vital Signs Date Time Temp Pulse Resp B/P (MAP) Pulse Ox O2 Delivery O2 Flow Rate FiO2 12/24/19 16:00 97.9 68 18 103/55 (71) 96 12/24/19 12:00 98.0 71 18 105/54 (71) 96 12/24/19 11:44 Room Air 12/24/19 08:28 98.9 63 17 101/66 (78) 96 12/24/19 04:00 98.0 69 18 125/75 (92) 96 Intake and Output 12/23/19 12/24/19 19:00 07:00 Intake Total 240 ml Balance 240 ml Intake Oral 240 ml # Voids 2 2 Laboratory Tests 12/24/19 04:58: White Blood Count 2.8L, Red Blood Count 3.56L, Hemoglobin 11.3L, Hematocrit 31.5L, Mean Corpuscular Volume 88, Mean Corpuscular Hemoglobin 31.6H, Mean Corpuscular Hemoglobin Concent 35.8, Red Cell Distribution Width 11.6, Platelet Count 93L, Mean Platelet Volume 5.2L, Neutrophils (%) (Auto) , Lymphocytes (%) ( Auto) , Monocytes (%) (Auto) , Eosinophils (%) (Auto) , Basophils (%) (Auto) , Differential Total Cells Counted 100, Neutrophils % (Manual) 38L, Lymphocytes % (Manual) 44, Monocytes % (Manual) 15H, Eosinophils % (Manual) 2, Basophils % ( Manual) 1, Band Neutrophils 0, Platelet Estimate DecreasedL, Platelet Morphology Normal, Anisocytosis 1+, Sodium Level 138, Potassium Level 3.8, Chloride Level 102, Carbon Dioxide Level 28, Anion Gap 8, Blood Urea Nitrogen 13 , Creatinine 0.4L, Estimat Glomerular Filtration Rate > 60, Glucose Level 70L, Calcium Level 9.0, Ammonia 63H Height (Feet): 5 Height (Inches): 2.00 Weight (Pounds): 133 Mindy Bryan MD Dec 24, 2019 20:43
--- NOTE | 2019-12-24 20:49 | General Progress Note ---
Assessment/Plan Status: progressing Assessment/Plan: Assessment - incidental mild elevation of NH3 - no evidence of cirrhosis - Normal liver on CT and ultrasound - no encephalopathy Recommendation - no indications for treatment of NH3 at this time - push PO - OK for d/c from GI standpoint I will be away until Sunday. Coverage available. Call if questions. Subjective Allergies: Coded Allergies: CIPROFLOXACIN (Verified Allergy, Unknown, 10/02/13) HYDROCODONE (Verified Allergy, Unknown, 10/02/13) PENICILLINS (Verified Allergy, Unknown, 10/02/13) PROCHLORPERAZINE (Verified Allergy, Unknown, 10/02/13) Subjective Feels OK no complaints tolerating PO awake and alert Objective Last 24 Hour Vital Signs Date Time Temp Pulse Resp B/P (MAP) Pulse Ox O2 Delivery O2 Flow Rate FiO2 12/24/19 20:00 97.9 70 18 109/57 (74) 96 12/24/19 16:00 97.9 68 18 103/55 (71) 96 12/24/19 12:00 98.0 71 18 105/54 (71) 96 12/24/19 11:44 Room Air 12/24/19 08:28 98.9 63 17 101/66 (78) 96 12/24/19 04:00 98.0 69 18 125/75 (92) 96 Intake and Output 12/23/19 12/24/19 19:00 07:00 Intake Total 240 ml Balance 240 ml Intake Oral 240 ml # Voids 2 2 Laboratory Tests 12/24/19 04:58: White Blood Count 2.8L, Red Blood Count 3.56L, Hemoglobin 11.3L, Hematocrit 31.5L, Mean Corpuscular Volume 88, Mean Corpuscular Hemoglobin 31.6H, Mean Corpuscular Hemoglobin Concent 35.8, Red Cell Distribution Width 11.6, Platelet Count 93L, Mean Platelet Volume 5.2L, Neutrophils (%) (Auto) , Lymphocytes (%) ( Auto) , Monocytes (%) (Auto) , Eosinophils (%) (Auto) , Basophils (%) (Auto) , Differential Total Cells Counted 100, Neutrophils % (Manual) 38L, Lymphocytes % (Manual) 44, Monocytes % (Manual) 15H, Eosinophils % (Manual) 2, Basophils % ( Manual) 1, Band Neutrophils 0, Platelet Estimate DecreasedL, Platelet Morphology Normal, Anisocytosis 1+, Sodium Level 138, Potassium Level 3.8, Chloride Level 102, Carbon Dioxide Level 28, Anion Gap 8, Blood Urea Nitrogen 13 , Creatinine 0.4L, Estimat Glomerular Filtration Rate > 60, Glucose Level 70L, Calcium Level 9.0, Ammonia 63H Height (Feet): 5 Height (Inches): 2.00 Weight (Pounds): 133 Objective WDWN NCAT supple CTA RR abd soft NT ND no edema Non Focal Jose De Jesus Landa MD Dec 24, 2019 20:49
--- NOTE | 2019-12-24 23:40 | Initial Psychiatric Evaluation ---
Psychiatry Consultation Psychiatry Consultation Referring physician: 12/23/19 Chief Complaint: Abnormal Labs History of Present Illness: the pt has a history of liver failure, diabetes, seizure disorder. She underwent labs at the senior care facility and was found to have an elevated ammonia and an elevated Keppra level. Allergies: Coded Allergies: CIPROFLOXACIN (Verified Allergy, Unknown, 10/02/13) HYDROCODONE (Verified Allergy, Unknown, 10/02/13) PENICILLINS (Verified Allergy, Unknown, 10/02/13) PROCHLORPERAZINE (Verified Allergy, Unknown, 10/02/13) Medication History Scheduled Apixaban (Eliquis), 5 MG PO BID, (Reported) Calcium Carbonate (Oyster Shell Calcium), 500 MG PO DAILY WITH BREAKFAST, ( Reported) Divalproex Sodium* (Depakote Er*), 500 MG ORAL EVERY 12 HOURS, (Reported) Docusate Sodium* (Docusate Sodium*), 250 MG ORAL DAILY, (Reported) Folic Acid* (Folic Acid*), 1 MG PO DAILY, (Reported) Hydralazine HCl (Hydralazine HCl), 10 MG ORAL DAILY, (Reported) Lactulose (Lactulose), 30 ML PO Q4HR, (Reported) Levetiracetam (Keppra), 750 MG ORAL Q12HR, (Reported) Levothyroxine Sodium* (Synthroid*), 125 MCG ORAL DAILY, (Reported) Metoprolol Tartrate* (Metoprolol Tartrate*), 12.5 MG ORAL EVERY MORNING, ( Reported) Multivitamin With Minerals (Multivitamins With Minerals*), 1 TAB ORAL DAILY, ( Reported) Scheduled PRN Acetaminophen* (Tylenol Extra Strength*), 1,000 MG ORAL Q4HR PRN for Moderate Pain (Pain Scale 4-6), (Reported) Acetaminophen* (Acetaminophen 325MG Tablet*), 650 MG ORAL Q4H PRN for Mild Pain (Pain Scale 1-3), (Reported) Acetaminophen* (Acetaminophen 325MG Tablet*), 650 MG ORAL Q4H PRN for temperature > 101 F, (Reported) Bisacodyl (Bisacodyl), 10 MG RC DAILY PRN for Constipation, (Reported) Magnesium Hydroxide* (Milk Of Magnesia*), 30 ML ORAL QHS PRN for Constipation, ( Reported) Na Phos,M-B/Na Phos,Di-Ba* (Fleet Enema*), 133 ML RECTAL EVERY 2 DAYS PRN for Constipation, (Reported) Discontinued Medications Divalproex Sodium* (Depakote*), 750 MG PO Q12HR, (Reported) Discontinued Reason: Prescription changed Patient History Limited by: language barrier, medical condition History Provided By: Patient, Medical Record, PMD Objective Data Height (Feet): 5 Height (Inches): 2.00 Weight (Pounds): 133 Behavior Mannerisms: good eye contact Mood: depressed, irritable Perceptual Disturbances: hallucinations Suicidal Ideation: not present Assessment/Plan Diagnosis Tea I: schizophrenia Isa Siegel MD Dec 24, 2019 23:40
[2019-12-25] VITALS: BP 112/65
--- NOTE | 2019-12-25 00:30 | Consultation ---
DATE OF CONSULTATION: 12/25/2019 CONSULTING PHYSICIAN: Isa Siegel M.D. HISTORY OF PRESENT ILLNESS: The patient is a 69-year-old female with a history of schizophrenia, depression, dementia who has been admitted to the hospital for medical stabilization. The patient is found to have elevated Keppra and ammonia level. The patient was stating that she has auditory hallucination, poor memory. Not able to be engaged. The patient was agitated last night and was unable to sleep. PAST MEDICAL HISTORY: Significant for pneumonia, seizure, hypertension, anemia, diverticulosis, neutropenia, DVT, herpes zoster. ALLERGIES: Cipro, hydrocodone, penicillin, prochlorperazine. MENTAL STATUS EXAMINATION: The patient is Georgian speaking. She is alert and oriented times self and place. Mood is anxious. Affect is flat. Thought process disorganized. Thought content, no suicidal or homicidal ideation. ASSESSMENT: Dementia. PLAN: 1. Continue the risperidone. 2. Discussed with the nurse. 3. Provide the patient with reality orientation and supportive therapy. Isa Siegel M.D. DR: ENRIQUETA JOB#: [id number] CC: BETH
[2019-12-25 04:00] VITALS: BP 128/90
[2019-12-25 06:33] LABS: HEMATOCRIT 28.9 % (37.0-47.0); HEMOGLOBIN 10.5 G/DL (12.0-16.0); MEAN CORPUSCULAR VOLUME 88 FL (80-99); PLATELET COUNT 83 K/UL (150-450); RED BLOOD COUNT 3.27 M/UL (4.20-5.40); RED CELL DISTRIBUTION WIDTH 11.3 % (11.6-14.8); WHITE BLOOD COUNT 2.9 K/UL (4.8-10.8)
[2019-12-25 06:56] LABS: ANION GAP 8 mmol/L (5-15); BLOOD UREA NITROGEN 10 mg/dL (7-18); CALCIUM 9.2 MG/DL (8.5-10.1); CARBON DIOXIDE 28 MMOL/L (21-32); CHLORIDE 102 MMOL/L (98-107); CREATININE 0.4 MG/DL (0.55-1.30); POTASSIUM 3.8 MMOL/L (3.5-5.1); SODIUM 138 MMOL/L (136-145)
--- NOTE | 2019-12-25 07:00 | Hematology/Onc Progress Note ---
Assessment/Plan Assessment/Plan ASSESSMENT AND RECOMMENDATIONS: 1. Deep venous thrombosis of the right lower extremity. Partial visualization of an IVC filter. On the right, wall adherent nonocclusive thrombus is seen within the common femoral vein and downstream superficial femoral vein. While the appearance is suggestive of chronic recanalized thrombus, this is nonetheless a new finding since prior study of 07/28/2019 --> imaging has been reviewed --> hx IVC filter is in place --> duplex lower ext reviewed--> has completed 3 months of anticoag recently 2. Pancytopenia likely secondary to underlying liver disease, continue to closely monitor. This is the lowest counts she has had for past several years --> Prior labs reviewed, hepatitis panel reviewed --> us of the abdomen was reviewed --> meds reviewed as well --> transfuse if she is bleeding with platelets --> plt trend 79k-->64k-->83 --> wbc 3-->2.5-->2.8-->2.9 --> hgb 11.8-->8.7-->9.3-->10 3. Anemia secondary to chronic disease. --> w/u reviewed from prior adm --> trend as needed 4. Hyponatremia. Nephrology is following --> Fluid restriction --> appreciate nephro recs 5. Seizure disorder --> as per neuro 6. Left hip pain due to Lumbar compression fracture -- pain meds prn --> pain management 7. AMs as per neuro DW RN and appreciate the consultation. Subjective Constitutional: Denies: no symptoms, chills, fever, malaise, weakness, other HEENT: Denies: no symptoms, eye pain, blurred vision, tearing, double vision, ear pain, ear discharge, nose pain, nose congestion, throat pain, throat swelling, mouth pain, mouth swelling, other Cardiovascular: Denies: no symptoms, chest pain, edema, irregular heart rate, lightheadedness, palpitations, syncope, other Respiratory: Denies: no symptoms, cough, shortness of breath, SOB with excertion, SOB at rest, sputum, wheezing, other Gastrointestinal/Abdominal: Denies: no symptoms, abdomen distended, abdominal pain, black stools, tarry stools, blood in stool, constipated, diarrhea, difficulty swallowing, nausea, poor appetite, poor fluid intake, rectal bleeding , vomiting, other Genitourinary: Denies: no symptoms, burning, discharge, frequency, flank pain, hematuria, incontinence, pain, urgency, other Neurologic/Psychiatric: Denies: no symptoms, anxiety, depressed, emotional problems, headache, numbness, paresthesia, pre-existing deficit, seizure, tingling, tremors, weakness, other Endocrine: Denies: no symptoms, excessive sweating, flushing, intolerance to cold, intolerance to heat, increased hunger, increased thirst, increased urine, unexplained weight gain, unexplained weight loss, other Allergies: Coded Allergies: CIPROFLOXACIN (Verified Allergy, Unknown, 10/02/13) HYDROCODONE (Verified Allergy, Unknown, 10/02/13) PENICILLINS (Verified Allergy, Unknown, 10/02/13) PROCHLORPERAZINE (Verified Allergy, Unknown, 10/02/13) Subjective 12/23 no bleeding, no events, no major changes, labs noted, wbc 2.8 12/24 remains confused at this time, no bleeding or chills noted, Nh3 higher Objective Objective Current Medications Medications (Trade) Dose Ordered Sig/Karlee Route PRN Reason Start Time Stop Time Status Last Admin Dose Admin Levetiracetam (Keppra) 500 mg Q12HR ORAL 12/23/19 21:00 01/22/20 20:59 12/24/19 20:14 Risperidone (RisperDAL) 2 mg BEDTIME ORAL 12/25/19 21:00 02/08/20 20:59 Last 24 Hour Vital Signs Date Time Temp Pulse Resp B/P (MAP) Pulse Ox O2 Delivery O2 Flow Rate FiO2 12/25/19 04:00 98.0 80 18 128/90 (103) 96 12/25/19 00:00 98.5 53 18 112/65 (81) 96 12/24/19 20:58 Room Air 12/24/19 20:00 97.9 70 18 109/57 (74) 96 12/24/19 16:00 97.9 68 18 103/55 (71) 96 12/24/19 12:00 98.0 71 18 105/54 (71) 96 12/24/19 11:44 Room Air 12/24/19 08:28 98.9 63 17 101/66 (78) 96 12/24/19 04:00 98.0 69 18 125/75 (92) 96 12/23/19 20:11 Room Air 12/23/19 20:00 97.9 65 17 131/59 (83) 95 12/23/19 16:00 97.9 73 18 124/64 (84) 96 12/23/19 12:00 97.7 75 18 130/70 (90) 97 12/23/19 09:00 Room Air 12/23/19 08:00 97.6 65 17 112/59 (76) 96 Intake and Output 12/24/19 12/25/19 19:00 07:00 Intake Total 360 ml Balance 360 ml Intake Oral 360 ml # Voids 2 3 Labs Test 12/22/19 15:05 12/22/19 15:08 12/22/19 16:15 12/22/19 17:00 Valproic Acid (Depakene) Level 99 MCG/ML (50-100) Sodium Level 138 MMOL/L (136-145) Potassium Level 3.5 MMOL/L (3.5-5.1) Chloride Level 106 MMOL/L (98-107) Carbon Dioxide Level 24 MMOL/L (21-32) Anion Gap 8 mmol/L (5-15) Blood Urea Nitrogen 13 mg/dL (7-18) Creatinine 0.5 MG/DL (0.55-1.30) Estimat Glomerular Filtration Rate > 60 mL/min (>60) Glucose Level 83 MG/DL (74-106) Lactic Acid Level 1.40 mmol/L (0.4-2.0) Calcium Level 7.6 MG/DL (8.5-10.1) Total Bilirubin 0.3 MG/DL (0.2-1.0) Aspartate Amino Transf (AST/SGOT) 20 U/L (15-37) Alanine Aminotransferase (ALT/SGPT) 11 U/L (12-78) Alkaline Phosphatase 49 U/L (46-116) Ammonia 111 umol/L (11-32) Total Protein 5.6 G/DL (6.4-8.2) Albumin 2.5 G/DL (3.4-5.0) Globulin 3.1 g/dL Albumin/Globulin Ratio 0.8 (1.0-2.7) Levetiracetam (Keppra) Level 50.6 ug/mL (10.0-40.0) White Blood Count 2.5 K/UL (4.8-10.8) Red Blood Count 2.79 M/UL (4.20-5.40) Hemoglobin 8.7 G/DL (12.0-16.0) Hematocrit 25.7 % (37.0-47.0) Mean Corpuscular Volume 92 FL (80-99) Mean Corpuscular Hemoglobin 31.4 PG (27.0-31.0) Mean Corpuscular Hemoglobin Concent 34.1 G/DL (32.0-36.0) Red Cell Distribution Width 12.8 % (11.6-14.8) Platelet Count 64 K/UL (150-450) Mean Platelet Volume 6.5 FL (6.5-10.1) Neutrophils (%) (Auto) % (45.0-75.0) Lymphocytes (%) (Auto) % (20.0-45.0) Monocytes (%) (Auto) % (1.0-10.0) Eosinophils (%) (Auto) % (0.0-3.0) Basophils (%) (Auto) % (0.0-2.0) Differential Total Cells Counted 100 Neutrophils % (Manual) 35 % (45-75) Lymphocytes % (Manual) 51 % (20-45) Monocytes % (Manual) 11 % (1-10) Eosinophils % (Manual) 2 % (0-3) Basophils % (Manual) 1 % (0-2) Band Neutrophils 0 % (0-8) Platelet Estimate Decreased Platelet Morphology Normal Hypochromasia 1+ Anisocytosis 1+ Urine Color Pale yellow Urine Appearance Clear Urine pH 5 (4.5-8.0) Urine Specific [place] 1.025 (1.005-1.035) Urine Protein Negative (NEGATIVE) Urine Glucose (UA) Negative (NEGATIVE) Urine Ketones Negative (NEGATIVE) Urine Blood Negative (NEGATIVE) Urine Nitrite Negative (NEGATIVE) Urine Bilirubin Negative (NEGATIVE) Urine Urobilinogen Normal MG/DL (0.0-1.0) Urine Leukocyte Esterase Negative (NEGATIVE) Test 12/23/19 07:16 12/24/19 04:58 12/25/19 05:21 White Blood Count 2.9 K/UL (4.8-10.8) 2.8 K/UL (4.8-10.8) 2.9 K/UL (4.8-10.8) Red Blood Count 3.63 M/UL (4.20-5.40) 3.56 M/UL (4.20-5.40) 3.27 M/UL (4.20-5.40) Hemoglobin 11.6 G/DL (12.0-16.0) 11.3 G/DL (12.0-16.0) 10.5 G/DL (12.0-16.0) Hematocrit 32.4 % (37.0-47.0) 31.5 % (37.0-47.0) 28.9 % (37.0-47.0) Mean Corpuscular Volume 89 FL (80-99) 88 FL (80-99) 88 FL (80-99) Mean Corpuscular Hemoglobin 31.8 PG (27.0-31.0) 31.6 PG (27.0-31.0) 32.0 PG (27.0-31.0) Mean Corpuscular Hemoglobin Concent 35.6 G/DL (32.0-36.0) 35.8 G/DL (32.0-36.0) 36.2 G/DL (32.0-36.0) Red Cell Distribution Width 11.5 % (11.6-14.8) 11.6 % (11.6-14.8) 11.3 % (11.6-14.8) Platelet Count 87 K/UL (150-450) 93 K/UL (150-450) 83 K/UL (150-450) Mean Platelet Volume 5.0 FL (6.5-10.1) 5.2 FL (6.5-10.1) 5.4 FL (6.5-10.1) Neutrophils (%) (Auto) % (45.0-75.0) % (45.0-75.0) % (45.0-75.0) Lymphocytes (%) (Auto) % (20.0-45.0) % (20.0-45.0) % (20.0-45.0) Monocytes (%) (Auto) % (1.0-10.0) % (1.0-10.0) % (1.0-10.0) Eosinophils (%) (Auto) % (0.0-3.0) % (0.0-3.0) % (0.0-3.0) Basophils (%) (Auto) % (0.0-2.0) % (0.0-2.0) % (0.0-2.0) Differential Total Cells Counted 100 100 Neutrophils % (Manual) 35 % (45-75) 38 % (45-75) Lymphocytes % (Manual) 51 % (20-45) 44 % (20-45) Monocytes % (Manual) 11 % (1-10) 15 % (1-10) Eosinophils % (Manual) 3 % (0-3) 2 % (0-3) Basophils % (Manual) 0 % (0-2) 1 % (0-2) Band Neutrophils 0 % (0-8) 0 % (0-8) Platelet Estimate Decreased Decreased Platelet Morphology Normal Normal Sodium Level 134 MMOL/L (136-145) 138 MMOL/L (136-145) Potassium Level 3.5 MMOL/L (3.5-5.1) 3.8 MMOL/L (3.5-5.1) Chloride Level 99 MMOL/L (98-107) 102 MMOL/L (98-107) Carbon Dioxide Level 23 MMOL/L (21-32) 28 MMOL/L (21-32) Anion Gap 12 mmol/L (5-15) 8 mmol/L (5-15) Blood Urea Nitrogen 10 mg/dL (7-18) 13 mg/dL (7-18) Creatinine 0.4 MG/DL (0.55-1.30) 0.4 MG/DL (0.55-1.30) Estimat Glomerular Filtration Rate > 60 mL/min (>60) > 60 mL/min (>60) Glucose Level 75 MG/DL (74-106) 70 MG/DL (74-106) Calcium Level 8.9 MG/DL (8.5-10.1) 9.0 MG/DL (8.5-10.1) Iron Level 78 ug/dL (50-175) Total Iron Binding Capacity 225 ug/dL (250-450) Percent Iron Saturation 35 % (15-50) Unsaturated Iron Binding 147 ug/dL (112-346) Ferritin 272 NG/ML (8-388) Total Bilirubin 0.4 MG/DL (0.2-1.0) Aspartate Amino Transf (AST/SGOT) 21 U/L (15-37) Alanine Aminotransferase (ALT/SGPT) 12 U/L (12-78) Alkaline Phosphatase 50 U/L (46-116) Ammonia 46 umol/L (11-32) 63 umol/L (11-32) Total Protein 6.6 G/DL (6.4-8.2) Albumin 3.0 G/DL (3.4-5.0) Globulin 3.6 g/dL Albumin/Globulin Ratio 0.8 (1.0-2.7) Folate 52.7 NG/ML (8.6-58.9) Anisocytosis 1+ Height (Feet): 5 Height (Inches): 2.00 Weight (Pounds): 133 Objective Vital Signs reviewed Gen: normal inspection, alert, GCS 15 HEENT: normocephalic, atraumatic, bilateral eye PERRL Pulm: normal inspection, chest non-tender, no cwr CV: normal inspection, regular rate, rhythm, no gallop, no murmur Gastrointestinal: normal inspection, soft Lymphatic: normal inspection, no adenopathy Ext: no cce Crow Coley MD Dec 25, 2019 07:00
[2019-12-25 08:00] VITALS: BP 109/58
--- NOTE | 2019-12-25 09:39 | General Progress Note ---
Assessment/Plan Status: progressing Assessment/Plan: Assessment/Plan Status: progressing Assessment/Plan: Assessment - no evidence of cirrhosis - Normal liver on CT and ultrasound - no encephalopathy Recommendation - no indications for treatment of NH3 at this time - push PO - OK for d/c from GI standpoint Subjective ROS Limited/Unobtainable: No Allergies: Coded Allergies: CIPROFLOXACIN (Verified Allergy, Unknown, 10/02/13) HYDROCODONE (Verified Allergy, Unknown, 10/02/13) PENICILLINS (Verified Allergy, Unknown, 10/02/13) PROCHLORPERAZINE (Verified Allergy, Unknown, 10/02/13) Objective Last 24 Hour Vital Signs Date Time Temp Pulse Resp B/P (MAP) Pulse Ox O2 Delivery O2 Flow Rate FiO2 12/25/19 04:00 98.0 80 18 128/90 (103) 96 12/25/19 00:00 98.5 53 18 112/65 (81) 96 12/24/19 20:58 Room Air 12/24/19 20:00 97.9 70 18 109/57 (74) 96 12/24/19 16:00 97.9 68 18 103/55 (71) 96 12/24/19 12:00 98.0 71 18 105/54 (71) 96 12/24/19 11:44 Room Air Intake and Output 12/24/19 12/25/19 19:00 07:00 Intake Total 360 ml Balance 360 ml Intake Oral 360 ml # Voids 2 3 Laboratory Tests 12/25/19 05:21: White Blood Count 2.9L, Red Blood Count 3.27L, Hemoglobin 10.5L, Hematocrit 28.9L, Mean Corpuscular Volume 88, Mean Corpuscular Hemoglobin 32.0H, Mean Corpuscular Hemoglobin Concent 36.2H, Red Cell Distribution Width 11.3L, Platelet Count 83L, Mean Platelet Volume 5.4L, Neutrophils (%) (Auto) , Lymphocytes (%) (Auto) , Monocytes (%) (Auto) , Eosinophils (%) (Auto) , Basophils (%) (Auto) , Neutrophils % (Manual) [Pending], Lymphocytes % (Manual) [Pending], Platelet Estimate [Pending], Platelet Morphology [Pending], Sodium Level 138, Potassium Level 3.8, Chloride Level 102, Carbon Dioxide Level 28, Anion Gap 8, Blood Urea Nitrogen 10, Creatinine 0.4L, Estimat Glomerular Filtration Rate > 60, Glucose Level 76, Calcium Level 9.2 Height (Feet): 5 Height (Inches): 2.00 Weight (Pounds): 133 General Appearance: no apparent distress EENT: normal ENT inspection Neck: supple Cardiovascular: normal rate Respiratory/Chest: decreased breath sounds Abdomen: normal bowel sounds, non tender, soft Extremities: non-tender Fabian Forbes MD Dec 25, 2019 09:39
[2019-12-25 12:00] VITALS: BP 100/57
[2019-12-25 16:00] VITALS: BP 106/59
--- NOTE | 2019-12-25 17:22 | General Progress Note ---
Assessment/Plan Problem List: (1) Abdominal pain ICD Codes: R10.9 - Unspecified abdominal pain SNOMED: 07723473 (2) CHF (congestive heart failure) Status: progressing Assessment/Plan: ammonia level is elevated no seizure afebrile ams pancytopenia improved encephalopathy Subjective ROS Limited/Unobtainable: Yes Allergies: Coded Allergies: CIPROFLOXACIN (Verified Allergy, Unknown, 10/02/13) HYDROCODONE (Verified Allergy, Unknown, 10/02/13) PENICILLINS (Verified Allergy, Unknown, 10/02/13) PROCHLORPERAZINE (Verified Allergy, Unknown, 10/02/13) Objective Last 24 Hour Vital Signs Date Time Temp Pulse Resp B/P (MAP) Pulse Ox O2 Delivery O2 Flow Rate FiO2 12/25/19 16:00 97.8 64 16 106/59 (75) 96 12/25/19 12:00 97.3 67 16 100/57 (71) 95 12/25/19 09:00 Room Air 12/25/19 08:00 99.9 60 16 109/58 (75) 97 12/25/19 04:00 98.0 80 18 128/90 (103) 96 12/25/19 00:00 98.5 53 18 112/65 (81) 96 12/24/19 20:58 Room Air 12/24/19 20:00 97.9 70 18 109/57 (74) 96 Intake and Output 12/24/19 12/25/19 19:00 07:00 Intake Total 360 ml Balance 360 ml Intake Oral 360 ml # Voids 2 3 Laboratory Tests 12/25/19 05:21: White Blood Count 2.9L, Red Blood Count 3.27L, Hemoglobin 10.5L, Hematocrit 28.9L, Mean Corpuscular Volume 88, Mean Corpuscular Hemoglobin 32.0H, Mean Corpuscular Hemoglobin Concent 36.2H, Red Cell Distribution Width 11.3L, Platelet Count 83L, Mean Platelet Volume 5.4L, Neutrophils (%) (Auto) , Lymphocytes (%) (Auto) , Monocytes (%) (Auto) , Eosinophils (%) (Auto) , Basophils (%) (Auto) , Differential Total Cells Counted 100, Neutrophils % ( Manual) 40L, Lymphocytes % (Manual) 50H, Monocytes % (Manual) 10, Eosinophils % (Manual) 0, Basophils % (Manual) 0, Band Neutrophils 0, Platelet Estimate DecreasedL, Platelet Morphology Normal, Hypochromasia 1+, Sodium Level 138, Potassium Level 3.8, Chloride Level 102, Carbon Dioxide Level 28, Anion Gap 8, Blood Urea Nitrogen 10, Creatinine 0.4L, Estimat Glomerular Filtration Rate > 60 , Glucose Level 76, Calcium Level 9.2 Height (Feet): 5 Height (Inches): 2.00 Weight (Pounds): 133 Cardiovascular: normal rate Respiratory/Chest: lungs clear Abdomen: soft Mindy Bryan MD Dec 25, 2019 17:22
[2019-12-25 20:00] VITALS: BP 105/65
--- NOTE | 2019-12-25 23:00 | Progress Note ---
DATE: 12/25/2019 SUBJECTIVE: The patient is doing better today, more manageable. The patient is German speaking. Decreased hallucinations. MENTAL STATUS EXAMINATION: She is alert and oriented times self and place. Mood is anxious. Affect is flat. Thought process is disorganized. Thought content, no suicidal or homicidal ideation. Cognition is impaired. Insight and judgment are impaired. ASSESSMENT: Schizophrenia. PLAN: 1. We will continue current psychotropic medications. 2. Provide the patient with reality orientation and supportive therapy. Isa Siegel M.D. DR: AYLIN JOB#: [id number] CC:
[2019-12-26] VITALS: BP 110/64
[2019-12-26 04:00] VITALS: BP 110/65
[2019-12-26 06:31] LABS: HEMATOCRIT 30.4 % (37.0-47.0); HEMOGLOBIN 10.9 G/DL (12.0-16.0); MEAN CORPUSCULAR VOLUME 89 FL (80-99); PLATELET COUNT 86 K/UL (150-450); RED BLOOD COUNT 3.42 M/UL (4.20-5.40); RED CELL DISTRIBUTION WIDTH 11.8 % (11.6-14.8); WHITE BLOOD COUNT 3.2 K/UL (4.8-10.8)
[2019-12-26 07:00] LABS: ANION GAP 9 mmol/L (5-15); BLOOD UREA NITROGEN 10 mg/dL (7-18); CALCIUM 9.1 MG/DL (8.5-10.1); CARBON DIOXIDE 27 MMOL/L (21-32); CHLORIDE 103 MMOL/L (98-107); CREATININE 0.4 MG/DL (0.55-1.30); POTASSIUM 3.8 MMOL/L (3.5-5.1); SODIUM 139 MMOL/L (136-145)
--- NOTE | 2019-12-26 07:04 | General Progress Note ---
Assessment/Plan Status: progressing Assessment/Plan: Assessment/Plan Status: progressing Assessment/Plan: Assessment - no evidence of cirrhosis based on us - Normal liver on CT and ultrasound - no encephalopathy Recommendation - low dose lactulose -repeat ammonia level - push PO - OK for d/c from GI standpoint Subjective ROS Limited/Unobtainable: Yes Allergies: Coded Allergies: CIPROFLOXACIN (Verified Allergy, Unknown, 10/02/13) HYDROCODONE (Verified Allergy, Unknown, 10/02/13) PENICILLINS (Verified Allergy, Unknown, 10/02/13) PROCHLORPERAZINE (Verified Allergy, Unknown, 10/02/13) Objective Last 24 Hour Vital Signs Date Time Temp Pulse Resp B/P (MAP) Pulse Ox O2 Delivery O2 Flow Rate FiO2 12/26/19 04:00 98.2 74 20 110/65 (80) 96 12/26/19 00:00 98.3 72 18 110/64 (79) 96 12/25/19 21:14 Room Air 12/25/19 20:00 98.0 69 20 105/65 (78) 99 12/25/19 16:00 97.8 64 16 106/59 (75) 96 12/25/19 12:00 97.3 67 16 100/57 (71) 95 12/25/19 09:00 Room Air 12/25/19 08:00 99.9 60 16 109/58 (75) 97 Intake and Output 12/25/19 12/26/19 19:00 07:00 Intake Total 240 ml Balance 240 ml Intake Oral 240 ml # Voids 2 Laboratory Tests 12/26/19 05:40: White Blood Count 3.2L, Red Blood Count 3.42L, Hemoglobin 10.9L, Hematocrit 30.4L, Mean Corpuscular Volume 89, Mean Corpuscular Hemoglobin 31.8H, Mean Corpuscular Hemoglobin Concent 35.8, Red Cell Distribution Width 11.8, Platelet Count 86L, Mean Platelet Volume 5.7L, Neutrophils (%) (Auto) , Lymphocytes (%) ( Auto) , Monocytes (%) (Auto) , Eosinophils (%) (Auto) , Basophils (%) (Auto) , Neutrophils % (Manual) [Pending], Lymphocytes % (Manual) [Pending], Platelet Estimate [Pending], Platelet Morphology [Pending], Sodium Level [Pending], Potassium Level [Pending], Chloride Level [Pending], Carbon Dioxide Level [ Pending], Blood Urea Nitrogen [Pending], Creatinine [Pending], Estimat Glomerular Filtration Rate [Pending], Glucose Level [Pending], Calcium Level [ Pending] Height (Feet): 5 Height (Inches): 2.00 Weight (Pounds): 133 General Appearance: alert EENT: normal ENT inspection Neck: supple Cardiovascular: normal rate Respiratory/Chest: decreased breath sounds Abdomen: normal bowel sounds, non tender, soft Extremities: non-tender Fabian Forbes MD Dec 26, 2019 07:04
[2019-12-26 08:00] VITALS: BP 94/51
--- NOTE | 2019-12-26 08:04 | Hematology/Onc Progress Note ---
Assessment/Plan Assessment/Plan ASSESSMENT AND RECOMMENDATIONS: 1. Deep venous thrombosis of the right lower extremity. Partial visualization of an IVC filter. On the right, wall adherent nonocclusive thrombus is seen within the common femoral vein and downstream superficial femoral vein. While the appearance is suggestive of chronic recanalized thrombus, this is nonetheless a new finding since prior study of 07/28/2019 --> imaging has been reviewed --> hx IVC filter is in place --> duplex lower ext reviewed--> has completed 3 months of anticoag recently 2. Pancytopenia likely secondary to underlying liver disease, continue to closely monitor. This is the lowest counts she has had for past several years --> Prior labs reviewed, hepatitis panel reviewed --> us of the abdomen was reviewed --> meds reviewed as well --> transfuse if she is bleeding with platelets --> plt trend 79k-->64k-->83 --> wbc 3-->2.5-->2.8-->2.9 --> hgb 11.8-->8.7-->9.3-->10-->10.9 3. Anemia secondary to chronic disease. --> w/u reviewed from prior adm --> trend as needed 4. Hyponatremia. Nephrology is following --> Fluid restriction --> appreciate nephro recs 5. Seizure disorder --> as per neuro 6. Left hip pain due to Lumbar compression fracture -- pain meds prn --> pain management 7. AMs as per neuro DW RN and appreciate the consultation. Subjective Constitutional: Denies: no symptoms, chills, fever, malaise, weakness, other HEENT: Denies: no symptoms, eye pain, blurred vision, tearing, double vision, ear pain, ear discharge, nose pain, nose congestion, throat pain, throat swelling, mouth pain, mouth swelling, other Cardiovascular: Denies: no symptoms, chest pain, edema, irregular heart rate, lightheadedness, palpitations, syncope, other Respiratory: Denies: no symptoms, cough, shortness of breath, SOB with excertion, SOB at rest, sputum, wheezing, other Gastrointestinal/Abdominal: Denies: no symptoms, abdomen distended, abdominal pain, black stools, tarry stools, blood in stool, constipated, diarrhea, difficulty swallowing, nausea, poor appetite, poor fluid intake, rectal bleeding , vomiting, other Genitourinary: Denies: no symptoms, burning, discharge, frequency, flank pain, hematuria, incontinence, pain, urgency, other Neurologic/Psychiatric: Denies: no symptoms, anxiety, depressed, emotional problems, headache, numbness, paresthesia, pre-existing deficit, seizure, tingling, tremors, weakness, other Endocrine: Denies: no symptoms, excessive sweating, flushing, intolerance to cold, intolerance to heat, increased hunger, increased thirst, increased urine, unexplained weight gain, unexplained weight loss, other Allergies: Coded Allergies: CIPROFLOXACIN (Verified Allergy, Unknown, 10/02/13) HYDROCODONE (Verified Allergy, Unknown, 10/02/13) PENICILLINS (Verified Allergy, Unknown, 10/02/13) PROCHLORPERAZINE (Verified Allergy, Unknown, 10/02/13) Subjective 12/23 no bleeding, no events, no major changes, labs noted, wbc 2.8 12/24 remains confused at this time, no bleeding or chills noted, Nh3 higher 12/25 no bleeding or chills, hgb remains stable approx 10 Objective Objective Current Medications Medications (Trade) Dose Ordered Sig/Karlee Route PRN Reason Start Time Stop Time Status Last Admin Dose Admin Lactulose (Cephulac) 10 gm THREE TIMES A DAY ORAL 12/26/19 09:00 01/25/20 08:59 Levetiracetam (Keppra) 500 mg Q12HR ORAL 12/23/19 21:00 01/22/20 20:59 12/25/19 20:20 Risperidone (RisperDAL) 2 mg BEDTIME ORAL 12/25/19 21:00 02/08/20 20:59 12/25/19 20:20 Last 24 Hour Vital Signs Date Time Temp Pulse Resp B/P (MAP) Pulse Ox O2 Delivery O2 Flow Rate FiO2 12/26/19 07:55 Room Air 12/26/19 04:00 98.2 74 20 110/65 (80) 96 12/26/19 00:00 98.3 72 18 110/64 (79) 96 12/25/19 21:14 Room Air 12/25/19 20:00 98.0 69 20 105/65 (78) 99 12/25/19 16:00 97.8 64 16 106/59 (75) 96 12/25/19 12:00 97.3 67 16 100/57 (71) 95 12/25/19 09:00 Room Air 12/25/19 08:00 99.9 60 16 109/58 (75) 97 12/25/19 04:00 98.0 80 18 128/90 (103) 96 12/25/19 00:00 98.5 53 18 112/65 (81) 96 12/24/19 20:58 Room Air 12/24/19 20:00 97.9 70 18 109/57 (74) 96 12/24/19 16:00 97.9 68 18 103/55 (71) 96 12/24/19 12:00 98.0 71 18 105/54 (71) 96 12/24/19 11:44 Room Air 12/24/19 08:28 98.9 63 17 101/66 (78) 96 Intake and Output 12/25/19 12/26/19 19:00 07:00 Intake Total 240 ml Balance 240 ml Intake Oral 240 ml # Voids 2 Labs Test 12/24/19 04:58 12/25/19 05:21 12/26/19 05:40 White Blood Count 2.8 K/UL (4.8-10.8) 2.9 K/UL (4.8-10.8) 3.2 K/UL (4.8-10.8) Red Blood Count 3.56 M/UL (4.20-5.40) 3.27 M/UL (4.20-5.40) 3.42 M/UL (4.20-5.40) Hemoglobin 11.3 G/DL (12.0-16.0) 10.5 G/DL (12.0-16.0) 10.9 G/DL (12.0-16.0) Hematocrit 31.5 % (37.0-47.0) 28.9 % (37.0-47.0) 30.4 % (37.0-47.0) Mean Corpuscular Volume 88 FL (80-99) 88 FL (80-99) 89 FL (80-99) Mean Corpuscular Hemoglobin 31.6 PG (27.0-31.0) 32.0 PG (27.0-31.0) 31.8 PG (27.0-31.0) Mean Corpuscular Hemoglobin Concent 35.8 G/DL (32.0-36.0) 36.2 G/DL (32.0-36.0) 35.8 G/DL (32.0-36.0) Red Cell Distribution Width 11.6 % (11.6-14.8) 11.3 % (11.6-14.8) 11.8 % (11.6-14.8) Platelet Count 93 K/UL (150-450) 83 K/UL (150-450) 86 K/UL (150-450) Mean Platelet Volume 5.2 FL (6.5-10.1) 5.4 FL (6.5-10.1) 5.7 FL (6.5-10.1) Neutrophils (%) (Auto) % (45.0-75.0) % (45.0-75.0) % (45.0-75.0) Lymphocytes (%) (Auto) % (20.0-45.0) % (20.0-45.0) % (20.0-45.0) Monocytes (%) (Auto) % (1.0-10.0) % (1.0-10.0) % (1.0-10.0) Eosinophils (%) (Auto) % (0.0-3.0) % (0.0-3.0) % (0.0-3.0) Basophils (%) (Auto) % (0.0-2.0) % (0.0-2.0) % (0.0-2.0) Differential Total Cells Counted 100 100 Neutrophils % (Manual) 38 % (45-75) 40 % (45-75) Lymphocytes % (Manual) 44 % (20-45) 50 % (20-45) Monocytes % (Manual) 15 % (1-10) 10 % (1-10) Eosinophils % (Manual) 2 % (0-3) 0 % (0-3) Basophils % (Manual) 1 % (0-2) 0 % (0-2) Band Neutrophils 0 % (0-8) 0 % (0-8) Platelet Estimate Decreased Decreased Platelet Morphology Normal Normal Anisocytosis 1+ Sodium Level 138 MMOL/L (136-145) 138 MMOL/L (136-145) 139 MMOL/L (136-145) Potassium Level 3.8 MMOL/L (3.5-5.1) 3.8 MMOL/L (3.5-5.1) 3.8 MMOL/L (3.5-5.1) Chloride Level 102 MMOL/L (98-107) 102 MMOL/L (98-107) 103 MMOL/L (98-107) Carbon Dioxide Level 28 MMOL/L (21-32) 28 MMOL/L (21-32) 27 MMOL/L (21-32) Anion Gap 8 mmol/L (5-15) 8 mmol/L (5-15) 9 mmol/L (5-15) Blood Urea Nitrogen 13 mg/dL (7-18) 10 mg/dL (7-18) 10 mg/dL (7-18) Creatinine 0.4 MG/DL (0.55-1.30) 0.4 MG/DL (0.55-1.30) 0.4 MG/DL (0.55-1.30) Estimat Glomerular Filtration Rate > 60 mL/min (>60) > 60 mL/min (>60) > 60 mL/min (>60) Glucose Level 70 MG/DL (74-106) 76 MG/DL (74-106) 77 MG/DL (74-106) Calcium Level 9.0 MG/DL (8.5-10.1) 9.2 MG/DL (8.5-10.1) 9.1 MG/DL (8.5-10.1) Ammonia 63 umol/L (11-32) Hypochromasia 1+ Height (Feet): 5 Height (Inches): 2.00 Weight (Pounds): 133 Objective Vital Signs reviewed Gen: normal inspection, alert, GCS 15 HEENT: normocephalic, atraumatic, bilateral eye PERRL Pulm: normal inspection, chest non-tender, no cwr CV: normal inspection, regular rate, rhythm, no gallop, no murmur Gastrointestinal: normal inspection, soft Lymphatic: normal inspection, no adenopathy Ext: no cce Crow Coley MD Dec 26, 2019 08:04
[2019-12-26] MEDS ORDERED: Lactulose 10gm/15ml UDC ORAL SCH (09:00)
[2019-12-26 12:00] VITALS: BP 103/58
--- NOTE | 2019-12-26 22:14 | Progress Note ---
DATE: 12/26/2019 SUBJECTIVE: The patient is doing better. Auditory hallucinations has improved. Less anxious. MENTAL STATUS EXAMINATION: Alert and oriented times self, place, and situation. Mood is neutral. Affect is flat. Thought process is concrete. Thought content, no suicidal or homicidal ideation. ASSESSMENT: Stable. PLAN: 1. We will continue current medication. Isa Siegel M.D. DR: ZAC JOB#: [id number] CC: BETH
--- NOTE | 2019-12-28 16:07 | Discharge Summary ---
Discharge Summary Discharge Summary _ DATE OF ADMISSION: 12/22/2019 DATE OF DISCHARGE: 12/26/2019 DISCHARGED BY: Dr. Mindy Paulino CONSULTANTS: Dr. Isa Forbes [facility] COURSE: Patient is a 69-year-old female, who presents from [facility] facility. She has history of liver failure, diabetes, and seizure disorder. She had blood work done at the nursing was found to have an elevated ammonia and elevated Keppra level. She also was noted to have altered mental status. She was taken to ED for further evaluation. Upon evaluation at ED, vital signs were stable. Blood work showed WBC of 2.5, hemoglobin 8.7 and hematocrit 25.7. Platelet count was 64. Electrolytes were normal. Lactic acid 1.4. Ammonia level was elevated to 111. Keppra level was elevated to 51. Urinalysis was essentially negative. Chest x-ray did not show any acute disease. Patient was then admitted for hepatic encephalopathy and pancytopenia. Customer Experience Retail Clerk was consulted. Patient has a history of DVT of the right lower extremity. Patient has completed 3 months of anticoagulation. Status post IVC filter. He is status post 3-month of anticoagulation. Pancytopenia was likely secondary to underlying liver disease. Prior hepatitis panel was negative. GI was consulted. Patient had mild elevation of ammonia, there was no historical or clinical evidence of cirrhosis. Abdominal ultrasound showed unremarkable liver. Per GI, no indication for treatment. Ammonia levels down trended. Psychiatric evaluation was done. Patient has auditory hallucination and poor memory. Patient was agitated and was unable to sleep. She was diagnosed with dementia and schizophrenia. She was given risperidone. Blood cultures were negative. She was eventually given low-dose lactulose. Patient was eventually discharged back to SNF. FINAL DIAGNOSES: Encephalopathy with elevated ammonia levels but no clinical evidence of liver cirrhosis Pancytopenia History of right leg DVT status post anticoagulation Seizure disorder Dementia Schizophrenia DISPOSITION: DC to SNF. DISCHARGE MEDICATIONS: Refer to Discharge Medication List. I have been assigned to complete a discharge summary on this account, I was not involved with the patient's management.--HEMA Perez Jacqueline Robles NP Dec 28, 2019 16:07
== END 2019-12-26 12:59 | DRG 279 ==
LOC: EDBD 13:46 → EMR 14:35 → EDBEDREQ 20:40 → 4E 20:45
DX: K72.90 Hepatic failure, unspecified without coma (principal); E87.1 Hypo-osmolality and hyponatremia; D61.818 Other pancytopenia; Z88.6 Allergy status to analgesic agent; Z88.1 Allergy status to other antibiotic agents; Z88.0 Allergy status to penicillin; Z86.718 Personal history of other venous thrombosis and embolism; Z95.828 Presence of other vascular implants and grafts; G40.909 Epilepsy, unspecified, not intractable, without status epilepticus; F20.9 Schizophrenia, unspecified; F03.90 Unspecified dementia, unspecified severity, without behavioral disturbance, psychotic disturbance, mood disturbance, and anxiety
CPT/HCPCS: 36415; 71045; 76700; 80048; 80053; 80164; 80299; 81003; 82140; 82728; 82746; 83540; 83550; 83605; 85007; 85025; 87040; 87081; 93005; 96360; 99285; J7030

== ENCOUNTER 2020-02-17 11:17 | Inpatient (IN) | payer MEDICAID ==
[~2020-02-17] VITALS: Ht 162.6 cm; Wt 46.9 kg
[~2020-02-17 11:17] MED LIST changes: +DEPAKOTE ER500 MG ORAL; +ELIQUIS5 MG PO; +LACTULOSE10 GM/153 PO
[2020-02-17 11:25] VITALS: BP 108/58
[2020-02-17] MEDS ORDERED: ELIQUIS5 MG PO (11:35)
[2020-02-17] MEDS ORDERED: DULCOLAX10 MG RC (11:35)
[2020-02-17] MEDS ORDERED: FLEET ENEMA133 ML RECTAL (11:35)
[2020-02-17] MEDS ORDERED: CRANBERRY450 M4 PO (11:35)
--- NOTE | 2020-02-17 11:35 | NUR ---
ED Nurse Note: Pt was brought in by ambulance from [facility] d/t abnormal chest x-ray result and productive cought. Pt is AOx1, verbally responsive noted with confusion. Placed on bed and gown; hooked to equipment monitor phototypesetting, VSS, satting at 95% on RA. safety measures in placed. Droplet isolation prec. initiated. Will continue to monitor.
[2020-02-17] MEDS ORDERED: OYSTER SHELL C1 EA15 PO (11:38)
[2020-02-17] MEDS ORDERED: UTI-STAT L3875 MG/31 PO (11:38)
--- NOTE | 2020-02-17 12:00 | NUR ---
ED Nurse Note: Xray at bedside.
--- NOTE | 2020-02-17 12:24 | Emergency Room Report ---
History of Present Illness General Chief Complaint: Upper Respiratory Illness Source: Medical Record Present Illness HPI Disclaimer: Please note that this report is being documented using [employer] technology. This can lead to erroneous entry secondary to incorrect interpretation by the dictating instrument. HPI: 69-year-old female history of mood disorder, seizure disorder, history of GERD, history of hypertension, history of chronic renal insufficiency, hepatic encephalopathy, presented for pleural effusion and possible pneumonia. Patient presented from long-term facility. Patient is a very poor historian and unable to provide any history. History taken from chart and primary care physician. Allergies: Coded Allergies: CIPROFLOXACIN (Verified Allergy, Unknown, 10/02/13) HYDROCODONE (Verified Allergy, Unknown, 10/02/13) PENICILLINS (Verified Allergy, Unknown, 10/02/13) PROCHLORPERAZINE (Verified Allergy, Unknown, 10/02/13) COVID-19 Screening Contact w/high risk pt: No Recent Travel to affected area: No Experienced COVID-19 symptoms?: Yes COVID-19 symptoms experienced: Cough Patient History Reviewed Nursing Documentation: PMH: Agreed; PSxH: Agreed Nursing Documentation-PMH Past Medical History: No History, Except For Hx Cardiac Problems: Yes - AR, SVT, DVT Hx Pacemaker: No Hx Asthma: Yes Hx Diabetes: Yes Hx Cancer: No Hx Gastrointestinal Problems: Yes - diverticulosis,GERD Hx Neurological Problems: Yes Hx Cerebrovascular Accident: Yes Hx Dementia: Yes Hx Seizures: Yes Hx Head Trauma: Yes Hx Syncope: Yes Hx Headaches: Yes Hx Weakness: Yes Review of Systems All Other Systems: limited Narrative Due to patient's baseline altered mental status Physical Exam Vital Signs Date Time Temp Pulse Resp B/P (MAP) Pulse Ox O2 Delivery O2 Flow Rate FiO2 02/17/20 11:22 97.2 68 18 108/58 (75) 97 Room Air Sp02 EP Interpretation: reviewed, normal General Appearance: no apparent distress, Chronically Ill Head: normocephalic, atraumatic Eyes: bilateral eye PERRL, bilateral eye EOMI ENT: hearing grossly normal, moist mucus membranes Neck: full range of motion, supple Respiratory: other - Decreased lung sounds throughout the left lung base Cardiovascular #1: normal peripheral pulses, regular rate, rhythm, no murmur Gastrointestinal: non tender, soft, non-distended, no guarding Neurologic: alert, grossly normal Skin: normal color, warm/dry Medical Decision Making Diagnostic Impression: Primary Impression: Recurrent left pleural effusion Additional Impression: Pneumonia ER Course MDM: 69-year-old female presented from long-term facility due to concern for pneumonia and left pleural effusion. She has a history of left pleural effusion. On exam she was in no acute distress. Differential diagnosis included but not limited to pneumonia, pleural effusion, hepatic encephalopathy , fluid overload to name a few Clinical course-patient placed on cardiac monitoring and pulse oximetry. Placed in isolation room. Patient did have a coronavirus swab sent. Chest x- ray did demonstrate evidence of left pleural effusion with possible infiltrate. Broad-spectrum antibiotics were given. Plan is to admit patient to the hospital. Laboratory studies pending at time of signout. I did discuss the patient with the primary care physician, Dr. Bryan, and oncoming physician to follow-up on laboratory studies. Laboratory Tests Test 02/17/20 12:50 02/17/20 13:50 02/18/20 05:40 Urine Color Yellow Urine Appearance Clear Urine pH 5 (4.5-8.0) Urine Specific [place] 1.020 (1.005-1.035) Urine Protein 1+ (NEGATIVE) H Urine Glucose (UA) Negative (NEGATIVE) Urine Ketones 4+ (NEGATIVE) H Urine Blood 1+ (NEGATIVE) H Urine Nitrite Negative (NEGATIVE) Urine Bilirubin Negative (NEGATIVE) Urine Urobilinogen 4 MG/DL (0.0-1.0) H Urine Leukocyte Esterase 1+ (NEGATIVE) H Urine RBC 2-4 /HPF (0 - 2) H Urine WBC 2-4 /HPF (0 - 2) Urine Squamous Epithelial Cells Few /LPF (NONE/OCC) Urine Bacteria Few /HPF (NONE) Urine Mucus Few /LPF (NONE/OCC) H White Blood Count 13.6 K/UL (4.8-10.8) H 7.6 K/UL (4.8-10.8) Red Blood Count 3.56 M/UL (4.20-5.40) L 3.34 M/UL (4.20-5.40) L Hemoglobin 11.0 G/DL (12.0-16.0) L 10.4 G/DL (12.0-16.0) L Hematocrit 31.0 % (37.0-47.0) L 29.3 % (37.0-47.0) L Mean Corpuscular Volume 87 FL (80-99) 88 FL (80-99) Mean Corpuscular Hemoglobin 30.9 PG (27.0-31.0) 31.0 PG (27.0-31.0) Mean Corpuscular Hemoglobin Concent 35.6 G/DL (32.0-36.0) 35.4 G/DL (32.0-36.0) Red Cell Distribution Width 10.7 % (11.6-14.8) L 11.2 % (11.6-14.8) L Platelet Count 61 K/UL (150-450) L 55 K/UL (150-450) L Mean Platelet Volume 6.6 FL (6.5-10.1) 5.9 FL (6.5-10.1) L Neutrophils (%) (Auto) % (45.0-75.0) % (45.0-75.0) Lymphocytes (%) (Auto) % (20.0-45.0) % (20.0-45.0) Monocytes (%) (Auto) % (1.0-10.0) % (1.0-10.0) Eosinophils (%) (Auto) % (0.0-3.0) % (0.0-3.0) Basophils (%) (Auto) % (0.0-2.0) % (0.0-2.0) Differential Total Cells Counted 100 100 Neutrophils % (Manual) 77 % (45-75) H 76 % (45-75) H Lymphocytes % (Manual) 15 % (20-45) L 14 % (20-45) L Monocytes % (Manual) 5 % (1-10) 10 % (1-10) Eosinophils % (Manual) 0 % (0-3) 0 % (0-3) Basophils % (Manual) 0 % (0-2) 0 % (0-2) Band Neutrophils 3 % (0-8) 0 % (0-8) Platelet Estimate Decreased L Decreased L Platelet Morphology Normal Giant Platelets Rare Red Blood Cell Morphology Normal Sodium Level 137 MMOL/L (136-145) 136 MMOL/L (136-145) Potassium Level 3.3 MMOL/L (3.5-5.1) L 3.1 MMOL/L (3.5-5.1) L Chloride Level 103 MMOL/L (98-107) 101 MMOL/L (98-107) Carbon Dioxide Level 25 MMOL/L (21-32) 24 MMOL/L (21-32) Anion Gap 9 mmol/L (5-15) 11 mmol/L (5-15) Blood Urea Nitrogen 11 mg/dL (7-18) 9 mg/dL (7-18) Creatinine 0.5 MG/DL (0.55-1.30) L 0.5 MG/DL (0.55-1.30) L Estimated Glomerular Filtration Rate > 60 mL/min (>60) > 60 mL/min (>60) Glucose Level 89 MG/DL (74-106) 69 MG/DL (74-106) L Lactic Acid Level 0.80 mmol/L (0.4-2.0) Calcium Level 7.8 MG/DL (8.5-10.1) L 8.1 MG/DL (8.5-10.1) L Total Bilirubin 0.5 MG/DL (0.2-1.0) Aspartate Amino Transferase (AST) 15 U/L (15-37) Alanine Aminotransferase (ALT) 7 U/L (12-78) L Alkaline Phosphatase 41 U/L (46-116) L Total Creatine Kinase 15 U/L (26-308) L Creatine Kinase MB 0.8 NG/ML (0.0-3.6) Creatine Kinase MB Relative Index 5.3 Troponin I 0.000 ng/mL (0.000-0.056) Total Protein 6.2 G/DL (6.4-8.2) L Albumin 2.5 G/DL (3.4-5.0) L Globulin 3.7 g/dL Albumin/Globulin Ratio 0.7 (1.0-2.7) L Hypochromasia 1+ Anisocytosis 1+ EKG Diagnostic Results Rate: normal Rhythm: NSR ST Segments: other - Right bundle branch block Other Impression Abnormal EKG Rhythm Strip Diag. Results EP Interpretation: yes Rate: 71 Rhythm: NSR, no PVC's, no ectopy Chest X-Ray Diagnostic Results Chest X-Ray Diagnostic Results : # of Views/Limited/Complete: 1 View Indication: Shortness of Breath EP Interpretation: Yes Interpretation: other - Left pleural effusion, possible left lower infiltrate, no pneumothorax Electronically Signed by: Shabbir Posadas MD Last Vital Signs Date Time Temp Pulse Resp B/P (MAP) Pulse Ox O2 Delivery O2 Flow Rate FiO2 02/17/20 11:25 97.2 68 18 108/58 97 Room Air Status: unchanged Disposition: ADMITTED INPATIENT Condition: Serious Referrals: Mindy Bryan MD (PCP) Shabbir Posadas M.D. February 17, 2020 12:24
--- NOTE | 2020-02-17 12:59 | NUR ---
ED Nurse Note: Skin intact, noted no redness nor pressure sores. MRSA, CRE/VRE swabs collected.
--- NOTE | 2020-02-17 13:15 | NUR ---
ED Nurse Note: called labs to clarify blood being sent at before 12nn. Per labs, blood collected was hemolized. charge nurse aware; per labs, they'll come in to collected second set of bloodwork.
[2020-02-17 13:26] LABS: APPEARANCE,URINE CLEAR; BILIRUBIN, URINE NEGATIVE (NEGATIVE); GLUCOSE, URINE (UA) NEGATIVE (NEGATIVE); KETONES,URINE 4+ (NEGATIVE); LEUKOCYTE ESTERASE ,URINE 1+ (NEGATIVE); NITRITE,URINE NEGATIVE (NEGATIVE); PH,URINE 5 (4.5-8.0); PROTEIN,URINE 1+ (NEGATIVE); UROBILINOGEN,URINE 4 MG/DL (0.0-1.0)
[2020-02-17 13:33] VITALS: BP 133/52
[2020-02-17 13:36] LABS: COLOR,URINE YELLOW
--- NOTE | 2020-02-17 13:38 | NUR ---
ED Nurse Note: Chandu from labs at bedside.
[2020-02-17 14:10] LABS: ANION GAP 9 mmol/L (5-15); BLOOD UREA NITROGEN 11 mg/dL (7-18); CALCIUM 7.8 MG/DL (8.5-10.1); CARBON DIOXIDE 25 MMOL/L (21-32); CHLORIDE 103 MMOL/L (98-107); CREATININE 0.5 MG/DL (0.55-1.30); POTASSIUM 3.3 MMOL/L (3.5-5.1); SODIUM 137 MMOL/L (136-145)
[2020-02-17 14:12] LABS: MEAN CORPUSCULAR VOLUME 87 FL (80-99); RED BLOOD COUNT 3.56 M/UL (4.20-5.40); RED CELL DISTRIBUTION WIDTH 10.7 % (11.6-14.8); WHITE BLOOD COUNT 13.6 K/UL (4.8-10.8)
[2020-02-17] MEDS ORDERED: Vancomycin 1 GM in NS 275 ML IVPB ONE (14:15)
[2020-02-17] MEDS ORDERED: Cefepime HCl 1 GM in D5W 55 ML IVPB ONE (14:15)
[2020-02-17 14:17] LABS: PLATELET COUNT 61 K/UL (150-450)
[2020-02-17 14:24] LABS: ALANINE AMINOTRANSFERASE 7 U/L (12-78); ALBUMIN 2.5 G/DL (3.4-5.0); ALBUMIN/GLOBULIN RATIO 0.7 (1.0-2.7); ALKALINE PHOSPHATASE 41 U/L (46-116); ASPARTATE AMINO TRANSFERASE 15 U/L (15-37); BILIRUBIN,TOTAL 0.5 MG/DL (0.2-1.0); CKMB 0.8 NG/ML (0.0-3.6); CREATINE KINASE 15 U/L (26-308)
--- NOTE | 2020-02-17 15:10 | NUR ---
ED Nurse Note: report given to pineda funes at med surg unit
--- NOTE | 2020-02-17 15:25 | NUR ---
TRANSFER TO FLOOR: Pt transferred to Med Surg Unit as ordered, per Dr Bryan. Report given to Abdi POLANCO. Belongings and medications given to receiving nurse. Family and or S/O informed of transfer.
--- NOTE | 2020-02-17 15:37 | Diagnostic Imaging Report ---
Indication: Cough Technique: One view of the chest Comparison: 12/22/2019 Findings: Patient is rotated to the left. There is a large left pleural effusion. There is compressive atelectasis of portions of left lung. The right lung and pleural space are clear. The heart size is upper limits normal. Impression: Large left pleural effusion, developing since prior study of 12/22/2019 Other findings as noted
--- NOTE | 2020-02-17 15:47 | NUR ---
NURSE NOTES: paged Dr Bryan re admit orders. pt awake alert, no distress. bed alarm on , no distress. no sob. call light within reach. bed in lowest position, locked will monitor. [id number] Addendum: 02/17/20 at 1548 by YOU HORAN RN sacral intact
[2020-02-17 15:56] VITALS: BP 110/81
[2020-02-17] MEDS ORDERED: Fleet's Enema 133ml RECTAL PRN (16:30)
[2020-02-17] MEDS ORDERED: Milk of Magnesia 30ml Ud ORAL PRN (16:30)
[2020-02-17] MEDS ORDERED: Lactulose 20gm/30ml UDC ORAL PRN (16:30)
[2020-02-17] MEDS: Eliquis 5mg tablet ORAL SCH (17:21)
--- NOTE | 2020-02-17 19:30 | NUR ---
NURSE NOTES: Received report from COLLIN Patton. AAO x 2, on room air. IV site intact. NO labored breathing. Contact and droplet precaution maintained. No acute distress noted. Bed locked, lowest position, alarm on, call light within reach, side rails up. Will continue to monitor.
[2020-02-17 20:00] VITALS: BP 104/57
[2020-02-17] MEDS: cefTRIAXone 1 GM in D5W 55 ML IVPB SCH (20:39)
--- NOTE | 2020-02-17 23:44 | History and Physical Report ---
DATE OF ADMISSION: 02/17/2020 HISTORY OF PRESENT ILLNESS: The patient is admitted for large pleural effusion, also for rule out COVID. The patient is a poor historian and also has left lower lobe pneumonia on the x-ray as well as large pleural effusion. Again, was sent to rule out COVID. The patient does complain of cough and shortness of breath. Also, has a low platelet and leukocytosis and has moderate to severe malnutrition. The patient is a poor historian, cannot get a reliable history from the patient. PAST MEDICAL HISTORY: Significant for organic brain syndrome, constipation, hypertension, seizure disorder, history of CVA, hypothyroidism, electrolyte imbalance, history of DVT, history of pleural effusion, history of mitral regurgitation, history of thrombocytopenia, history of SIADH, history of CHF, and history of encephalopathy. PAST SURGICAL HISTORY: History of PEG. ALLERGIES: To Cipro, hydrocodone, penicillin, and prochlorperazine. MEDICATIONS: Eliquis, bisacodyl, hydralazine, Levoxyl, lactulose, folic acid, and Colace. FAMILY HISTORY: Noncontributory. SOCIAL HISTORY: Denies history of smoking. Denies history alcohol or illicit drugs. Comes from a snf. REVIEW OF SYSTEMS: HEENT: Denies headaches. RESPIRATORY: Denies chest pain. Does have some shortness of breath. Some cough. CARDIOVASCULAR: Denies chest pain. GASTROINTESTINAL: Denies nausea, vomiting, or diarrhea. EXTREMITIES: Denies any significant pain. CENTRAL NERVOUS SYSTEM: Denies changes in speech pattern. Feels weak. PHYSICAL EXAMINATION: VITAL SIGNS: Temperature is 97.2, pulse is 68, blood pressure is 108/58. HEENT: PERRLA. CHEST: Bibasilar rales. CARDIOVASCULAR: Regular rate and rhythm. No extra sounds. GASTROINTESTINAL: Soft. Positive bowel sounds. No organomegaly. EXTREMITIES: 1+ edema. Generalized weakness. Reflexes equal on both sides. LABORATORY DATA: WBC of 13.6, hemoglobin 11, and platelets of 61. Sodium 137, potassium 3.3, BUN of 11, creatinine 0.5, and glucose of 89. ASSESSMENT AND PLAN: Rule out COVID, respiratory insufficiency, pneumonia, rule out sepsis, thrombocytopenia, history of DVT, borderline hypokalemia as well as large pleural effusion, and moderate to severe malnutrition. I have asked Dr. Mau Sargent, Dr. Gamal Serrano, Dr. Forbes, and Dr. Crow Coley to see the patient for the management and help with the above-mentioned diagnoses as well as for above-mentioned abnormal imaging and abnormal laboratory findings. Antibiotics per Dr. Gamal Serrano. COVID rule out. Mindy Bryan M.D. DR: Gamaliel JOB#: [id number] CC:
[2020-02-18] VITALS: BP 138/81
[2020-02-18 04:00] VITALS: BP 108/58
[2020-02-18] MEDS: Levothyroxine 125mcg tab ORAL SCH (05:38)
[2020-02-18 06:38] LABS: ANION GAP 11 mmol/L (5-15); BLOOD UREA NITROGEN 9 mg/dL (7-18); CALCIUM 8.1 MG/DL (8.5-10.1); CARBON DIOXIDE 24 MMOL/L (21-32); CHLORIDE 101 MMOL/L (98-107); CREATININE 0.5 MG/DL (0.55-1.30); HEMATOCRIT 29.3 % (37.0-47.0); HEMOGLOBIN 10.4 G/DL (12.0-16.0); MEAN CORPUSCULAR VOLUME 88 FL (80-99); PLATELET COUNT 55 K/UL (150-450); POTASSIUM 3.1 MMOL/L (3.5-5.1); RED BLOOD COUNT 3.34 M/UL (4.20-5.40); RED CELL DISTRIBUTION WIDTH 11.2 % (11.6-14.8); SODIUM 136 MMOL/L (136-145); WHITE BLOOD COUNT 7.6 K/UL (4.8-10.8)
--- NOTE | 2020-02-18 07:38 | NUR ---
HAND-OFF: Report given to COLLIN Yap.
--- NOTE | 2020-02-18 07:53 | NUR ---
NURSE NOTES: Report received from Akosua POLANCO. Patient seen on rounds, asleep but easily rousable, not in distress, no SOB and tolerating room air. No complaints of pain. PIV on right forearm patent and intact. Bed low and locked, siderails up x2, call light within reach, instructed to call nurse for assistance. Will continue to monitor.
[2020-02-18 08:00] VITALS: BP 109/55
[2020-02-18] MEDS: HydrALAZINE 10mg Tab ORAL SCH (09:00)
[2020-02-18] MEDS: Metoprolol Tartrate 12.5mg TAB ORAL SCH (09:00)
[2020-02-18] MEDS: Calcium Carbonate 500mg w/Vit D 200iu tab ORAL SCH (09:16)
[2020-02-18] MEDS: Eliquis 5mg tablet ORAL SCH ×2 (09:17→17:42)
[2020-02-18] MEDS: Docusate 250mg cap ORAL SCH (09:17)
--- NOTE | 2020-02-18 09:30 | General Progress Note ---
Assessment/Plan Assessment/Plan: Anemia marisabel PLT DM ?add reglan asthma gallstones IVC filter prior admissions reviewed anemia work up neg stool ob in prior admissions on eliquis add reglan add megace DVT prophylaxis repeat labs ammonia level Subjective ROS Limited/Unobtainable: No Allergies: Coded Allergies: CIPROFLOXACIN (Verified Allergy, Unknown, 10/02/13) HYDROCODONE (Verified Allergy, Unknown, 10/02/13) PENICILLINS (Verified Allergy, Unknown, 10/02/13) PROCHLORPERAZINE (Verified Allergy, Unknown, 10/02/13) Objective Last 24 Hour Vital Signs Date Time Temp Pulse Resp B/P (MAP) Pulse Ox O2 Delivery O2 Flow Rate FiO2 02/18/20 09:00 86 109/55 02/18/20 09:00 109/55 02/18/20 04:52 99.3 02/18/20 04:00 101.8 102 24 108/58 (75) 94 02/18/20 00:00 97.2 99 22 138/81 (100) 96 02/17/20 21:00 Room Air 02/17/20 20:00 97.5 80 18 104/57 (73) 92 02/17/20 15:56 98.2 80 18 110/81 (91) 95 02/17/20 15:52 Room Air 02/17/20 15:25 97.2 75 20 115/54 98 Room Air 02/17/20 13:33 97.2 72 18 133/52 97 Room Air 02/17/20 11:25 97.2 68 18 108/58 97 Room Air 02/17/20 11:25 68 18 Room Air 02/17/20 11:22 97.2 68 18 108/58 (75) 97 Room Air Intake and Output 02/17/20 02/18/20 19:00 07:00 Intake Total 200 ml 118 ml Balance 200 ml 118 ml Intake Oral 200 ml Other 118 ml # Voids 2 Laboratory Tests 02/17/20 12:50: Urine Color Yellow, Urine Appearance Clear, Urine pH 5, Urine Specific [place] 1.020, Urine Protein 1+H, Urine Glucose (UA) Negative, Urine Ketones 4+H, Urine Blood 1+H, Urine Nitrite Negative, Urine Bilirubin Negative, Urine Urobilinogen 4H, Urine Leukocyte Esterase 1+H, Urine RBC 2-4H, Urine WBC 2-4, Urine Squamous Epithelial Cells Few, Urine Bacteria Few, Urine Mucus FewH 02/17/20 13:50: White Blood Count 13.6H, Red Blood Count 3.56L, Hemoglobin 11.0L, Hematocrit 31.0L, Mean Corpuscular Volume 87, Mean Corpuscular Hemoglobin 30.9, Mean Corpuscular Hemoglobin Concent 35.6, Red Cell Distribution Width 10.7L, Platelet Count 61L, Mean Platelet Volume 6.6, Neutrophils (%) (Auto) , Lymphocytes (%) (Auto) , Monocytes (%) (Auto) , Eosinophils (%) (Auto) , Basophils (%) (Auto) , Differential Total Cells Counted 100, Neutrophils % ( Manual) 77H, Lymphocytes % (Manual) 15L, Monocytes % (Manual) 5, Eosinophils % ( Manual) 0, Basophils % (Manual) 0, Band Neutrophils 3, Platelet Estimate DecreasedL, Platelet Morphology , Giant Platelets Rare, Red Blood Cell Morphology Normal, Sodium Level 137, Potassium Level 3.3L, Chloride Level 103, Carbon Dioxide Level 25, Anion Gap 9, Blood Urea Nitrogen 11, Creatinine 0.5L, Estimat Glomerular Filtration Rate > 60, Glucose Level 89, Lactic Acid Level 0.80, Calcium Level 7.8L, Total Bilirubin 0.5, Aspartate Amino Transf (AST/SGOT ) 15, Alanine Aminotransferase (ALT/SGPT) 7L, Alkaline Phosphatase 41L, Total Creatine Kinase 15L, Creatine Kinase MB 0.8, Creatine Kinase MB Relative Index 5.3, Troponin I 0.000, Total Protein 6.2L, Albumin 2.5L, Globulin 3.7, Albumin/ Globulin Ratio 0.7L 02/18/20 05:40: White Blood Count 7.6, Red Blood Count 3.34L, Hemoglobin 10.4L, Hematocrit 29.3L , Mean Corpuscular Volume 88, Mean Corpuscular Hemoglobin 31.0, Mean Corpuscular Hemoglobin Concent 35.4, Red Cell Distribution Width 11.2L, Platelet Count 55L, Mean Platelet Volume 5.9L, Neutrophils (%) (Auto) , Lymphocytes (%) (Auto) , Monocytes (%) (Auto) , Eosinophils (%) (Auto) , Basophils (%) (Auto) , Neutrophils % (Manual) [Pending], Lymphocytes % (Manual) [Pending], Platelet Estimate [Pending], Platelet Morphology [Pending], Sodium Level 136, Potassium Level 3.1L, Chloride Level 101, Carbon Dioxide Level 24, Anion Gap 11, Blood Urea Nitrogen 9, Creatinine 0.5L, Estimat Glomerular Filtration Rate > 60, Glucose Level 69L, Calcium Level 8.1L Height (Feet): 5 Height (Inches): 4.00 Weight (Pounds): 103 General Appearance: no apparent distress EENT: normal ENT inspection Neck: supple Cardiovascular: normal rate Respiratory/Chest: decreased breath sounds Abdomen: normal bowel sounds, non tender, soft Extremities: non-tender Fabian Forbes MD February 18, 2020 09:30
[2020-02-18] MEDS: D5NS w/KCl 40mEq 1000ml 1,000 ML IV SCH ×2 (10:46→20:34)
[2020-02-18] MEDS: Pantoprazole Inj IVP SCH ×2 (10:46→20:33)
--- NOTE | 2020-02-18 10:47 | NUR ---
*-* INSURANCE *-* ALL AVAILABLE CLINICALS HAVE BEEN FAXED TO: [facility] AUTH# [id number] DESTINY: YANET P:[phone] F:[phone] (FAX ALL CLINICALS)
[2020-02-18 12:00] VITALS: BP 96/59
--- NOTE | 2020-02-18 12:48 | Consultation ---
History of Present Illness General Chief Complaint: Upper Respiratory Illness Present Illness Allergies: Coded Allergies: CIPROFLOXACIN (Verified Allergy, Unknown, 10/02/13) HYDROCODONE (Verified Allergy, Unknown, 10/02/13) PENICILLINS (Verified Allergy, Unknown, 10/02/13) PROCHLORPERAZINE (Verified Allergy, Unknown, 10/02/13) Medication History Scheduled Apixaban (Eliquis), 5 MG PO BID, (Reported) Apixaban (Eliquis), 5 MG PO BID, (Reported) Calcium Carbonate (Oyster Shell Calcium), 500 MG PO DAILY WITH BREAKFAST, ( Reported) Calcium Carbonate/Vitamin D3 (Oyster Shell Calcium + D Tab), 1 EACH PO DAILY, ( Reported) Cran/Vitc/Mannose/Inulin/Brom (Uti-Stat Liquid), 3,875 MG PO BEDTIME, (Reported) Cranberry Fruit Concentrate (Cranberry), 900 MG PO BID, (Reported) Divalproex Sodium* (Depakote Er*), 500 MG ORAL EVERY 12 HOURS, (Reported) Docusate Sodium* (Docusate Sodium*), 250 MG ORAL DAILY, (Reported) Folic Acid* (Folic Acid*), 1 MG PO DAILY, (Reported) Hydralazine HCl (Hydralazine HCl), 10 MG ORAL DAILY, (Reported) Lactulose (Lactulose), 30 ML PO Q4HR, (Reported) Levetiracetam (Keppra), 500 MG ORAL Q12HR, (Reported) Levothyroxine Sodium* (Synthroid*), 125 MCG ORAL DAILY, (Reported) Metoprolol Tartrate* (Metoprolol Tartrate*), 12.5 MG ORAL EVERY MORNING, ( Reported) Multivitamin With Minerals (Multivitamins With Minerals*), 1 TAB ORAL DAILY, ( Reported) Na Phos,M-B/Na Phos,Di-Ba* (Fleet Enema*), 133 ML RECTAL DAILY, (Reported) Scheduled PRN Acetaminophen* (Tylenol Extra Strength*), 1,000 MG ORAL Q4HR PRN for Moderate Pain (Pain Scale 4-6), (Reported) Acetaminophen* (Acetaminophen 325MG Tablet*), 650 MG ORAL Q4H PRN for Mild Pain (Pain Scale 1-3), (Reported) Acetaminophen* (Acetaminophen 325MG Tablet*), 650 MG ORAL Q4H PRN for temperature > 101 F, (Reported) Bisacodyl (Bisacodyl), 10 MG RC DAILY PRN for Constipation, (Reported) Bisacodyl (Dulcolax), 10 MG RC for Constipation, (Reported) Magnesium Hydroxide* (Milk Of Magnesia*), 30 ML ORAL QHS PRN for Constipation, ( Reported) Na Phos,M-B/Na Phos,Di-Ba* (Fleet Enema*), 133 ML RECTAL EVERY 2 DAYS PRN for Constipation, (Reported) Patient History Healthcare decision maker LIBRA SKY Resuscitation status Advanced Directive on File Physical Exam Last 24 Hour Vital Signs Date Time Temp Pulse Resp B/P (MAP) Pulse Ox O2 Delivery O2 Flow Rate FiO2 02/18/20 09:00 86 109/55 02/18/20 09:00 109/55 02/18/20 09:00 Room Air 02/18/20 08:00 97.2 86 20 109/55 (73) 94 02/18/20 04:52 99.3 02/18/20 04:00 101.8 102 24 108/58 (75) 94 02/18/20 00:00 97.2 99 22 138/81 (100) 96 02/17/20 21:00 Room Air 02/17/20 20:00 97.5 80 18 104/57 (73) 92 02/17/20 15:56 98.2 80 18 110/81 (91) 95 02/17/20 15:52 Room Air 02/17/20 15:25 97.2 75 20 115/54 98 Room Air 02/17/20 13:33 97.2 72 18 133/52 97 Room Air Intake and Output 02/17/20 02/18/20 19:00 07:00 Intake Total 200 ml 118 ml Balance 200 ml 118 ml Intake Oral 200 ml Other 118 ml # Voids 2 Laboratory Tests Test 02/17/20 12:50 02/17/20 13:50 02/18/20 05:40 Urine Color Yellow Urine Appearance Clear Urine pH 5 (4.5-8.0) Urine Specific [place] 1.020 (1.005-1.035) Urine Protein 1+ (NEGATIVE) H Urine Glucose (UA) Negative (NEGATIVE) Urine Ketones 4+ (NEGATIVE) H Urine Blood 1+ (NEGATIVE) H Urine Nitrite Negative (NEGATIVE) Urine Bilirubin Negative (NEGATIVE) Urine Urobilinogen 4 MG/DL (0.0-1.0) H Urine Leukocyte Esterase 1+ (NEGATIVE) H Urine RBC 2-4 /HPF (0 - 2) H Urine WBC 2-4 /HPF (0 - 2) Urine Squamous Epithelial Cells Few /LPF (NONE/OCC) Urine Bacteria Few /HPF (NONE) Urine Mucus Few /LPF (NONE/OCC) H White Blood Count 13.6 K/UL (4.8-10.8) H 7.6 K/UL (4.8-10.8) Red Blood Count 3.56 M/UL (4.20-5.40) L 3.34 M/UL (4.20-5.40) L Hemoglobin 11.0 G/DL (12.0-16.0) L 10.4 G/DL (12.0-16.0) L Hematocrit 31.0 % (37.0-47.0) L 29.3 % (37.0-47.0) L Mean Corpuscular Volume 87 FL (80-99) 88 FL (80-99) Mean Corpuscular Hemoglobin 30.9 PG (27.0-31.0) 31.0 PG (27.0-31.0) Mean Corpuscular Hemoglobin Concent 35.6 G/DL (32.0-36.0) 35.4 G/DL (32.0-36.0) Red Cell Distribution Width 10.7 % (11.6-14.8) L 11.2 % (11.6-14.8) L Platelet Count 61 K/UL (150-450) L 55 K/UL (150-450) L Mean Platelet Volume 6.6 FL (6.5-10.1) 5.9 FL (6.5-10.1) L Neutrophils (%) (Auto) % (45.0-75.0) % (45.0-75.0) Lymphocytes (%) (Auto) % (20.0-45.0) % (20.0-45.0) Monocytes (%) (Auto) % (1.0-10.0) % (1.0-10.0) Eosinophils (%) (Auto) % (0.0-3.0) % (0.0-3.0) Basophils (%) (Auto) % (0.0-2.0) % (0.0-2.0) Differential Total Cells Counted 100 100 Neutrophils % (Manual) 77 % (45-75) H 76 % (45-75) H Lymphocytes % (Manual) 15 % (20-45) L 14 % (20-45) L Monocytes % (Manual) 5 % (1-10) 10 % (1-10) Eosinophils % (Manual) 0 % (0-3) 0 % (0-3) Basophils % (Manual) 0 % (0-2) 0 % (0-2) Band Neutrophils 3 % (0-8) 0 % (0-8) Platelet Estimate Decreased L Decreased L Platelet Morphology Normal Giant Platelets Rare Red Blood Cell Morphology Normal Sodium Level 137 MMOL/L (136-145) 136 MMOL/L (136-145) Potassium Level 3.3 MMOL/L (3.5-5.1) L 3.1 MMOL/L (3.5-5.1) L Chloride Level 103 MMOL/L (98-107) 101 MMOL/L (98-107) Carbon Dioxide Level 25 MMOL/L (21-32) 24 MMOL/L (21-32) Anion Gap 9 mmol/L (5-15) 11 mmol/L (5-15) Blood Urea Nitrogen 11 mg/dL (7-18) 9 mg/dL (7-18) Creatinine 0.5 MG/DL (0.55-1.30) L 0.5 MG/DL (0.55-1.30) L Estimat Glomerular Filtration Rate > 60 mL/min (>60) > 60 mL/min (>60) Glucose Level 89 MG/DL (74-106) 69 MG/DL (74-106) L Lactic Acid Level 0.80 mmol/L (0.4-2.0) Calcium Level 7.8 MG/DL (8.5-10.1) L 8.1 MG/DL (8.5-10.1) L Total Bilirubin 0.5 MG/DL (0.2-1.0) Aspartate Amino Transf (AST/SGOT) 15 U/L (15-37) Alanine Aminotransferase (ALT/SGPT) 7 U/L (12-78) L Alkaline Phosphatase 41 U/L (46-116) L Total Creatine Kinase 15 U/L (26-308) L Creatine Kinase MB 0.8 NG/ML (0.0-3.6) Creatine Kinase MB Relative Index 5.3 Troponin I 0.000 ng/mL (0.000-0.056) Total Protein 6.2 G/DL (6.4-8.2) L Albumin 2.5 G/DL (3.4-5.0) L Globulin 3.7 g/dL Albumin/Globulin Ratio 0.7 (1.0-2.7) L Hypochromasia 1+ Anisocytosis 1+ Microbiology Date/Time Source Procedure Growth Status 02/17/20 12:50 Rectum Received Height (Feet): 5 Height (Inches): 4.00 Weight (Pounds): 103 Medications Current Medications Medications (Trade) Dose Ordered Sig/Karlee Route PRN Reason Start Time Stop Time Status Last Admin Dose Admin Acetaminophen (Tylenol) 650 mg Q4H PRN ORAL Mild Pain (Pain Scale 1-3) 02/17/20 16:30 03/18/20 16:29 02/18/20 04:22 Apixaban (Eliquis) 5 mg BID ORAL 02/17/20 18:00 05/17/20 17:59 02/18/20 09:17 Bisacodyl (Dulcolax) 10 mg DAILYPRN PRN RECTAL Constipation 02/17/20 16:30 05/17/20 16:29 Calcium/Vitamin D (OsCal D) 1 tab DAILY ORAL 02/18/20 09:00 05/18/20 08:59 02/18/20 09:16 Ceftriaxone Sodium 1 gm/ Dextrose 55 ml @ 110 mls/hr Q24H IVPB 02/17/20 20:00 02/24/20 19:59 02/17/20 20:39 Dextrose/ Electrolytes 1,000 ml @ 75 mls/hr [id number] IV 02/18/20 11:00 03/19/20 10:59 02/18/20 10:46 Docusate Sodium (Colace) 250 mg DAILY ORAL 02/18/20 09:00 03/19/20 08:59 02/18/20 09:17 Folic Acid (Folate) 1 mg DAILY ORAL 02/18/20 09:00 6/12/20 08:59 02/18/20 09:17 Hydralazine HCl (Apresoline) 10 mg DAILY ORAL 02/18/20 09:00 05/18/20 08:59 Lactulose (Cephulac) 20 gm Q4H PRN ORAL elevated ammonia 02/17/20 16:30 03/18/20 16:29 Levetiracetam (Keppra) 500 mg Q12HR ORAL 02/17/20 21:00 03/18/20 20:59 02/18/20 09:17 Levothyroxine Sodium (Synthroid) 125 mcg DAILY@0630 ORAL 02/18/20 06:30 03/19/20 06:29 02/18/20 05:38 Magnesium Hydroxide (Mom) 30 ml DAILYPRN PRN ORAL Constipation 02/17/20 16:30 03/18/20 16:29 Megestrol Acetate (Megace) 400 mg TWICE A DAY ORAL 02/18/20 18:00 05/18/20 17:59 Metoclopramide HCl (Reglan) 5 mg EVERY 8 HOURS IM 02/18/20 14:00 03/19/20 13:59 Metoprolol Tartrate (Lopressor) 12.5 mg DAILY ORAL 02/18/20 09:00 05/18/20 08:59 Multivitamins (Multivitamins) 1 tab DAILY ORAL 02/18/20 09:00 03/19/20 08:59 02/18/20 09:17 Ondansetron HCl (Zofran) 4 mg Q6H PRN IVP Nausea & Vomiting 02/18/20 09:30 03/19/20 09:29 Pantoprazole (Protonix) 40 mg EVERY 12 HOURS IVP 02/18/20 09:45 03/19/20 09:44 02/18/20 10:46 Sodium Phosphate (Fleet's Sodium Phosl Enema) 133 ml DAILYPRN PRN RECTAL constipation 02/17/20 16:30 03/18/20 16:29 Assessment/Plan Assessment/Plan: Hematology Oncology Consult REQ : Mindy Urrutia RFC: DVT s/p IVC filter, pancytopenia DOS:02/18/2020 ID 69-year-old female, well known to [facility], with history of hyponatremia and neuropathy, prior dvt s/p ivf filter in the past, here for admission. 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 Denies head trauma. Patient is unable to ambulate and elicit a lot of pain at area of hip, shes had this before. She's had similar symptoms before. Denies any other injury, chest pain, shortness of breath, dizziness, palpitation, abdominal pain, nausea vomiting and all other associated symptoms. She further denies tingling numbness. Now has low Na and IVC filter for hx of DVT, here at this time for ams as well as low plts. Allergies: CIPROFLOXACIN (Verified Allergy, Unknown, 10/02/13) HYDROCODONE (Verified Allergy, Unknown, 10/02/13) PENICILLINS (Verified Allergy, Unknown, 10/02/13) PROCHLORPERAZINE (Verified Allergy, Unknown, 10/02/13) Patient History Past Medical History: see triage record Past Surgical History: unable to obtain Immunizations: UTD Reviewed Nursing Documentation: PMH: Agreed; PSxH: Agreed Past Medical History: No History, Except For Hx Cardiac Problems: Yes Hx Hypertension: Yes Hx Pacemaker: No Hx Asthma: No - pna, sepsis, resp insuff., neuropathy, hypothyroidsm, Hx Diabetes: Yes Hx Cancer: No Hx Gastrointestinal Problems: Yes Hx Neurological Problems: Yes Hx Cerebrovascular Accident: Yes Hx Seizures: Yes All Other Systems: negative except mentioned in HPI Very comfortable, no other events Physical Exam: Vitals: reviewed General: NAD HEENT: nc, at Neck: supple Chest: clear breath sounds bilaterally Cardiovascular: RRR, no s3, s4 Abdomen: soft, nontender, nd Extremities: no cce, normal range of motion Neuro: alert and oriented Labs noted Imaging reviewed ASSESSMENT AND RECOMMENDATIONS: 1. Deep venous thrombosis of the right lower extremity. Partial visualization of an IVC filter. On the right, wall adherent nonocclusive thrombus is seen within the common femoral vein and downstream superficial femoral vein. While the appearance is suggestive of chronic recanalized thrombus, this is nonetheless a new finding since prior study of 07/28/2019 --> imaging has been reviewed --> hx IVC filter is in place --> remains on eliquis 2. Pancytopenia likely secondary to underlying liver disease, continue to closely monitor. This is the lowest counts she has had for past several years --> Prior labs reviewed, hepatitis panel reviewed --> us of the abdomen was reviewed --> meds reviewed as well --> transfuse if she is bleeding with platelets --> plt trend 79k-->64k-->83-->50 --> wbc 3-->7 --> hgb 11.8-->10.4 3. Anemia secondary to chronic disease. --> w/u reviewed from prior adm --> trend as needed 4. Hyponatremia. Nephrology is following --> Fluid restriction --> appreciate nephro recs 5. Seizure disorder --> as per neuro 6. Left hip pain due to Lumbar compression fracture -- pain meds prn --> pain management 7. AMs as per neuro 8. Dvt ppx arleen MALONEY RN and appreciate the consultation. Crow Coley MD February 18, 2020 12:48
[2020-02-18] MEDS ORDERED: Metoclopramide 10mg/2ml Inj IM SCH (14:00)
--- NOTE | 2020-02-18 14:36 | Consultation ---
Consult Note Consult Note I am asked to evaluate the patient at the request of Dr. Urrutia for Abnormal electrolytes and fluid management Patient is known to me from her previous admissions I was consulted in the past for patient's hyponatremia Patient has history of hypothyroidism and seizure disorder Has history of lumbar compression fracture According to emergency room note: HPI: 69-year-old female history of mood disorder, seizure disorder, history of GERD, history of hypertension, history of chronic renal insufficiency, hepatic encephalopathy, presented for pleural effusion and possible pneumonia. Patient presented from retirement facility. Patient is a very poor historian and unable to provide any history. History taken from chart and primary care physician. Allergies: CIPROFLOXACIN (Verified Allergy, Unknown, 10/02/13) HYDROCODONE (Verified Allergy, Unknown, 10/02/13) PENICILLINS (Verified Allergy, Unknown, 10/02/13) PROCHLORPERAZINE (Verified Allergy, Unknown, 10/02/13) COVID-19 Screening Contact w/high risk pt: No Recent Travel to affected area: No Experienced COVID-19 symptoms?: Yes COVID-19 symptoms experienced: Cough Patient examined Data reviewed Assessment/Plan Hypokalemia etiology unclear no history of diarrhea Anemia Pneumonia Recurrent left pleural effusion History of hypothyroidism Hypoalbuminemia Evidence of UTI Suggestions : Potassium supplements p.o. on IV Anemia work-up Thyroid function test Per pulmonary and ID Jesus Valdivia MD February 18, 2020 14:36
[2020-02-18 16:00] VITALS: BP 98/54
[2020-02-18] MEDS: Megace 400mg/10ml Susp ORAL SCH (17:41)
--- NOTE | 2020-02-18 19:28 | NUR ---
HAND-OFF: Report given to Cynthia POLANCO. Endorsed stool OB still needs to be collected. Patient had no BM during this shift.
[2020-02-18] MEDS ORDERED: LEVETIRACETAM500 MG ORAL (19:37)
--- NOTE | 2020-02-18 20:00 | NUR ---
NURSE NOTES: Received patient awake, follows simple command, no SOB noted.
[2020-02-18 20:19] VITALS: BP 101/53
--- NOTE | 2020-02-18 20:29 | Consultation ---
DATE OF CONSULTATION: 02/18/2020 PULMONARY CONSULTATION CONSULTING PHYSICIAN: Mau Sargent MD HISTORY OF PRESENT ILLNESS: This is a 69-year-old female with underlying psych disorder, hypertension, seizure disorder, renal insufficiency as well as hepatic encephalopathy, was admitted to the hospital with a pleural effusion. There was concern she may have pneumonia. The patient is a care home resident, unable to provide any history. She was seen and worked up in the emergency room. On arrival, she was found to be normoxemic with saturation on room air of 96%. X-ray of chest showed left lung infiltrate/effusion. Currently, the patient is unable to provide any further history. ALLERGIES: Cipro, hydrocodone, penicillin, and prochlorperazine. PAST MEDICAL HISTORY: Notable for cardiac issues, cardiac arrhythmias, DVT, asthma, diabetes mellitus, diverticulosis, GERD, psych disorder, previous CVA, seizures, and dementia. HOME MEDICATIONS: Reviewed and reconciled in chart. PHYSICAL EXAMINATION: GENERAL: Reveals a 69-year-old female. VITAL SIGNS: Blood pressure 110/50, heart rate is 84, respirations are 20, and O2 saturation 94% on room air. HEENT: Unremarkable. CHEST: Exam shows decreased breath sounds bilaterally with crackles left base. ABDOMEN: Soft. EXTREMITIES: There is no edema. LABORATORY DATA: Lab testing shows white count 68938, hemoglobin of 11, otherwise normal CBC and BMP. Urinalysis shows few pus cells. IMAGING STUDIES: Discussed above. IMPRESSION: 1. Left lower lung field pneumonia. 2. Chronic medical conditions consisting of hepatic encephalopathy, renal insufficiency, hypertension, GERD, psych disorder as well as seizure disorder. DISCUSSION: Admit to the hospital. We will order oxygen as needed. The patient needs broad-spectrum antibiotics. I note she has been started on cefepime, vancomycin. IV fluids to be given. We will continue medications. We will follow carefully. Mau Sargent M.D. DR: Zenia JOB#: [id number] CC:
[2020-02-18] MEDS: cefTRIAXone 1 GM in D5W 55 ML IVPB SCH (20:32)
--- NOTE | 2020-02-18 21:14 | Consultation ---
DATE OF CONSULTATION: 02/18/2020 INFECTIOUS DISEASE CONSULTATION CONSULTING PHYSICIAN: Gamal Serrano MD PRIMARY ATTENDING PHYSICIAN: Mindy Bryan MD REASON FOR CONSULT: Sepsis, pleural effusion, try to rule out pneumonia. HISTORY OF PRESENT ILLNESS: This is a 69-year-old female admitted yesterday from a [place] [facility] facility. She had abnormal chest x-ray with pleural effusion. At the time of admission, had leukocytosis of 13.6. Developed fever of 101.8 early this morning. The patient is confused. PAST MEDICAL HISTORY: COPD, hypothyroidism, SIADH, anemia, and aortic dissection. She has history of DVT and IVC filter placement, lumbar compression fracture. Has history of encephalopathy. ALLERGIES: Allergic to ciprofloxacin, hydrocodone, penicillin, prochlorperazine, but the patient tolerated ceftriaxone and cefepime. MEDICATIONS: Megace, metoclopramide, Protonix, Zofran, folic acid, hydralazine, metoprolol, multivitamin, levothyroxine, Keppra, ceftriaxone, apixaban, Colace, lactulose, Tylenol. Got the dose of cefepime and vancomycin in ER. SOCIAL HISTORY: detention resident, . No history of alcohol, drug abuse, or smoking. REVIEW OF SYSTEMS: Limited because of the patient has dementia. She has no cough. PHYSICAL EXAMINATION: VITAL SIGNS: Temperature 97.2, pulse 86, blood pressure 109/55. GENERAL APPEARANCE: Seems to be thin and cachectic. HEAD AND NECK: [place] conjunctivae. HEART: Normal rate. LUNGS: Clear. ABDOMEN: Soft. EXTREMITIES: No edema. NEUROLOGIC: Awake, alert, verbal, oriented to herself. LABORATORY AND DIAGNOSTIC DATA: WBC today is 7.6, hemoglobin 10.4, hematocrit 29.3, platelets 55. Sodium 136, potassium 3.1, chloride 101, bicarbonate 24, BUN 9, creatinine 0.9, glucose 69. Albumin is low at 2.5. AST, ALT, alkaline phosphatase are low. Chest x-ray showed pleural effusion in the left that is new compared to x-ray of 12/22/2019. IMPRESSION: 1. Sepsis with fever. 2. Leukocytosis. 3. Tachycardia. 4. Patient has left pleural effusion, may have underlying pneumonia. 5. Anemia. 6. Hypothyroidism. 7. COPD. 8. Aortic dissection in the previous CT scan. 9. Dementia. RECOMMENDATION: Continue ceftriaxone. We will find out COVID-19 test. We will follow up the cultures. At the end of my exam, I thank Dr. Bryan for involving me in the care of this patient. Gamal Serrano M.D. DR: DARYA JOB#: [id number] CC: BETH
--- NOTE | 2020-02-18 21:25 | General Progress Note ---
Assessment/Plan Problem List: (1) Hypokalemia ICD Codes: E87.6 - Hypokalemia SNOMED: 91141598 (2) Respiratory insufficiency ICD Codes: R06.89 - Respiratory insufficiency SNOMED: 265790047 (3) Hypothyroidism ICD Codes: E03.9 - Hypothyroidism SNOMED: 75030481 (4) UTI (lower urinary tract infection) ICD Codes: N39.0 - Urinary tract infection, site not specified SNOMED: 0998015 (5) Suspected 2019 novel coronavirus infection ICD Codes: Z20.828 - Contact with and (suspected) exposure to other viral communicable diseases SNOMED: 876899497 (6) Pneumonia ICD Codes: J18.9 - Pneumonia SNOMED: 070308125 (7) Pleural effusion ICD Codes: J94.8 - Pleural effusion SNOMED: 30929492 Status: progressing Assessment/Plan: resp insuff pna sepsis r/o covid vitals stable low platlet afebrile Subjective ROS Limited/Unobtainable: Yes Allergies: Coded Allergies: CIPROFLOXACIN (Verified Allergy, Unknown, 10/02/13) HYDROCODONE (Verified Allergy, Unknown, 10/02/13) PENICILLINS (Verified Allergy, Unknown, 10/02/13) PROCHLORPERAZINE (Verified Allergy, Unknown, 10/02/13) Objective Last 24 Hour Vital Signs Date Time Temp Pulse Resp B/P (MAP) Pulse Ox O2 Delivery O2 Flow Rate FiO2 02/18/20 20:19 97.3 84 24 101/53 (69) 93 02/18/20 20:14 Room Air 02/18/20 16:00 97.7 77 20 98/54 (69) 94 02/18/20 12:00 97.4 74 20 96/59 (71) 93 02/18/20 09:00 86 109/55 02/18/20 09:00 109/55 02/18/20 09:00 Room Air 02/18/20 08:00 97.2 86 20 109/55 (73) 94 02/18/20 04:52 99.3 02/18/20 04:00 101.8 102 24 108/58 (75) 94 02/18/20 00:00 97.2 99 22 138/81 (100) 96 Intake and Output 02/17/20 02/18/20 19:00 07:00 Intake Total 200 ml 118 ml Balance 200 ml 118 ml Intake Oral 200 ml Other 118 ml # Voids 2 Laboratory Tests 02/18/20 05:40: White Blood Count 7.6, Red Blood Count 3.34L, Hemoglobin 10.4L, Hematocrit 29.3L , Mean Corpuscular Volume 88, Mean Corpuscular Hemoglobin 31.0, Mean Corpuscular Hemoglobin Concent 35.4, Red Cell Distribution Width 11.2L, Platelet Count 55L, Mean Platelet Volume 5.9L, Neutrophils (%) (Auto) , Lymphocytes (%) (Auto) , Monocytes (%) (Auto) , Eosinophils (%) (Auto) , Basophils (%) (Auto) , Differential Total Cells Counted 100, Neutrophils % ( Manual) 76H, Lymphocytes % (Manual) 14L, Monocytes % (Manual) 10, Eosinophils % (Manual) 0, Basophils % (Manual) 0, Band Neutrophils 0, Platelet Estimate DecreasedL, Platelet Morphology Normal, Hypochromasia 1+, Anisocytosis 1+, Sodium Level 136, Potassium Level 3.1L, Chloride Level 101, Carbon Dioxide Level 24, Anion Gap 11, Blood Urea Nitrogen 9, Creatinine 0.5L, Estimat Glomerular Filtration Rate > 60, Glucose Level 69L, Calcium Level 8.1L Height (Feet): 5 Height (Inches): 4.00 Weight (Pounds): 103 Mindy Bryan MD February 18, 2020 21:25
[2020-02-18] MEDS: Metoclopramide 10mg/2ml Inj IVP SCH (22:06)
[2020-02-19] VITALS: BP 112/68
[2020-02-19 04:00] VITALS: BP 117/67
[2020-02-19] MEDS: Levothyroxine 125mcg tab ORAL SCH (05:48)
[2020-02-19] MEDS: Metoclopramide 10mg/2ml Inj IVP SCH ×3 (05:48→21:13)
[2020-02-19 07:02] LABS: AMMONIA 49 umol/L (11-32)
[2020-02-19 07:13] LABS: PHOSPHORUS 2.4 MG/DL (2.5-4.9)
[2020-02-19 07:17] LABS: ALANINE AMINOTRANSFERASE 12 U/L (12-78); ALBUMIN 2.1 G/DL (3.4-5.0); ALBUMIN/GLOBULIN RATIO 0.6 (1.0-2.7); ALKALINE PHOSPHATASE 51 U/L (46-116); ANION GAP 7 mmol/L (5-15); ASPARTATE AMINO TRANSFERASE 17 U/L (15-37); BILIRUBIN,TOTAL 0.3 MG/DL (0.2-1.0); CALCIUM 8.5 MG/DL (8.5-10.1); CARBON DIOXIDE 27 MMOL/L (21-32); CHLORIDE 105 MMOL/L (98-107); CHOLESTEROL 107 MG/DL (< 200); CREATININE 0.4 MG/DL (0.55-1.30); FERRITIN 389 NG/ML (8-388); HDL CHOLESTEROL 30 MG/DL (40-60); POTASSIUM 3.9 MMOL/L (3.5-5.1); SODIUM 139 MMOL/L (136-145); TRIGLYCERIDES 115 MG/DL (30-150)
--- NOTE | 2020-02-19 07:17 | NUR ---
HAND-OFF: Report given to Randy Neal RN.
[2020-02-19 07:21] LABS: HEMATOCRIT 28.2 % (37.0-47.0); HEMOGLOBIN 10.3 G/DL (12.0-16.0); MEAN CORPUSCULAR VOLUME 87 FL (80-99); PLATELET COUNT 56 K/UL (150-450); RED BLOOD COUNT 3.25 M/UL (4.20-5.40); RED CELL DISTRIBUTION WIDTH 11.3 % (11.6-14.8); WHITE BLOOD COUNT 4.9 K/UL (4.8-10.8)
[2020-02-19 07:24] LABS: BLOOD UREA NITROGEN 7 mg/dL (7-18)
[2020-02-19 08:00] VITALS: BP 98/50
[2020-02-19 08:00] LABS: % IRON SATURATION 16 % (15-50); IRON 25 ug/dL (50-175); TOTAL IRON BINDING CAPACITY 157 ug/dL (250-450)
[2020-02-19] MEDS: Metoprolol Tartrate 12.5mg TAB ORAL SCH (09:00)
[2020-02-19] MEDS: HydrALAZINE 10mg Tab ORAL SCH (09:00)
[2020-02-19] MEDS ORDERED: Phospha 250 Neutral tab ORAL SCH (09:30)
[2020-02-19] MEDS: Pantoprazole Inj IVP SCH ×2 (09:54→21:13)
[2020-02-19] MEDS: Docusate 250mg cap ORAL SCH (09:55)
[2020-02-19] MEDS: Calcium Carbonate 500mg w/Vit D 200iu tab ORAL SCH (09:55)
[2020-02-19] MEDS: Megace 400mg/10ml Susp ORAL SCH ×2 (09:55→17:33)
--- NOTE | 2020-02-19 10:18 | General Progress Note ---
Assessment/Plan Status: progressing Assessment/Plan: Anemia marisabel PLT DM ? asthma gallstones IVC filter prior admissions reviewed anemia work up neg stool ob in prior admissions on eliquis on reglan on megace DVT prophylaxis repeat labs add xifaxan and low dose lactulose ammonia level Subjective ROS Limited/Unobtainable: No Allergies: Coded Allergies: CIPROFLOXACIN (Verified Allergy, Unknown, 10/02/13) HYDROCODONE (Verified Allergy, Unknown, 10/02/13) PENICILLINS (Verified Allergy, Unknown, 10/02/13) PROCHLORPERAZINE (Verified Allergy, Unknown, 10/02/13) Objective Last 24 Hour Vital Signs Date Time Temp Pulse Resp B/P (MAP) Pulse Ox O2 Delivery O2 Flow Rate FiO2 02/19/20 09:00 67 98/50 02/19/20 09:00 98/50 02/19/20 08:00 96.3 67 17 98/50 (66) 97 02/19/20 04:00 98.1 86 24 117/67 (84) 93 02/19/20 00:00 98.4 79 22 112/68 (83) 96 02/18/20 20:19 97.3 84 24 101/53 (69) 93 02/18/20 20:14 Room Air 02/18/20 16:00 97.7 77 20 98/54 (69) 94 02/18/20 12:00 97.4 74 20 96/59 (71) 93 Intake and Output 02/18/20 02/19/20 19:00 07:00 Intake Total 915 ml 1350 ml Balance 915 ml 1350 ml Intake Oral 240 ml IV Total 675 ml 990 ml Other 360 ml # Voids 2 3 # Bowel Movements 1 Laboratory Tests 02/19/20 06:47: White Blood Count 4.9, Red Blood Count 3.25L, Hemoglobin 10.3L, Hematocrit 28.2L , Mean Corpuscular Volume 87, Mean Corpuscular Hemoglobin 31.6H, Mean Corpuscular Hemoglobin Concent 36.3H, Red Cell Distribution Width 11.3L, Platelet Count 56L, Mean Platelet Volume 5.2L, Neutrophils (%) (Auto) , Lymphocytes (%) (Auto) , Monocytes (%) (Auto) , Eosinophils (%) (Auto) , Basophils (%) (Auto) , Differential Total Cells Counted 100, Neutrophils % ( Manual) 68, Lymphocytes % (Manual) 18L, Monocytes % (Manual) 12H, Eosinophils % (Manual) 2, Basophils % (Manual) 0, Band Neutrophils 0, Platelet Estimate DecreasedL, Platelet Morphology Normal, Hypochromasia 1+, Anisocytosis 1+, Spherocytes 2+, Sodium Level 139, Potassium Level 3.9, Chloride Level 105, Carbon Dioxide Level 27, Anion Gap 7, Blood Urea Nitrogen 7, Creatinine 0.4L, Estimat Glomerular Filtration Rate > 60, Glucose Level 101, Hemoglobin A1c 5.0, Uric Acid 2.8, Calcium Level 8.5, Phosphorus Level 2.4L, Magnesium Level 1.8, Iron Level 25L, Total Iron Binding Capacity 157L, Percent Iron Saturation 16, Unsaturated Iron Binding 132, Ferritin 389H, Total Bilirubin 0.3, Gamma Glutamyl Transpeptidase 14, Aspartate Amino Transf (AST/SGOT) 17, Alanine Aminotransferase (ALT/SGPT) 12, Alkaline Phosphatase 51, Ammonia 49H, Lactate Dehydrogenase 169, C-Reactive Protein, Quantitative 15.6H, Pro-B-Type Natriuretic Peptide 2678H, Total Protein 5.9L, Albumin 2.1L, Globulin 3.8, Albumin/Globulin Ratio 0.6L, Triglycerides Level 115, Cholesterol Level 107, LDL Cholesterol 53, HDL Cholesterol 30L, Cholesterol/HDL Ratio 3.6, Vitamin B12 Level 1786H, Folate 28.0, Thyroid Stimulating Hormone (TSH) 0.229L Height (Feet): 5 Height (Inches): 4.00 Weight (Pounds): 103 General Appearance: no apparent distress EENT: normal ENT inspection Neck: normal inspection Cardiovascular: normal rate, regular rhythm Abdomen: normal bowel sounds, non tender, soft Extremities: non-tender Fabian Forbes MD February 19, 2020 10:18
--- NOTE | 2020-02-19 10:48 | Pulmonology Progress Note ---
Subjective ROS Limited/Unobtainable: No Interval Events: None new Constitutional: Reports: no symptoms HEENT: Repors: no symptoms Respiratory: Reports: no symptoms Cardiovascular: Reports: no symptoms Gastrointestinal/Abdominal: Reports: no symptoms Genitourinary: Reports: no symptoms Allergies: Coded Allergies: CIPROFLOXACIN (Verified Allergy, Unknown, 10/02/13) HYDROCODONE (Verified Allergy, Unknown, 10/02/13) PENICILLINS (Verified Allergy, Unknown, 10/02/13) PROCHLORPERAZINE (Verified Allergy, Unknown, 10/02/13) Objective Last 24 Hour Vital Signs Date Time Temp Pulse Resp B/P (MAP) Pulse Ox O2 Delivery O2 Flow Rate FiO2 02/19/20 09:00 67 98/50 02/19/20 09:00 98/50 02/19/20 09:00 Room Air 02/19/20 08:00 96.3 67 17 98/50 (66) 97 02/19/20 04:00 98.1 86 24 117/67 (84) 93 02/19/20 00:00 98.4 79 22 112/68 (83) 96 02/18/20 20:19 97.3 84 24 101/53 (69) 93 02/18/20 20:14 Room Air 02/18/20 16:00 97.7 77 20 98/54 (69) 94 02/18/20 12:00 97.4 74 20 96/59 (71) 93 Intake and Output 02/18/20 02/19/20 19:00 07:00 Intake Total 915 ml 1350 ml Balance 915 ml 1350 ml Intake Oral 240 ml IV Total 675 ml 990 ml Other 360 ml # Voids 2 3 # Bowel Movements 1 General Appearance: no acute distress HEENT: normocephalic Respiratory/Chest: chest wall non-tender, lungs clear Cardiovascular: normal peripheral pulses Abdomen: normal bowel sounds Microbiology Date/Time Source Procedure Growth Status 02/17/20 12:52 Blood Blood Culture - Preliminary NO GROWTH AFTER 24 HOURS Resulted 02/17/20 12:35 Blood Blood Culture - Preliminary NO GROWTH AFTER 24 HOURS Resulted 02/17/20 11:52 Nasopharynx Coronavirus COVID-19 PCR ([facility]) - Final Complete 02/17/20 12:50 Rectum Received Laboratory Tests 02/19/20 06:47: White Blood Count 4.9, Red Blood Count 3.25L, Hemoglobin 10.3L, Hematocrit 28.2L , Mean Corpuscular Volume 87, Mean Corpuscular Hemoglobin 31.6H, Mean Corpuscular Hemoglobin Concent 36.3H, Red Cell Distribution Width 11.3L, Platelet Count 56L, Mean Platelet Volume 5.2L, Neutrophils (%) (Auto) , Lymphocytes (%) (Auto) , Monocytes (%) (Auto) , Eosinophils (%) (Auto) , Basophils (%) (Auto) , Differential Total Cells Counted 100, Neutrophils % ( Manual) 68, Lymphocytes % (Manual) 18L, Monocytes % (Manual) 12H, Eosinophils % (Manual) 2, Basophils % (Manual) 0, Band Neutrophils 0, Platelet Estimate DecreasedL, Platelet Morphology Normal, Hypochromasia 1+, Anisocytosis 1+, Spherocytes 2+, Sodium Level 139, Potassium Level 3.9, Chloride Level 105, Carbon Dioxide Level 27, Anion Gap 7, Blood Urea Nitrogen 7, Creatinine 0.4L, Estimat Glomerular Filtration Rate > 60, Glucose Level 101, Hemoglobin A1c 5.0, Uric Acid 2.8, Calcium Level 8.5, Phosphorus Level 2.4L, Magnesium Level 1.8, Iron Level 25L, Total Iron Binding Capacity 157L, Percent Iron Saturation 16, Unsaturated Iron Binding 132, Ferritin 389H, Total Bilirubin 0.3, Gamma Glutamyl Transpeptidase 14, Aspartate Amino Transf (AST/SGOT) 17, Alanine Aminotransferase (ALT/SGPT) 12, Alkaline Phosphatase 51, Ammonia 49H, Lactate Dehydrogenase 169, C-Reactive Protein, Quantitative 15.6H, Pro-B-Type Natriuretic Peptide 2678H, Total Protein 5.9L, Albumin 2.1L, Globulin 3.8, Albumin/Globulin Ratio 0.6L, Triglycerides Level 115, Cholesterol Level 107, LDL Cholesterol 53, HDL Cholesterol 30L, Cholesterol/HDL Ratio 3.6, Vitamin B12 Level 1786H, Folate 28.0, Thyroid Stimulating Hormone (TSH) 0.229L Current Medications Medications (Trade) Dose Ordered Sig/Karlee Route PRN Reason Start Time Stop Time Status Last Admin Dose Admin Acetaminophen (Tylenol) 650 mg Q4H PRN ORAL Mild Pain (Pain Scale 1-3) 02/17/20 16:30 03/18/20 16:29 02/18/20 04:22 Apixaban (Eliquis) 5 mg BID ORAL 02/19/20 18:00 05/17/20 17:59 Bisacodyl (Dulcolax) 10 mg DAILYPRN PRN RECTAL Constipation 02/17/20 16:30 05/17/20 16:29 Calcium/Vitamin D (OsCal D) 1 tab DAILY ORAL 02/18/20 09:00 05/18/20 08:59 02/19/20 09:55 Ceftriaxone Sodium 1 gm/ Dextrose 55 ml @ 110 mls/hr Q24H IVPB 02/17/20 20:00 02/24/20 19:59 02/18/20 20:32 Dextrose/ Electrolytes 1,000 ml @ 75 mls/hr [id number] IV 02/18/20 11:00 03/19/20 10:59 02/18/20 20:34 Docusate Sodium (Colace) 250 mg DAILY ORAL 02/18/20 09:00 03/19/20 08:59 02/19/20 09:55 Folic Acid (Folate) 1 mg DAILY ORAL 02/18/20 09:00 03/19/20 08:59 02/19/20 09:55 Hydralazine HCl (Apresoline) 10 mg DAILY ORAL 02/18/20 09:00 05/18/20 08:59 Lactulose (Cephulac) 20 gm DAILY ORAL 02/20/20 09:00 03/21/20 08:59 Levetiracetam (Keppra) 500 mg Q12HR ORAL 02/17/20 21:00 03/18/20 20:59 02/19/20 09:55 Levothyroxine Sodium (Synthroid) 125 mcg DAILY@0630 ORAL 02/18/20 06:30 03/19/20 06:29 02/19/20 05:48 Magnesium Hydroxide (Mom) 30 ml DAILYPRN PRN ORAL Constipation 02/17/20 16:30 03/18/20 16:29 Megestrol Acetate (Megace) 400 mg TWICE A DAY ORAL 02/18/20 18:00 05/18/20 17:59 02/19/20 09:55 Metoclopramide HCl (Reglan) 5 mg EVERY 8 HOURS IVP 02/18/20 22:00 03/19/20 13:59 02/19/20 05:48 Metoprolol Tartrate (Lopressor) 12.5 mg DAILY ORAL 02/18/20 09:00 05/18/20 08:59 Multivitamins (Multivitamins) 1 tab DAILY ORAL 02/18/20 09:00 03/19/20 08:59 02/19/20 09:55 Ondansetron HCl (Zofran) 4 mg Q6H PRN IVP Nausea & Vomiting 02/18/20 09:30 03/19/20 09:29 Pantoprazole (Protonix) 40 mg EVERY 12 HOURS IVP 02/18/20 09:45 03/19/20 09:44 02/19/20 09:54 Rifaximin (Xifaxan) 550 mg EVERY 12 HOURS ORAL 02/19/20 21:00 02/26/20 20:59 Sodium Phosphate (Fleet's Sodium Phosl Enema) 133 ml DAILYPRN PRN RECTAL constipation 02/17/20 16:30 03/18/20 16:29 Assessment/Plan Assessment/Plan IMPRESSION: 1. Left lower lung field pneumonia. 2. Chronic medical conditions consisting of hepatic encephalopathy, renal insufficiency, hypertension, GERD, psych disorder as well as seizure disorder. DISCUSSION: Continue oxygen as needed. Continue antibiotics. IV fluids to be given. I will follow carefully. Martha Choi Omar Syed MD February 19, 2020 10:48
[2020-02-19 12:00] VITALS: BP 103/56
--- NOTE | 2020-02-19 13:09 | Infectious Diseases Prog Note ---
Assessment/Plan Assessment/Plan MPRESSION: 1. Sepsis 2. left pleural effusion, may have underlying pneumonia. 3. Anemia. 4. Hypothyroidism. 5. COPD. 8. Aortic dissection in the previous CT scan. 6. Dementia. RECOMMENDATION: Continue ceftriaxone. COVID-19 X 1 negative will follow up the cultures. Subjective ROS Limited/Unobtainable: Yes Constitutional: Denies: fever Respiratory: Reports: no symptoms Musculoskeletal: Reports: no symptoms Allergies: Coded Allergies: CIPROFLOXACIN (Verified Allergy, Unknown, 10/02/13) HYDROCODONE (Verified Allergy, Unknown, 10/02/13) PENICILLINS (Verified Allergy, Unknown, 10/02/13) PROCHLORPERAZINE (Verified Allergy, Unknown, 10/02/13) Objective Vital Signs Last 24 Hour Vital Signs Date Time Temp Pulse Resp B/P (MAP) Pulse Ox O2 Delivery O2 Flow Rate FiO2 02/19/20 12:00 96.8 64 17 103/56 (72) 91 02/19/20 09:00 67 98/50 02/19/20 09:00 98/50 02/19/20 09:00 Room Air 02/19/20 08:00 96.3 67 17 98/50 (66) 97 02/19/20 04:00 98.1 86 24 117/67 (84) 93 02/19/20 00:00 98.4 79 22 112/68 (83) 96 02/18/20 20:19 97.3 84 24 101/53 (69) 93 02/18/20 20:14 Room Air 02/18/20 16:00 97.7 77 20 98/54 (69) 94 Height (Feet): 5 Height (Inches): 4.00 Weight (Pounds): 103 General Appearance: no acute distress HEENT: mucous membranes moist Respiratory/Chest: lungs clear Cardiovascular: normal rate Abdomen: soft, non tender Neurologic/Psychiatric: alert, responsive Microbiology Date/Time Source Procedure Growth Status 02/17/20 12:52 Blood Blood Culture - Preliminary NO GROWTH AFTER 24 HOURS Resulted 02/17/20 12:35 Blood Blood Culture - Preliminary NO GROWTH AFTER 24 HOURS Resulted 02/17/20 11:52 Nasopharynx Coronavirus COVID-19 PCR ([facility]) - Final Complete 02/17/20 12:50 Rectum Received Laboratory Tests Test 02/19/20 06:47 White Blood Count 4.9 K/UL (4.8-10.8) Red Blood Count 3.25 M/UL (4.20-5.40) L Hemoglobin 10.3 G/DL (12.0-16.0) L Hematocrit 28.2 % (37.0-47.0) L Mean Corpuscular Volume 87 FL (80-99) Mean Corpuscular Hemoglobin 31.6 PG (27.0-31.0) H Mean Corpuscular Hemoglobin Concent 36.3 G/DL (32.0-36.0) H Red Cell Distribution Width 11.3 % (11.6-14.8) L Platelet Count 56 K/UL (150-450) L Mean Platelet Volume 5.2 FL (6.5-10.1) L Neutrophils (%) (Auto) % (45.0-75.0) Lymphocytes (%) (Auto) % (20.0-45.0) Monocytes (%) (Auto) % (1.0-10.0) Eosinophils (%) (Auto) % (0.0-3.0) Basophils (%) (Auto) % (0.0-2.0) Differential Total Cells Counted 100 Neutrophils % (Manual) 68 % (45-75) Lymphocytes % (Manual) 18 % (20-45) L Monocytes % (Manual) 12 % (1-10) H Eosinophils % (Manual) 2 % (0-3) Basophils % (Manual) 0 % (0-2) Band Neutrophils 0 % (0-8) Platelet Estimate Decreased L Platelet Morphology Normal Hypochromasia 1+ Anisocytosis 1+ Spherocytes 2+ Sodium Level 139 MMOL/L (136-145) Potassium Level 3.9 MMOL/L (3.5-5.1) Chloride Level 105 MMOL/L (98-107) Carbon Dioxide Level 27 MMOL/L (21-32) Anion Gap 7 mmol/L (5-15) Blood Urea Nitrogen 7 mg/dL (7-18) Creatinine 0.4 MG/DL (0.55-1.30) L Estimat Glomerular Filtration Rate > 60 mL/min (>60) Glucose Level 101 MG/DL (74-106) Hemoglobin A1c 5.0 % (4.3-6.0) Uric Acid 2.8 MG/DL (2.6-7.2) Calcium Level 8.5 MG/DL (8.5-10.1) Phosphorus Level 2.4 MG/DL (2.5-4.9) L Magnesium Level 1.8 MG/DL (1.8-2.4) Iron Level 25 ug/dL (50-175) L Total Iron Binding Capacity 157 ug/dL (250-450) L Percent Iron Saturation 16 % (15-50) Unsaturated Iron Binding 132 ug/dL (112-346) Ferritin 389 NG/ML (8-388) H Total Bilirubin 0.3 MG/DL (0.2-1.0) Gamma Glutamyl Transpeptidase 14 U/L (5-85) Aspartate Amino Transf (AST/SGOT) 17 U/L (15-37) Alanine Aminotransferase (ALT/SGPT) 12 U/L (12-78) Alkaline Phosphatase 51 U/L (46-116) Ammonia 49 umol/L (11-32) H Lactate Dehydrogenase 169 U/L (81-234) C-Reactive Protein, Quantitative 15.6 mg/dL (0.00-0.90) H Pro-B-Type Natriuretic Peptide 2678 pg/mL (0-125) H Total Protein 5.9 G/DL (6.4-8.2) L Albumin 2.1 G/DL (3.4-5.0) L Globulin 3.8 g/dL Albumin/Globulin Ratio 0.6 (1.0-2.7) L Triglycerides Level 115 MG/DL (30-150) Cholesterol Level 107 MG/DL (< 200) LDL Cholesterol 53 mg/dL (<100) HDL Cholesterol 30 MG/DL (40-60) L Cholesterol/HDL Ratio 3.6 (3.3-4.4) Vitamin B12 Level 1786 PG/ML (193-986) H Folate 28.0 NG/ML (8.6-58.9) Thyroid Stimulating Hormone (TSH) 0.229 uiU/mL (0.358-3.740) Current Medications Medications (Trade) Dose Ordered Sig/Karlee Route PRN Reason Start Time Stop Time Status Last Admin Dose Admin Acetaminophen (Tylenol) 650 mg Q4H PRN ORAL Mild Pain (Pain Scale 1-3) 02/17/20 16:30 03/18/20 16:29 02/18/20 04:22 Apixaban (Eliquis) 5 mg BID ORAL 02/19/20 18:00 05/17/20 17:59 Bisacodyl (Dulcolax) 10 mg DAILYPRN PRN RECTAL Constipation 02/17/20 16:30 05/17/20 16:29 Calcium/Vitamin D (OsCal D) 1 tab DAILY ORAL 02/18/20 09:00 05/18/20 08:59 02/19/20 09:55 Ceftriaxone Sodium 1 gm/ Dextrose 55 ml @ 110 mls/hr Q24H IVPB 02/17/20 20:00 02/24/20 19:59 02/18/20 20:32 Dextrose/ Electrolytes 1,000 ml @ 75 mls/hr [id number] IV 02/18/20 11:00 03/19/20 10:59 02/18/20 20:34 Docusate Sodium (Colace) 250 mg DAILY ORAL 02/18/20 09:00 03/19/20 08:59 02/19/20 09:55 Folic Acid (Folate) 1 mg DAILY ORAL 02/18/20 09:00 03/19/20 08:59 02/19/20 09:55 Hydralazine HCl (Apresoline) 10 mg DAILY ORAL 02/18/20 09:00 05/18/20 08:59 Lactulose (Cephulac) 20 gm DAILY ORAL 02/20/20 09:00 03/21/20 08:59 Levetiracetam (Keppra) 500 mg Q12HR ORAL 02/17/20 21:00 03/18/20 20:59 02/19/20 09:55 Levothyroxine Sodium (Synthroid) 125 mcg DAILY@0630 ORAL 02/18/20 06:30 03/19/20 06:29 02/19/20 05:48 Magnesium Hydroxide (Mom) 30 ml DAILYPRN PRN ORAL Constipation 02/17/20 16:30 03/18/20 16:29 Megestrol Acetate (Megace) 400 mg TWICE A DAY ORAL 02/18/20 18:00 05/18/20 17:59 02/19/20 09:55 Metoclopramide HCl (Reglan) 5 mg EVERY 8 HOURS IVP 02/18/20 22:00 03/19/20 13:59 02/19/20 05:48 Metoprolol Tartrate (Lopressor) 12.5 mg DAILY ORAL 02/18/20 09:00 05/18/20 08:59 Multivitamins (Multivitamins) 1 tab DAILY ORAL 02/18/20 09:00 03/19/20 08:59 02/19/20 09:55 Ondansetron HCl (Zofran) 4 mg Q6H PRN IVP Nausea & Vomiting 02/18/20 09:30 03/19/20 09:29 Pantoprazole (Protonix) 40 mg EVERY 12 HOURS IVP 02/18/20 09:45 03/19/20 09:44 02/19/20 09:54 Rifaximin (Xifaxan) 550 mg EVERY 12 HOURS ORAL 02/19/20 21:00 02/26/20 20:59 Sodium Phosphate (Fleet's Sodium Phosl Enema) 133 ml DAILYPRN PRN RECTAL constipation 02/17/20 16:30 03/18/20 16:29 Gamal Serrano MD February 19, 2020 13:09
--- NOTE | 2020-02-19 13:24 | Nephrology Progress Note ---
Assessment/Plan Problem List: (1) Hypokalemia (2) Hypothyroidism (3) Anemia (4) UTI (lower urinary tract infection) Assessment Hypokalemia etiology unclear no history of diarrhea Anemia Pneumonia Recurrent left pleural effusion History of hypothyroidism Hypoalbuminemia Evidence of UTI Plan Suggestions : Potassium supplements p.o. on IV Anemia work-up Thyroid function test Per pulmonary and ID Subjective ROS Limited/Unobtainable: No Constitutional: Reports: malaise, weakness Objective Objective Last 24 Hour Vital Signs Date Time Temp Pulse Resp B/P (MAP) Pulse Ox O2 Delivery O2 Flow Rate FiO2 02/19/20 12:00 96.8 64 17 103/56 (72) 91 02/19/20 09:00 67 98/50 02/19/20 09:00 98/50 02/19/20 09:00 Room Air 02/19/20 08:00 96.3 67 17 98/50 (66) 97 02/19/20 04:00 98.1 86 24 117/67 (84) 93 02/19/20 00:00 98.4 79 22 112/68 (83) 96 02/18/20 20:19 97.3 84 24 101/53 (69) 93 02/18/20 20:14 Room Air 02/18/20 16:00 97.7 77 20 98/54 (69) 94 Intake and Output 02/18/20 02/19/20 19:00 07:00 Intake Total 915 ml 1350 ml Balance 915 ml 1350 ml Intake Oral 240 ml IV Total 675 ml 990 ml Other 360 ml # Voids 2 3 # Bowel Movements 1 Laboratory Tests 02/19/20 06:47: White Blood Count 4.9, Red Blood Count 3.25L, Hemoglobin 10.3L, Hematocrit 28.2L , Mean Corpuscular Volume 87, Mean Corpuscular Hemoglobin 31.6H, Mean Corpuscular Hemoglobin Concent 36.3H, Red Cell Distribution Width 11.3L, Platelet Count 56L, Mean Platelet Volume 5.2L, Neutrophils (%) (Auto) , Lymphocytes (%) (Auto) , Monocytes (%) (Auto) , Eosinophils (%) (Auto) , Basophils (%) (Auto) , Differential Total Cells Counted 100, Neutrophils % ( Manual) 68, Lymphocytes % (Manual) 18L, Monocytes % (Manual) 12H, Eosinophils % (Manual) 2, Basophils % (Manual) 0, Band Neutrophils 0, Platelet Estimate DecreasedL, Platelet Morphology Normal, Hypochromasia 1+, Anisocytosis 1+, Spherocytes 2+, Sodium Level 139, Potassium Level 3.9, Chloride Level 105, Carbon Dioxide Level 27, Anion Gap 7, Blood Urea Nitrogen 7, Creatinine 0.4L, Estimat Glomerular Filtration Rate > 60, Glucose Level 101, Hemoglobin A1c 5.0, Uric Acid 2.8, Calcium Level 8.5, Phosphorus Level 2.4L, Magnesium Level 1.8, Iron Level 25L, Total Iron Binding Capacity 157L, Percent Iron Saturation 16, Unsaturated Iron Binding 132, Ferritin 389H, Total Bilirubin 0.3, Gamma Glutamyl Transpeptidase 14, Aspartate Amino Transf (AST/SGOT) 17, Alanine Aminotransferase (ALT/SGPT) 12, Alkaline Phosphatase 51, Ammonia 49H, Lactate Dehydrogenase 169, C-Reactive Protein, Quantitative 15.6H, Pro-B-Type Natriuretic Peptide 2678H, Total Protein 5.9L, Albumin 2.1L, Globulin 3.8, Albumin/Globulin Ratio 0.6L, Triglycerides Level 115, Cholesterol Level 107, LDL Cholesterol 53, HDL Cholesterol 30L, Cholesterol/HDL Ratio 3.6, Vitamin B12 Level 1786H, Folate 28.0, Thyroid Stimulating Hormone (TSH) 0.229L Height (Feet): 5 Height (Inches): 4.00 Weight (Pounds): 103 Jesus Valdivia MD February 19, 2020 13:24
--- NOTE | 2020-02-19 13:25 | NUR ---
CASE MANAGEMENT: INITIAL REVIEW 69YR OLD FEMALE [facility] FROM [facility] CC: UPPER RESPIRATORY DISTRESS; ABNORMAL CHEST X-RAY PMH: mood disorder, seizure disorder, history of GERD, history of hypertension, history of chronic renal insufficiency, hepatic encephalopathy, SI:RECURRENT LEFT PLEURAL EFFUSION; MA VIRUS R/O . PNEUMONIA 97.1 68 18 108/58 97% ON RA WBC 13.6 H/ 11.0/31.0 PLT 61 K+3.3 CA+7.8 IS:IVF NS BOLUS X1 IV VANCOMYCIN X1 IV CEFEPIME X1 K-DUR NG X1 ELIQUIS X1 KEPPRA PO BID CHEST X-RAY- Large left pleural effusion, developing since prior study of 12/22/2019 \: 4E MED SURG UNIT DCP: [facility] WHEN STABLE PLAN: COV-19 NOT DETECTED NO GROWTH ON BLOOD CX CASE MANAGEMENT: REVIEW 02/18/2020 SI:RECURRENT LEFT PLEURAL EFFUSION; MA VIRUS R/O . PNEUMONIA 97.4 74 20 96/59 93% ON RA H/H 10.4/29.3 PLT 55 K+ 3.1 BG 69 CA+8.1 IS:IV ROCEPHIN QD IV D5@75ML/HR IV PROTONIX BID KEPPRA PO BID SYNTHROID PO QD FOLATE PO QD OsCal D PO QD TYLENOL PO Q4HR/PRN. \: 4E MED SURG UNIT DCP: [facility] WHEN STABLE CASE MANAGEMENT: REVIEW 02/19/2020 SI:RECURRENT LEFT PLEURAL EFFUSION; MA VIRUS R/O . PNEUMONIA 96.8 64 17 103/56 91% ON RA H/H 10.3/28.3 PLT 56 AMMONIA 49 C REC PROT 15.6 BNP 2678 ALB 2.1 IS:IV ROCEPHIN QD IV D5@75ML/HR IV PROTONIX BID KEPPRA PO BID SYNTHROID PO QD FOLATE PO QD OsCal D PO QD TYLENOL PO Q4HR/PRN. \: 4E MED SURG UNIT DCP: [facility] WHEN STABLE PLAN: START ON LACTULOSE - AMMONIA ELEVATED AM LABS
[2020-02-19] MEDS: D5NS w/KCl 40mEq 1000ml 1,000 ML IV SCH ×2 (13:59→21:13)
--- NOTE | 2020-02-19 14:44 | Hematology/Onc Progress Note ---
Assessment/Plan Assessment/Plan ASSESSMENT AND RECOMMENDATIONS: 1. Deep venous thrombosis of the right lower extremity. Partial visualization of an IVC filter. On the right, wall adherent nonocclusive thrombus is seen within the common femoral vein and downstream superficial femoral vein. While the appearance is suggestive of chronic recanalized thrombus, this is nonetheless a new finding since prior study of 07/28/2019 --> imaging has been reviewed --> hx IVC filter is in place --> remains on eliquis 2. Pancytopenia likely secondary to underlying liver disease, continue to closely monitor. This is the lowest counts she has had for past several years --> Prior labs reviewed, hepatitis panel reviewed --> us of the abdomen was reviewed --> meds reviewed as well --> transfuse if she is bleeding with platelets --> plt trend 79k-->64k-->83-->50-->56 --> wbc 3-->7 --> hgb 11.8-->10.4 3. Anemia secondary to chronic disease. --> w/u reviewed from prior adm --> trend as needed 4. Hyponatremia. Nephrology is following --> Fluid restriction --> appreciate nephro recs 5. Seizure disorder --> as per neuro 6. Left hip pain due to Lumbar compression fracture -- pain meds prn --> pain management 7. AMs as per neuro 8. Dvt ppx arleen MALONEY RN and appreciate the consultation. Subjective Constitutional: Denies: no symptoms, chills, fever, malaise, weakness, other HEENT: Denies: no symptoms, eye pain, blurred vision, tearing, double vision, ear pain, ear discharge, nose pain, nose congestion, throat pain, throat swelling, mouth pain, mouth swelling, other Cardiovascular: Denies: no symptoms, chest pain, edema, irregular heart rate, lightheadedness, palpitations, syncope, other Respiratory: Denies: no symptoms, cough, shortness of breath, SOB with excertion, SOB at rest, sputum, wheezing, other Gastrointestinal/Abdominal: Denies: no symptoms, abdomen distended, abdominal pain, black stools, tarry stools, blood in stool, constipated, diarrhea, difficulty swallowing, nausea, poor appetite, poor fluid intake, rectal bleeding , vomiting, other Genitourinary: Denies: no symptoms, burning, discharge, frequency, flank pain, hematuria, incontinence, pain, urgency, other Neurologic/Psychiatric: Denies: no symptoms, anxiety, depressed, emotional problems, headache, numbness, paresthesia, pre-existing deficit, seizure, tingling, tremors, weakness, other Allergies: Coded Allergies: CIPROFLOXACIN (Verified Allergy, Unknown, 10/02/13) HYDROCODONE (Verified Allergy, Unknown, 10/02/13) PENICILLINS (Verified Allergy, Unknown, 10/02/13) PROCHLORPERAZINE (Verified Allergy, Unknown, 10/02/13) Subjective 02/18 labs reviewed, no bleeding, no night sweats, meds noted Objective Objective Current Medications Medications (Trade) Dose Ordered Sig/Karlee Route PRN Reason Start Time Stop Time Status Last Admin Dose Admin Acetaminophen (Tylenol) 650 mg Q4H PRN ORAL Mild Pain (Pain Scale 1-3) 02/17/20 16:30 03/18/20 16:29 02/18/20 04:22 Apixaban (Eliquis) 5 mg BID ORAL 02/19/20 18:00 05/17/20 17:59 Bisacodyl (Dulcolax) 10 mg DAILYPRN PRN RECTAL Constipation 02/17/20 16:30 05/17/20 16:29 Calcium/Vitamin D (OsCal D) 1 tab DAILY ORAL 02/18/20 09:00 05/18/20 08:59 02/19/20 09:55 Ceftriaxone Sodium 1 gm/ Dextrose 55 ml @ 110 mls/hr Q24H IVPB 02/17/20 20:00 02/24/20 19:59 02/18/20 20:32 Dextrose/ Electrolytes 1,000 ml @ 75 mls/hr [id number] IV 02/18/20 11:00 03/19/20 10:59 02/19/20 13:59 Docusate Sodium (Colace) 250 mg DAILY ORAL 02/18/20 09:00 03/19/20 08:59 02/19/20 09:55 Folic Acid (Folate) 1 mg DAILY ORAL 02/18/20 09:00 03/19/20 08:59 02/19/20 09:55 Hydralazine HCl (Apresoline) 10 mg DAILY ORAL 02/18/20 09:00 05/18/20 08:59 Lactulose (Cephulac) 20 gm DAILY ORAL 02/20/20 09:00 03/21/20 08:59 Levetiracetam (Keppra) 500 mg Q12HR ORAL 02/17/20 21:00 03/18/20 20:59 02/19/20 09:55 Levothyroxine Sodium (Synthroid) 125 mcg DAILY@0630 ORAL 02/18/20 06:30 03/19/20 06:29 02/19/20 05:48 Magnesium Hydroxide (Mom) 30 ml DAILYPRN PRN ORAL Constipation 02/17/20 16:30 03/18/20 16:29 Megestrol Acetate (Megace) 400 mg TWICE A DAY ORAL 02/18/20 18:00 05/18/20 17:59 02/19/20 09:55 Metoclopramide HCl (Reglan) 5 mg EVERY 8 HOURS IVP 02/18/20 22:00 03/19/20 13:59 02/19/20 14:07 Metoprolol Tartrate (Lopressor) 12.5 mg DAILY ORAL 02/18/20 09:00 05/18/20 08:59 Multivitamins (Multivitamins) 1 tab DAILY ORAL 02/18/20 09:00 03/19/20 08:59 02/19/20 09:55 Ondansetron HCl (Zofran) 4 mg Q6H PRN IVP Nausea & Vomiting 02/18/20 09:30 03/19/20 09:29 Pantoprazole (Protonix) 40 mg EVERY 12 HOURS IVP 02/18/20 09:45 03/19/20 09:44 02/19/20 09:54 Rifaximin (Xifaxan) 550 mg EVERY 12 HOURS ORAL 02/19/20 21:00 02/26/20 20:59 Sodium Phosphate (Fleet's Sodium Phosl Enema) 133 ml DAILYPRN PRN RECTAL constipation 02/17/20 16:30 03/18/20 16:29 Last 24 Hour Vital Signs Date Time Temp Pulse Resp B/P (MAP) Pulse Ox O2 Delivery O2 Flow Rate FiO2 02/19/20 12:00 96.8 64 17 103/56 (72) 91 02/19/20 09:00 67 98/50 02/19/20 09:00 98/50 02/19/20 09:00 Room Air 02/19/20 08:00 96.3 67 17 98/50 (66) 97 02/19/20 04:00 98.1 86 24 117/67 (84) 93 02/19/20 00:00 98.4 79 22 112/68 (83) 96 02/18/20 20:19 97.3 84 24 101/53 (69) 93 02/18/20 20:14 Room Air 02/18/20 16:00 97.7 77 20 98/54 (69) 94 02/18/20 12:00 97.4 74 20 96/59 (71) 93 02/18/20 09:00 86 109/55 02/18/20 09:00 109/55 02/18/20 09:00 Room Air 02/18/20 08:00 97.2 86 20 109/55 (73) 94 02/18/20 04:52 99.3 02/18/20 04:00 101.8 102 24 108/58 (75) 94 02/18/20 00:00 97.2 99 22 138/81 (100) 96 02/17/20 21:00 Room Air 02/17/20 20:00 97.5 80 18 104/57 (73) 92 02/17/20 15:56 98.2 80 18 110/81 (91) 95 02/17/20 15:52 Room Air 02/17/20 15:25 97.2 75 20 115/54 98 Room Air Intake and Output 02/18/20 02/19/20 19:00 07:00 Intake Total 915 ml 1350 ml Balance 915 ml 1350 ml Intake Oral 240 ml IV Total 675 ml 990 ml Other 360 ml # Voids 2 3 # Bowel Movements 1 Labs Test 02/17/20 12:50 02/17/20 13:50 02/18/20 05:40 02/19/20 06:47 Urine Color Yellow Urine Appearance Clear Urine pH 5 (4.5-8.0) Urine Specific [place] 1.020 (1.005-1.035) Urine Protein 1+ (NEGATIVE) Urine Glucose (UA) Negative (NEGATIVE) Urine Ketones 4+ (NEGATIVE) Urine Blood 1+ (NEGATIVE) Urine Nitrite Negative (NEGATIVE) Urine Bilirubin Negative (NEGATIVE) Urine Urobilinogen 4 MG/DL (0.0-1.0) Urine Leukocyte Esterase 1+ (NEGATIVE) Urine RBC 2-4 /HPF (0 - 2) Urine WBC 2-4 /HPF (0 - 2) Urine Squamous Epithelial Cells Few /LPF (NONE/OCC) Urine Bacteria Few /HPF (NONE) Urine Mucus Few /LPF (NONE/OCC) White Blood Count 13.6 K/UL (4.8-10.8) 7.6 K/UL (4.8-10.8) 4.9 K/UL (4.8-10.8) Red Blood Count 3.56 M/UL (4.20-5.40) 3.34 M/UL (4.20-5.40) 3.25 M/UL (4.20-5.40) Hemoglobin 11.0 G/DL (12.0-16.0) 10.4 G/DL (12.0-16.0) 10.3 G/DL (12.0-16.0) Hematocrit 31.0 % (37.0-47.0) 29.3 % (37.0-47.0) 28.2 % (37.0-47.0) Mean Corpuscular Volume 87 FL (80-99) 88 FL (80-99) 87 FL (80-99) Mean Corpuscular Hemoglobin 30.9 PG (27.0-31.0) 31.0 PG (27.0-31.0) 31.6 PG (27.0-31.0) Mean Corpuscular Hemoglobin Concent 35.6 G/DL (32.0-36.0) 35.4 G/DL (32.0-36.0) 36.3 G/DL (32.0-36.0) Red Cell Distribution Width 10.7 % (11.6-14.8) 11.2 % (11.6-14.8) 11.3 % (11.6-14.8) Platelet Count 61 K/UL (150-450) 55 K/UL (150-450) 56 K/UL (150-450) Mean Platelet Volume 6.6 FL (6.5-10.1) 5.9 FL (6.5-10.1) 5.2 FL (6.5-10.1) Neutrophils (%) (Auto) % (45.0-75.0) % (45.0-75.0) % (45.0-75.0) Lymphocytes (%) (Auto) % (20.0-45.0) % (20.0-45.0) % (20.0-45.0) Monocytes (%) (Auto) % (1.0-10.0) % (1.0-10.0) % (1.0-10.0) Eosinophils (%) (Auto) % (0.0-3.0) % (0.0-3.0) % (0.0-3.0) Basophils (%) (Auto) % (0.0-2.0) % (0.0-2.0) % (0.0-2.0) Differential Total Cells Counted 100 100 100 Neutrophils % (Manual) 77 % (45-75) 76 % (45-75) 68 % (45-75) Lymphocytes % (Manual) 15 % (20-45) 14 % (20-45) 18 % (20-45) Monocytes % (Manual) 5 % (1-10) 10 % (1-10) 12 % (1-10) Eosinophils % (Manual) 0 % (0-3) 0 % (0-3) 2 % (0-3) Basophils % (Manual) 0 % (0-2) 0 % (0-2) 0 % (0-2) Band Neutrophils 3 % (0-8) 0 % (0-8) 0 % (0-8) Platelet Estimate Decreased Decreased Decreased Platelet Morphology Normal Normal Giant Platelets Rare Red Blood Cell Morphology Normal Sodium Level 137 MMOL/L (136-145) 136 MMOL/L (136-145) 139 MMOL/L (136-145) Potassium Level 3.3 MMOL/L (3.5-5.1) 3.1 MMOL/L (3.5-5.1) 3.9 MMOL/L (3.5-5.1) Chloride Level 103 MMOL/L (98-107) 101 MMOL/L (98-107) 105 MMOL/L (98-107) Carbon Dioxide Level 25 MMOL/L (21-32) 24 MMOL/L (21-32) 27 MMOL/L (21-32) Anion Gap 9 mmol/L (5-15) 11 mmol/L (5-15) 7 mmol/L (5-15) Blood Urea Nitrogen 11 mg/dL (7-18) 9 mg/dL (7-18) 7 mg/dL (7-18) Creatinine 0.5 MG/DL (0.55-1.30) 0.5 MG/DL (0.55-1.30) 0.4 MG/DL (0.55-1.30) Estimat Glomerular Filtration Rate > 60 mL/min (>60) > 60 mL/min (>60) > 60 mL/min (>60) Glucose Level 89 MG/DL (74-106) 69 MG/DL (74-106) 101 MG/DL (74-106) Lactic Acid Level 0.80 mmol/L (0.4-2.0) Calcium Level 7.8 MG/DL (8.5-10.1) 8.1 MG/DL (8.5-10.1) 8.5 MG/DL (8.5-10.1) Total Bilirubin 0.5 MG/DL (0.2-1.0) 0.3 MG/DL (0.2-1.0) Aspartate Amino Transf (AST/SGOT) 15 U/L (15-37) 17 U/L (15-37) Alanine Aminotransferase (ALT/SGPT) 7 U/L (12-78) 12 U/L (12-78) Alkaline Phosphatase 41 U/L (46-116) 51 U/L (46-116) Total Creatine Kinase 15 U/L (26-308) Creatine Kinase MB 0.8 NG/ML (0.0-3.6) Creatine Kinase MB Relative Index 5.3 Troponin I 0.000 ng/mL (0.000-0.056) Total Protein 6.2 G/DL (6.4-8.2) 5.9 G/DL (6.4-8.2) Albumin 2.5 G/DL (3.4-5.0) 2.1 G/DL (3.4-5.0) Globulin 3.7 g/dL 3.8 g/dL Albumin/Globulin Ratio 0.7 (1.0-2.7) 0.6 (1.0-2.7) Hypochromasia 1+ 1+ Anisocytosis 1+ 1+ Spherocytes 2+ Hemoglobin A1c 5.0 % (4.3-6.0) Uric Acid 2.8 MG/DL (2.6-7.2) Phosphorus Level 2.4 MG/DL (2.5-4.9) Magnesium Level 1.8 MG/DL (1.8-2.4) Iron Level 25 ug/dL (50-175) Total Iron Binding Capacity 157 ug/dL (250-450) Percent Iron Saturation 16 % (15-50) Unsaturated Iron Binding 132 ug/dL (112-346) Ferritin 389 NG/ML (8-388) Gamma Glutamyl Transpeptidase 14 U/L (5-85) Ammonia 49 umol/L (11-32) Lactate Dehydrogenase 169 U/L (81-234) C-Reactive Protein, Quantitative 15.6 mg/dL (0.00-0.90) Pro-B-Type Natriuretic Peptide 2678 pg/mL (0-125) Triglycerides Level 115 MG/DL (30-150) Cholesterol Level 107 MG/DL (< 200) LDL Cholesterol 53 mg/dL (<100) HDL Cholesterol 30 MG/DL (40-60) Cholesterol/HDL Ratio 3.6 (3.3-4.4) Vitamin B12 Level 1786 PG/ML (193-986) Folate 28.0 NG/ML (8.6-58.9) Thyroid Stimulating Hormone (TSH) 0.229 uiU/mL (0.358-3.740) Height (Feet): 5 Height (Inches): 4.00 Weight (Pounds): 103 Objective Physical Exam: Vitals: reviewed General: NAD HEENT: nc, at Neck: supple Chest: clear breath sounds bilaterally Cardiovascular: RRR, no s3, s4 Abdomen: soft, nontender, nd Extremities: no cce, normal range of motion Neuro: alert and oriented Crow Coley MD February 19, 2020 14:44
--- NOTE | 2020-02-19 15:17 | NUR ---
NURSE NOTES: Covid swab results x1 were negative. MD Dr. Serrano aware. Received orders to continue isolation and repeat covid swab a second time. Orders noted and carried out.
--- NOTE | 2020-02-19 15:43 | NUR ---
NURSE NOTES: Nasopharyngeal swab collected for covid testing and sent down to laboratory.
[2020-02-19 16:00] VITALS: BP 103/55
--- NOTE | 2020-02-19 16:45 | NUR ---
*-* INSURANCE *-* ALL AVAILABLE CLINICALS HAVE BEEN FAXED TO: [facility] AUTH# [id number] DESTINY: YANET P:[phone] F:[phone] (FAX ALL CLINICALS)
[2020-02-19] MEDS: Eliquis 5mg tablet ORAL SCH (17:33)
--- NOTE | 2020-02-19 18:59 | NUR ---
HAND-OFF: Report given to COLLIN Marie. Endorsed that pt was swabbed for covid today.
[2020-02-19 20:00] VITALS: BP 111/62
--- NOTE | 2020-02-19 20:00 | NUR ---
NURSE NOTES: Received patient awake, confused, no SOB, resting in bed, comfortable.
[2020-02-19] MEDS: cefTRIAXone 1 GM in D5W 55 ML IVPB SCH (21:12)
--- NOTE | 2020-02-19 21:17 | General Progress Note ---
Assessment/Plan Problem List: (1) Hypokalemia ICD Codes: E87.6 - Hypokalemia SNOMED: 25102935 (2) Respiratory insufficiency ICD Codes: R06.89 - Respiratory insufficiency SNOMED: 191091266 (3) Hypothyroidism ICD Codes: E03.9 - Hypothyroidism SNOMED: 75467828 (4) UTI (lower urinary tract infection) ICD Codes: N39.0 - Urinary tract infection, site not specified SNOMED: 9493449 (5) Suspected 2019 novel coronavirus infection ICD Codes: Z20.828 - Contact with and (suspected) exposure to other viral communicable diseases SNOMED: 300665043 (6) Pneumonia ICD Codes: J18.9 - Pneumonia SNOMED: 265549027 (7) Pleural effusion ICD Codes: J94.8 - Pleural effusion SNOMED: 88891305 Status: progressing Assessment/Plan: resp insuff pna improving dc planning sepsis improving covid negative vitals stable low platlet Subjective ROS Limited/Unobtainable: Yes Allergies: Coded Allergies: CIPROFLOXACIN (Verified Allergy, Unknown, 10/02/13) HYDROCODONE (Verified Allergy, Unknown, 10/02/13) PENICILLINS (Verified Allergy, Unknown, 10/02/13) PROCHLORPERAZINE (Verified Allergy, Unknown, 10/02/13) Objective Last 24 Hour Vital Signs Date Time Temp Pulse Resp B/P (MAP) Pulse Ox O2 Delivery O2 Flow Rate FiO2 02/19/20 20:28 Room Air 02/19/20 16:00 96.6 75 18 103/55 (71) 96 02/19/20 12:00 96.8 64 17 103/56 (72) 91 02/19/20 09:00 67 98/50 02/19/20 09:00 98/50 02/19/20 09:00 Room Air 02/19/20 08:00 96.3 67 17 98/50 (66) 97 02/19/20 04:00 98.1 86 24 117/67 (84) 93 02/19/20 00:00 98.4 79 22 112/68 (83) 96 Intake and Output 02/18/20 02/19/20 19:00 07:00 Intake Total 915 ml 1350 ml Balance 915 ml 1350 ml Intake Oral 240 ml IV Total 675 ml 990 ml Other 360 ml # Voids 2 3 # Bowel Movements 1 Laboratory Tests 5/14/20 06:47: White Blood Count 4.9, Red Blood Count 3.25L, Hemoglobin 10.3L, Hematocrit 28.2L , Mean Corpuscular Volume 87, Mean Corpuscular Hemoglobin 31.6H, Mean Corpuscular Hemoglobin Concent 36.3H, Red Cell Distribution Width 11.3L, Platelet Count 56L, Mean Platelet Volume 5.2L, Neutrophils (%) (Auto) , Lymphocytes (%) (Auto) , Monocytes (%) (Auto) , Eosinophils (%) (Auto) , Basophils (%) (Auto) , Differential Total Cells Counted 100, Neutrophils % ( Manual) 68, Lymphocytes % (Manual) 18L, Monocytes % (Manual) 12H, Eosinophils % (Manual) 2, Basophils % (Manual) 0, Band Neutrophils 0, Platelet Estimate DecreasedL, Platelet Morphology Normal, Hypochromasia 1+, Anisocytosis 1+, Spherocytes 2+, Sodium Level 139, Potassium Level 3.9, Chloride Level 105, Carbon Dioxide Level 27, Anion Gap 7, Blood Urea Nitrogen 7, Creatinine 0.4L, Estimat Glomerular Filtration Rate > 60, Glucose Level 101, Hemoglobin A1c 5.0, Uric Acid 2.8, Calcium Level 8.5, Phosphorus Level 2.4L, Magnesium Level 1.8, Iron Level 25L, Total Iron Binding Capacity 157L, Percent Iron Saturation 16, Unsaturated Iron Binding 132, Ferritin 389H, Total Bilirubin 0.3, Gamma Glutamyl Transpeptidase 14, Aspartate Amino Transf (AST/SGOT) 17, Alanine Aminotransferase (ALT/SGPT) 12, Alkaline Phosphatase 51, Ammonia 49H, Lactate Dehydrogenase 169, C-Reactive Protein, Quantitative 15.6H, Pro-B-Type Natriuretic Peptide 2678H, Total Protein 5.9L, Albumin 2.1L, Globulin 3.8, Albumin/Globulin Ratio 0.6L, Triglycerides Level 115, Cholesterol Level 107, LDL Cholesterol 53, HDL Cholesterol 30L, Cholesterol/HDL Ratio 3.6, Vitamin B12 Level 1786H, Folate 28.0, Thyroid Stimulating Hormone (TSH) 0.229L Height (Feet): 5 Height (Inches): 4.00 Weight (Pounds): 103 Mindy Bryan MD February 19, 2020 21:17
[2020-02-20] VITALS: BP 121/68
[2020-02-20 04:00] VITALS: BP 108/63
[2020-02-20] MEDS: Metoclopramide 10mg/2ml Inj IVP SCH (05:44)
[2020-02-20] MEDS: Levothyroxine 125mcg tab ORAL SCH (05:44)
[2020-02-20 07:08] LABS: ANION GAP 6 mmol/L (5-15); BLOOD UREA NITROGEN 4 mg/dL (7-18); CALCIUM 8.9 MG/DL (8.5-10.1); CARBON DIOXIDE 28 MMOL/L (21-32); CHLORIDE 106 MMOL/L (98-107); CREATININE 0.4 MG/DL (0.55-1.30); POTASSIUM 4.1 MMOL/L (3.5-5.1); SODIUM 140 MMOL/L (136-145)
[2020-02-20 07:11] LABS: AMMONIA 68 umol/L (11-32)
--- NOTE | 2020-02-20 07:21 | NUR ---
HAND-OFF: Report given to Tony Pang RN.
[2020-02-20 07:35] LABS: HEMATOCRIT 29.2 % (37.0-47.0); HEMOGLOBIN 10.3 G/DL (12.0-16.0); MEAN CORPUSCULAR VOLUME 89 FL (80-99); PLATELET COUNT 69 K/UL (150-450); WHITE BLOOD COUNT 2.8 K/UL (4.8-10.8)
--- NOTE | 2020-02-20 07:59 | NUR ---
pt is in the bed asleep. no SOB noted. No facial grimace for pain noted at this time. no acute distress noted. call light placed within reach, will continue to follow plan of care.
[2020-02-20 08:00] VITALS: BP 129/71
[2020-02-20 08:34] LABS: PHOSPHORUS 2.4 MG/DL (2.5-4.9)
[2020-02-20] MEDS ORDERED: Lactulose 20gm/30ml UDC ORAL SCH ×3 (09:00→18:00)
[2020-02-20] MEDS: Docusate 250mg cap ORAL SCH (09:27)
[2020-02-20] MEDS: Calcium Carbonate 500mg w/Vit D 200iu tab ORAL SCH (09:27)
[2020-02-20] MEDS: Eliquis 5mg tablet ORAL SCH (09:27)
[2020-02-20] MEDS: Megace 400mg/10ml Susp ORAL SCH (09:28)
[2020-02-20] MEDS: HydrALAZINE 10mg Tab ORAL SCH (09:28)
[2020-02-20] MEDS: Pantoprazole Inj IVP SCH (09:28)
[2020-02-20] MEDS: Metoprolol Tartrate 12.5mg TAB ORAL SCH (09:31)
--- NOTE | 2020-02-20 09:46 | NUR ---
*-* INSURANCE *-* ALL AVAILABLE CLINICALS HAVE BEEN FAXED TO: [facility] AUTH# [id number] DESTINY: YANET P:[phone] F:[phone] (FAX ALL CLINICALS)
--- NOTE | 2020-02-20 09:59 | General Progress Note ---
Assessment/Plan Status: progressing Assessment/Plan: Anemia marisabel PLT DM ? asthma gallstones IVC filter prior admissions reviewed anemia work up neg stool ob in prior admissions on eliquis on reglan on megace DVT prophylaxis repeat labs xifaxan lactulose increase to BID ammonia level Subjective Allergies: Coded Allergies: CIPROFLOXACIN (Verified Allergy, Unknown, 10/02/13) HYDROCODONE (Verified Allergy, Unknown, 10/02/13) PENICILLINS (Verified Allergy, Unknown, 10/02/13) PROCHLORPERAZINE (Verified Allergy, Unknown, 10/02/13) Objective Last 24 Hour Vital Signs Date Time Temp Pulse Resp B/P (MAP) Pulse Ox O2 Delivery O2 Flow Rate FiO2 02/20/20 09:31 72 129/71 02/20/20 09:28 129/71 02/20/20 08:00 97.0 72 18 129/71 (90) 95 02/20/20 04:00 97.0 65 24 108/63 (78) 98 02/20/20 00:00 97.3 65 20 121/68 (85) 97 02/19/20 20:28 Room Air 02/19/20 20:00 97.2 85 24 111/62 (78) 97 02/19/20 16:00 96.6 75 18 103/55 (71) 96 02/19/20 12:00 96.8 64 17 103/56 (72) 91 Intake and Output 02/19/20 02/20/20 19:00 07:00 Intake Total 1075 ml 955 ml Balance 1075 ml 955 ml Intake Oral 400 ml IV Total 675 ml 955 ml # Voids 2 3 Laboratory Tests 02/20/20 05:00: White Blood Count 2.8L, Red Blood Count 3.30L, Hemoglobin 10.3L, Hematocrit 29.2L, Mean Corpuscular Volume 89, Mean Corpuscular Hemoglobin 31.2H, Mean Corpuscular Hemoglobin Concent 35.3, Red Cell Distribution Width 11.0L, Platelet Count 69L, Mean Platelet Volume 4.9L, Neutrophils (%) (Auto) , Lymphocytes (%) (Auto) , Monocytes (%) (Auto) , Eosinophils (%) (Auto) , Basophils (%) (Auto) , Neutrophils % (Manual) [Pending], Lymphocytes % (Manual) [Pending], Platelet Estimate [Pending], Platelet Morphology [Pending], Sodium Level 140, Potassium Level 4.1, Chloride Level 106, Carbon Dioxide Level 28, Anion Gap 6, Blood Urea Nitrogen 4L, Creatinine 0.4L, Estimat Glomerular Filtration Rate > 60, Glucose Level 97, Calcium Level 8.9, Phosphorus Level 2.4L , Magnesium Level 1.7L, Ammonia 68H Height (Feet): 5 Height (Inches): 4.00 Weight (Pounds): 103 General Appearance: no apparent distress EENT: normal ENT inspection Neck: supple Cardiovascular: normal rate Respiratory/Chest: decreased breath sounds Abdomen: normal bowel sounds, non tender, soft Extremities: non-tender Fabian Forbes MD February 20, 2020 09:59
[2020-02-20] MEDS ORDERED: LEVAQUIN750 MG ORAL (10:07)
--- NOTE | 2020-02-20 10:44 | Hematology/Onc Progress Note ---
Assessment/Plan Assessment/Plan ASSESSMENT AND RECOMMENDATIONS: 1. Deep venous thrombosis of the right lower extremity. Partial visualization of an IVC filter. On the right, wall adherent nonocclusive thrombus is seen within the common femoral vein and downstream superficial femoral vein. While the appearance is suggestive of chronic recanalized thrombus, this is nonetheless a new finding since prior study of 07/28/2019 --> imaging has been reviewed --> hx IVC filter is in place --> remains on eliquis 2. Pancytopenia likely secondary to underlying liver disease, continue to closely monitor. This is the lowest counts she has had for past several years --> Prior labs reviewed, hepatitis panel reviewed --> us of the abdomen was reviewed --> meds reviewed as well --> transfuse if she is bleeding with platelets --> plt trend 79k-->64k-->83-->50-->56-->69 --> wbc 3-->7-->2.8 --> hgb 11.8-->10.4-->10.3 3. Anemia secondary to chronic disease. --> w/u reviewed from prior adm --> trend as needed 4. Hyponatremia. Nephrology is following --> Fluid restriction --> appreciate nephro recs 5. Seizure disorder --> as per neuro 6. Left hip pain due to Lumbar compression fracture -- pain meds prn --> pain management 7. AMs as per neuro 8. Dvt ppx arleen MALONEY RN and appreciate the consultation. Subjective Allergies: Coded Allergies: CIPROFLOXACIN (Verified Allergy, Unknown, 10/02/13) HYDROCODONE (Verified Allergy, Unknown, 10/02/13) PENICILLINS (Verified Allergy, Unknown, 10/02/13) PROCHLORPERAZINE (Verified Allergy, Unknown, 10/02/13) Subjective 02/18 labs reviewed, no bleeding, no night sweats, meds noted 02/19 no overnight events, meds and labs reviewed, room air Objective Objective Current Medications Medications (Trade) Dose Ordered Sig/Karlee Route PRN Reason Start Time Stop Time Status Last Admin Dose Admin Acetaminophen (Tylenol) 650 mg Q4H PRN ORAL Mild Pain (Pain Scale 1-3) 02/17/20 16:30 03/18/20 16:29 02/18/20 04:22 Apixaban (Eliquis) 5 mg BID ORAL 02/19/20 18:00 05/17/20 17:59 02/20/20 09:27 Bisacodyl (Dulcolax) 10 mg DAILYPRN PRN RECTAL Constipation 02/17/20 16:30 05/17/20 16:29 Calcium/Vitamin D (OsCal D) 1 tab DAILY ORAL 02/18/20 09:00 05/18/20 08:59 02/20/20 09:27 Ceftriaxone Sodium 1 gm/ Dextrose 55 ml @ 110 mls/hr Q24H IVPB 02/17/20 20:00 02/24/20 19:59 02/19/20 21:12 Dextrose/ Electrolytes 1,000 ml @ 75 mls/hr [id number] IV 02/18/20 11:00 03/19/20 10:59 02/19/20 21:13 Docusate Sodium (Colace) 250 mg DAILY ORAL 02/18/20 09:00 03/19/20 08:59 02/20/20 09:27 Folic Acid (Folate) 1 mg DAILY ORAL 02/18/20 09:00 03/19/20 08:59 02/20/20 09:27 Hydralazine HCl (Apresoline) 10 mg DAILY ORAL 02/18/20 09:00 05/18/20 08:59 02/20/20 09:28 Lactulose (Cephulac) 20 gm BID ORAL 02/20/20 18:00 03/21/20 17:59 Lactulose (Cephulac) 30 gm ONCE ORAL 02/20/20 10:00 02/20/20 11:00 Levetiracetam (Keppra) 500 mg Q12HR ORAL 02/17/20 21:00 03/18/20 20:59 02/20/20 09:27 Levothyroxine Sodium (Synthroid) 125 mcg DAILY@0630 ORAL 02/18/20 06:30 03/19/20 06:29 02/20/20 05:44 Magnesium Hydroxide (Mom) 30 ml DAILYPRN PRN ORAL Constipation 02/17/20 16:30 03/18/20 16:29 Megestrol Acetate (Megace) 400 mg TWICE A DAY ORAL 02/18/20 18:00 05/18/20 17:59 02/20/20 09:28 Metoclopramide HCl (Reglan) 5 mg EVERY 8 HOURS IVP 02/18/20 22:00 03/19/20 13:59 02/20/20 05:44 Metoprolol Tartrate (Lopressor) 12.5 mg DAILY ORAL 02/18/20 09:00 05/18/20 08:59 02/20/20 09:31 Multivitamins (Multivitamins) 1 tab DAILY ORAL 02/18/20 09:00 03/19/20 08:59 02/20/20 09:27 Ondansetron HCl (Zofran) 4 mg Q6H PRN IVP Nausea & Vomiting 02/18/20 09:30 03/19/20 09:29 Pantoprazole (Protonix) 40 mg EVERY 12 HOURS IVP 02/18/20 09:45 03/19/20 09:44 02/20/20 09:28 Rifaximin (Xifaxan) 550 mg EVERY 12 HOURS ORAL 02/19/20 21:00 02/26/20 20:59 02/20/20 09:28 Sodium Phosphate (Fleet's Sodium Phosl Enema) 133 ml DAILYPRN PRN RECTAL constipation 02/17/20 16:30 03/18/20 16:29 Last 24 Hour Vital Signs Date Time Temp Pulse Resp B/P (MAP) Pulse Ox O2 Delivery O2 Flow Rate FiO2 02/20/20 09:31 72 129/71 02/20/20 09:28 129/71 02/20/20 09:00 Room Air 02/20/20 08:00 97.0 72 18 129/71 (90) 95 02/20/20 04:00 97.0 65 24 108/63 (78) 98 02/20/20 00:00 97.3 65 20 121/68 (85) 97 02/19/20 20:28 Room Air 02/19/20 20:00 97.2 85 24 111/62 (78) 97 02/19/20 16:00 96.6 75 18 103/55 (71) 96 02/19/20 12:00 96.8 64 17 103/56 (72) 91 02/19/20 09:00 67 98/50 02/19/20 09:00 98/50 02/19/20 09:00 Room Air 02/19/20 08:00 96.3 67 17 98/50 (66) 97 02/19/20 04:00 98.1 86 24 117/67 (84) 93 02/19/20 00:00 98.4 79 22 112/68 (83) 96 02/18/20 20:19 97.3 84 24 101/53 (69) 93 02/18/20 20:14 Room Air 02/18/20 16:00 97.7 77 20 98/54 (69) 94 02/18/20 12:00 97.4 74 20 96/59 (71) 93 Intake and Output 02/19/20 02/20/20 19:00 07:00 Intake Total 1075 ml 955 ml Balance 1075 ml 955 ml Intake Oral 400 ml IV Total 675 ml 955 ml # Voids 2 3 Labs Test 02/17/20 12:50 02/17/20 13:50 02/18/20 05:40 02/19/20 06:47 Urine Color Yellow Urine Appearance Clear Urine pH 5 (4.5-8.0) Urine Specific Carpio 1.020 (1.005-1.035) Urine Protein 1+ (NEGATIVE) Urine Glucose (UA) Negative (NEGATIVE) Urine Ketones 4+ (NEGATIVE) Urine Blood 1+ (NEGATIVE) Urine Nitrite Negative (NEGATIVE) Urine Bilirubin Negative (NEGATIVE) Urine Urobilinogen 4 MG/DL (0.0-1.0) Urine Leukocyte Esterase 1+ (NEGATIVE) Urine RBC 2-4 /HPF (0 - 2) Urine WBC 2-4 /HPF (0 - 2) Urine Squamous Epithelial Cells Few /LPF (NONE/OCC) Urine Bacteria Few /HPF (NONE) Urine Mucus Few /LPF (NONE/OCC) White Blood Count 13.6 K/UL (4.8-10.8) 7.6 K/UL (4.8-10.8) 4.9 K/UL (4.8-10.8) Red Blood Count 3.56 M/UL (4.20-5.40) 3.34 M/UL (4.20-5.40) 3.25 M/UL (4.20-5.40) Hemoglobin 11.0 G/DL (12.0-16.0) 10.4 G/DL (12.0-16.0) 10.3 G/DL (12.0-16.0) Hematocrit 31.0 % (37.0-47.0) 29.3 % (37.0-47.0) 28.2 % (37.0-47.0) Mean Corpuscular Volume 87 FL (80-99) 88 FL (80-99) 87 FL (80-99) Mean Corpuscular Hemoglobin 30.9 PG (27.0-31.0) 31.0 PG (27.0-31.0) 31.6 PG (27.0-31.0) Mean Corpuscular Hemoglobin Concent 35.6 G/DL (32.0-36.0) 35.4 G/DL (32.0-36.0) 36.3 G/DL (32.0-36.0) Red Cell Distribution Width 10.7 % (11.6-14.8) 11.2 % (11.6-14.8) 11.3 % (11.6-14.8) Platelet Count 61 K/UL (150-450) 55 K/UL (150-450) 56 K/UL (150-450) Mean Platelet Volume 6.6 FL (6.5-10.1) 5.9 FL (6.5-10.1) 5.2 FL (6.5-10.1) Neutrophils (%) (Auto) % (45.0-75.0) % (45.0-75.0) % (45.0-75.0) Lymphocytes (%) (Auto) % (20.0-45.0) % (20.0-45.0) % (20.0-45.0) Monocytes (%) (Auto) % (1.0-10.0) % (1.0-10.0) % (1.0-10.0) Eosinophils (%) (Auto) % (0.0-3.0) % (0.0-3.0) % (0.0-3.0) Basophils (%) (Auto) % (0.0-2.0) % (0.0-2.0) % (0.0-2.0) Differential Total Cells Counted 100 100 100 Neutrophils % (Manual) 77 % (45-75) 76 % (45-75) 68 % (45-75) Lymphocytes % (Manual) 15 % (20-45) 14 % (20-45) 18 % (20-45) Monocytes % (Manual) 5 % (1-10) 10 % (1-10) 12 % (1-10) Eosinophils % (Manual) 0 % (0-3) 0 % (0-3) 2 % (0-3) Basophils % (Manual) 0 % (0-2) 0 % (0-2) 0 % (0-2) Band Neutrophils 3 % (0-8) 0 % (0-8) 0 % (0-8) Platelet Estimate Decreased Decreased Decreased Platelet Morphology Normal Normal Giant Platelets Rare Red Blood Cell Morphology Normal Sodium Level 137 MMOL/L (136-145) 136 MMOL/L (136-145) 139 MMOL/L (136-145) Potassium Level 3.3 MMOL/L (3.5-5.1) 3.1 MMOL/L (3.5-5.1) 3.9 MMOL/L (3.5-5.1) Chloride Level 103 MMOL/L (98-107) 101 MMOL/L (98-107) 105 MMOL/L (98-107) Carbon Dioxide Level 25 MMOL/L (21-32) 24 MMOL/L (21-32) 27 MMOL/L (21-32) Anion Gap 9 mmol/L (5-15) 11 mmol/L (5-15) 7 mmol/L (5-15) Blood Urea Nitrogen 11 mg/dL (7-18) 9 mg/dL (7-18) 7 mg/dL (7-18) Creatinine 0.5 MG/DL (0.55-1.30) 0.5 MG/DL (0.55-1.30) 0.4 MG/DL (0.55-1.30) Estimat Glomerular Filtration Rate > 60 mL/min (>60) > 60 mL/min (>60) > 60 mL/min (>60) Glucose Level 89 MG/DL (74-106) 69 MG/DL (74-106) 101 MG/DL (74-106) Lactic Acid Level 0.80 mmol/L (0.4-2.0) Calcium Level 7.8 MG/DL (8.5-10.1) 8.1 MG/DL (8.5-10.1) 8.5 MG/DL (8.5-10.1) Total Bilirubin 0.5 MG/DL (0.2-1.0) 0.3 MG/DL (0.2-1.0) Aspartate Amino Transf (AST/SGOT) 15 U/L (15-37) 17 U/L (15-37) Alanine Aminotransferase (ALT/SGPT) 7 U/L (12-78) 12 U/L (12-78) Alkaline Phosphatase 41 U/L (46-116) 51 U/L (46-116) Total Creatine Kinase 15 U/L (26-308) Creatine Kinase MB 0.8 NG/ML (0.0-3.6) Creatine Kinase MB Relative Index 5.3 Troponin I 0.000 ng/mL (0.000-0.056) Total Protein 6.2 G/DL (6.4-8.2) 5.9 G/DL (6.4-8.2) Albumin 2.5 G/DL (3.4-5.0) 2.1 G/DL (3.4-5.0) Globulin 3.7 g/dL 3.8 g/dL Albumin/Globulin Ratio 0.7 (1.0-2.7) 0.6 (1.0-2.7) Hypochromasia 1+ 1+ Anisocytosis 1+ 1+ Spherocytes 2+ Hemoglobin A1c 5.0 % (4.3-6.0) Uric Acid 2.8 MG/DL (2.6-7.2) Phosphorus Level 2.4 MG/DL (2.5-4.9) Magnesium Level 1.8 MG/DL (1.8-2.4) Iron Level 25 ug/dL (50-175) Total Iron Binding Capacity 157 ug/dL (250-450) Percent Iron Saturation 16 % (15-50) Unsaturated Iron Binding 132 ug/dL (112-346) Ferritin 389 NG/ML (8-388) Gamma Glutamyl Transpeptidase 14 U/L (5-85) Ammonia 49 umol/L (11-32) Lactate Dehydrogenase 169 U/L (81-234) C-Reactive Protein, Quantitative 15.6 mg/dL (0.00-0.90) Pro-B-Type Natriuretic Peptide 2678 pg/mL (0-125) Triglycerides Level 115 MG/DL (30-150) Cholesterol Level 107 MG/DL (< 200) LDL Cholesterol 53 mg/dL (<100) HDL Cholesterol 30 MG/DL (40-60) Cholesterol/HDL Ratio 3.6 (3.3-4.4) Vitamin B12 Level 1786 PG/ML (193-986) Folate 28.0 NG/ML (8.6-58.9) Thyroid Stimulating Hormone (TSH) 0.229 uiU/mL (0.358-3.740) Test 02/20/20 05:00 White Blood Count 2.8 K/UL (4.8-10.8) Red Blood Count 3.30 M/UL (4.20-5.40) Hemoglobin 10.3 G/DL (12.0-16.0) Hematocrit 29.2 % (37.0-47.0) Mean Corpuscular Volume 89 FL (80-99) Mean Corpuscular Hemoglobin 31.2 PG (27.0-31.0) Mean Corpuscular Hemoglobin Concent 35.3 G/DL (32.0-36.0) Red Cell Distribution Width 11.0 % (11.6-14.8) Platelet Count 69 K/UL (150-450) Mean Platelet Volume 4.9 FL (6.5-10.1) Neutrophils (%) (Auto) % (45.0-75.0) Lymphocytes (%) (Auto) % (20.0-45.0) Monocytes (%) (Auto) % (1.0-10.0) Eosinophils (%) (Auto) % (0.0-3.0) Basophils (%) (Auto) % (0.0-2.0) Sodium Level 140 MMOL/L (136-145) Potassium Level 4.1 MMOL/L (3.5-5.1) Chloride Level 106 MMOL/L (98-107) Carbon Dioxide Level 28 MMOL/L (21-32) Anion Gap 6 mmol/L (5-15) Blood Urea Nitrogen 4 mg/dL (7-18) Creatinine 0.4 MG/DL (0.55-1.30) Estimat Glomerular Filtration Rate > 60 mL/min (>60) Glucose Level 97 MG/DL (74-106) Calcium Level 8.9 MG/DL (8.5-10.1) Phosphorus Level 2.4 MG/DL (2.5-4.9) Magnesium Level 1.7 MG/DL (1.8-2.4) Ammonia 68 umol/L (11-32) Height (Feet): 5 Height (Inches): 4.00 Weight (Pounds): 103 Objective Physical Exam: Vitals: reviewed General: NAD HEENT: nc, at Neck: supple Chest: clear breath sounds bilaterally Cardiovascular: RRR, no s3, s4 Abdomen: soft, nontender, nd Extremities: no cce, normal range of motion Neuro: alert and oriented Crow Coley MD February 20, 2020 10:44
--- NOTE | 2020-02-20 11:11 | NUR ---
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
--- NOTE | 2020-02-20 11:15 | Infectious Diseases Prog Note ---
Assessment/Plan Assessment/Plan MPRESSION: 1. Sepsis 2. left pleural effusion, may have underlying pneumonia. 3. Anemia. 4. Hypothyroidism. 5. COPD. 8. Aortic dissection in the previous CT scan. 6. Dementia. RECOMMENDATION: Change ceftriaxone to Levaquin Continue Antibiotic X 3 days Agree with discharge COVID-19 X 1 negative will follow up the cultures. Subjective ROS Limited/Unobtainable: Yes Allergies: Coded Allergies: CIPROFLOXACIN (Verified Allergy, Unknown, 10/02/13) HYDROCODONE (Verified Allergy, Unknown, 10/02/13) PENICILLINS (Verified Allergy, Unknown, 10/02/13) PROCHLORPERAZINE (Verified Allergy, Unknown, 10/02/13) Objective Vital Signs Last 24 Hour Vital Signs Date Time Temp Pulse Resp B/P (MAP) Pulse Ox O2 Delivery O2 Flow Rate FiO2 02/20/20 09:31 72 129/71 02/20/20 09:28 129/71 02/20/20 09:00 Room Air 02/20/20 08:00 97.0 72 18 129/71 (90) 95 02/20/20 04:00 97.0 65 24 108/63 (78) 98 02/20/20 00:00 97.3 65 20 121/68 (85) 97 02/19/20 20:28 Room Air 02/19/20 20:00 97.2 85 24 111/62 (78) 97 02/19/20 16:00 96.6 75 18 103/55 (71) 96 02/19/20 12:00 96.8 64 17 103/56 (72) 91 Height (Feet): 5 Height (Inches): 4.00 Weight (Pounds): 103 General Appearance: no acute distress HEENT: mucous membranes moist Respiratory/Chest: lungs clear Cardiovascular: normal rate Abdomen: soft, non tender Neurologic/Psychiatric: alert, responsive Microbiology Date/Time Source Procedure Growth Status 02/17/20 12:52 Blood Blood Culture - Preliminary NO GROWTH AFTER 48 HOURS Resulted 02/17/20 12:35 Blood Blood Culture - Preliminary NO GROWTH AFTER 48 HOURS Resulted 02/17/20 13:19 Nasal Nares MRSA Culture - Final NO METHICILLIN RESISTANT STAPH AUREUS... Complete 02/17/20 11:52 Nasopharynx Coronavirus COVID-19 PCR ([facility]) - Final Complete 02/17/20 12:50 Rectum VRE Culture - Final NO VANCOMYCIN RESISTANT ENTEROCOCCUS ... Complete 02/17/20 12:50 Rectum - Final NO CARBAPENEM-RESISTANT ENTEROBACTERI... Complete Laboratory Tests Test 02/20/20 05:00 White Blood Count 2.8 K/UL (4.8-10.8) L Red Blood Count 3.30 M/UL (4.20-5.40) L Hemoglobin 10.3 G/DL (12.0-16.0) L Hematocrit 29.2 % (37.0-47.0) L Mean Corpuscular Volume 89 FL (80-99) Mean Corpuscular Hemoglobin 31.2 PG (27.0-31.0) H Mean Corpuscular Hemoglobin Concent 35.3 G/DL (32.0-36.0) Red Cell Distribution Width 11.0 % (11.6-14.8) L Platelet Count 69 K/UL (150-450) L Mean Platelet Volume 4.9 FL (6.5-10.1) L Neutrophils (%) (Auto) % (45.0-75.0) Lymphocytes (%) (Auto) % (20.0-45.0) Monocytes (%) (Auto) % (1.0-10.0) Eosinophils (%) (Auto) % (0.0-3.0) Basophils (%) (Auto) % (0.0-2.0) Differential Total Cells Counted 100 Neutrophils % (Manual) 44 % (45-75) L Lymphocytes % (Manual) 38 % (20-45) Monocytes % (Manual) 15 % (1-10) H Eosinophils % (Manual) 3 % (0-3) Basophils % (Manual) 0 % (0-2) Band Neutrophils 0 % (0-8) Platelet Estimate Decreased L Platelet Morphology Normal Red Blood Cell Morphology Normal Sodium Level 140 MMOL/L (136-145) Potassium Level 4.1 MMOL/L (3.5-5.1) Chloride Level 106 MMOL/L (98-107) Carbon Dioxide Level 28 MMOL/L (21-32) Anion Gap 6 mmol/L (5-15) Blood Urea Nitrogen 4 mg/dL (7-18) L Creatinine 0.4 MG/DL (0.55-1.30) L Estimat Glomerular Filtration Rate > 60 mL/min (>60) Glucose Level 97 MG/DL (74-106) Calcium Level 8.9 MG/DL (8.5-10.1) Phosphorus Level 2.4 MG/DL (2.5-4.9) L Magnesium Level 1.7 MG/DL (1.8-2.4) L Ammonia 68 umol/L (11-32) H Current Medications Medications (Trade) Dose Ordered Sig/Karlee Route PRN Reason Start Time Stop Time Status Last Admin Dose Admin Acetaminophen (Tylenol) 650 mg Q4H PRN ORAL Mild Pain (Pain Scale 1-3) 02/17/20 16:30 03/18/20 16:29 02/18/20 04:22 Apixaban (Eliquis) 5 mg BID ORAL 02/19/20 18:00 05/17/20 17:59 02/20/20 09:27 Bisacodyl (Dulcolax) 10 mg DAILYPRN PRN RECTAL Constipation 02/17/20 16:30 05/17/20 16:29 Calcium/Vitamin D (OsCal D) 1 tab DAILY ORAL 02/18/20 09:00 05/18/20 08:59 02/20/20 09:27 Ceftriaxone Sodium 1 gm/ Dextrose 55 ml @ 110 mls/hr Q24H IVPB 02/17/20 20:00 02/24/20 19:59 02/19/20 21:12 Dextrose/ Electrolytes 1,000 ml @ 75 mls/hr [id number] IV 02/18/20 11:00 03/19/20 10:59 02/19/20 21:13 Docusate Sodium (Colace) 250 mg DAILY ORAL 02/18/20 09:00 03/19/20 08:59 02/20/20 09:27 Folic Acid (Folate) 1 mg DAILY ORAL 02/18/20 09:00 03/19/20 08:59 02/20/20 09:27 Hydralazine HCl (Apresoline) 10 mg DAILY ORAL 02/18/20 09:00 05/18/20 08:59 02/20/20 09:28 Lactulose (Cephulac) 20 gm BID ORAL 02/20/20 18:00 03/21/20 17:59 Levetiracetam (Keppra) 500 mg Q12HR ORAL 02/17/20 21:00 03/18/20 20:59 02/20/20 09:27 Levothyroxine Sodium (Synthroid) 125 mcg DAILY@0630 ORAL 02/18/20 06:30 03/19/20 06:29 02/20/20 05:44 Magnesium Hydroxide (Mom) 30 ml DAILYPRN PRN ORAL Constipation 02/17/20 16:30 03/18/20 16:29 Megestrol Acetate (Megace) 400 mg TWICE A DAY ORAL 02/18/20 18:00 05/18/20 17:59 02/20/20 09:28 Metoclopramide HCl (Reglan) 5 mg EVERY 8 HOURS IVP 02/18/20 22:00 03/19/20 13:59 02/20/20 05:44 Metoprolol Tartrate (Lopressor) 12.5 mg DAILY ORAL 02/18/20 09:00 05/18/20 08:59 02/20/20 09:31 Multivitamins (Multivitamins) 1 tab DAILY ORAL 02/18/20 09:00 03/19/20 08:59 02/20/20 09:27 Ondansetron HCl (Zofran) 4 mg Q6H PRN IVP Nausea & Vomiting 02/18/20 09:30 03/19/20 09:29 Pantoprazole (Protonix) 40 mg EVERY 12 HOURS IVP 02/18/20 09:45 03/19/20 09:44 02/20/20 09:28 Rifaximin (Xifaxan) 550 mg EVERY 12 HOURS ORAL 02/19/20 21:00 02/26/20 20:59 02/20/20 09:28 Sodium Phosphate (Fleet's Sodium Phosl Enema) 133 ml DAILYPRN PRN RECTAL constipation 02/17/20 16:30 03/18/20 16:29 Gamal Serrano MD February 20, 2020 11:15
--- NOTE | 2020-02-20 11:51 | Pulmonology Progress Note ---
Subjective ROS Limited/Unobtainable: Yes Interval Events: None new Constitutional: Denies: fever HEENT: Repors: no symptoms Respiratory: Reports: no symptoms Cardiovascular: Reports: no symptoms Gastrointestinal/Abdominal: Reports: no symptoms Genitourinary: Reports: no symptoms Musculoskeletal: Reports: no symptoms Allergies: Coded Allergies: CIPROFLOXACIN (Verified Allergy, Unknown, 10/02/13) HYDROCODONE (Verified Allergy, Unknown, 10/02/13) PENICILLINS (Verified Allergy, Unknown, 10/02/13) PROCHLORPERAZINE (Verified Allergy, Unknown, 10/02/13) Objective Last 24 Hour Vital Signs Date Time Temp Pulse Resp B/P (MAP) Pulse Ox O2 Delivery O2 Flow Rate FiO2 02/20/20 09:31 72 129/71 02/20/20 09:28 129/71 02/20/20 09:00 Room Air 02/20/20 08:00 97.0 72 18 129/71 (90) 95 02/20/20 04:00 97.0 65 24 108/63 (78) 98 02/20/20 00:00 97.3 65 20 121/68 (85) 97 02/19/20 20:28 Room Air 02/19/20 20:00 97.2 85 24 111/62 (78) 97 02/19/20 16:00 96.6 75 18 103/55 (71) 96 02/19/20 12:00 96.8 64 17 103/56 (72) 91 Intake and Output 02/19/20 02/20/20 19:00 07:00 Intake Total 1075 ml 955 ml Balance 1075 ml 955 ml Intake Oral 400 ml IV Total 675 ml 955 ml # Voids 2 3 General Appearance: no acute distress HEENT: mucous membranes moist Respiratory/Chest: chest wall non-tender, lungs clear Cardiovascular: normal peripheral pulses Abdomen: soft, non tender Neurologic/Psychiatric: alert, responsive Microbiology Date/Time Source Procedure Growth Status 02/17/20 12:52 Blood Blood Culture - Preliminary NO GROWTH AFTER 48 HOURS Resulted 02/17/20 12:35 Blood Blood Culture - Preliminary NO GROWTH AFTER 48 HOURS Resulted 02/17/20 13:19 Nasal Nares MRSA Culture - Final NO METHICILLIN RESISTANT STAPH AUREUS... Complete 02/17/20 11:52 Nasopharynx Coronavirus COVID-19 PCR ([facility]) - Final Complete 02/17/20 12:50 Rectum VRE Culture - Final NO VANCOMYCIN RESISTANT ENTEROCOCCUS ... Complete 02/17/20 12:50 Rectum - Final NO CARBAPENEM-RESISTANT ENTEROBACTERI... Complete Laboratory Tests 02/20/20 05:00: White Blood Count 2.8L, Red Blood Count 3.30L, Hemoglobin 10.3L, Hematocrit 29.2L, Mean Corpuscular Volume 89, Mean Corpuscular Hemoglobin 31.2H, Mean Corpuscular Hemoglobin Concent 35.3, Red Cell Distribution Width 11.0L, Platelet Count 69L, Mean Platelet Volume 4.9L, Neutrophils (%) (Auto) , Lymphocytes (%) (Auto) , Monocytes (%) (Auto) , Eosinophils (%) (Auto) , Basophils (%) (Auto) , Differential Total Cells Counted 100, Neutrophils % ( Manual) 44L, Lymphocytes % (Manual) 38, Monocytes % (Manual) 15H, Eosinophils % (Manual) 3, Basophils % (Manual) 0, Band Neutrophils 0, Platelet Estimate DecreasedL, Platelet Morphology Normal, Red Blood Cell Morphology Normal, Sodium Level 140, Potassium Level 4.1, Chloride Level 106, Carbon Dioxide Level 28, Anion Gap 6, Blood Urea Nitrogen 4L, Creatinine 0.4L, Estimat Glomerular Filtration Rate > 60, Glucose Level 97, Calcium Level 8.9, Phosphorus Level 2.4L , Magnesium Level 1.7L, Ammonia 68H Current Medications Medications (Trade) Dose Ordered Sig/Karlee Route PRN Reason Start Time Stop Time Status Last Admin Dose Admin Acetaminophen (Tylenol) 650 mg Q4H PRN ORAL Mild Pain (Pain Scale 1-3) 02/17/20 16:30 03/18/20 16:29 02/18/20 04:22 Apixaban (Eliquis) 5 mg BID ORAL 02/19/20 18:00 05/17/20 17:59 02/20/20 09:27 Bisacodyl (Dulcolax) 10 mg DAILYPRN PRN RECTAL Constipation 02/17/20 16:30 05/17/20 16:29 Calcium/Vitamin D (OsCal D) 1 tab DAILY ORAL 02/18/20 09:00 05/18/20 08:59 02/20/20 09:27 Ceftriaxone Sodium 1 gm/ Dextrose 55 ml @ 110 mls/hr Q24H IVPB 02/17/20 20:00 02/24/20 19:59 02/19/20 21:12 Dextrose/ Electrolytes 1,000 ml @ 75 mls/hr [id number] IV 02/18/20 11:00 03/19/20 10:59 02/19/20 21:13 Docusate Sodium (Colace) 250 mg DAILY ORAL 02/18/20 09:00 03/19/20 08:59 02/20/20 09:27 Folic Acid (Folate) 1 mg DAILY ORAL 02/18/20 09:00 03/19/20 08:59 02/20/20 09:27 Hydralazine HCl (Apresoline) 10 mg DAILY ORAL 02/18/20 09:00 05/18/20 08:59 02/20/20 09:28 Lactulose (Cephulac) 20 gm BID ORAL 02/20/20 18:00 03/21/20 17:59 Levetiracetam (Keppra) 500 mg Q12HR ORAL 02/17/20 21:00 03/18/20 20:59 02/20/20 09:27 Levothyroxine Sodium (Synthroid) 125 mcg DAILY@0630 ORAL 02/18/20 06:30 03/19/20 06:29 02/20/20 05:44 Magnesium Hydroxide (Mom) 30 ml DAILYPRN PRN ORAL Constipation 02/17/20 16:30 03/18/20 16:29 Megestrol Acetate (Megace) 400 mg TWICE A DAY ORAL 02/18/20 18:00 05/18/20 17:59 02/20/20 09:28 Metoclopramide HCl (Reglan) 5 mg EVERY 8 HOURS IVP 02/18/20 22:00 03/19/20 13:59 02/20/20 05:44 Metoprolol Tartrate (Lopressor) 12.5 mg DAILY ORAL 02/18/20 09:00 05/18/20 08:59 02/20/20 09:31 Multivitamins (Multivitamins) 1 tab DAILY ORAL 02/18/20 09:00 03/19/20 08:59 02/20/20 09:27 Ondansetron HCl (Zofran) 4 mg Q6H PRN IVP Nausea & Vomiting 5/13/20 09:30 03/19/20 09:29 Pantoprazole (Protonix) 40 mg EVERY 12 HOURS IVP 02/18/20 09:45 03/19/20 09:44 02/20/20 09:28 Rifaximin (Xifaxan) 550 mg EVERY 12 HOURS ORAL 02/19/20 21:00 02/26/20 20:59 02/20/20 09:28 Sodium Phosphate (Fleet's Sodium Phosl Enema) 133 ml DAILYPRN PRN RECTAL constipation 02/17/20 16:30 03/18/20 16:29 Assessment/Plan Assessment/Plan IMPRESSION: 1. Left lower lung field pneumonia. 2. Chronic medical conditions consisting of hepatic encephalopathy, renal insufficiency, hypertension, GERD, psych disorder as well as seizure disorder. DISCUSSION: Continue oxygen as needed. Continue antibiotics. I will follow carefully. Martha Choi Omar Syed MD February 20, 2020 11:51
[2020-02-20 12:00] VITALS: BP 131/53
[2020-02-20] MEDS ORDERED: D5NS w/KCl 40mEq 1000ml 1,000 ML IV SCH (12:25)
--- NOTE | 2020-02-20 12:28 | Nephrology Progress Note ---
Assessment/Plan Problem List: (1) Hypokalemia (2) Hypothyroidism (3) Anemia (4) UTI (lower urinary tract infection) Assessment Hypokalemia etiology unclear no history of diarrhea Anemia Pneumonia Recurrent left pleural effusion History of hypothyroidism Hypoalbuminemia Evidence of UTI Plan Suggestions : Potassium, phosphorus, magnesium, supplements as needed Adjust IV fluid and BP medications Anemia work-up Thyroid function test Per pulmonary and ID Per order Subjective ROS Limited/Unobtainable: No Constitutional: Reports: malaise Objective Objective Last 24 Hour Vital Signs Date Time Temp Pulse Resp B/P (MAP) Pulse Ox O2 Delivery O2 Flow Rate FiO2 02/20/20 09:31 72 129/71 02/20/20 09:28 129/71 02/20/20 09:00 Room Air 02/20/20 08:00 97.0 72 18 129/71 (90) 95 02/20/20 04:00 97.0 65 24 108/63 (78) 98 02/20/20 00:00 97.3 65 20 121/68 (85) 97 02/19/20 20:28 Room Air 02/19/20 20:00 97.2 85 24 111/62 (78) 97 02/19/20 16:00 96.6 75 18 103/55 (71) 96 Intake and Output 02/19/20 02/20/20 19:00 07:00 Intake Total 1075 ml 955 ml Balance 1075 ml 955 ml Intake Oral 400 ml IV Total 675 ml 955 ml # Voids 2 3 Laboratory Tests 02/20/20 05:00: White Blood Count 2.8L, Red Blood Count 3.30L, Hemoglobin 10.3L, Hematocrit 29.2L, Mean Corpuscular Volume 89, Mean Corpuscular Hemoglobin 31.2H, Mean Corpuscular Hemoglobin Concent 35.3, Red Cell Distribution Width 11.0L, Platelet Count 69L, Mean Platelet Volume 4.9L, Neutrophils (%) (Auto) , Lymphocytes (%) (Auto) , Monocytes (%) (Auto) , Eosinophils (%) (Auto) , Basophils (%) (Auto) , Differential Total Cells Counted 100, Neutrophils % ( Manual) 44L, Lymphocytes % (Manual) 38, Monocytes % (Manual) 15H, Eosinophils % (Manual) 3, Basophils % (Manual) 0, Band Neutrophils 0, Platelet Estimate DecreasedL, Platelet Morphology Normal, Red Blood Cell Morphology Normal, Sodium Level 140, Potassium Level 4.1, Chloride Level 106, Carbon Dioxide Level 28, Anion Gap 6, Blood Urea Nitrogen 4L, Creatinine 0.4L, Estimat Glomerular Filtration Rate > 60, Glucose Level 97, Calcium Level 8.9, Phosphorus Level 2.4L , Magnesium Level 1.7L, Ammonia 68H Height (Feet): 5 Height (Inches): 4.00 Weight (Pounds): 103 General Appearance: no apparent distress, lethargic Cardiovascular: normal rate Abdomen: soft Jesus Valdivia MD February 20, 2020 12:28
--- NOTE | 2020-02-20 12:45 | NUR ---
Called [facility], gave report to Adrián Strong
[2020-02-20] MEDS ORDERED: Phospha 250 Neutral tab ORAL SCH (13:00)
--- NOTE | 2020-02-20 13:00 | NUR ---
Called daughter, Miguel Agueda, ; made daughter aware of patient transfer to [facility]. she said ok.
--- NOTE | 2020-02-20 13:15 | NUR ---
Patient discharged to [facility] at [facility]. Respiration is even and unlabored. no facial grimace for pain noted. patient provided with after-care instructions with medication teaching, patient unable to comprehend teaching due to episodes of confusions; provided reality orientation. IV and wrist band removed. IV site intact with no bleeding. patient has only brown tiny bracelet on her left wrist, and a sock. pt transported via [facility] in no acute distress.
[2020-02-21] MEDS ORDERED: Vitamin D 1000 IU Tab ORAL SCH (09:00)
--- NOTE | 2020-02-23 13:36 | Discharge Summary ---
Discharge Summary Discharge Summary _ dc summary #[id number] Anitha Sommer NP February 23, 2020 13:36
--- NOTE | 2020-02-23 16:16 | NUR ---
*-* NO DISCHARGE SUMMARY IN THE SYSTEM UNABLE TO FAX TO [facility]. *--*
--- NOTE | 2020-02-24 07:29 | Discharge Summary 2 SIG ---
DATE OF ADMISSION: 02/17/2020 DATE OF DISCHARGE: 02/20/2020 REASON FOR ADMISSION: This is a 69-year-old female, resident of care home facility, with past medical history of seizure disorder, hypertension, hepatic encephalopathy, chronic renal insufficiency, GERD, mood disorder, presented for evaluation for pleural effusion and possible pneumonia. Upon evaluation, vital signs were stable. Patient was afebrile. Pulse oximetry was stable on room air. Laboratory workup revealed leukocytosis, WBC 13.6, hemoglobin 11, hematocrit 31, platelet count 61. Chemistry demonstrated potassium 3.3. Stable renal parameters. Lactic acid 0.8. Troponin negative. Stable LFT. Urinalysis revealed +1 protein, +1 leukocyte esterase, no pyuria, and only few bacteria. Chest x-ray demonstrated large left pleural effusion developing since 12/22/2019. Patient presented from the nursing facility where patients were identified with COVID-19 infection. Patient was swabbed for COVID-19. Patient started on empiric antibiotics for possible pneumonia. Patient admitted to isolation room for further management. CONSULTANTS: 1. ID specialist, Dr. Gamal Serrano. 2. Travel Guide, Dr. Valdivia. 3. Transmission Operator, Dr. Sargent. 4. GI specialist Dr. Forbes. 5. Pasteurizer, Dr. Coley. HOSPITAL COURSE: Patient admitted to hospital to isolation room. Patient was on empiric antibiotics as per ID specialist recommendation. Blood culture came back negative. SARS-CoV-2 by PCR on 02/17/2020 and 02/19/2020 was not detected. Isolation was discontinued. Supplemental oxygen provided and titrated to keep pulse oximetry above 92%. Pulmonary toilet provided. Renal parameters, electrolytes were closely monitored. Potassium was replaced along with phosphorous and magnesium. Patient was on IV hydration. Renal parameters remained stable. Patient noted to have anemia. Hemoglobin and hematocrit were closely monitored with goal to keep hemoglobin above 7. Hemoglobin and hematocrit remained on the baseline. Per human relations teacher, patient had pancytopenia likely secondary to underlying liver disease. Anemia workup was consistent with anemia of chronic disease. Platelet count prior to discharge 69. ID specialist recommended to complete antibiotic for additional 3 days at the facility. GI specialist followed. On prior admission, stool for occult blood was negative. DVT prophylaxis with SCD provided. Antiemetics were on board as needed. Appetite stimulants provided. Ammonia elevated. Patient was on lactulose and Xifaxan. Continue lactulose at the facility. GI prophylaxis provided. Seizure precaution maintained. Keppra continued. Anticoagulation with Eliquis continued. Patient clinically stabilized and was ready for discharge back to care home facility for continuation of care. FINAL DIAGNOSES: 1. Suspected COVID-19 infection ruled out. 2. Pneumonia. 3. Pleural effusion. 4. Possible sepsis. 5. Hypokalemia. 6. Hepatic encephalopathy. 7. Seizure disorder. 8. Pancytopenia. 9. Anemia of chronic disease. 10. Dementia. DISCHARGE MEDICATIONS: See medication reconciliation list. DISCHARGE INSTRUCTIONS: Patient was discharged to care home facility. FOLLOWUP: Follow up with medical doctor at the facility. Mindy Bryan M.D. I have been assigned to dictate discharge summary on this account and I was not involved in the patient's management. [facility] : RAFFAELE JOB#: [id number] CC:
--- NOTE | 2020-02-24 11:32 | NUR ---
*-* INSURANCE *-* DISCHARGE SUMMARY HAS BEEN FAXED TO: [facility] AUTH# [id number] DESTINY: YANET P:[phone] F:[phone] (FAX ALL CLINICALS)
== END 2020-02-20 13:16 | DRG 720 ==
LOC: EDBD 11:17 → EMR 12:12 → 4E 13:03 → EDBEDREQ 14:44
DX: A41.9 Sepsis, unspecified organism (principal); J18.9 Pneumonia, unspecified organism; E87.6 Hypokalemia; E03.9 Hypothyroidism, unspecified; N39.0 Urinary tract infection, site not specified; E43 Unspecified severe protein-calorie malnutrition; D63.8 Anemia in other chronic diseases classified elsewhere; G40.909 Epilepsy, unspecified, not intractable, without status epilepticus; I82.591 Chronic embolism and thrombosis of other specified deep vein of right lower extremity; Z95.828 Presence of other vascular implants and grafts; D61.818 Other pancytopenia; E87.1 Hypo-osmolality and hyponatremia; Z86.73 Personal history of transient ischemic attack (TIA), and cerebral infarction without residual deficits; K57.90 Diverticulosis of intestine, part unspecified, without perforation or abscess without bleeding; K21.9 Gastro-esophageal reflux disease without esophagitis; K72.10 Chronic hepatic failure without coma; I10 Essential (primary) hypertension; I12.9 Hypertensive chronic kidney disease with stage 1 through stage 4 chronic kidney disease, or unspecified chronic kidney disease; N18.9 Chronic kidney disease, unspecified; F03.90 Unspecified dementia, unspecified severity, without behavioral disturbance, psychotic disturbance, mood disturbance, and anxiety; K72.90 Hepatic failure, unspecified without coma; Z88.6 Allergy status to analgesic agent; Z88.1 Allergy status to other antibiotic agents; Z88.0 Allergy status to penicillin; Z88.8 Allergy status to other drugs, medicaments and biological substances; Z79.01 Long term (current) use of anticoagulants
CPT/HCPCS: 36415; 71045; 80048; 80053; 80061; 81003; 82140; 82550; 82553; 82607; 82728; 82746; 82962; 82977; 83036; 83540; 83550; 83605; 83615; 83735; 83880; 84100; 84443; 84484; 84550; 85007; 85025; 86140; 87040; 87081; 87635; 93005; 96361; 96365; 96368; 99285; C9399; J2765; J7030; J8499